=== PATIENT | female | born 1945 | race Caucasian/White ===

== ENCOUNTER 2024-07-17 14:00 | Outpatient (RCR) | payer OTHER, SELFPAY ==
[2024-07-10 14:56] LABS: Basophils % (Auto) 1 % (0-2.5); Eosinophils # (Auto) 0.1 Thou/mm3 (0.0-0.5); Eosinophils % (Auto) 2 % (0-10); Hematocrit 32.5 % (36.0-46.0); Hemoglobin 9.7 g/dL (12.0-16.0); Immature Granulocytes % (Auto) 0 % (0-0); Immature Granulocytes Auto 0.01 Thou/mm3 (0.00-0.00); Lymphocytes # (Auto) 0.5 Thou/mm3 (1.0-4.8); Lymphocytes % (Auto) 18 % (10-50); Mean Corpuscular HGB Conc 29.8 g/dl (31.0-37.0); Mean Corpuscular Hemoglobin 24.6 pg (25.0-35.0); Mean Corpuscular Volume 83 fL (80-100); Monocytes # (Auto) 0.3 Thou/mm3 (0.0-0.8); Monocytes % (Auto) 9 % (0-12); Neutrophils # (Auto) 2.1 Thou/mm3 (1.8-7.7); Neutrophils % (Auto) 69 % (37-80); Nucleated Red Blood Cell % 0 /100 WBC (0); Platelet Count 119 Thou/mm3 (140-440); RDW Standard Deviation 77.6 fL (36.4-46.3); Red Blood Count 3.94 Miln/mm3 (4.00-5.20)
[2024-07-10 15:11] LABS: Alanine Aminotransferase 19 U/L (10-49); Albumin, Serum 3.7 gm/dL (3.4-4.8); Albumin/Globulin Ratio 1.2 (1.2-2.2); Alkaline Phosphatase 179 U/L (46-116); Anion Gap 4 (7-16); Aspartate Amino Transferase 37 U/L (0-34); BUN/Creatinine Ratio 12 Ratio (12-20); Bilirubin,Total 0.8 mg/dL (0.3-1.2); Blood Urea Nitrogen 7 mg/dL (9-23); Calcium 8.9 mg/dL (8.3-10.6); Calcium (Corrected) 9.1 mg/dL (8.5-10.1); Carbon Dioxide 27.3 mMol/L (20.0-31.0); Chloride 108 mMol/L (98-107); Creatinine (Component) 0.6 mg/dL (0.6-1.3); Globulin 3.2 gm/dL (2.3-3.5); Glucose 91 mg/dL (74-106); Osmolality,Calculated 275 (275-295); Potassium 3.7 mMol/L (3.4-5.1); Sodium 139 mMol/L (136-145); Total Protein 6.9 gm/dL (5.7-8.2); eGFR > 60 See Note
[2024-07-10 15:15] LABS: Vitamin B12 556 pg/mL (211-911)
[2024-07-10 15:26] LABS: Ferritin 118 ng/mL (7.3-270.7); Total Iron Binding Capacity 297 mcg/dL (250-425)
[2024-07-10 15:36] LABS: Iron 30 mcg/dL (50-170); Percent Iron Saturation 10 % (20-55); Unsaturated Iron Binding 267 (225-295)
== END 2024-08-02 23:59 | disposition home or self-care (01) ==
LOC: SCTC 14:00
PROVIDERS: Nurse Practitioner Family; PCP Family Medicine; Referring Provider Family Medicine; Visit Provider Internal Medicine Hematology & Oncology
DX: D50.9 Iron deficiency anemia, unspecified (principal); D69.6 Thrombocytopenia, unspecified; Z86.19 Personal history of other infectious and parasitic diseases
CPT/HCPCS: 80053; 82607; 82728; 82746; 83540; 83550; 85025; 96365; Q0138

== ENCOUNTER → 2024-08-04 | Outpatient (CLI) | payer OTHER, SELFPAY ==
[2024-08-04 08:37] LABS: Basophils % (Auto) 1 % (0-2.5); Eosinophils # (Auto) 0.1 Thou/mm3 (0.0-0.5); Eosinophils % (Auto) 3 % (0-10); Hematocrit 38.8 % (36.0-46.0); Immature Granulocytes % (Auto) 0 % (0-0); Immature Granulocytes Auto 0.01 Thou/mm3 (0.00-0.00); Lymphocytes # (Auto) 0.6 Thou/mm3 (1.0-4.8); Lymphocytes % (Auto) 20 % (10-50); Mean Corpuscular HGB Conc 30.9 g/dl (31.0-37.0); Mean Corpuscular Hemoglobin 27.5 pg (25.0-35.0); Mean Corpuscular Volume 89 fL (80-100); Monocytes # (Auto) 0.3 Thou/mm3 (0.0-0.8); Monocytes % (Auto) 10 % (0-12); Neutrophils # (Auto) 1.8 Thou/mm3 (1.8-7.7); Neutrophils % (Auto) 66 % (37-80); Nucleated Red Blood Cell % 0 /100 WBC (0); Platelet Count 100 Thou/mm3 (140-440); RDW Standard Deviation 78.1 fL (36.4-46.3); Red Blood Count 4.37 Miln/mm3 (4.00-5.20)
[2024-08-04 08:48] LABS: White Blood Count 2.7 Thou/mm3 (3.6-11.0)
[2024-08-04 08:55] LABS: Folate 10.58 ng/mL (>5.38); Vitamin B12 507 pg/mL (211-911)
[2024-08-04 09:00] LABS: Alanine Aminotransferase 28 U/L (10-49); Albumin, Serum 3.8 gm/dL (3.4-4.8); Albumin/Globulin Ratio 1.3 (1.2-2.2); Alkaline Phosphatase 212 U/L (46-116); Anion Gap 7 (7-16); Aspartate Amino Transferase 43 U/L (0-34); BUN/Creatinine Ratio 17 Ratio (12-20); Bilirubin,Total 1.6 mg/dL (0.3-1.2); Blood Urea Nitrogen 10 mg/dL (9-23); Calcium (Corrected) 9.2 mg/dL (8.5-10.1); Carbon Dioxide 28.6 mMol/L (20.0-31.0); Chloride 105 mMol/L (98-107); Creatinine (Component) 0.6 mg/dL (0.6-1.3); Glucose 91 mg/dL (74-106); Osmolality,Calculated 280 (275-295); Sodium 141 mMol/L (136-145); Total Protein 6.8 gm/dL (5.7-8.2); eGFR > 60 See Note
[2024-08-04 09:16] LABS: Ferritin 121 ng/mL (7.3-270.7); Total Iron Binding Capacity 245 mcg/dL (250-425)
[2024-08-04 09:26] LABS: Iron 63 mcg/dL (50-170); Percent Iron Saturation 25 % (20-55); Unsaturated Iron Binding 182 (225-295)
== END | disposition home or self-care (01) ==
PROVIDERS: PCP Family Medicine; Referring Provider Nurse Practitioner Family; Visit Provider Nurse Practitioner Family
DX: D50.9 Iron deficiency anemia, unspecified (principal)
CPT/HCPCS: 36415; 80053; 82607; 82728; 82746; 83540; 83550; 85025

== ENCOUNTER 2024-08-05 13:47 | Outpatient (RCR) | payer OTHER, SELFPAY | END 2024-09-02 23:59 | disposition home or self-care (01) | LOC: SCTC 13:47 | PROVIDERS: PCP Family Medicine; Referring Provider Family Medicine; Visit Provider Nurse Practitioner Family | DX: D50.9 Iron deficiency anemia, unspecified (principal); R16.1 Splenomegaly, not elsewhere classified; K74.60 Unspecified cirrhosis of liver; K80.20 Calculus of gallbladder without cholecystitis without obstruction; D69.6 Thrombocytopenia, unspecified | CPT/HCPCS: 99212; G0463 ==

== ENCOUNTER → 2024-08-11 | Outpatient (CLI) | payer OTHER, SELFPAY ==
[2024-08-11 08:27] LABS: Basophils % (Auto) 1 % (0-2.5); Eosinophils # (Auto) 0.1 Thou/mm3 (0.0-0.5); Eosinophils % (Auto) 4 % (0-10); Hematocrit 37.6 % (36.0-46.0); Hemoglobin 11.8 g/dL (12.0-16.0); Immature Granulocytes % (Auto) 0 % (0-0); Lymphocytes # (Auto) 0.5 Thou/mm3 (1.0-4.8); Lymphocytes % (Auto) 23 % (10-50); Mean Corpuscular HGB Conc 31.4 g/dl (31.0-37.0); Mean Corpuscular Hemoglobin 28.1 pg (25.0-35.0); Mean Corpuscular Volume 90 fL (80-100); Monocytes # (Auto) 0.3 Thou/mm3 (0.0-0.8); Monocytes % (Auto) 12 % (0-12); Neutrophils # (Auto) 1.3 Thou/mm3 (1.8-7.7); Neutrophils % (Auto) 60 % (37-80); Nucleated Red Blood Cell % 0 /100 WBC (0); Platelet Count 131 Thou/mm3 (140-440)
[2024-08-11 08:38] LABS: White Blood Count 2.1 Thou/mm3 (3.6-11.0)
[2024-08-11 08:39] LABS: B-Type Natriuretic Peptide 126 pg/mL (0-100)
[2024-08-11 08:56] LABS: Alanine Aminotransferase 27 U/L (10-49); Albumin, Serum 3.7 gm/dL (3.4-4.8); Alkaline Phosphatase 212 U/L (46-116); Anion Gap 6 (7-16); Aspartate Amino Transferase 53 U/L (0-34); BUN/Creatinine Ratio 20 Ratio (12-20); Bilirubin,Direct 0.4 mg/dL (0.0-0.3); Blood Urea Nitrogen 12 mg/dL (9-23); Calcium 8.7 mg/dL (8.3-10.6); Carbon Dioxide 27.6 mMol/L (20.0-31.0); Cardiac Risk Estimate 2.6 RATIO (3.7-5.6); Chloride 107 mMol/L (98-107); Cholesterol 131 mg/dL (132-200); Creatinine (Component) 0.6 mg/dL (0.6-1.3); Free T4 (Free Thyroxine) 1.01 ng/dL (0.89-1.76); Glucose 94 mg/dL (74-106); HDL Cholesterol 51 mg/dL (40-60); LDL Cholesterol,Calculated 71 mg/dL (0-130); Osmolality,Calculated 280 (275-295); Potassium 3.9 mMol/L (3.4-5.1); Sodium 141 mMol/L (136-145); Thyroid Stimulating Hormone 2.73 uIU/mL (0.55-4.78); Total Protein 6.6 gm/dL (5.7-8.2); Triglycerides 47 mg/dL (30-150); eGFR > 60 See Note
== END | disposition home or self-care (01) ==
LOC: COPL 07:24
PROVIDERS: PCP Family Medicine; Referring Provider Internal Medicine Cardiovascular Disease; Visit Provider Internal Medicine Cardiovascular Disease
DX: I10 Essential (primary) hypertension (principal); E78.5 Hyperlipidemia, unspecified; I34.0 Nonrheumatic mitral (valve) insufficiency; I49.9 Cardiac arrhythmia, unspecified
CPT/HCPCS: 36415; 80048; 80061; 80076; 83880; 84439; 84443; 85025

== ENCOUNTER → 2024-09-04 | Outpatient (CLI) | payer OTHER, SELFPAY ==
[2024-09-04 08:34] LABS: Basophils % (Auto) 1 % (0-2.5); Eosinophils # (Auto) 0.1 Thou/mm3 (0.0-0.5); Eosinophils % (Auto) 4 % (0-10); Hematocrit 32.7 % (36.0-46.0); Hemoglobin 10.2 g/dL (12.0-16.0); Immature Granulocytes % (Auto) 0 % (0-0); Lymphocytes # (Auto) 0.5 Thou/mm3 (1.0-4.8); Lymphocytes % (Auto) 20 % (10-50); Mean Corpuscular HGB Conc 31.2 g/dl (31.0-37.0); Mean Corpuscular Hemoglobin 28.6 pg (25.0-35.0); Mean Corpuscular Volume 92 fL (80-100); Monocytes # (Auto) 0.3 Thou/mm3 (0.0-0.8); Monocytes % (Auto) 11 % (0-12); Neutrophils # (Auto) 1.7 Thou/mm3 (1.8-7.7); Neutrophils % (Auto) 66 % (37-80); Nucleated Red Blood Cell % 0 /100 WBC (0); Platelet Count 100 Thou/mm3 (140-440); Red Blood Count 3.57 Miln/mm3 (4.00-5.20)
[2024-09-04 08:46] LABS: White Blood Count 2.6 Thou/mm3 (3.6-11.0)
[2024-09-04 08:51] LABS: Alanine Aminotransferase 26 U/L (10-49); Albumin, Serum 3.7 gm/dL (3.4-4.8); Albumin/Globulin Ratio 1.2 (1.2-2.2); Alkaline Phosphatase 208 U/L (46-116); Anion Gap 5 (7-16); Aspartate Amino Transferase 51 U/L (0-34); BUN/Creatinine Ratio 18 Ratio (12-20); Bilirubin,Total 0.7 mg/dL (0.3-1.2); Blood Urea Nitrogen 11 mg/dL (9-23); Calcium 8.7 mg/dL (8.3-10.6); Calcium (Corrected) 8.9 mg/dL (8.5-10.1); Carbon Dioxide 29.6 mMol/L (20.0-31.0); Chloride 107 mMol/L (98-107); Creatinine (Component) 0.6 mg/dL (0.6-1.3); Globulin 3.1 gm/dL (2.3-3.5); Glucose 93 mg/dL (74-106); Osmolality,Calculated 282 (275-295); Potassium 3.8 mMol/L (3.4-5.1); Sodium 142 mMol/L (136-145); Total Protein 6.8 gm/dL (5.7-8.2); eGFR > 60 See Note
[2024-09-04 09:00] LABS: Folate 11.42 ng/mL (>5.38); Vitamin B12 405 pg/mL (211-911)
[2024-09-04 09:29] LABS: Ferritin 16 ng/mL (7.3-270.7); Iron 25 mcg/dL (50-170); Percent Iron Saturation 8 % (20-55); Total Iron Binding Capacity 297 mcg/dL (250-425); Unsaturated Iron Binding 272 (225-295)
== END | disposition home or self-care (01) ==
LOC: SCTO 07:05
PROVIDERS: PCP Family Medicine; Referring Provider Nurse Practitioner Family; Visit Provider Nurse Practitioner Family
DX: D50.9 Iron deficiency anemia, unspecified (principal)
CPT/HCPCS: 36415; 80053; 82607; 82728; 82746; 83540; 83550; 85025

== ENCOUNTER 2024-10-01 08:08 | Outpatient (RCR) | payer OTHER, SELFPAY ==
--- NOTE | 2024-09-11 01:18 | CTCFLWUP_ITS ---
Patient: TRACEY HUI : 1945 Page 4 of 5 FOLLOW UP NOTE DATE OF SERVICE: 09/10/2024 NAME: TRACEY HUI ACCOUNT: [id number] : 1945 AGE: 79 INTERVAL HISTORY: Patient is saying that she will likely need iron as she is feeling fatigued. She says that I should review her labs and possibly order iron infusion for her. She has seen her tax specialist and bravo ve never found a reason for her iron levels. She understand that she has cirrhosis and splenomegaly. She does not take oral iron as it does not work for her. She has never been diagnosed with bleeding ulcers or vaginal bleed or rectal bleed hematemesis or any other sources of blood loss ONCOLOGY HISTORY: DIAGNOSIS: Iron deficiency anemia, unspecified [ICD10] D50.9 TREATMENT HISTORY: Care?Plan Start?Date Cycle Day Intent VENOfer?200mg?IV?wkly 06/02/2020 1 70 Palliative VENOfer?200mg?IV?wkly?for?10?weeks 01/04/2022 1 70 Palliative FERAheme 06/14/2023 1 30 Other,?NOS FERAheme?4?doses 10/31/2023 1 28 Palliative FERAheme?4?doses 01/21/2024 1 28 Palliative FERAheme?4?doses 06/26/2024 1 28 Palliative HISTORY OF PRESENT ILLNESS: Ms. Hui is here at [facility] center. Patient last received Feraheme on 07/04. Patient reports improved energy levels after Feraheme. Labs from 08/04/2024 show hemoglobin 1 2.0, MCV 89. Ultrasound of abdomen done on 06/20/2024 showed significant splenomegaly, cirrhosis, ch olelithiasis negative for cholecystitis. Patient follows up with Dr. Fields, GI, patient reports she has previously declined surgical intervention for cholelithiasis as she does not have any abdominal p ain. She denies bleeding concerns. Patient reports good appetite. Patient denies any concerns or com plaints. Denies any blood in stool, black stools, jada blood per rectum. Denies any cough, chest p ain, abdominal pain, nausea, vomiting, diarrhea, fever, weight loss. HISTORY: Tracey Hui is a 79-year-old female with history of chronic anemia as well as auto immune hepatitis was taking azathioprine, patient discontinued reports liver enzymes have remained st able since discontinuing azathioprine, follows up with Dr. Donnie LUDWIG. She has been taking oral ferrou s sulfate 325 mg p.o. 3 times daily for last few years. Unfortunately, she was not responding to ora l ferrous sulfate. Reports occasional constipation when takes ferrous sulfate. She was required to re ceive IV iron therapy at least 3 times in the last 5 years. Patient states that she also had upper G I endoscopy by Dr. Garvin few years ago. She also had some kind of procedure done at [facility]. I do not have the reports of the endoscopy or the procedure done at [facility] at this time. 10/19/2018: Colonoscopy? 04/08/2020: WBC 1.9, ANC 1.1, hemoglobin 7.4, MCV 81, platelets 157,000. 04/27/2020 WBC 2.7, ANC 1.6, hemoglobin 7.1, MCV 76, platelets 158,000. 05/19/2020: WBC 3.4, ANC 2.1, hemoglobin 7.7, MCV 75, platelets 169,000. 06/02/2020?08/18/2020: Patient received 2 g of Venofer. 08/18/2020: WBC 2.3, ANC 1.5, hemoglobin 12.1, MCV 92, platelets 118,000. Iron saturation 23%, ferritin 265. 12/13/2021: Hemoglobin 7.1, MCV 70, WBC 1.9, ANC 1.0, platelets 140,000. 01/04/2022: Ms. Hui is started on Venofer infusions. 01/20/2022: Bone marrow biopsy and aspiration? 05/25/2022: WBC 2.1, ANC 1.3, hemoglobin 8.8, MCV 79, platelets 136,000, creatinine 0.5, iron saturati on 3%, ferritin 8. 06/15/2022 - 08/15/2022: Ms. Hui received 2 g of Venofer. 08/21/2022: Hemoglobin 12.7, MCV 91, WBC 2.6, ANC 1.7, platelets 111,000, iron saturation 15%, ferrit in 207. 03/09/2023: WBC 2.8, hemoglobin 11.1, MCV 90, ANC 1.9, platelets 126,000, iron saturation 8%, ferrit in 17 05/30/2023: WBC 3.1, hemoglobin 12.1, MCV 93, ANC 1.9, platelets 141,000, iron saturation 8%, ferriti n 16 06/14/2023: Feraheme 510mg IV infusion 06/21/2023: Ferahemer 510 mg IV infusion 10/02/2023: WBC 2.8, hemoglobin 10.9, MCV 88, ANC1.7, platelets 114,000, iron saturation 7%, ferritin 6 10/31/2023-12/01/2023: Feraheme x 4 infusions 11/28/2023: WBC 2.4, hemoglobin 12.2, MCV 92, ANC 1.6, platelets 124,000, iron saturation 24%, ferriti n 364 01/04/2024: WBC 2.6, hemoglobin 11.6, MCV 93, ANC 1.7, platelets 105,000, iron saturation 15%, ferritin 47 01/21/2024-02/11/2024: Feraheme 510 mg x 4 infusions 03/04/2024: WBC 2.8, hemoglobin 12.2, MCV 96, ANC 1.8, platelets 103,000, iron saturation 25%, ferritin 231 06/04/2024: WBC 2.7, hemoglobin 8.4, MCV 88, platelets 119,000, iron saturation 3%, ferritin 5 08/04/2024: WBC 2.7, hemoglobin 12.0, MCV 89, platelets 100,000 OTHER MEDICAL HISTORY/CONDITIONS: FAMILY HISTORY: ?Clone Family Hx? 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 Lasix - 20 mg 1 tab Daily?Palabra Meds? Medications Last Reconciled by Ita Torres MA on 09/10/2024 ALLERGIES: hydrocodone-acetaminophen; fentanyl (bulk); cephalexin; paper tape REVIEW OF SYSTEMS: A complete 14-point review of systems was performed and is negative except as noted in interval histo ry. PHYSICAL EXAMINATION: VITAL SIGNS: Temperature?98.2, B/P?137/74, Oxygen?Saturation?97% Weight?142?lbs PAIN: 0 - No pain ECOG Performance Status: 1 0 - Asymptomatic and fully active GENERAL APPEARANCE: Appears well, in no apparent distress, appropriately interactive. HEENT: Normocephalic, no temporal wasting, normal conjunctiva, no scleral icterus, normal hearing, li ps without lesions, neck normal range of motion. CARDIOVASCULAR: Not assessed. PULMONARY: Normal respiratory effort, no respiratory distress or use of accessory muscles, speaking i n full sentences, no tachypnea. EXTREMITIES: No pedal edema or cyanosis. SKIN: Normal skin appearance. NEUROLOGIC: Alert and oriented x4. PSHYCHIATRIC: Appropriate affect, mood normal, behavior normal, intact thought and speech. LABORATORY DATA: I have personally reviewed and interpreted each of the patient?s relevant lab tests, abnormal finding s are below: Date 09/04/24 ??WHITE?BLOOD?COUNT?(Thou/mm3) 2.6?L ??RED?BLOOD?COUNT?(Miln/mm3) 3.57?L ??HEMOGLOBIN?(gm/dl) 10.2?L ??HEMATOCRIT?(%) 32.7?L ??PLATELET?COUNT?(Thou/mm3) 100?L ??NEUTROPHILS?%,?AUTO?(%) 66 ??LYMPH?%,?AUTO?(%) 20 ??NEUTROPHILS,?AUTO?(Thou/mm3) 1.7?L ASSESSMENT/PLAN: Anemia from iron deficiency Reviewed chart and patient has been treated extensively with iron infusions I will keep iron infusions every 3 to 6 months as needed Patient is symptomatic Will give Feraheme for 4 doses to replenish her stores Patient may be having a hemolysis going on so we will check for LDH and haptoglobin ORDERS: Feraheme CBC CMP ferritin iron studies in I will see her back in the clinic in 3 months. LDH haptoglobin now RETURN TO CLINIC: I will see her back in the clinic in 3 months. BILLING AND COMPLIANCE: I reviewed external records from providers outside my specialty as summarized above. I spent a total of 50 minutes on this patient?s care on the day of their visit excluding time spent related to any bi lled procedures. This time includes time spent with the patient as well as time spent documenting in the medical record, reviewing patients records and tests, obtaining history, placing orders, communi cating with other healthcare professionals, counseling the patient, family or caregiver, and/or care coordination for the diagnoses above. Electronically Signed by: Pierre Cain MD T: 1:15 AM CC: PCP: Hailee Hanks Referring: Hailee Hanks This document was completed utilizing speech recognition software. Grammatical errors, random word in sertions, pronoun errors, and incomplete sentences are an occasional consequence of this system due t o software limitations, ambient noise, and hardware issues. Any formal questions or concerns about th e content, text or information contained within the body of this dictation should be directly address ed to the provider for clarification.
== END 2024-10-03 23:59 | disposition home or self-care (01) ==
LOC: SCTC 08:08
PROVIDERS: PCP Family Medicine; Referring Provider Family Medicine; Visit Provider Internal Medicine Hematology & Oncology
DX: D50.9 Iron deficiency anemia, unspecified (principal)
CPT/HCPCS: 96365; J7040; J7050; Q0138; Q3014

== ENCOUNTER 2024-10-15 08:11 | Outpatient (RCR) | payer OTHER, SELFPAY | END 2024-10-31 23:59 | disposition home or self-care (01) | LOC: SCTC 08:11 | PROVIDERS: PCP Family Medicine; Referring Provider Internal Medicine Hematology & Oncology; Visit Provider Internal Medicine Hematology & Oncology | DX: D50.9 Iron deficiency anemia, unspecified (principal); K74.60 Unspecified cirrhosis of liver; R16.1 Splenomegaly, not elsewhere classified | CPT/HCPCS: 96365; A4216; J7040; J7050; Q0138 ==

== ENCOUNTER 2024-11-20 07:45 | Inpatient (IN) | payer OTHER, MEDICARE, SELFPAY ==
[2024-11-18 08:13] VITALS: BMI 22.9
[2024-11-18 09:01] LABS: Basophils % (Auto) 1 % (0-2.5); Eosinophils # (Auto) 0.1 Thou/mm3 (0.0-0.5); Eosinophils % (Auto) 4 % (0-10); Hematocrit 37.7 % (36.0-46.0); Hemoglobin 12.1 g/dL (12.0-16.0); Immature Granulocytes % (Auto) 0 % (0-0); Lymphocytes # (Auto) 0.5 Thou/mm3 (1.0-4.8); Lymphocytes % (Auto) 23 % (10-50); Mean Corpuscular HGB Conc 32.1 g/dl (31.0-37.0); Mean Corpuscular Hemoglobin 29.8 pg (25.0-35.0); Mean Corpuscular Volume 93 fL (80-100); Monocytes # (Auto) 0.3 Thou/mm3 (0.0-0.8); Monocytes % (Auto) 12 % (0-12); Neutrophils # (Auto) 1.4 Thou/mm3 (1.8-7.7); Neutrophils % (Auto) 60 % (37-80); Nucleated Red Blood Cell % 0 /100 WBC (0); Platelet Count 99 Thou/mm3 (140-440); RDW Standard Deviation 57.6 fL (36.4-46.3); Red Blood Count 4.06 Miln/mm3 (4.00-5.20)
[2024-11-18 09:07] LABS: White Blood Count 2.3 Thou/mm3 (3.6-11.0)
[2024-11-18 09:12] LABS: INR 1.2 (0.9-1.3); Prothrombin Time 12.7 Seconds (9.0-12.2)
[2024-11-18 09:19] LABS: Alanine Aminotransferase 24 U/L (10-49); Albumin, Serum 3.6 gm/dL (3.4-4.8); Alkaline Phosphatase 197 U/L (46-116); Anion Gap 5 (7-16); Aspartate Amino Transferase 30 U/L (0-34); BUN/Creatinine Ratio 12 Ratio (12-20); Blood Urea Nitrogen 7 mg/dL (9-23); Calcium 8.8 mg/dL (8.3-10.6); Calcium (Corrected) 9.1 mg/dL (8.5-10.1); Carbon Dioxide 29.6 mMol/L (20.0-31.0); Chloride 105 mMol/L (98-107); Creatinine (Component) 0.6 mg/dL (0.6-1.3); Estimated Creatinine Clearance 66.2 mL/min (>60); Globulin 3.5 gm/dL (2.3-3.5); Glucose 99 mg/dL (74-106); Osmolality,Calculated 277 (275-295); Potassium 3.8 mMol/L (3.4-5.1); Sodium 140 mMol/L (136-145); Total Protein 7.1 gm/dL (5.7-8.2); eGFR > 60 See Note
--- NOTE | 2024-11-19 14:17 | SUR.PREOP ---
Dr Burton notified of WBC 2.3, okay to proceed with surgery. Dr Burton also notified the lab needs 40 min to thaw the FFP. Dr Burton needs to plasma ready on pt's arrival to [facility]. Ginny KING aware.
--- NOTE | 2024-11-19 14:31 | SUR.PREOP ---
Pt notified to come in tomorrow at 0800 for surgery.
--- NOTE | 2024-11-19 14:33 | SUR.PREOP ---
WBC 2.3, health history reviewed with Dr John.
[2024-11-20] VITALS (16 sets, daily range): BP systolic 90–123; BP diastolic 56–71; PULSE 77–111; RESP 12–19; TEMP 36.1–37; O2SAT 91–99; BMI 23.1; BMI 23.3
[2024-11-20] MEDS: RINGERS LACTATED 1000 ML 1,000 ML 20 ML IV (09:00)
--- NOTE | 2024-11-20 14:07 | PD.SUROPNT ---
Date of Procedure 11/20/24 Pre Op Diagnosis Symptomatic diverticular stricture Symptomatic cholelithiasis Splenomegaly Post Op Diagnosis Symptomatic diverticular stricture Symptomatic cholelithiasis Splenomegaly Liver cirrhosis Procedure Exploratory laparotomy, sigmoid colectomy with low pelvic anastomosis Splenectomy Cholecystectomy Findings Thickening and stricture of proximal sigmoid and distal descending colon. Significant splenomegaly. Significantly distended gallbladder with gallstones and chronic cholecystitis. Cirrhosis of the liver without ascites Anesthesia GETA Pathology / specimen Other (Sigmoid colon and distal descending colon. Spleen. Gallbladder and contents) Estimated Blood Loss 200 Condition Stable Disposition PACU Surgeon Kamran Burton MD Surgical Staff Operation Date: 11/20/24 10:00 Case Staff Anesthesiologist: Florin John RNdrill operator: Monisha Cheung
--- NOTE | 2024-11-20 14:09 | SUR.PHASEI ---
1407 Patient arrived to recovery resting comfortably in bed, on oxygen 6L via oxy mask with nasal airway in place, breathing unlabored, vitals signs stable, dressing intact; maikel, adaptic, abd, medipore tape, abdominal binder, no bleeding noted, urinary catheter 16F in place with leg secure, draining to gravity, lung sounds clear upon auscultation, bilateral radial pulses present when palpated, report received Dr. John and Chuck PARKER
--- NOTE | 2024-11-20 15:19 | SUR.PHASEI ---
patients daughter at bedside with patient
[2024-11-20] MEDS: KCL 20 mEq/L in D5-1/2NS 20 MEQ/1,000 ML BAG 60 MEQ IV (15:54)
[2024-11-20] MEDS: Morphine Sulfate PF 1 MG/ML PCA VIAL 30 ML 30 MG IV (16:13)
--- NOTE | 2024-11-20 17:34 | SUR.PHASEI ---
1712 Report given to Barb PARKER. 1734 Patient meets discharge criteria from recovery, resting comfortably in bed, on oxygen 6L via nasal cannula, breathing unlabored,vital signs stable, dressing intact; no bleeding noted, pain controlled with AIR TRAFFIC CONTROL OPERATOR, urinary catheter drain 50ml output, dark yellow urine, noted. Patient transported via bed to room 377 without incident, Barb PARKER and ASSET PROTECTION GREETER promptly in patients room, patient daughter in room awaiting patient, patient resting comfortably in bed with call light in reach when this residential mortgage underwriter left patient room
--- NOTE | 2024-11-20 17:56 | ESPR_ITS ---
Documentation for date of: 11/20/24 ANESTHESIA NOTE: Patient had GETA for ex lap and multiple abdominal surgeries (see op note for details) earlier today. Pre-op, I saw her with her visitor. She reported h/o PONV and wanted to try Scopolamine patch after risk/benefit discussion and was given the patch over R mastoid with education. 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 Her old echo showed MR and TR and she had larger than usual veins of neck and b/l UE. She did well intra-op, was intubated and extubated uneventfully. She was given 1 unit of RBC and 1 of FFP intra-op, along with about 1150 cc of crystalloid. She has been in PACU post op doing well, resting calmly throughout on my observation, post op pain controlled with OCCUPATIONAL HEALTH MANAGER, and was just transferred out of PACU. Florin John MD Anesthesia Progress Note Progress Note Most recent Vital Signs: Last Vital Signs Temp 97.3 F 11/20/24 14:38 Pulse 111 H 11/20/24 15:23 Resp 13 11/20/24 15:23 BP 115/59 L 11/20/24 15:23 Pulse Ox 95 11/20/24 15:23 O2 Flow Rate 8 11/20/24 15:23
[2024-11-20] MEDS: ACETAMINOPHEN IVPB 1,000 MG/100 ML VIAL 250 MG IV (23:18)
[2024-11-20] MEDS: ONDANSETRON INJ 2 MG/ML INJ 2 ML 4 MG IV (23:57)
--- NOTE | 2024-11-20 23:59 | PC.NURSE ---
accessed pt's chart to assist main RN.
[2024-11-21] VITALS (8 sets, daily range): BP systolic 108–124; BP diastolic 60–66; PULSE 76–85; RESP 16–20; TEMP 36.1–37.3; O2SAT 92–94
[2024-11-21] MEDS: CEFOXITIN 2 GM in SODIUM CHLORIDE 0.9% (Popper) 50 ML IV ×5 (00:44→23:21)
[2024-11-21] MEDS: ACETAMINOPHEN IVPB 1,000 MG/100 ML VIAL 250 MG IV ×2 (05:06→12:26)
[2024-11-21 06:07] LABS: Basophils % (Auto) 0 % (0-2.5); Eosinophils % (Auto) 0 % (0-10); Hematocrit 38.4 % (36.0-46.0); Immature Granulocytes % (Auto) 1 % (0-0); Immature Granulocytes Auto 0.09 Thou/mm3 (0.00-0.00); Lymphocytes # (Auto) 0.3 Thou/mm3 (1.0-4.8); Lymphocytes % (Auto) 2 % (10-50); Mean Corpuscular HGB Conc 31.3 g/dl (31.0-37.0); Mean Corpuscular Hemoglobin 28.9 pg (25.0-35.0); Mean Corpuscular Volume 93 fL (80-100); Monocytes # (Auto) 1.3 Thou/mm3 (0.0-0.8); Monocytes % (Auto) 8 % (0-12); Neutrophils # (Auto) 14.5 Thou/mm3 (1.8-7.7); Neutrophils % (Auto) 90 % (37-80); Nucleated Red Blood Cell % 0 /100 WBC (0); Platelet Count 141 Thou/mm3 (140-440); RDW Standard Deviation 58.2 fL (36.4-46.3); Red Blood Count 4.15 Miln/mm3 (4.00-5.20); White Blood Count 16.3 Thou/mm3 (3.6-11.0)
[2024-11-21 06:35] LABS: Alanine Aminotransferase 20 U/L (10-49); Albumin, Serum 3.2 gm/dL (3.4-4.8); Alkaline Phosphatase 144 U/L (46-116); Anion Gap 9 (7-16); Aspartate Amino Transferase 42 U/L (0-34); BUN/Creatinine Ratio 25 Ratio (12-20); Bilirubin,Total 1.2 mg/dL (0.3-1.2); Blood Urea Nitrogen 20 mg/dL (9-23); Calcium 8.5 mg/dL (8.3-10.6); Calcium (Corrected) 9.1 mg/dL (8.5-10.1); Carbon Dioxide 22.7 mMol/L (20.0-31.0); Chloride 108 mMol/L (98-107); Creatinine (Component) 0.8 mg/dL (0.6-1.3); Estimated Creatinine Clearance 47.6 mL/min (>60); Globulin 3.2 gm/dL (2.3-3.5); Glucose 171 mg/dL (74-106); Magnesium 1.8 mg/dL (1.6-2.6); Osmolality,Calculated 286 (275-295); Sodium 140 mMol/L (136-145); Total Protein 6.4 gm/dL (5.7-8.2); eGFR > 60 See Note
[2024-11-21] MEDS: FUROSEMIDE INJ 10 MG/ML VIAL 2 ML 20 MG IVP (09:30)
[2024-11-21] MEDS: ASCORBIC ACID 250 MG TABLET 500 MG PO (09:34)
[2024-11-21] MEDS: ZINC SULFATE 220 MG CAPSULE PO (09:35)
[2024-11-21] MEDS: DOCUSATE SOD 100 MG CAPSULE PO (09:35)
[2024-11-21] MEDS: MORPHINE SULF INJ 10 MG/ML VIAL 2 MG IVP ×4 (09:36→22:39)
--- NOTE | 2024-11-21 10:05 | CHAP ---
Patient expressed gratitude for visit and prayer.
--- NOTE | 2024-11-21 12:09 | PD.SURPROG ---
Documentation for date of: 11/21/24 Subjective Subjective Narrative: Patient is seen and examined. She is resting. She is complaining of incisional pain. She has not passed flatus or bowel movement yet Exam Vital Signs Temp Pulse Resp BP Pulse Ox O2 Del Method O2 Flow Rate 97.1 F 76 17 119/64 92 L Nasal Cannula 6 11/21/24 08:00 11/21/24 08:00 11/21/24 08:00 11/21/24 08:00 11/21/24 08:00 11/21/24 08:00 11/21/24 08:00 Constitutional Constitutional: no acute distress Routine Abdominal Exam Comments: Abdomen is soft and mildly distended. Incision with dressings clean, dry and intact. Assessment & Plan Assessment Additional comments: Postop day #1 status post exploratory laparotomy, sigmoid colectomy, splenectomy and cholecystectomy Plan May have ice chips. Patient is advised to increase ambulation and use incentive spirometer. Continue IV antibiotics Procedures Procedures Exploratory laparotomy, sigmoid colectomy with low pelvic anastomosis Splenectomy Cholecystectomy
[2024-11-21] MEDS: KCL 20 mEq/L in D5-1/2NS 20 MEQ/1,000 ML BAG 60 MEQ IV (12:26)
[2024-11-21] MEDS: ONDANSETRON INJ 2 MG/ML INJ 2 ML 4 MG IV ×2 (12:31→22:39)
--- NOTE | 2024-11-21 12:53 | PC.SS ---
SS met with patient and her dtr regarding patient's d/c plan.? Pt is alert/oriented.? Pt was admitted for Exp LAP [id number].? Pt confirmed demographic and contact information is correct on facesheet.? Patient's physical address is:? [address] [place] [address] [address] [facility].? Pt resides alone.? Dtr states she will be staying with pt for while at her home to help care for her.? Pt ambulates independently without assistance or DME.? Pt is ok with all ADLs.? Pt is currently on 9 liters of O2.? Pt does not utilizes O2 at home.? Patient?s pharmacy of choice is [facility].? Pt named her dtr, Sherry Senior medical decision maker if she is unable.? SS provided pt with d/c options for home or SNF.? Patient?s choice is to return home upon d/c.? Pt states she followed up with PCP last week. D/C plan:? Return home Next of Kin:? Sherry Senior, phone# [phone] PCP:? Dr. [place] Hanks Physical Address:? [address] [place] [address] [address] [facility]. Mailing Address:? [address]
[2024-11-22] VITALS (9 sets, daily range): BP systolic 103–131; BP diastolic 61–69; PULSE 68–100; RESP 12–20; TEMP 36.6–37.4; O2SAT 92–95
[2024-11-22] MEDS: MORPHINE SULF INJ 10 MG/ML VIAL 2 MG IVP ×5 (01:35→22:35)
[2024-11-22] MEDS: CEFOXITIN 2 GM in SODIUM CHLORIDE 0.9% (Popper) 50 ML IV ×3 (05:12→21:17)
[2024-11-22] MEDS: FUROSEMIDE INJ 10 MG/ML VIAL 2 ML 20 MG IVP (08:13)
[2024-11-22] MEDS: ASCORBIC ACID 250 MG TABLET 500 MG PO ×2 (08:13→20:27)
[2024-11-22] MEDS: ZINC SULFATE 220 MG CAPSULE PO (08:13)
[2024-11-22] MEDS: DOCUSATE SOD 100 MG CAPSULE PO ×2 (08:13→20:27)
--- NOTE | 2024-11-22 11:49 | PD.SURPROG ---
Documentation for date of: 11/22/24 Subjective Subjective Narrative: Patient is seen and examined. She is resting comfortably. She is complaining of incisional pain, however improved. She denies nausea or vomiting. She has not passed flatus or bowel movement yet Exam Vital Signs Temp Pulse Resp BP Pulse Ox O2 Del Method O2 Flow Rate 98.9 F 68 18 116/69 93 L Nasal Cannula 4 11/22/24 08:00 11/22/24 09:58 11/22/24 09:58 11/22/24 08:13 11/22/24 09:58 11/22/24 08:00 11/22/24 09:58 Constitutional Constitutional: no acute distress Routine Abdominal Exam Comments: Abdomen is soft and mildly distended. She has hypoactive bowel sounds. Incision with dressings clean, dry and intact Assessment & Plan Assessment Additional comments: Postop day #2 status post exploratory laparotomy, sigmoid colectomy, splenectomy and cholecystectomy Plan Will DC Khan catheter. Encouraged increase ambulation and use incentive spirometer. Will start patient on clear liquids. Procedures Procedures Exploratory laparotomy, sigmoid colectomy with low pelvic anastomosis Splenectomy Cholecystectomy
[2024-11-22] MEDS: KCL 20 mEq/L in D5-1/2NS 20 MEQ/1,000 ML BAG 40 MEQ IV (12:05)
[2024-11-22] MEDS: ACETAMINOPHEN 325 MG TABLET 650 MG PO (16:40)
--- NOTE | 2024-11-22 22:59 | PC.NURSE ---
Assisted patient to the restroom using a clark steady. Patient was able to sit on the edge of the bed with 1 person assist. Patient was also able to follow simple instructions and was able to pull herself in a standing position. Patient was then wheeled with the steady to the restroom and was able to steadily lower herself on the toilet. Patient then returned back to bed after using the restroom. Patient was also given pain medication due to the patinet having a chief complaint of pain. Patient urinated but had no bowel movement.
[2024-11-23] VITALS (9 sets, daily range): BP systolic 98–125; BP diastolic 50–86; PULSE 16–107; RESP 17–19; TEMP 36.4–37.2; O2SAT 94–98
[2024-11-23] MEDS: MORPHINE SULF INJ 10 MG/ML VIAL 2 MG IVP ×5 (02:53→23:28)
[2024-11-23] MEDS: CEFOXITIN 2 GM in SODIUM CHLORIDE 0.9% (Popper) 50 ML IV ×3 (05:02→21:41)
[2024-11-23 06:10] LABS: Basophils % (Auto) 0 % (0-2.5); Eosinophils % (Auto) 0 % (0-10); Hematocrit 36.1 % (36.0-46.0); Hemoglobin 11.3 g/dL (12.0-16.0); Immature Granulocytes % (Auto) 0 % (0-0); Immature Granulocytes Auto 0.02 Thou/mm3 (0.00-0.00); Lymphocytes # (Auto) 0.5 Thou/mm3 (1.0-4.8); Lymphocytes % (Auto) 7 % (10-50); Mean Corpuscular HGB Conc 31.3 g/dl (31.0-37.0); Mean Corpuscular Hemoglobin 29.3 pg (25.0-35.0); Mean Corpuscular Volume 94 fL (80-100); Monocytes # (Auto) 1.1 Thou/mm3 (0.0-0.8); Monocytes % (Auto) 14 % (0-12); Neutrophils # (Auto) 6.2 Thou/mm3 (1.8-7.7); Neutrophils % (Auto) 79 % (37-80); Nucleated Red Blood Cell % 0 /100 WBC (0); Platelet Count 174 Thou/mm3 (140-440); RDW Standard Deviation 58.2 fL (36.4-46.3); Red Blood Count 3.86 Miln/mm3 (4.00-5.20); White Blood Count 7.9 Thou/mm3 (3.6-11.0)
[2024-11-23 06:43] LABS: Albumin, Serum 2.9 gm/dL (3.4-4.8); Anion Gap 6 (7-16); BUN/Creatinine Ratio 48 Ratio (12-20); Blood Urea Nitrogen 24 mg/dL (9-23); Calcium 8.4 mg/dL (8.3-10.6); Calcium (Corrected) 9.3 mg/dL (8.5-10.1); Carbon Dioxide 29.3 mMol/L (20.0-31.0); Chloride 106 mMol/L (98-107); Creatinine (Component) 0.5 mg/dL (0.6-1.3); Estimated Creatinine Clearance 76.2 mL/min (>60); Glucose 86 mg/dL (74-106); Magnesium 1.8 mg/dL (1.6-2.6); Osmolality,Calculated 284 (275-295); Phosphorous 1.6 mg/dL (2.4-5.1); Sodium 141 mMol/L (136-145); eGFR > 60 See Note
[2024-11-23] MEDS: ZINC SULFATE 220 MG CAPSULE PO (08:01)
[2024-11-23] MEDS: ASCORBIC ACID 250 MG TABLET 500 MG PO ×2 (08:01→20:25)
[2024-11-23] MEDS: DOCUSATE SOD 100 MG CAPSULE PO ×2 (08:01→20:25)
[2024-11-23] MEDS: ACETAMINOPHEN 325 MG TABLET 650 MG PO ×2 (08:01→18:39)
[2024-11-23] MEDS: FUROSEMIDE INJ 10 MG/ML VIAL 2 ML 20 MG IVP (08:02)
--- NOTE | 2024-11-23 12:01 | PD.SURPROG ---
Documentation for date of: 11/23/24 Subjective Subjective Narrative: Patient is seen and examined. Her pain is improving. She is tolerating clear liquids without nausea or vomiting. She started passing flatus. Her Khan catheter was removed she has been voiding without difficulty Exam Vital Signs Temp Pulse Resp BP Pulse Ox O2 Del Method O2 Flow Rate 97.5 F 65 18 125/72 95 Nasal Cannula 4 11/23/24 08:00 11/23/24 09:39 11/23/24 09:39 11/23/24 08:02 11/23/24 09:39 11/23/24 08:00 11/23/24 09:39 Constitutional Constitutional: no acute distress Routine Abdominal Exam Abdominal: Present soft, normoactive bowel sounds, tenderness (Maricruz-incisional tenderness. Incision is clean, dry and intact) and distended (Very minimally distended) Assessment & Plan Assessment Additional comments: Postop day #3 status post exploratory laparotomy, sigmoid colectomy, splenectomy and cholecystectomy Plan Will advance to full liquids and Ensure supplements. Continue IV antibiotics. Continue to use incentive spirometer and increase ambulation Procedures Procedures Exploratory laparotomy, sigmoid colectomy with low pelvic anastomosis Splenectomy Cholecystectomy
[2024-11-23] MEDS: POT PHOS 15 mMol in NS 250 ML 15 MMOL/250 ML BAG 62.5 MMOL IV (14:44)
[2024-11-24] VITALS (9 sets, daily range): BP systolic 107–119; BP diastolic 59–71; PULSE 60–112; RESP 17–18; TEMP 36.2–37.3; O2SAT 93–98; BMI 23.3
[2024-11-24] MEDS: CEFOXITIN 2 GM in SODIUM CHLORIDE 0.9% (Popper) 50 ML IV ×3 (05:11→18:07)
[2024-11-24] MEDS: DOCUSATE SOD 100 MG CAPSULE PO ×2 (08:06→20:46)
[2024-11-24] MEDS: ASCORBIC ACID 250 MG TABLET 500 MG PO ×2 (08:06→20:46)
[2024-11-24] MEDS: ZINC SULFATE 220 MG CAPSULE PO (08:06)
[2024-11-24] MEDS: FUROSEMIDE INJ 10 MG/ML VIAL 2 ML 20 MG IVP (08:07)
[2024-11-24] MEDS: MORPHINE SULF INJ 10 MG/ML VIAL 2 MG IVP ×3 (09:24→20:37)
[2024-11-24] MEDS: ACETAMINOPHEN 325 MG TABLET 650 MG PO ×2 (09:28→18:15)
--- NOTE | 2024-11-24 12:55 | PC.SS ---
SS follow up note; pain is improving. Patient is tolerating clear liquids without nausea or vomiting.
--- NOTE | 2024-11-24 15:12 | PD.SURPROG ---
Documentation for date of: 11/24/24 Subjective Subjective Narrative: Patient is seen and examined. She is feeling much better. She is tolerating liquids without nausea or vomiting. She had a bowel movement Exam Vital Signs Temp Pulse Resp BP Pulse Ox O2 Del Method O2 Flow Rate 97.5 F 94 18 115/59 L 95 Nasal Cannula 3 11/24/24 12:00 11/24/24 12:00 11/24/24 12:00 11/24/24 12:00 11/24/24 12:00 11/24/24 12:00 11/24/24 03:56 Constitutional Constitutional: no acute distress Routine Abdominal Exam Comments: Abdomen is soft and nondistended. Incision is clean, dry and intact. Assessment & Plan Assessment Additional comments: Postop day #4 status post exploratory laparotomy, sigmoid colectomy, splenectomy and cholecystectomy Plan Will advance to soft diet. She did receive her haemophilus vaccine Procedures Procedures Exploratory laparotomy, sigmoid colectomy with low pelvic anastomosis Splenectomy Cholecystectomy
[2024-11-25] VITALS (9 sets, daily range): BP systolic 108–134; BP diastolic 52–75; PULSE 69–118; RESP 17–19; TEMP 36.1–36.8; O2SAT 93–98; BMI 14.0
[2024-11-25] MEDS: CEFOXITIN 2 GM in SODIUM CHLORIDE 0.9% (Popper) 50 ML IV ×4 (00:03→17:07)
[2024-11-25] MEDS: MORPHINE SULF INJ 10 MG/ML VIAL 2 MG IVP (03:22)
[2024-11-25 05:56] LABS: Basophils % (Auto) 0 % (0-2.5); Eosinophils # (Auto) 0.5 Thou/mm3 (0.0-0.5); Eosinophils % (Auto) 7 % (0-10); Hematocrit 35.2 % (36.0-46.0); Hemoglobin 11.5 g/dL (12.0-16.0); Immature Granulocytes % (Auto) 0 % (0-0); Immature Granulocytes Auto 0.02 Thou/mm3 (0.00-0.00); Lymphocytes # (Auto) 0.6 Thou/mm3 (1.0-4.8); Lymphocytes % (Auto) 9 % (10-50); Mean Corpuscular HGB Conc 32.7 g/dl (31.0-37.0); Mean Corpuscular Hemoglobin 29.6 pg (25.0-35.0); Mean Corpuscular Volume 91 fL (80-100); Monocytes # (Auto) 1.4 Thou/mm3 (0.0-0.8); Monocytes % (Auto) 21 % (0-12); Neutrophils # (Auto) 4.3 Thou/mm3 (1.8-7.7); Neutrophils % (Auto) 63 % (37-80); Nucleated Red Blood Cell % 0 /100 WBC (0); Platelet Count 242 Thou/mm3 (140-440); RDW Standard Deviation 54.7 fL (36.4-46.3); Red Blood Count 3.88 Miln/mm3 (4.00-5.20); White Blood Count 6.9 Thou/mm3 (3.6-11.0)
[2024-11-25 06:21] LABS: Albumin, Serum 2.9 gm/dL (3.4-4.8); Anion Gap 7 (7-16); BUN/Creatinine Ratio 34 Ratio (12-20); Blood Urea Nitrogen 17 mg/dL (9-23); Calcium 8.5 mg/dL (8.3-10.6); Calcium (Corrected) 9.4 mg/dL (8.5-10.1); Carbon Dioxide 30.5 mMol/L (20.0-31.0); Chloride 103 mMol/L (98-107); Creatinine (Component) 0.5 mg/dL (0.6-1.3); Estimated Creatinine Clearance 76.2 mL/min (>60); Glucose 95 mg/dL (74-106); Magnesium 1.8 mg/dL (1.6-2.6); Osmolality,Calculated 280 (275-295); Phosphorous 3.1 mg/dL (2.4-5.1); Potassium 3.8 mMol/L (3.4-5.1); Sodium 140 mMol/L (136-145); eGFR > 60 See Note
[2024-11-25] MEDS: DOCUSATE SOD 100 MG CAPSULE PO ×2 (08:26→20:21)
[2024-11-25] MEDS: ASCORBIC ACID 250 MG TABLET 500 MG PO ×2 (08:26→20:21)
[2024-11-25] MEDS: ZINC SULFATE 220 MG CAPSULE PO (08:26)
[2024-11-25] MEDS: FUROSEMIDE INJ 10 MG/ML VIAL 2 ML 20 MG IVP (08:27)
--- NOTE | 2024-11-25 10:36 | PC.SS ---
SS follow up note; SS was informed by patient's nurse Mandish that family was requesting Acute care for patient. SS submitted inquiry for acute care through [facility] platform.
--- NOTE | 2024-11-25 10:52 | CHAP ---
Patient was visited by a Spiritual Care Volunteer on 11/25/2024 between 0910 and 3633 and received comfort, encouragement and/or prayer.
[2024-11-25] MEDS: HYDROcodone/APAP 5/325 TABLET 1 TAB PO ×2 (13:38→22:20)
--- NOTE | 2024-11-25 15:14 | PC.SS ---
SS follow up note; Patient is pending PT eval, Acute facilities requesting PT eval. Patient's daughter would like patient to discharge to [facility] at the time [facility] is considering awaiting PT notes.
--- NOTE | 2024-11-25 15:28 | PD.SURPROG ---
Documentation for date of: 11/25/24 Subjective Subjective Narrative: Patient is seen and examined. Pain is improving. She is tolerating diet without nausea or vomiting and having bowel movement. However, she is not ambulating very well Exam Vital Signs Temp Pulse Resp BP Pulse Ox O2 Del Method O2 Flow Rate 98.2 F 118 H 18 134/75 H 94 L Nasal Cannula 1 11/25/24 12:00 11/25/24 12:00 11/25/24 12:00 11/25/24 12:00 11/25/24 12:00 11/25/24 12:00 11/25/24 12:00 Constitutional Constitutional: no acute distress Routine Abdominal Exam Comments: Abdomen is soft and nondistended. Incision is clean, dry and intact Assessment & Plan Assessment Additional comments: Postop day #5 status post exploratory laparotomy, sigmoid colectomy, splenectomy and cholecystectomy Plan Will ask physical therapy to assist ambulating the patient. If ambulation is improved with physical therapy, will transfer patient to rehab Procedures Procedures Exploratory laparotomy, sigmoid colectomy with low pelvic anastomosis Splenectomy Cholecystectomy
--- NOTE | 2024-11-25 17:43 | PC.PT ---
Patient is safe to ambulate in the east and to the bathroom using a FWW and 1 staff assist. RN made aware.
[2024-11-26] VITALS (8 sets, daily range): BP systolic 107–135; BP diastolic 61–69; PULSE 60–115; RESP 16–94; TEMP 36.3–37.3; O2SAT 92–95
[2024-11-26] MEDS: CEFOXITIN 2 GM in SODIUM CHLORIDE 0.9% (Popper) 50 ML IV ×5 (00:27→23:51)
[2024-11-26] MEDS: ACETAMINOPHEN 325 MG TABLET 650 MG PO ×2 (00:42→17:19)
[2024-11-26] MEDS: ASCORBIC ACID 250 MG TABLET 500 MG PO ×2 (08:34→20:23)
[2024-11-26] MEDS: DOCUSATE SOD 100 MG CAPSULE PO ×2 (08:35→20:23)
[2024-11-26] MEDS: ZINC SULFATE 220 MG CAPSULE PO (08:35)
[2024-11-26] MEDS: HYDROcodone/APAP 5/325 TABLET 1 TAB PO (08:41)
--- NOTE | 2024-11-26 10:10 | PC.SS ---
Addendum entered by PEYTON Garcia 11/26/24 16:31: Bed side nurse Safia was updated. Addendum entered by PEYTON Garcia 11/26/24 16:30: SS update: spoke with patient's daughter, Sherry in regards to d/c plan. Sherry wants to initiate a [employer] appeal. [employer] contact information provided via text message as Sherry unable to be present at the hospital. [employer] process explained to Sherry and she verbalized understanding. Addendum entered by PEYTON Garcia 11/26/24 15:27: Notified Dr. Burton that patient did not meet criteria for SNF. Request for home health orders. Bed side nurse is aware. Addendum entered by PEYTON Garcia 11/26/24 13:00: SS update: notified patient's family Sherry to make aware of [employer] declining SNF for the patient. Sherry voiced being upset, requesting to speak to patient's physician and nurse. Addendum entered by PEYTON Garcia 11/26/24 12:52: SS update: [employer] from [employer] insurance, patient does not meet SNF criteria. [facility] health recommended. Notified patient's nurse covering. Original Note: SS follow up: attempted contact with patient;s insurance carrier, [employer] and left a voicemail for call back to identify if patient meets criteria for SNF/Acute rehab. Pending response.
--- NOTE | 2024-11-26 12:46 | ESPR_ITS ---
Documentation for date of: 11/26/24 Subjective Subjective Narrative: Pt is seen and examined. Her pain is improving. She is tolerating diet and having bowel movements. She ambulated with PT yesterday Exam Vital Signs Temp Pulse Resp BP Pulse Ox O2 Del Method O2 Flow Rate 98.6 F 106 H 18 112/61 93 L Room Air 1 11/26/24 12:00 11/26/24 12:00 11/26/24 12:00 11/26/24 12:00 11/26/24 12:00 11/26/24 12:00 11/25/24 12:00 Constitutional Constitutional: no acute distress Routine Abdominal Exam Abdominal: Present soft, normoactive bowel sounds and tenderness (Maricruz- inciaional tenderness. Incision is clean,dry and intact); Absent distended Assessment & Plan Assessment Additional comments: Postop day #6 status post exploratory laparotomy, sigmoid colectomy, splenectomy and cholecystectomy Plan Awaiting insurance response as to whether pt will be transferred to rehab versus home with homehealth. Procedures Procedures Exploratory laparotomy, sigmoid colectomy with low pelvic anastomosis Splenectomy Cholecystectomy
[2024-11-27] VITALS (9 sets, daily range): BP systolic 107–132; BP diastolic 65–78; PULSE 72–105; RESP 16–95; TEMP 36.2–36.7; O2SAT 91–93
[2024-11-27] MEDS: HYDROcodone/APAP 5/325 TABLET 1 TAB PO (03:52)
[2024-11-27] MEDS: CEFOXITIN 2 GM in SODIUM CHLORIDE 0.9% (Popper) 50 ML IV ×3 (05:17→17:35)
[2024-11-27] MEDS: ZINC SULFATE 220 MG CAPSULE PO (08:29)
[2024-11-27] MEDS: DOCUSATE SOD 100 MG CAPSULE PO ×2 (08:29→20:10)
[2024-11-27] MEDS: ASCORBIC ACID 250 MG TABLET 500 MG PO ×2 (08:29→20:10)
[2024-11-27] MEDS: FUROSEMIDE INJ 10 MG/ML VIAL 2 ML 20 MG IVP (08:29)
--- NOTE | 2024-11-27 08:42 | PC.SS ---
Addendum entered by Gi Riveroneno [facility] 11/27/24 15:58: Also notified PT if they are able to evaluate the patient again this afternoon/tomorrow to assess for placement. Addendum entered by Gi Sauceda [facility] 11/27/24 15:55: SS follow up: notified [employer] of the cancelled appealed via verbal phone call. Provided them with [facility] case number and patient's information. Also faxed over letter to notify them via written letter as well. fax: [phone]. Addendum entered by Gi Sauceda [facility] 11/27/24 14:29: SS follow up: spoke with Dr. Burton regarding the need for d/c orders to submit appeal documents to [employer]. Per Dr. Burton he informs he will not put d/c orders as he feels patient is not safe to return home. Explained to the physician that patient's insurance informed that the patient does not meet criteria for SNF placement. Dr. Burton was informed that the d/c plan is for patient to return home with home health services, however physician informs he will not place d/c orders and patient will remain in the hospital. Addendum entered by Gi Riveroneno [facility] 11/27/24 13:47: Notified charge nurse Sherry on current status. Pending physician's d/c orders. Charge to reach out to physician. Addendum entered by Gi Sohail [facility] 11/27/24 11:09: Notified bed side nurse Safia, we are pending d/c orders from physician. Informs she will contact physician. Addendum entered by Gi Sohail, [facility] 11/27/24 10:54: SS update: spoke with Dr. Burton and informed him he will need to input d/c orders before we can submit documents for [employer] appeal. Pending d/c orders at this time. Addendum entered by Gi Riveroneno [facility] 11/27/24 08:54: SS updae: spoke with patient's daughter, Sherry to follow up on plan. Sherry informs if Dr. Burton wants to d/c the patient today, she will initiate appeal with [employer]. No case number was received yesterday as Sherry informs she was unable to initiate appeal with [employer]; additionally no d/c orders were in by the physician. Original Note: SS follow up: spoke with Dr. Burton about patient and family wanting to appeal d/c yesterday however if no d/c are in we are unable to proceed with an appeal. Per Dr. Burton d/c was cancelled yesterday as he wanted patient to remain another night for monitoring overnight.
[2024-11-27] MEDS: ONDANSETRON INJ 2 MG/ML INJ 2 ML 4 MG IV (09:46)
--- NOTE | 2024-11-27 11:22 | ESDS_ITS ---
Planned Discharge Date 11/29/24 DS: Providers Provider Date of admission: 11/20/24 07:45 Primary care physician: Los Hanks MD Admitting Provider: Kamran Burton MD Attending Provider on Admission: Kamran Burton MD Consults: 11/20/24 18:20 Health Equity Referral - Knowledge Deficit Routine Comment: Positive screening for knowledge deficit needs. Health Equity Referral - Nutrition Routine Comment: Positive screening for nutrition needs. Health Equity Referral - Transportation Routine Comment: Positive screening for transportation needs. Health Equity Referral - Utilities Routine Comment: Positive screening for utility assistance needs. 11/25/24 14:20 Referral Physical Therapy Stat Comment: Physician Instructions: 11/27/24 08:00 Referral Wound Care Routine Comment: Attending Provider on DC: Kamran Burton MD Discharging Provider: Kamran Burton MD Diagnosis Problem List Completed Was Problem List Reviewed/Reconciled?: Yes Hospital Course Patient underwent exploratory laparotomy with sigmoid colectomy, splenectomy and cholecystectomy. Her Khan catheter was removed on postop day #2, she was able to void without difficulty. Her pain was initially controlled with [employer] then changed to intermittent IV and oral pain medications. She was started on liquid diet and her diet was gradually advanced. She started passing flatus and had multiple bowel movements. Her incision has been clean, dry and intact. She has remained hemodynamically stable. Physical therapy was consulted to assist in ambulating the patient. Patient started ambulating with a walker assisted by physical therapist. Patient was able to ambulate with a walker without the assistance of physical therapist. Status at Discharge Functional status at discharge: uses cane/walker (With assistance) Overall status at discharge: patient is progressing back to baseline Exam Vital Signs Temp Pulse Resp BP Pulse Ox O2 Del Method O2 Flow Rate 97.1 F 72 18 119/65 93 L Room Air 1 11/27/24 08:00 11/27/24 08:29 11/27/24 08:00 11/27/24 08:29 11/27/24 08:00 11/27/24 08:00 11/27/24 04:00 Constitutional Constitutional: no acute distress Routine Abdominal Exam Comments: Abdomen is soft and nondistended. Incision is clean, dry and intact. Bowel sounds are active and present Discharge Plan Plan Patient Disposition: HOME (Self Care) Prescriptions/Referrals Prescriptions/Med Rec: New hydrocodone-acetaminophen 5-325 mg Tablet 1 tab PO Q6HR MDD 4 PRN (Reason: pain (scale score 7-10)) Qty: 20 0RF ascorbic acid (vitamin C) [Vitamin C] 250 mg Tablet 500 mg PO BID Qty: 60 0RF docusate sodium 100 mg Capsule 100 mg PO BID Qty: 60 0RF zinc sulfate 50 mg zinc (220 mg) Capsule 220 mg PO QDAY Qty: 30 0RF Continued furosemide 20 mg tablet 20 mg PO DAILY Referrals: Los Hanks MD [Primary Care Provider] - Patient/Caregiver Discharge Instructions Discharge Activity: as per physical therapy Education Materials: Preventing Surgical Site Infections Print Language: Faroese Activity Restrictions/Additional Instructions: May shower. Wear abdominal binder at all times. Avoid lifting, straining, pulling or pushing for 2 months. Follow-up with Dr Burton in 2 weeks, please call [phone] for an appointment. Stand Alone Forms: Ann [facility] Award Info., Patient Portal Info Letter Discharge Order Discharge Orders: Discharge (Routine); Ordered 11/29/24 Ordered By: Kamran Burton Procedures Procedure Date 11/20/24 Procedures Exploratory laparotomy, sigmoid colectomy with low pelvic anastomosis Splenectomy Cholecystectomy
[2024-11-28] VITALS (9 sets, daily range): BP systolic 104–120; BP diastolic 56–71; PULSE 73–101; RESP 17–94; TEMP 36.3–37.2; O2SAT 92–96
[2024-11-28] MEDS: ACETAMINOPHEN 325 MG TABLET 650 MG PO ×2 (01:45→23:35)
[2024-11-28] MEDS: FUROSEMIDE INJ 10 MG/ML VIAL 2 ML 20 MG IVP (09:33)
[2024-11-28] MEDS: ZINC SULFATE 220 MG CAPSULE PO (09:34)
[2024-11-28] MEDS: DOCUSATE SOD 100 MG CAPSULE PO ×2 (09:34→20:06)
[2024-11-28] MEDS: ASCORBIC ACID 250 MG TABLET 500 MG PO ×2 (09:34→20:06)
--- NOTE | 2024-11-28 10:11 | PC.SS ---
Addendum entered by Gaby Freed 11/28/24 10:55: SS received phone call from Charu a phlebotomy services representative from [employer] who states after reviewing patient's information she does not meet criteria for SNF, pt is independent, and contact guard assists. Per Charu, they will approve HH Services. Addendum entered by Gaby Freed 11/28/24 10:35: SS called [employer], patient's health insurance but was unable to speak with phlebotomy services representative. [facility] contact information and who SS was attempting to contact. Original Note: SS met with dtr to discuss patient's d/c plan. Dtr is aware patient's health insurance has declined SNF for pt. SS has informed dtr, she can pay privately for SNF placement. Dtr refused to pay privately and states if [employer] agrees with hospital pt will return home alone. Dtr explained she will be returning home at the beginning of December and pt will be alone. Dtr is aware pt can pay privately for caregivers.
--- NOTE | 2024-11-28 11:28 | PC.PT ---
Patient will be D/C from PT due to patient was xI with bed mobility, transfers, and ambulation with a FWW. Patient is safe to ambulate in the halls and to the bathroom with a FWW and no staff assistance. RN made aware.
--- NOTE | 2024-11-28 11:59 | PC.SS ---
Walkers ?The diagnosis creates mobility limitation that significantly impairs ability to participate in the patients activities of daily living either in their entirety, or in a reasonable time frame. Also the patient is able to safely use the walker and the patient?s mobility is sufficiently resolved with the use of the walker and cane has been ruled out. ?Bedside Commode Patient is physically incapable of utilizing regular toilet facilities because his or her diagnosis confines the patient to a single room. Patient is confined to a single level, and there is no toilet on that level; patient cannot access the toilet facilities in a timely manner due to lack of ambulation.
--- NOTE | 2024-11-28 12:07 | PD.SURPROG ---
Documentation for date of: 11/28/24 Subjective Subjective Narrative: Patient is seen and examined. She is resting comfortably. She is tolerating diet without nausea or vomiting and having bowel movement. She was able to ambulate with a walker assisted by physical therapist Exam Vital Signs Temp Pulse Resp BP Pulse Ox O2 Del Method O2 Flow Rate 97.4 F 73 17 110/56 L 95 Room Air 3 11/28/24 08:00 11/28/24 09:33 11/28/24 08:00 11/28/24 09:33 11/28/24 08:00 11/28/24 08:00 11/28/24 07:18 Constitutional Constitutional: no acute distress Routine Abdominal Exam Comments: Abdomen is soft and nondistended. She has active bowel sounds. Incision is clean, dry and intact Assessment & Plan Assessment Additional comments: Postop day #8 status post exploratory laparotomy, sigmoid colectomy, splenectomy and cholecystectomy Plan While patient is improving in ambulation with a walker assisted by physical therapy, it will not be safe for her to be discharged home and be alone by herself. She will require more physical therapy to obtain more strength for her to be independent. Continue Ensure supplement and diet as tolerated Procedures Procedures Exploratory laparotomy, sigmoid colectomy with low pelvic anastomosis Splenectomy Cholecystectomy
--- NOTE | 2024-11-28 12:14 | PC.SS ---
SS has faxed DME order to [employer] for walker and commode. SS attempted to inform dtr but she did not anwser.
--- NOTE | 2024-11-28 12:30 | CHAP ---
Spiritual Care Volunteer prayed silently for them. (Volunteer was in the hospital from 09:15-12:30).
--- NOTE | 2024-11-28 15:57 | PC.SS ---
SS followed up with Marry from [facility] who explained she has contacted patient's dtr and is aware walker and shower are ready for pick by her at [facility]. Per Marry, dtr is also aware shower chair is not covered by Medicare and dtr refused 3 in 1 commode.
--- NOTE | 2024-11-28 17:25 | PC.CC ---
Addendum entered and electronically signed by Jaylene Arroyo [facility] 11/28/24 17:48: Upon clarification with daughter, [facility] advised that Reference #[id number] in their system shows correct hospital and provider. No explanation given for 2nd reference #. Original Note: Received notification from [employer] of appeal [id number]. However, there are no current discharge orders. S/W [employer] and they confirmed that an appeal cannot be completed if no discharge order is in place. Met with patient and daughter, Sherry, at length at bedside. Advised that appeal cannot be completed at this time as there is no discharge order in place. Also advised that instructions from [facility] are for [facility] to rescind the appeal if no discharge is expected in 24 hours. Both patient and daughter expressed understanding. While at bedside, patient was presented with Notice of Denial of Medical Coverage from [facility]. Patient's daughter contacted [facility] to dispute the denial as there was incorrect information on the papers, as there was a different provider and different hospital listed. Per daughter, [facility] advised that the Reference # [id number] on the paperwork is not reflected in their system, and they have her case listed as pending under Reference # [id number]. Attempted to contact , however, it is currently after hours. Discussed with Torie, Director of Care Integration. Appeal documentation prepared in anticipation of possible need to complete appeal process and will be completed by Torie if needed. Appeal is not rescinded at this time.
--- NOTE | 2024-11-28 18:38 | PC.CM ---
7930-SECURITY PROGRAM MANAGER spoke with Dr. Burton regarding appeal. would like to peer to peer discussion with [employer] provider as he disagrees with insurance outcome of patient not meeting SNF criteria. 3487-SECURITY PROGRAM MANAGER spoke with Dr. Burton regarding appeal. Patient/Family has appealed for a second time. DC orders have not been entered. reports that RN can obtain order for D/C. Joyce PARKER made aware who reports she will contact MD and obtain verbal order.
--- NOTE | 2024-11-28 19:00 | PC.NURSE ---
Discharge order obtained from Dr. Burton via telephone: discharge home with home health.
[2024-11-29] VITALS (7 sets, daily range): BP systolic 106–127; BP diastolic 51–64; PULSE 62–107; RESP 16–91; TEMP 36.8–37.2; O2SAT 92–95
[2024-11-29] MEDS: ASCORBIC ACID 250 MG TABLET 500 MG PO (08:21)
[2024-11-29] MEDS: ZINC SULFATE 220 MG CAPSULE PO (08:21)
[2024-11-29] MEDS: FUROSEMIDE INJ 10 MG/ML VIAL 2 ML 20 MG IVP (08:22)
[2024-11-29] MEDS: DOCUSATE SOD 100 MG CAPSULE PO (08:22)
--- NOTE | 2024-11-29 11:18 | ESPR_ITS ---
Documentation for date of: 11/29/24 Subjective Subjective Narrative: Patient is seen and examined. Her pain is improving. She is tolerating diet and having bowel movements. Exam Vital Signs Temp Pulse Resp BP Pulse Ox O2 Del Method O2 Flow Rate 98.3 F 76 22 H 108/51 L 92 L Nasal Cannula 2 11/29/24 08:00 11/29/24 08:22 11/29/24 08:22 11/29/24 08:22 11/29/24 08:00 11/29/24 08:00 11/29/24 08:22 Constitutional Constitutional: no acute distress Routine Abdominal Exam Abdominal: Present soft, normoactive bowel sounds and tenderness (Mild margaret- incisional tenderness. Incision is clean, dry and intact); Absent distended Assessment & Plan Assessment Additional comments: Postop day #9 status post exploratory laparotomy, sigmoid colectomy, splenectomy and cholecystectomy Plan Patient's daughter appealed insurance decisions denial for rehab, awaiting final decision by the insurance. Procedures Procedures Exploratory laparotomy, sigmoid colectomy with low pelvic anastomosis Splenectomy Cholecystectomy
--- NOTE | 2024-11-29 16:46 | PC.SS ---
Implementation Project Coordinator (MARIELLA) Nirali notified by [facility] that patient's case had a final determination which indicated that the physician reviewer from [facility] agreed with Karissa Angeles and services need to be terminated as of 11/30/2024. MARIELLA met with patient and her daughter, Sherry at bedside. MARIELLA introduced self, role and reason for visit. MARIELLA attempted to explain Final Determination from [facility]. However, Sherry stopped MARIELLA and reported, I know, we know. We will be out of here by tomorrow, 11/30/2024 at 0800 am. MARIELLA confirmed discharge plan with patient and Sherry: patient will return home with home health, and her daughter, Sherry to provide transportation. MARIELLA informed Sherry that patient's insurance, [employer] works directly with [facility]; however, if [facility] is not available to provide services, then her information will be routed to any home health agency. MARIELLA offered community resources and both patient and Sherry agreed for SW to review them. MARIELLA provided pamphlet from [place] and discussed in detail resources for transportation, senior care care (private pay), home health, medical equipment, and physician clinics. Sherry reported that she picked up equipment from [facility]; however, the shower chair was bought through [employer]. MARIELLA also provided [place] [facility]. MARIELLA provided information for adult day care: [facility] and [facility]. MARIELLA provided [facility]'s [facility] Final Determination Letter. If any other questions arise, MARIELLA will remain available for any assistance.
--- NOTE | 2024-11-29 20:33 | PC.NURSE ---
Patient was discharged home with daughter. Patient denies pain or any discomfort. Incision CDI.
--- NOTE | 2024-12-01 08:22 | PC.CC ---
Addendum entered by Dorothy Shukla RN 12/01/24 13:18: SOC is 12/04 Addendum entered by Dorothy Shukla RN 12/01/24 11:46: Pt booked with [facility] Original Note: HH referral sent to [facility] due to [employer] insurance
--- NOTE | 2024-12-04 10:11 | PC.CM ---
I received a call from Nafisa at [facility]. She states the orders they received were hard to read. She asked if I could fax the order to [phone]. Paperwork faxed today.
== END 2024-11-29 20:33 | disposition home or self-care (01) | DRG 330 ==
LOC: S2W1 08:19 → S3SX 17:38
PROVIDERS: Anesthesiology; Admitting Provider Surgery; PCP Family Medicine; Visit Provider Surgery
PROC: 0DTN0ZZ Resection of Sigmoid Colon, Open Approach (ICD-10-PCS; CPT 49000; principal; 2024-11-20 10:00)
PROC: 0DTN0ZZ Resection of Sigmoid Colon, Open Approach (ICD-10-PCS; 2024-11-20 10:00)
PROC: 0FT40ZZ Resection of Gallbladder, Open Approach (ICD-10-PCS; CPT 47600; 2024-11-20 10:00)
DX: K56.699 Other intestinal obstruction unspecified as to partial versus complete obstruction (principal); K80.10 Calculus of gallbladder with chronic cholecystitis without obstruction; R16.1 Splenomegaly, not elsewhere classified; K74.60 Unspecified cirrhosis of liver
CPT/HCPCS: 36415; 80053; 80069; 83735; 85025; 85610; 86850; 86900; 86901; 86923; 86927; 90648; 94664; 97162; A4217; A4649; J0131; J0694; J1100; J1940; J2270; J2405; J2704; J2710; J3010; J3480; J3490; J7050; J7120; J7999; P9016; P9060; A9270; J1596; J1805

== ENCOUNTER 2024-12-10 21:34 | Inpatient (IN) | payer OTHER, MEDICARE, SELFPAY ==
[2024-12-10] VITALS (7 sets, daily range): BP systolic 96–128; BP diastolic 48–89; PULSE 99–150; RESP 18–26; TEMP 37.9; O2SAT 93–99; BMI 21.6
--- NOTE | 2024-12-10 21:40 | EKG_ITS ---
[facility] Test Date: 2024-12-10 Pat Name: ARIADNE FONSECA Department: Room: - Gender: Female Clinical Dental Technician: : 1945 Requested By: ED Temporary Provider Order Number: [id number] Reading MD: ED Temporary Provider Measurements Intervals Topping Rate: 133 P: NC: QRS: 5 QRSD: 95 T: 75 QT: 276 QTc: 411 Interpretive Statements ATRIAL FIBRILLATION WITH RAPID VENTRICULAR RESPONSE WITH ABERRANT CONDUCTION OR VENTRICULAR PREMATURE COMPLEXES LOW QRS VOLTAGE IN EXTREMITY LEADS [QRS DEFLECTION < 0.5 mV IN LIMB LEADS] MINIMAL ST DEPRESSION [0.025+ mV ST DEPRESSION] ABNORMAL RHYTHM ECG No previous ECG available for comparison /store/S0/[id number]/[id number].pdf
--- NOTE | 2024-12-10 21:57 | EDNOTE_ITS ---
ED Chest Pain RME/HPI General Chief Complaint: Chest Pain Stated Complaint: CHEST PAIN, COUGH Time Seen by Provider: 12/10/24 23:05 Arrival date/time: 12/10/24 21:34 RME / HPI RME / HPI narrative: This section includes all my notes and documentations, including HPI, PE, and ED course. Roscoe Moreno MD HPI: 79yo female with a history of cholecystectomy, splenectomy, colon resection on 11/20/[address] Josephine WALTON from home presents to the ED for a chief complaint of severe left-sided chest pain. Worsens when she coughs. Due to severe pain, she is uncertain if she is having fever or chills or other symptoms. ROS: All negative except as documented in HPI. Physical Exam: General: Alert and oriented. In severe pain. Fever noted. Eyes: Conjunctivae and lids clear. ENT: No nasal congestion. Neck: Supple. Heart: Irregularly irregular (150 bpm). Lungs: Uncertain about respiratory distress, and severe pain with any breathing. Decreased air movement with bilateral rhonchi and bilateral rails. Abdomen: Soft with equivocal tenderness, difficult to localize. No rebound or guarding. Legs: No clubbing, cyanosis, edema. Skin: Warm and dry. Neuro: Alert and oriented X 3. I reviewed all diagnostic test results. My interpretation of the EKG is atrial fibrillation with RVR (133 bpm). My interpretation of the chest x-ray is infiltrates. My interpretation of the chest CT report is: 1. No CT evidence of pulmonary thromboembolism. 2. Bilateral pleural effusions. 3. Multifocal pneumonia. 4. Cirrhosis associated with ascites. 5. Severely dilated left atrium. 6. Coronary arteries calcifications. If acute myocardial infarction is clinically suspected consider correlation with troponin. 7. Gastroesophageal varices. 8. Small hiatus hernia. My interpretation of the abdominal CT report is Cirrhosis associated with ascites and varices. Thrombosed splenic vein. Blood tests remarkable for WBC 14.7, lactic acid 2.4, ESR 55, D-dimer > 3820, K 3.3, CRP 5.4, BNP 291. UA showed leukocyte esterase, WBC 72, no squamous epithelial cells, and bacteria. COVID/influenza/RSV negative. ABG showed pH 7.44, P CO2 42, and pHCO3 29. At this point, diagnoses include: Sepsis Atrial fibrillation with RVR UTI Multifocal pneumonia Pleural effusions Cirrhosis Treatment here included Tylenol, Toradol 7.5 mg IV, diltiazem bolus and drip, Duoneb, Dilaudid, NS, Rocephine, Methylprednisolone, DuoNeb, Zofran, KCl, and Vancomycin. Significant improvement not noted. I discussed the case with our hospitalist. About the presentation and exam and diagnostics and treatments here. And need of further care in the hospital. Will accept the patient. Roscoe Moreno MD Related Data Home Medications ?Medication ?Instructions ?Recorded ?Confirmed furosemide 20 mg tablet 20 mg PO DAILY 11/18/2411/02 Previous Rx's ?Medication ?Instructions ?Recorded ascorbic acid (vitamin C) 250 mg 500 mg (2 x 250 mg) P O BID #60 tabs 11/27/24 tablet (Vitamin C) docusate sodium 100 mg capsule 100 mg PO BID #60 caps 11/27/24 hydrocodone 5 mg-acetaminophen 325 1 tab PO Q6HR PRN p ain (scale 11/27/24 mg tablet score 7-10) #20 tabs zinc sulfate 50 mg zinc (220 mg) 220 mg (4.4 x 50 mg z inc (220 mg)) 11/27/24 capsule PO QDAY #30 caps Allergies Allergy/AdvReac Type Severity Reaction Status Date / Time adhesive tape Allergy Verified 12/11/24 00:25 cephalexin (From Keflex) Allergy Verified 12/11/24 00:25 codeine Allergy Nausea Verified 12/11/24 00:25 latex Allergy Verified 12/11/24 00:25 levofloxacin (From Levaquin) Allergy Nausea Verified 12/11/24 00:25 sertraline Allergy Nausea Verified 12/11/24 00:25 Sulfa (Sulfonamide Allergy Verified 12/11/24 00:25 Antibiotics) hydrocodone AdvReac Mild Nausea Verified 12/11/24 00:25 meperidine AdvReac Mild UPPER GI Verified 12/11/24 00:25 propoxyphene AdvReac Mild Nausea Verified 12/11/24 00:25 Review of Systems Review of Systems Systems Reviewed: All systems reviewed, normal except as documented Past Medical History Past Medical History NEUROLOGIC: Positive Subdural Hematoma (brain bleed, 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, no surgery, no head trauma, it just happen); Negative Neurological Disorders, Cerebrovascular Accident, Transient Ischemic Attacks (TIA), Dementia, Alzheimer's Disease, Parkinson's Disease, Brain Tumor, Meningitis, Seizures, Epilepsy, Multiple Sclerosis, Cerebral Palsy, Amyotrophic Lateral Sclerosis (ALS/Dania Gehrig's), Guillain-[place] Syndrome, Spina Bifida, Paralysis, Peripheral Neuropathy, Brooks's Palsy, Migraine, Head Trauma, Spinal Cord Injury or Traumatic Brain Injury CARDIAC: Positive Cardiac Disorders, Valvular Heart Disease and Edema; Negative Myocardial Infarction, Cardiac Arrhythmia, Atrial Fibrillation, Angina, Heart Murmur, Coronary Artery Disease, Atherosclerotic Heart Disease, Peripheral Vascular Disease, Hypercholesterolemia, Aneurysm, Congestive Heart Failure, Congenital Heart Disease, Rheumatic Fever, Cardiomyopathy, Pericarditis, Cellulitis, Deep Vein Thrombosis, Hypertension, Hypotension or Varicose Veins RESPIRATORY: Negative Chronic Obstructive Pulmonary Disease (COPD), Asthma, Bronchitis, Emphysema, Pneumonia, Pulmonary Fibrosis, Cystic Fibrosis, Tuberculosis, Pulmonary Embolism, Pulmonary Edema or Sleep Apnea GASTROINTESTINAL: Positive Gastrointestinal Disorders (Enlarge spleen), Cirrhosis, Diverticulitis, Hemorrhoids (had surgery) and Gastroesophageal Reflux Disease; Negative Pancreatitis, Celiac Disease, Gall Bladder Disease, Gastrointestinal Bleed, Esophageal Varices, Vaz's Esophagus, Colitis, Ulcerative Colitis, Diverticulosis, Ulcer, Colorectal Cancer, Irritable Bowel, Crohn's Disease, Obstructive Bowel, Hiatal Hernia or Obesity GENITOURINARY: Negative Genitourinary Disorders, Renal Disease, Kidney Stones, Polycystic Kidney Disease, Neurogenic Bladder, Inguinal Hernia, Dialysis, Prostate Cancer or Benign Prostatic Hyperplasia REPRODUCTIVE: Positive Previous Pregnancies; Negative Breast Cancer, Endometriosis, Genital Herpes, Gonorrhea, Pelvic Inflammatory Disease, Syphilis, Testicular Cancer or Uterine Prolapse MUSCULOSKELETAL: Positive Musculoskeletal Disorders; Negative Muscular Dystrophy, Myasthenia Gravis, Marfan's Syndrome, Bone Cancer, Arthritis, Rheumatoid Arthritis, Osteoporosis, Degenerative Disk Disease, Gout, Scoliosis, Carpal Tunnel Syndrome, Fibromyalgia, Fractures, Degenerative Joint Disease, Osteomyelitis or Poliovirus ENT: Positive Cataracts, 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); Negative Glaucoma, Retinal Detachment, Macular Degeneration, Ear Infection, Head Trauma or Eye Prosthesis ENDOCRINE: Negative Endocrine Disorders, Diabetes Mellitus Type 1, Diabetes Mellitus Type 2, Hypoglycemia, [place]'s Syndrome, [place]'s Disease, Hyperthyroidism, Hypothyroidism, Parathyroid Disease, Pituitary Disease, Systemic Lupus Erythematosus, Syndrome of Inappropriate Antidiuretic Hormone (SIADH), Adrenal Disease or Graves' Disease HEMATOLOGIC: Positive Blood Disorders and Anemia (chronic, yrs of iron infusions); Negative Leukemia, Hemophilia, Thalassemia, Sickle Cell Disease or Clotting Problems PSYCHO/SOCIAL: Positive Anxiety; Negative Psychiatric Problems, Schizophrenia, Recreational Drug Use, Bipolar Disorder, Depression, Behavior Problems, Self-Mutilation, Attention Deficit Disorder, Attention Deficit Hyperactivity Disorder, Depression or Eating Disorder OTHER HISTORY: Positive Hospitalization, Falls, Blood Transfusions, Anesthesia Reactions (difficult to go sleep), Chicken Pox and Measles; Negative Autoimmune Disease, Autism, Shingles, Blood Transfusion Reaction, Organ Transplant, Chemotherapy, Radiation Therapy, Hyperbaric Therapy, MRSA, VRSA, Vancomycin-Resistant Enterococci, Human Immunodeficiency Virus (HIV), Mumps, Rubella ([place] Measles), Pertussis, Clostridium Difficile, Cancer, Breast Cancer, Cervical Cancer, Colorectal Cancer, Lung Cancer, Ovarian Cancer, Prostate Cancer or Testicular Cancer Family History FAMILY HISTORY: Positive Family Psychiatric Problems, Family Cardiac Disorders (brother [place]) and Family Cancer (Mother); Negative Family Respiratory Disorders, Family Gastrointestinal Problems, Family Surgery or Family Anesthesia Reaction Surgical History SURGICAL: Positive Cardiac Surgery, Angiogram (coronary, clear), Abdominal Surgery, Arthroscopy (bilateral knees) and Hysterectomy (BSO); Negative Open Heart Surgery, Coronary Artery Bypass Graft, Valve Replacement, Vascular Surgery, Coronary Stent, Cardiac Catheterization, Pacemaker, Auto Implanted Cardiovert Defib, Carotid Endarterectomy, Endocrine Surgery, Thyroidectomy, Ear Surgery, Tympanostomy Tube, Eye Surgery, Nose Surgery, Oral Surgery, Tonsillectomy, Adenoidectomy, Cochlear Implant, Corneal Transplant, Throat Surgery, Tracheostomy, Gastric Bypass Surgery, Gastrostomy, Bowel Surgery, Nephrectomy, Transurethral Resection, Joint Replacement, Amputation, Open Reduction Internal Fixation, Neurologic Surgery, Brain Shunt, Mastectomy, Lumpectomy, Tubal Ligation, Section or Organ Transplant Social History SMOKING STATUS: Former smoker ED Exam Narrative Physical exam: As noted at HPI. Course Course Course Narrative: CXR is ordered for determining the etiology of chest pain. 2232: Sepsis alert initiated. Orders made at this time are congruent with ED Adult Sepsis Order List. Re-evaluation is to be completed. 2233: NS IVF started. 0004: Sepsis reassessment performed consisting of lab review, vitals, physical exam including auscultation of heart, lungs, and visual evaluation of capillary refills, mucosal membranes and extremities. Quality Measures none Orders Category Date Time Status Bedside COVID-19 Antigen Test NOW Care 12/10/24 22:03 Active Bedside Influenza A&B Antigen Test NOW Care 12/10/24 22:03 Completed COVID-19 Screening Questionnaire NOW Care 12/11/24 02:[address] Screening NOW Care 12/10/24 22:05 Active Decision to Admit X1 Care 12/11/24 02:53 Completed EKG (ED ONLY) *Do not use* NOW Care 12/10/24 21:40 Completed EKG (ED ONLY) *Do not use* NOW Care 12/11/24 03:09 Active Saline [Insert IV] NOW Care 12/10/24 22:03 Active Straight [In and Out Catheter] X1 Care 12/10/24 22:[address] abdomen pelvis w con Stat Exams 12/10/24 22:[address] angio chest Stat Exams 12/10/24 22:05 Taken EKG (ED Only) Stat Exams 12/10/24 21:40 Draft EKG (ED Only) Stat Exams 12/11/24 03:08 Ordered XR chest 1V portable Stat Exams 12/10/24 22:05 Completed ABG [Arterial Blood Gas] Stat Lab 12/10/24 22:53 Completed Amylase Stat Lab 12/10/24 22:32 Completed BNP [B-Type Natriuretic Peptide] Stat Lab 12/10/24 22:32 Completed Bilirubin,Direct Stat Lab 12/10/24 22:32 Completed Blood Culture (Lab) Stat Lab 12/10/24 22:37 Received CBC Stat Lab 12/10/24 22:32 Completed CMP [Comprehensive Metabolic Panel] Stat Lab 12/10/24 22:32 Completed CRP [C-Reactive Protein] Stat Lab 12/10/24 22:32 Completed D-Dimer Stat Lab 12/10/24 22:32 Completed ESR [Sed Rate (ESR)] Stat Lab 12/10/24 22:32 Completed Free T4 (Free Thyroxine) Stat Lab 12/10/24 22:32 Completed Lactate (Lactic Acid) Stat Lab 12/10/24 22:37 Completed Lactic Acid, 3 HR Stat Lab 12/11/24 02:10 Completed Lipase Stat Lab 12/10/24 22:32 Completed Magnesium Stat Lab 12/10/24 22:32 Completed PT [Prothrombin Time with INR] Stat Lab 12/10/24 22:32 Completed PTT [Partial Thromboplastin Time] Stat Lab 12/10/24 22:32 Completed Procalcitonin Stat Lab 12/10/24 22:32 Completed RSV [Respiratory Syncytial Virus Ag] Stat Lab 12/11/24 00:41 Completed TSH [Thyroid Stimulating Hormone] Stat Lab 12/10/24 22:32 Completed Troponin I Stat Lab 12/10/24 22:32 Completed UA, C/S IF [Urinalysis, C/S if Indicated] Stat Lab 12/11/24 00:21 Completed Urine Culture Stat Lab 12/11/24 00:21 Received Acetaminophen Ivpb [Ofirmev Inj] Med 12/11/24 00:00 Active 1,000 mg in 100 ml IV Q6HR Albuterol/Ipratr Rt Maribel [Duoneb Rt Maribel] Med 12/10/24 22:03 Discontinued 3 ml INH X1 ONE DILTIAZEM in D5W 125 MG Med 12/10/24 22:10 Discontinued 125 mg in 125 ml IV 5 mg/hr Diltiazem Inj [Cardizem Inj] Med 12/10/24 22:10 Discontinued 20 mg IV X1 ONE HYDROmorphone INJ [Dilaudid Inj] Med 12/10/24 22:03 Discontinued 1 mg IVP X1 ONE KCL 10% Liq UDC 15 ML Med 12/11/24 00:10 Discontinued 40 meq PO X1 ONE Ketorolac Inj [Toradol Inj] Med 12/10/24 22:03 Discontinued 7.5 mg IVP X1 ONE MethylPREDNISolone.* [SoluMEDROL Inj] Med 12/10/24 22:03 Discontinued 125 mg IVP X1 ONE Norepinephrine/D5W 8mg/250ml [Levophed in D5W 8mg/250ml Med 12/11/24 00:26 Discontinued ] 8 mg in 250 ml IV 0.05 mcg/kg/min Ondansetron Inj [Zofran Inj] Med 12/10/24 22:03 Discontinued 4 mg IV X1 ONE Sodium Chloride 0.9% 1000 ml [Ns] 1,000 ml Med 12/10/24 22:03 Discontinued IV 999 mls/hr Vancomycin Inj 2,000 mg Med 12/11/24 02:28 Ordered Sodium Chloride 0.9% 500 ml [Ns] 500 ml IV X1 cefTRIAXone [Rocephin] 1,000 mg Med 12/10/24 22:03 Discontinued SODIUM CHLORIDE 0.9% (Popper) [Ns 0.9% (P)] 50 ml IV X1 Vital Signs Vital signs: Vital Signs Temperature 100.2 F 12/10/24 22:11 Pulse Rate 136 H 12/10/24 22:11 Respiratory Rate 21 H 12/10/24 22:11 Blood Pressure 121/89 H 12/10/24 22:11 Pulse Oximetry (%) 94 L 12/10/24 22:11 Oxygen Delivery Method Room Air 12/10/24 22:11 Chest Pain MDM Narrative MDM Narrative:: Scribe Attestation: 12/10/24 Angie Velásquez am scribing for and in the presence of Dr. Moreno. Patient data External records reviewed:: [facility] previous records (Per chart review, patient has no previous ED visits.) Clinical information provided by:: patient Social determinants that could affect healthcare access:: none Patient has the following chronic illnesses:: splenectomy, colon resection, cholecystectomy How is presenting disease/condition affected by chronic disease/condition?: uneffected by Evaluation data The following diagnostics were reviewed and interpreted by me:: lab results, radiology exam(s) and EKG tracing(s) Lab and/or radiology exams considered but not ordered:: none Interpretation Summary: Sepsis Atrial fibrillation with RVR UTI Multifocal pneumonia Pleural effusions Cirrhosis Medications / Prescriptions Medications or Prescriptions considered but not ordered:: none Medication administrations:: Medication Administration History Acetaminophen (Ofirmev Inj) 1,000 mg in 100 mls @ 250 mls/hr IV Q6HR ELINOR Stop: 12/11/24 18:23 Last Infusion: 12/10/24 23:09 Dose: Infused Documented By: Admin: 12/10/24 22:45 Dose: 250 mls/hr Documented By: BUSTER Vancomycin HCl 2,000 mg/ (Sodium Chloride) 500 mls @ 150 mls/hr IV X1 ONE Stop: 12/11/24 05:47 Discontinued Medications Albuterol/Ipratropium (Albuterol/Ipratropium (Duoneb) Rt Maribel 3 Ml Nebu) 3 ml INH X1 ONE Stop: 12/10/24 22:04 Last Admin: 12/10/24 22:14 Dose: 3 ml Documented By: ARIADNE Diltiazem HCl (Diltiazem Inj 5 Mg/Ml Vial 5 Ml) 20 mg IV X1 ONE Stop: 12/10/24 22:11 Last Admin: 12/10/24 22:40 Dose: 20 mg Documented By: LB Hydromorphone HCl (Hydromorphone Inj 2 Mg/Ml Vial) 1 mg IVP X1 ONE Stop: 12/10/24 22:04 Last Admin: 12/10/24 22:27 Dose: 1 mg Documented By: LB Sodium Chloride (Ns) 1,000 mls @ 999 mls/hr IV .Q1H1M ONE Stop: 12/10/24 23:03 Last Infusion: 12/10/24 23:34 Dose: Infused Documented By: Admin: 12/10/24 22:33 Dose: 999 mls/hr Documented By: LB Ceftriaxone Sodium 1,000 mg/ (Sodium Chloride) 50 mls @ 100 mls/hr IV X1 ONE Stop: 12/10/24 22:32 Last Infusion: 12/11/24 00:36 Dose: Infused Documented By: Admin: 12/11/24 00:06 Dose: 100 mls/hr Documented By: LB Diltiazem HCl (Diltiazem In D5w 125 Mg) 125 mg in 125 mls @ 5 mls/hr IV .Q24H ONE; Protocol Stop: 12/11/24 22:09 Last Admin: 12/10/24 23:05 Dose: 5 mg/hr, 5 mls/hr Documented By: LB Norepinephrine/Dextrose (Levophed In D5w 8mg/250ml) 8 mg in 250 mls @ 1.276 mls/hr IV .Q24H PRN; Protocol PRN Reason: PER PROTOCOL Stop: 01/10/25 00:25 Ketorolac Tromethamine (Ketorolac Inj 30 Mg/Ml Vial) 7.5 mg IVP X1 ONE Stop: 12/10/24 22:04 Last Admin: 12/10/24 22:33 Dose: 7.5 mg Documented By: LB Methylprednisolone Sodium Succinate (Methylprednisolone Sod Succ 62.5 Mg/Ml 2ml Vial) 125 mg IVP X1 ONE Stop: 12/10/24 22:04 Last Admin: 12/10/24 22:37 Dose: 125 mg Documented By: LB Ondansetron HCl (Ondansetron Inj 2 Mg/Ml Inj 2 Ml) 4 mg IV X1 ONE; Protocol Stop: 12/10/24 22:04 Last Admin: 12/10/24 22:26 Dose: 4 mg Documented By: LB Potassium Chloride (Potassium Chloride 10% 20 Meq/15 Ml Udc) 40 meq PO X1 ONE Stop: 12/11/24 00:11 Last Admin: 12/11/24 01:26 Dose: 40 meq Documented By: BUSTER Treatment here included Tylenol, Toradol 7.5 mg IV, diltiazem bolus and drip, Duoneb, Dilaudid, NS, Rocephine, Methylprednisolone, DuoNeb, Zofran, KCl, and Vancomycin. Consultations Consultation(s) initiated? (list below): No Diagnosis Chest Pain Differential Diagnosis: pneumothorax, stable angina, unstable angina pectoris, atypical chest pain, st elevation myocardial infarction, biliary colic and other (UTI, pneumonia, sepsis, dehydration, electrolyte abnormalities) Most likely diagnosis given after review of the tests above:: Sepsis Atrial fibrillation with RVR UTI Multifocal pneumonia Pleural effusions Cirrhosis Admission Indicated Admission indicated?: indicated Explain why admission is indicated or not indicated:: Sepsis Atrial fibrillation with RVR UTI Multifocal pneumonia Pleural effusions Cirrhosis Admission Request Was there a request for admission?: Yes Admission Attestation Admission request attestation: Discussed case with Hospitalist service regarding admission. Discussed patients ED course, exam findings, labs, and radiology results. The Hospitalist [agrees] to accept the patient for admission. Disposition Plan Disposition Plan: Admit Critical Care Time Critical Care Time Critical Care Time: Yes Total Critical Care Time (min.): 45 Attestation: Due to a high probability of clinically significant, life threatening deterioration, the patient required my highest level of preparedness to intervene emergently and I personally spent this critical care time directly and personally managing the patient. This critical care time included obtaining a history; examining the patient; ordering and review of studies; arranging urgent treatment with development of a management plan; evaluation of patient's resp onse to treatment; frequent reassessment; and discussions with family and other providers. It was exclusive of separately billable procedures and treating other patients and teaching time. Roscoe Moreno MD Discharge Plan Plan Patient Disposition: Admit Acute Care w/in Hospital Prescriptions/Referrals Prescriptions/Med Rec: No Action furosemide 20 mg tablet 20 mg PO DAILY hydrocodone-acetaminophen 5-325 mg Tablet 1 tab PO Q6HR MDD 4 PRN (Reason: pain (scale score 7-10)) Qty: 20 0RF ascorbic acid (vitamin C) [Vitamin C] 250 mg Tablet 500 mg PO BID Qty: 60 0RF docusate sodium 100 mg Capsule 100 mg PO BID Qty: 60 0RF zinc sulfate 50 mg zinc (220 mg) Capsule 220 mg PO QDAY Qty: 30 0RF Problem List Clinical Impression: Sepsis, Pneumonia, UTI (urinary tract infection), Atrial fibrillation with RVR Patient/Caregiver Discharge Instructions Print Language: Icelandic Stand Alone Forms: Ann Marie Award Info., Patient Portal Info Letter
--- NOTE | 2024-12-10 22:05 | XR_ITS ---
Examination: CT abdomen with intravenous contrast CT pelvis with intravenous contrast 2-D coronal reconstructions 2-D sagittal reconstructions Date and time of exam:December 11, 2024 0109 hrs. Indications: Status post abdominal surgery November 20, 2024: Shortness of breath abdominal pain chest pain. CTDI: vol (mGy) 7.64 DLP: (mGycm) 396 Technique: Multiple axial sections of the abdomen and pelvis have been obtained. 64 slice high-resolution scanner used. 3 mm axial sections have been obtained, post intravenous injection 100 cc Isovue-370 2-D sagittal, coronal reconstructions obtained. Low dose protocols were performed. One or more of the following dose reduction techniques were used; automated exposure control, adjustment of the mA and/or KV according to patient size, use of iterative reconstruction technique. 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
--- NOTE | 2024-12-10 22:05 | XR_ITS ---
Examination: CTA chest with intravenous contrast 2-D reconstructions 3-D reconstructions, vascular Date and time of exam: December 11, 2024 0109 hrs. Indications: Onset chest pain shortness of breath today CTDI: vol (mGy) 6.71 DLP: (mGycm) 232 Technique: Multiple axial sections of the thorax have been obtained. 3 mm slice thickness, from below the hemidiaphragms to above the apices of the lungs. Mediastinal and lung density settings have been obtained. 2-D sagittal and coronal reconstructions. 3-D angiographic renderings, 3-D volume renderings, 3D post processing, vascular maximum intensity projections obtained. Contrast administered is 100 cc Isovue-370. Low dose protocols were performed. One or more of the following dose reduction techniques were used; automated exposure control, adjustment of the mA and/or KV according to patient size, use of iterative reconstruction technique. Findings: No thoracic aortic aneurysm dilatation Moderate cardiomegaly No pulmonary artery emboli No paratracheal tracheobronchial or bronchopulmonary adenopathy Fluid density anterior to the pulmonary artery main segment axial image 97 Pneumonia both bases with small pleural effusions Impression: Negative for pulmonary artery emboli Small bilateral pleural effusions with bibasilar pneumonia
--- NOTE | 2024-12-10 22:05 | XR_ITS ---
Examination: AP chest single view Technique: AP portable upright chest single view Exam date and time: December 10, 2024 1025 hrs. Comparison October 29, 2013 Indications: Shortness of breath today. Findings: Early pneumonia right base Mild enlargement cardiac contour with mild vascular congestion Moderate osteopenia Impression: Early pneumonia right base
--- NOTE | 2024-12-10 22:08 | PC.NURSE ---
Initial contact with pt. Awake, GCS 15, anxious and cooperative. Pt c/o Left chest discomfort since 14:00 today. Occ moist cough noted.
[2024-12-10] MEDS: ALBUTEROL/IPRATROPIUM (Duoneb) RT SOL 3 ML NEBU INH (22:14)
[2024-12-10] MEDS: ONDANSETRON INJ 2 MG/ML INJ 2 ML 4 MG IV (22:26)
[2024-12-10] MEDS: HYDROmorphone INJ 2 MG/ML VIAL 1 MG IVP (22:27)
[2024-12-10] MEDS: SODIUM CHLORIDE 0.9% 1000 ML 1,000 ML 999 ML IV (22:33)
[2024-12-10] MEDS: KETOROLAC INJ 30 MG/ML VIAL 7.5 MG IVP (22:33)
[2024-12-10] MEDS: MethylPREDNISolone SOD SUCC 62.5 MG/ML 2ML VIAL 125 MG IVP (22:37)
[2024-12-10] MEDS: DILTIAZEM INJ 5 MG/ML VIAL 5 ML 20 MG IV (22:40)
[2024-12-10] MEDS: ACETAMINOPHEN IVPB 1,000 MG/100 ML VIAL 250 MG IV (22:45)
[2024-12-10 22:46] LABS: Lactate (Lactic Acid) 2.4 mMol/L (0.4-2.0)
[2024-12-10 22:56] LABS: Base Excess 4 (-3-3); HCO3 29 mEq/L (20-26); Inspired Oxygen, FIO2 21 %; O2 Saturation 90 % (91-98); PCO2 42 mmHg (32.0-48.0); pH, Arterial 7.44 (7.35-7.45)
[2024-12-10 22:59] LABS: Basophils # (Auto) 0.1 Thou/mm3 (0.0-0.2); Basophils % (Auto) 0 % (0-2.5); Eosinophils % (Auto) 0 % (0-10); Hemoglobin 11.3 g/dL (12.0-16.0); Immature Granulocytes % (Auto) 1 % (0-0); Immature Granulocytes Auto 0.07 Thou/mm3 (0.00-0.00); Lymphocytes # (Auto) 0.4 Thou/mm3 (1.0-4.8); Lymphocytes % (Auto) 3 % (10-50); Mean Corpuscular HGB Conc 32.3 g/dl (31.0-37.0); Mean Corpuscular Hemoglobin 29.5 pg (25.0-35.0); Mean Corpuscular Volume 91 fL (80-100); Monocytes # (Auto) 2.8 Thou/mm3 (0.0-0.8); Monocytes % (Auto) 19 % (0-12); Neutrophils # (Auto) 11.3 Thou/mm3 (1.8-7.7); Neutrophils % (Auto) 77 % (37-80); Nucleated Red Blood Cell % 0 /100 WBC (0); Platelet Count 559 Thou/mm3 (140-440); RDW Standard Deviation 50.8 fL (36.4-46.3); Red Blood Count 3.83 Miln/mm3 (4.00-5.20); White Blood Count 14.7 Thou/mm3 (3.6-11.0)
[2024-12-10 23:01] LABS: Allen Test Performed/OK; PO2 58 mmHg (83-108); Puncture Site Right Radial
[2024-12-10] MEDS: DILTIAZEM in D5W 125 MG 125 MG/125 ML BAG IV (23:05)
[2024-12-10 23:18] LABS: Sed Rate (ESR) 55 mm/hr (0-30)
[2024-12-10 23:19] LABS: B-Type Natriuretic Peptide 291 pg/mL (0-100)
[2024-12-10 23:26] LABS: INR 1.2 (0.9-1.3); Partial Thromboplastin Time 30.5 Seconds (22.0-36.0); Prothrombin Time 13.3 Seconds (9.0-12.2)
[2024-12-10 23:38] LABS: D-Dimer > 3820 ng/mL (<600)
[2024-12-10 23:55] LABS: Alanine Aminotransferase 22 U/L (10-49); Albumin, Serum 3.3 gm/dL (3.4-4.8); Alkaline Phosphatase 201 U/L (46-116); Amylase 58 U/L (30-118); Anion Gap 7 (7-16); Aspartate Amino Transferase 35 U/L (0-34); BUN/Creatinine Ratio 22 Ratio (12-20); Bilirubin,Direct 0.4 mg/dL (0.0-0.3); Bilirubin,Total 0.9 mg/dL (0.3-1.2); Blood Urea Nitrogen 13 mg/dL (9-23); C-Reactive Protein 5.4 mg/dL (0.0-0.9); Calcium 8.5 mg/dL (8.3-10.6); Calcium (Corrected) 9.1 mg/dL (8.5-10.1); Carbon Dioxide 27.6 mMol/L (20.0-31.0); Chloride 98 mMol/L (98-107); Creatinine (Component) 0.6 mg/dL (0.6-1.3); Estimated Creatinine Clearance 15.8 mL/min (>60); Free T4 (Free Thyroxine) 1.02 ng/dL (0.89-1.76); Globulin 3.4 gm/dL (2.3-3.5); Glucose 146 mg/dL (74-106); Lipase 35 U/L (12-53); Magnesium 1.9 mg/dL (1.6-2.6); Osmolality,Calculated 269 (275-295); Potassium 3.3 mMol/L (3.4-5.1); Procalcitonin 0.14 ng/ml (0.0-0.49); Sodium 133 mMol/L (136-145); Thyroid Stimulating Hormone 2.02 uIU/mL (0.55-4.78); Total Protein 6.7 gm/dL (5.7-8.2); Troponin I < 0.020 ng/mL (0.0-0.045); eGFR > 60 See Note
--- NOTE | 2024-12-10 23:59 | PC.NURSE ---
Clarified with pharmacy qwith regards to Rocephin IVPB
[2024-12-11] VITALS (45 sets, daily range): BP systolic 92–121; BP diastolic 54–88; PULSE 76–132; RESP 13–24; TEMP 36.1–37.2; O2SAT 93–98; BMI 23.3
[2024-12-11] MEDS: cefTRIAXone 1,000 MG in SODIUM CHLORIDE 0.9% (Popper) 50 ML 100 MG IV (00:06)
[2024-12-11 00:30] LABS: Collection Type, Urine Clean Catch; RBC,Urine 0 /hpf (0-3)
[2024-12-11 00:58] LABS: Bacteria,Urine Rare; Bilirubin,Urine Negative (Negative); Blood,Urine Negative (Negative); Clarity,Urine Clear (Clear/Hazy); Color,Urine Yellow (Lt Yel-Yel); Glucose, Urine Negative (Negative); Ketones,Urine Negative (Negative); Leukocyte Esterase,Urine Positive (Negative); Nitrite,Urine Negative (Negative); Protein,Urine Trace (Neg - Trace); Squamous Epithelial Cell,Urine < 1 /hpf (0-5); WBC,Urine 72 /hpf (0-5)
[2024-12-11 01:18] LABS: Culture Indicated,Urine Yes
[2024-12-11] MEDS: POTASSIUM CHLORIDE 10% 20 MEQ/15 ML UDC 40 MEQ PO (01:26)
[2024-12-11 01:43] LABS: Reflex Lactate? Y
[2024-12-11 01:53] LABS: Respiratory Syncytial Virus Ag Negative (Negative)
[2024-12-11 02:20] LABS: Lactic Acid, 3 HR 1.4 mMol/L (0.4-2.0)
--- NOTE | 2024-12-11 02:25 | PRELIM_ITS ---
CT angiogram of the chest with intravenous contrast (axial sections with sagittal and coronal reformats) December 11, 2024 0109 hours Clinical History: SOB Technique:Helical axial sections with sagittal and coronal reformats of the chest were obtained with intravenous contrast. Iterative reconstruction technique was employed to reduce patient radiation exposure. 3D/MIP reconstructed images were also provided. Comparison: None. Findings: There is no filling defect within the pulmonary artery divisions to suggest pulmonary thromboembolism. The mediastinum demonstrates no evidence of mass or lymphadenopathy. The thoracic aorta is unremarkable. There is no pericardial effusion. No pneumothorax. Moderate right pleural effusion. Small left pleural effusion. Consolidation in the right lower lobe. Consolidation in the left upper lobe. The osseous structures are unremarkable. Irregular liver margins. Ascites. Severely dilated left atrium. Coronary arteries calcifications. Gastroesophageal varices. Small hiatus hernia. Impression: 1. No CT evidence of pulmonary thromboembolism. 2. Bilateral pleural effusions. 3. Multifocal pneumonia. 4. Cirrhosis associated with ascites. 5. Severely dilated left atrium. 6. Coronary arteries calcifications. If acute myocardial infarction is clinically suspected consider correlation with troponin. 7. Gastroesophageal varices. 8. Small hiatus hernia. Report Electronically Signed By: Xavier Hough 12/11/2024 2:24:56 AM [EST]
--- NOTE | 2024-12-11 02:34 | PRELIM_ITS ---
CT scan of the abdomen and pelvis with intravenous contrast (axial sections with sagittal and coronal reformats) December 11, 2024 0109 hours Clinical History: abd pain after surgery Comparison: None. Findings: Please, see separate report for description of the chest findings. The pancreas, kidneys and adrenals are unremarkable. The patient is probably status postcholecystectomy. Gallstones in the cystic duct remnant. S/p splenectomy. Thrombosed splenic vein with thrombus extending to the confluence of the superior mesenteric vein into the portal vein. Nonocclusive thrombus in the right portal vein. No evidence of bowel obstruction. No evidence of appendicitis. There is no mesenteric or retroperitoneal adenopathy. The urinary bladder is unremarkable. There is no free air. Small ascites. The osseous structures are unremarkable. Irregular liver margins. Recanalized paraumbilical vein. Gastroesophageal varices. S/p partial sigmoidectomy. Impression: Cirrhosis associated with ascites and varices. Thrombosed splenic vein with thrombus extending to the confluence of the superior mesenteric vein into the portal vein. Nonocclusive thrombus in the right portal vein. The patient is probably status postcholecystectomy. Gallstones in the cystic duct remnant. Report Electronically Signed By: Xavier Hough 12/11/2024 2:33:12 AM [EST]
--- NOTE | 2024-12-11 02:51 | EVENTNT_ITS ---
Documentation for date of: 12/11/24 Event Note Event Note: A 72-year-old female presented to the ER with the chief complaint of left-sided chest pain. The patient reported sudden onset of severe, constant left anterior chest pain beginning around 2:00 PM today, radiating across the chest wall and worsened by coughing, deep inspiration, and movement. She noted a dry, non-productive cough with pain that was initially intermittent but progressively worsened throughout the afternoon and evening, accompanied by dry heaving triggered by coughing and a subjective fever earlier in the day. She denied shortness of breath and endorsed good oral intake and bowel function. She recently underwent sigmoid colectomy with low pelvic anastomosis, exploratory laparotomy, splenectomy, and cholecystectomy on 11/20/24, with staple removal earlier this week. There was sensitivity around the surgical incision but no focal abdominal pain. Her daughter, who assists with care at home, found the patient writhing in pain prior to EMS arrival. The patient has a history of autoimmune hepatitis, iron deficiency anemia, mitral regurgitation, and arrhythmia. Surgical history includes appendectomy, bilateral salpingo-oophorectomy, hemorrhoidectomy, hysterectomy, sigmoid colectomy with low pelvic anastomosis, exploratory laparotomy, splenectomy, and cholecystectomy. Current medications include Lasix and Vitamin C. The patient lives alone, is functionally independent, and is currently assisted by her daughter following recent surgery. Code status is full. In the ER, vital signs recorded as temp 100.2 F, HR 136 bpm, RR 21, and BP 121/89 mmHg. Labs revealed WBC 6.9, Hb 11.5, platelets 242, troponin <0.02, BNP 291, D-dimer >3820, and lactic acid 2.4. ABG showed pH 7.44, PCO2 42, O2 58, and HCO3 29. Chemistry panel showed Na 133, K 3.3, BUN 13, and creatinine 0.6. CT showed no CT evidence of pulmonary thromboembolism, bilateral pleural effusions, and multifocal pneumonia. CT abdomen showed thrombosed splenic vein with thrombus extending to the confluence of the superior mesenteric vein into the portal vein, and a nonocclusive thrombus in the right portal vein. EKG showed A- FIB with RVR. The patient?s evaluation progressed with pain management and supportive care. Interventions included Dilaudid for pain, Duoneb, steroids, and diltiazem followed by continuous infusion, which was later discontinued due to soft BP. The patient is going to be admitted for further management. #Acute Chest Pain Assessment: Left-sided pleuritic chest pain (sudden onset, worsened by cough/deep inspiration), dry heaving, subjective fever, tachycardia (HR 136), recent abdominal surgery; multifactorial likely including pleuritic component from pneumonia and/or pleural effusion. Plan: - One more troponin AM - Continue analgesia with close monitoring of respiratory status - Supportive care - Monitor for any signs of hemodynamic or respiratory decompensation #Multifocal Pneumonia #Hypoxemia Assessment: CT chest with multifocal infiltrates, fever (100.2?F), mild leukocytosis absent, elevated lactic acid (2.4), pleuritic chest pain, hypoxemia (O2 58 mmHg on ABG), recent abdominal surgery Plan: - Initiate broad-spectrum IV antibiotics - Supplemental oxygen to maintain SpO2 >92% #Atrial Fibrillation with RVR Assessment: New or uncontrolled A-Fib with RVR (HR 136), EKG confirmed - Anticoagulation - Telemetry monitoring - Cardiology consult #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) Assessment: Postoperative state with identified thrombosed splenic vein, extension into SMV/portal confluence and nonocclusive right portal vein thrombus on CT; risk factors include recent major abdominal surgery and splenectomy Plan: - Initiate IV heparin - Monitor CBC, INR/PTT, and signs of GI bleeding - Abdominal exam and serial lactates to monitor for bowel ischemia - Surgery f/u #Postoperative State (S/P sigmoid colectomy, splenectomy, cholecystectomy 11/20/24) Assessment: POD ~21, no focal abdominal pain, incisional tenderness, stable hemoglobin, no signs of infection Plan: - Continue to monitor surgical site and vitals - Surgery f/u #Mild Hyponatremia and Hypokalemia Assessment: Na 133, K 3.3; possibly diuretic-related (Lasix), ongoing GI losses, or stress response Plan: - Replete potassium to goal K >4.0 - Monitor electrolytes daily
--- NOTE | 2024-12-11 03:00 | PC.NURSE ---
Dr. Calderón in to see pt. Cardizem gtt titrated off.
--- NOTE | 2024-12-11 03:08 | EKG_ITS ---
[facility] Test Date: 2024-12-11 Pat Name: ARIADNE FONSECA Department: Room: - Gender: Female Metropolitan Editor: : 1945 Requested By: Silvano Barger Order Number: [id number] Reading MD: Silvano Barger Measurements Intervals [place] Rate: 87 P: AL: QRS: -12 QRSD: 90 T: 33 QT: 381 QTc: 460 Interpretive Statements ATRIAL FLUTTER/TACHYCARDIA ABNORMAL RHYTHM ECG Compared to ECG 12/10/2024 22:06:15 Atrial fibrillation no longer present /store/S0/[id number].pdf
--- NOTE | 2024-12-11 03:29 | PC.NURSE ---
Resident in room seeing pt.
[2024-12-11] MEDS: DOXYCYCLINE INJ 100 MG in SODIUM CHLORIDE 0.9% (POP) 100 ML IV ×2 (04:03→20:47)
[2024-12-11] MEDS: Magnesium Sulfate 2 GM Ivpb 2 GM/50 ML BAG IV (04:17)
[2024-12-11 04:21] LABS: Basophils % (Auto) 0 % (0-2.5); Eosinophils % (Auto) 0 % (0-10); Hemoglobin 10.4 g/dL (12.0-16.0); Immature Granulocytes % (Auto) 1 % (0-0); Immature Granulocytes Auto 0.08 Thou/mm3 (0.00-0.00); Lymphocytes # (Auto) 0.2 Thou/mm3 (1.0-4.8); Lymphocytes % (Auto) 2 % (10-50); Mean Corpuscular HGB Conc 32.5 g/dl (31.0-37.0); Mean Corpuscular Hemoglobin 29.1 pg (25.0-35.0); Mean Corpuscular Volume 90 fL (80-100); Monocytes # (Auto) 1.1 Thou/mm3 (0.0-0.8); Monocytes % (Auto) 7 % (0-12); Neutrophils % (Auto) 91 % (37-80); Nucleated Red Blood Cell # 0.02 Thou/mm3 (0.00-0.00); Nucleated Red Blood Cell % 0 /100 WBC (0); Platelet Count 587 Thou/mm3 (140-440); Red Blood Count 3.57 Miln/mm3 (4.00-5.20); White Blood Count 15.5 Thou/mm3 (3.6-11.0)
[2024-12-11 04:29] LABS: Partial Thromboplastin Time 31.5 Seconds (22.0-36.0)
--- NOTE | 2024-12-11 04:35 | PD.RESHP ---
Documentation for date of: 12/11/24 [facility] History of Present Illness History of present illness: The patient is an 79-year-old female with significant past medical history of autoimmune hepatitis, iron deficiency anemia, mitral regurgitation and arrhythmia presented with chief complaint of left lower chest pain that started on 12/10/2024 around 2 PM. She reports that her pain was sudden in onset, continuous, sharp in nature exacerbated by deep inspiration, coughing and movement. Earlier she was having some cough and subjective fever. She admitted nausea, but denied any vomiting, lightheadedness, headache, sore throat, belly pain, any changes in bowel or bladder habit, or any excessive leg swelling. Of note, The patient recently had cholecystectomy and splenectomy on 11/20/[address] Burton. The patient is functionally independent, but after surgery her daughter has been assisting her. In the ED her vitals were significant for blood pressure 121/89, pulse 136, RR 21, temperature 100.2, saturating 94% on room air. Labs were significant for white count 15.5, hemoglobin 10.4, hematocrit 32, MCV 90, RDW 51.0, platelet 587, ESR 55, D-dimer greater than 3820, ABG revealed pO2 58, Chemistry panel significant for sodium 133, potassium 3.3, BUN [address] abdomen revealed thrombosed splenic vein with thrombus extending to the confluence of the superior mesenteric vein into the portal vein, and nonocclusive thrombus in the right portal vein. CTA chest revealed no evidence of pulmonary thromboembolism, bilateral pleural effusion, and multifocal pneumonia. EKG revealed A-fib with RVR. PMH: As mentioned above SHX: Recently underwent sigmoid colectomy with low pelvic anastomosis, exploratory laparotomy, explained to ar and cholecystectomy on 11/20/2024 Family history: Unremarkable Medications: To be reconciled Allergies: Cephalexin, codeine, latex, levofloxacin, sertraline, sulfa drugs, hydrocodone, meperidine, propoxyphene. The patient was given Dilaudid IV, DuoNeb, IV methylprednisone, and diltiazem followed by diltiazem infusion and admitted to telemetry unit for further management. Review of Systems Review of Systems Systems Reviewed: All systems reviewed, normal except as documented Exam Vital Signs Temp Pulse Resp BP Pulse Ox O2 Del Method O2 Flow Rate 98.9 F 102 H 18 93/61 98 Nasal Cannula 3 12/11/24 00:01 12/11/24 03:01 12/11/24 03:01 12/11/24 03:01 12/11/24 03:01 12/11/24 03:01 12/11/24 03:01 Narrative Exam General: Elderly cooperative female, no acute distress. Alert and Oriented x 3. HEENT: Moist mucous membranes, oropharynx clear. Neck: Supple, No masses, No JVD. CVS: Tachycardic, No murmurs, rubs or gallops appreciated. Lungs: Clear to auscultation with no accessory use, no wheeze no rhonchi. Abd: Soft, NT/ND, +BS, no organomegaly, Central abdominal incision s/p open laparotomy, healing we.ll Ext: 1+ bilateral lower limb pitting edema, warm and well perfused. Skin: No rash. Psych: Appropriate mood and affect. Results: Labs 12/11/24 02:10 12/11/24 02:10 Labs: Short CBC 12/10/24 12/11/24 Range/Units 22:32 02:10 WBC 14.7 H 15.5 H (3.6-11.0) Thou/mm3 Hgb 11.3 L 10.4 L (12.0-16.0) g/dL Hct 35.0 L 32.0 L (36.0-46.0) % Plt Count 559 H D 587 H (140-440) Thou/mm3 BMP 12/10/24 22:32 Sodium 133 L Potassium 3.3 L Chloride 98 Carbon Dioxide 27.6 BUN 13 Creatinine 0.6 Glucose 146 H Calcium 8.5 Cardiac Enzymes 12/10/24 Range/Units 22:32 Troponin I < 0.020 (0.0-0.045) ng/mL Liver Function 12/10/24 Range/Units 22:32 Total Bilirubin 0.9 (0.3-1.2) mg/dL Direct Bilirubin 0.4 H (0.0-0.3) mg/dL AST 35 H (0-34) U/L ALT 22 (10-49) U/L Alkaline Phosphatase 201 H (46-116) U/L Albumin 3.3 L (3.4-4.8) gm/dL Urine 12/11/24 Range/Units 00:21 Urine Color Yellow (Lt Yel-Yel) Urine Clarity Clear (Clear/Hazy) Urine pH 6.0 (5.0-7.0) Ur Specific [place] 1.020 (1.001-1.035) Urine Protein Trace (Neg - Trace) Urine Glucose (UA) Negative (Negative) ABG Interpretation ABG results: 12/10/24 22:53 ABG pH 7.44 ABG pCO2 42 ABG pO2 58 L* ABG HCO3 29 H ABG O2 Saturation 90 L ABG Base Excess 4 H Quality Measures Quality Measures none Advance care planning discussed with:: patient and child Medications Home Medications and Allergies Home Medications ?Medication ?Instructions ?Recorded ?Confirmed ?Type furosemide 20 mg tablet 20 mg PO DAILY 11/18/24 11/20/24 History Allergies Allergy/AdvReac Type Severity Reaction Status Date / Time adhesive tape Allergy Verified 12/11/24 00:25 cephalexin (From Keflex) Allergy Verified 12/11/24 00:25 codeine Allergy Nausea Verified 12/11/24 00:25 latex Allergy Verified 12/11/24 00:25 levofloxacin (From Levaquin) Allergy Nausea Verified 12/11/24 00:25 sertraline Allergy Nausea Verified 12/11/24 00:25 Sulfa (Sulfonamide Allergy Verified 12/11/24 00:25 Antibiotics) hydrocodone AdvReac Mild Nausea Verified 12/11/24 00:25 meperidine AdvReac Mild UPPER GI Verified 12/11/24 00:25 propoxyphene AdvReac Mild Nausea Verified 12/11/24 00:25 Visit Medications Acetaminophen (Acetaminophen 325 Mg Tablet) 650 mg PO Q6H PRN PRN Reason: Fever >101.5 Stop: 01/10/25 03:36 Acetaminophen (Acetaminophen 325 Mg Tablet) 650 mg PO Q6H PRN PRN Reason: PAIN SCALE 1-3 (mild Stop: 01/10/25 03:36 Hydrocodone Bitart/Acetaminophen (Hydrocodone/Apap 5/325 Tablet) 1 tab PO Q6HR PRN PRN Reason: PAIN SCALE 4-6 (Moderate Stop: 12/16/24 03:36 Heparin Sodium (Porcine) (Heparin Sod Inj 5000 Unit/Ml Vial) 5,000 unit IV X1 ONE; Protocol Stop: 12/11/24 03:48 Hydromorphone HCl (Hydromorphone Inj 2 Mg/Ml Vial) 0.5 mg IVP Q6H PRN PRN Reason: PAIN SCALE 7-10 (Severe Stop: 12/16/24 03:36 Acetaminophen (Ofirmev Inj) 1,000 mg in 100 mls @ 250 mls/hr IV Q6HR [facility] Stop: 12/11/24 18:23 Last Infusion: 12/10/24 23:09 Dose: Infused Vancomycin HCl 2,000 mg/ (Sodium Chloride) 500 mls @ 150 mls/hr IV X1 ONE Stop: 12/11/24 05:47 Ceftriaxone Sodium/Dextrose (Rocephin/D5w 1gm Iv Premix) 50 mls @ 100 mls/hr IV HS ELINOR Stop: 12/18/24 20:59 Doxycycline Hyclate 100 mg/ (Sodium Chloride) 100 mls @ 100 mls/hr IV Q12H [facility] Stop: 12/18/24 03:44 Doxycycline Hyclate 100 mg/ (Sodium Chloride) 100 mls @ 100 mls/hr IV X1 ONE Stop: 12/11/24 04:59 Last Admin: 12/11/24 04:03 Dose: 100 mls/hr Magnesium Sulfate (Magnesium Sulfate Ivpb) 2 gm in 50 mls @ 25 mls/hr IV X1 ONE Stop: 12/11/24 05:46 Last Admin: 12/11/24 04:17 Dose: 25 mls/hr Heparin Sodium/Dextrose (Heparin In D5w Ivpb) 25,000 unit in 250 mls @ 2.449 mls/hr IV .Q24H [facility]; Protocol Stop: 12/25/24 03:59 Ipratropium [place] (Ipratropium Rt 0.5 Mg/ 2.5 Ml Nebu) mg INH Q6HRRT [facility] Stop: 01/10/25 06:59 Levalbuterol HCl (Levalbuterol Rt 0.63 Mg/3 Ml Nebu) 0.63 mg INH Q6HRRT [facility] Stop: 01/10/25 06:59 Ondansetron HCl (Ondansetron Inj 2 Mg/Ml Inj 2 Ml) 4 mg IV Q12H PRN; Protocol PRN Reason: NAUSEA OR VOMITING Stop: 01/10/25 03:36 Discontinued Medications Albuterol/Ipratropium (Albuterol/Ipratropium (Duoneb) Rt [place] 3 Ml Nebu) 3 ml INH X1 ONE Stop: 12/10/24 22:04 Last Admin: 12/10/24 22:14 Dose: 3 ml Diltiazem HCl (Diltiazem Inj 5 Mg/Ml Vial 5 Ml) 20 mg IV X1 ONE Stop: 12/10/24 22:11 Last Admin: 12/10/24 22:40 Dose: 20 mg Hydromorphone HCl (Hydromorphone Inj 2 Mg/Ml Vial) 1 mg IVP X1 ONE Stop: 12/10/24 22:04 Last Admin: 12/10/24 22:27 Dose: 1 mg Sodium Chloride (Ns) 1,000 mls @ 999 mls/hr IV .Q1H1M ONE Stop: 12/10/24 23:03 Last Infusion: 12/10/24 23:34 Dose: Infused Ceftriaxone Sodium 1,000 mg/ (Sodium Chloride) 50 mls @ 100 mls/hr IV X1 ONE Stop: 12/10/24 22:32 Last Infusion: 12/11/24 00:36 Dose: Infused Diltiazem HCl (Diltiazem In D5w 125 Mg) 125 mg in 125 mls @ 5 mls/hr IV .Q24H ONE; Protocol Stop: 12/11/24 22:09 Last Titration: 12/11/24 03:10 Dose: 5 mg/hr, 5 mls/hr Norepinephrine/Dextrose (Levophed In D5w 8mg/250ml) 8 mg in 250 mls @ 1.276 mls/hr IV .Q24H PRN; Protocol PRN Reason: PER PROTOCOL Stop: 01/10/25 00:25 Ketorolac Tromethamine (Ketorolac Inj 30 Mg/Ml Vial) 7.5 mg IVP X1 ONE Stop: 12/10/24 22:04 Last Admin: 12/10/24 22:33 Dose: 7.5 mg Methylprednisolone Sodium Succinate (Methylprednisolone Sod Succ 62.5 Mg/Ml 2ml Vial) 125 mg IVP X1 ONE Stop: 12/10/24 22:04 Last Admin: 12/10/24 22:37 Dose: 125 mg Ondansetron HCl (Ondansetron Inj 2 Mg/Ml Inj 2 Ml) 4 mg IV X1 ONE; Protocol Stop: 12/10/24 22:04 Last Admin: 12/10/24 22:26 Dose: 4 mg Potassium Chloride (Potassium Chloride 10% 20 Meq/15 Ml Udc) 40 meq PO X1 ONE Stop: 12/11/24 00:11 Last Admin: 12/11/24 01:26 Dose: 40 meq Potassium Chloride (Potassium Chloride 10% 20 Meq/15 Ml Udc) 40 meq PO X1 ONE Stop: 12/11/24 03:18 Last Admin: 12/11/24 04:01 Dose: Not Given Assessment & Plan Plan The patient is an 79-year-old female with significant past medical history of autoimmune hepatitis, iron deficiency anemia, mitral regurgitation and arrhythmia presented with chief complaint of left lower chest pain that started on 12/10/2024 around 2 PM is admitted to telemetry unit for further management of acute chest pain secondary to right basal pneumonia and afebrile. #Acute chest pain 10/05 #Right basal pneumonia Likely community-acquired pneumonia with gram-positive organism versus atypical organism Patient presented with sharp pleuritic chest pain, worsened by deep inspiration, coughing or movement. She was having subjective fever 1 day prior to the chest pain. Chest x-ray was significant for right basal pneumonia, but patient has left basal pneumonia Presented with heart rate of 136, RR 21, temperature 100.2, white count 15.5., Tropes were negative Received IV ceftriaxone 1 g in the ED DuoNeb and IV methylprednisone along with Dilaudid - Pain management with IV hydromorphone - Levalbuterol and ipratropium every 6 hourly as scheduled - Ceftriaxone 1 g daily at night - Doxycycline 100 Mg IV twice daily - Incentive spirometry - Oxygen as needed, titrate as tolerated - Daily a.m. labs for CBC, CMP and electrolytes #A-fib with RVR #Hypokalemia Likely secondary to pneumonia in further exacerbated by possible underlying rhythm disorder. Patient follows Dr. Pruitt. EKG was significant for A-fib with RVR, potassium level 3.3 Patient was given IV push of diltiazem, and later restarted on diltiazem drip, but stopped because of blood pressure Repeat EKG revealed a flutter, rate controlled Received 40 mEq liquid KCl, and 40 mEq KCl tablet, totaling 80 mEq; 2 g of magnesium sulfate IV - Telemetry monitoring - Maintain potassium greater than 4 and magnesium greater than 2 - Sewing Machine Repairer Dr. Pruitt consulted, appreciate recommendations - Daily a.m. 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 Burton, midline abdominal sutures healing well CT abdomen revealed thrombosed splenic vein with thrombus extending to the confluence of the superior mesenteric vein into the portal vein, and nonocclusive thrombus in the right portal vein CTA chest revealed no evidence of pulmonary thromboembolism, bilateral pleural effusion, and multifocal pneumonia - Started on heparin drip - Daily a.m. labs for PTT - Dr Burton consulted, appreciate recommendations #Possible CHF exacerbation No recent echo in the system, last echo in 2019 revealed LVEF 50% Chest x-ray revealed mild to moderate vascular congestions - Started on Lasix 20 Mg x 1, may consider scheduling it if needed as patient is on Lasix 20 Mg p.o. twice daily at home - Strict ins and outs with 1.2 L of fluid restriction - Sewing Machine Repairer Dr. Pruitt is consulted, appreciate recommendations #Mild hypovolemic hyponatremia Etiology currently unknown, but most likely secondary to poor oral intake in the setting of subjective fever for past 1 day Presented with sodium of 133 - Patient received 1 L of IV normal saline bolus in the ED - Daily a.m. labs for sodium Health maintenance: Dispo: Patient admitted to telemetry unit for further management of acute chest pain secondary to pneumonia and A-fib with RVR DVT prophylaxis: On heparin drip Diet: Cardiac diet with 1.2 L fluid restriction CODE STATUS: Full code The patient's management plan was discussed with my attending physician MD Julio Wheeler MD, PGY2 Attending Provider Attestation/Addendum Pt was evaluated and plan formulated together with the housestaff team. I have reviewed the residents note above and agree with most of its content. Please refer to the residents note for additional details.
[2024-12-11 04:39] LABS: Alanine Aminotransferase 19 U/L (10-49); Alkaline Phosphatase 176 U/L (46-116); Anion Gap 7 (7-16); Aspartate Amino Transferase 30 U/L (0-34); BUN/Creatinine Ratio 24 Ratio (12-20); Bilirubin,Total 0.9 mg/dL (0.3-1.2); Blood Urea Nitrogen 12 mg/dL (9-23); Calcium (Corrected) 8.8 mg/dL (8.5-10.1); Carbon Dioxide 25.2 mMol/L (20.0-31.0); Cardiac Risk Estimate 3.7 RATIO (3.7-5.6); Chloride 102 mMol/L (98-107); Cholesterol 92 mg/dL (132-200); Creatinine (Component) 0.5 mg/dL (0.6-1.3); Estimated Creatinine Clearance 79.4 mL/min (>60); Globulin 3.1 gm/dL (2.3-3.5); Glucose 145 mg/dL (74-106); HDL Cholesterol 25 mg/dL (40-60); LDL Cholesterol,Calculated 51 mg/dL (0-130); Magnesium 1.9 mg/dL (1.6-2.6); Osmolality,Calculated 270 (275-295); Potassium 4.4 mMol/L (3.4-5.1); Sodium 134 mMol/L (136-145); Thyroid Stimulating Hormone 1.24 uIU/mL (0.55-4.78); Total Protein 6.1 gm/dL (5.7-8.2); Triglycerides 81 mg/dL (30-150); Troponin I < 0.020 ng/mL (0.0-0.045); eGFR > 60 See Note
[2024-12-11] MEDS: FUROSEMIDE INJ 10 MG/ML VIAL 2 ML 20 MG IVP (05:04)
[2024-12-11] MEDS: POTASSIUM CHLORIDE 20 mEq TABCR 40 MEQ PO (05:08)
[2024-12-11] MEDS: HEPARIN SOD INJ 5000 UNIT/ML VIAL IV (05:08)
[2024-12-11] MEDS: Heparin/D5w 25K 250 ML Ivpb 25,000 UNIT/250 ML BAG 10.614 UNIT IV (05:11)
[2024-12-11 06:02] LABS: Path Review Blood Smear Sent to Pathologist
[2024-12-11] MEDS: IPRATROPIUM RT 0.5 MG/ 2.5 ML NEBU INH ×2 (06:54→12:01)
--- NOTE | 2024-12-11 10:15 | XR_ITS ---
MRI abdomen, without contrast. MRCP Date and time of exam: December 11, 2024 1633 hrs. Indications: Status post abdominal surgery November 20, 2024, diagnosis cirrhosis, stones in the cystic duct remnant: CT examination December 11, 2024 Technique: Multiple axial and coronal images of the abdomen have been obtained with the Siemens 1.5T MRI scanner. Images obtained included T1 weighted transverse images, T2-weighted transverse images, T2-weighted transverse images fat-suppressed, T2 weighted haste fat suppressed transverse images, T1 weighted images, in and out of phase images, T2-weighted coronal images, breath hold, T2 weighted haze coronal images as well as T2 weighted coronal thick slab images, MRCP. Findings: Small bilateral pleural effusions Cirrhosis liver irregular in contour Gallstones Multiple 2 to 3 mm filling defects in the cystic duct At least 2 filling defects in the common bile duct, small stones Ascites No hydronephrosis No bowel obstruction Impression: Cirrhosis Ascites Impression: Cholelithiasis, including multiple tiny stones in the cystic duct At least 2 tiny stones in the common bile duct, recommend ERCP follow-up
[2024-12-11] MEDS: LIDOCAINE 5% 1 PATCH TOP (10:39)
[2024-12-11 11:47] LABS: Partial Thromboplastin Time 38.6 Seconds (22.0-36.0)
[2024-12-11] MEDS: LEVALBUTEROL RT 0.63 MG/3 ML NEBU INH (12:01)
[2024-12-11] MEDS: HEPARIN SOD INJ 5000 UNIT/ML VIAL 2350 UNIT IV (12:03)
--- NOTE | 2024-12-11 14:47 | ESPR_ITS ---
<Statement entered by Shashank Garcia MD - 12/12/24 14:20> Senior Resident Attestation: I supervised/discussed management plan with corporate strategy intern physician Dr. Chino, and was involved in the care of this patient. I personally saw and examined the patient and discussed the assessment and plan with the entire medicine team, including my attending. I agree with the assessment and plan as documented. Patient's care was discussed with attending physician, Dr. Keita. Shashank Garcia MD PGY-2. Documentation for date of: 12/11/24 Subjective Subjective Interval history: Patient is seen and examined at bedside Complaining of pain in the left chest, worsening mainly on inspiration and on cough -likely pleuritic chest pain Vitals are stable except for mild tachycardia, A-fib with heart rate around 100 - 110. On physical examination, decreased breath sounds noted in right basilar area Labs showed mildly elevated WBC count 15.5, ESR 55, sodium 134 Dr. Pruitt was consulted, pending his recommendations Patient is currently on heparin drip for A-fib with RVR and splenic vein thrombosis, consulted Dr. Burton-will appreciate his recommendations Will add beta-kay once patient becomes hemodynamically stable. Explained about her medical condition to the patient and daughter on phone call and answered all questions to her satisfaction. Exam Vital Signs Temp Pulse Resp BP Pulse Ox O2 Del Method O2 Flow Rate 98 F 91 18 112/72 95 Nasal Cannula 3 12/11/24 13:58 12/11/24 13:58 12/11/24 13:58 12/11/24 13:58 12/11/24 13:58 12/11/24 13:58 12/11/24 13:58 Narrative Exam General: Awake. anxious HEENT: Normocephalic, atraumatic, mucous membranes moist. Heart: Irregular rate and rhythm, no murmurs. Lungs: Clear to auscultation with no wheezing or crackles. Decreased breath sounds noted in basilar areas more on right side Abdomen: Soft, nondistended, nontender, positive bowel sounds. ?No guarding or rebound tenderness. midline surgical scar, healing well Neurologic: Alert and oriented x3, no gross neurological deficit, and patient able to move all 4 extremities. Extremities: No edema. Skin: No rash or ecchymoses. Objective Labs 12/11/24 02:10 12/11/24 02:10 Labs: Laboratory Results - last 24 hr 12/10/24 12/10/24 12/10/24 22:32 22:37 22:53 WBC 14.7 H RBC 3.83 L Hgb 11.3 L Hct 35.0 L MCV 91 MCH 29.5 MCHC 32.3 RDW Std Deviation 50.8 H Plt Count 559 H D Neut % (Auto) 77 Lymph % (Auto) 3 L [place] % (Auto) 19 H Eos % (Auto) 0 Baso % (Auto) 0 Neut # (Auto) 11.3 H Lymph # (Auto) 0.4 L [place] # (Auto) 2.8 H Eos # (Auto) 0.0 Baso # (Auto) 0.1 Immature Gran # (Auto) 0.07 H Absolute Nucleated RBC 0.00 Immature Gran % 1 H Nucleated RBC % 0 Smear Path Review Sent to Pathologist ESR 55 H PT 13.3 H INR 1.2 APTT 30.5 D-Dimer > 3820 H Puncture Site Right Radial ABG pH 7.44 ABG pCO2 42 ABG pO2 58 L* ABG HCO3 29 H ABG O2 Saturation 90 L ABG Base Excess 4 H FiO2 21 Sodium 133 L Potassium 3.3 L Chloride 98 Carbon Dioxide 27.6 Anion Gap 7 BUN 13 Creatinine 0.6 Estim Creat Clear Calc 15.8 L eGFR > 60 BUN/Creatinine Ratio 22 H Glucose 146 H Calculated Osmolality 269 L Lactic Acid 2.4 H Calcium 8.5 Corrected Calcium 9.1 Magnesium 1.9 Total Bilirubin 0.9 Direct Bilirubin 0.4 H AST 35 H ALT 22 Alkaline Phosphatase 201 H Troponin I < 0.020 C-Reactive Prot, Quant 5.4 H B-Natriuretic Peptide 291 H Total Protein 6.7 Albumin 3.3 L Globulin 3.4 Albumin/Globulin Ratio 1.0 L Triglycerides Cholesterol LDL Cholesterol, Calc HDL Cholesterol Cholesterol/HDL Ratio Amylase 58 Lipase 35 Procalcitonin 0.14 TSH 2.02 Free T4 1.02 Ur Collection Type Urine Color Urine Clarity Urine pH Ur Specific [place] Urine Protein Urine Glucose (UA) Urine Ketones Urine Blood Urine Nitrite Urine Bilirubin Urine Urobilinogen (Auto) Ur Leukocyte Esterase Urine RBC Urine WBC Ur Squamous Epith Cells Urine Bacteria Ur Culture Indicated? RSV Rapid 12/11/24 12/11/24 12/11/24 00:21 00:41 02:10 WBC 15.5 H RBC 3.57 L Hgb 10.4 L Hct 32.0 L MCV 90 MCH 29.1 MCHC 32.5 RDW Std Deviation 51.0 H Plt Count 587 H Neut % (Auto) 91 H Lymph % (Auto) 2 L [place] % (Auto) 7 Eos % (Auto) 0 Baso % (Auto) 0 Neut # (Auto) 14.0 H Lymph # (Auto) 0.2 L [place] # (Auto) 1.1 H Eos # (Auto) 0.0 Baso # (Auto) 0.0 Immature Gran # (Auto) 0.08 H Absolute Nucleated RBC 0.02 H Immature Gran % 1 H Nucleated RBC % 0 Smear Path Review ESR PT INR APTT 31.5 D-Dimer Puncture Site ABG pH ABG pCO2 ABG pO2 ABG HCO3 ABG O2 Saturation ABG Base Excess FiO2 Sodium 134 L Potassium 4.4 D Chloride 102 Carbon Dioxide 25.2 Anion Gap 7 BUN 12 Creatinine 0.5 L Estim Creat Clear Calc 79.4 eGFR > 60 BUN/Creatinine Ratio 24 H Glucose 145 H Calculated Osmolality 270 L Lactic Acid 1.4 Calcium 8.0 L Corrected Calcium 8.8 Magnesium 1.9 Total Bilirubin 0.9 Direct Bilirubin AST 30 ALT 19 Alkaline Phosphatase 176 H D Troponin I < 0.020 C-Reactive Prot, Quant B-Natriuretic Peptide Total Protein 6.1 Albumin 3.0 L Globulin 3.1 Albumin/Globulin Ratio 1.0 L Triglycerides 81 Cholesterol 92 L LDL Cholesterol, Calc 51 HDL Cholesterol 25 L Cholesterol/HDL Ratio 3.7 Amylase Lipase Procalcitonin TSH 1.24 Free T4 Ur Collection Type Clean Catch Urine Color Yellow Urine Clarity Clear Urine pH 6.0 Ur Specific [place] 1.020 Urine Protein Trace Urine Glucose (UA) Negative Urine Ketones Negative Urine Blood Negative Urine Nitrite Negative Urine Bilirubin Negative Urine Urobilinogen (Auto) 4.0 Ur Leukocyte Esterase Positive Urine RBC 0 Urine WBC 72 H Ur Squamous Epith Cells < 1 Urine Bacteria Rare Ur Culture Indicated? Yes RSV Rapid Negative 12/11/24 11:20 WBC RBC Hgb Hct MCV MCH MCHC RDW Std Deviation Plt Count Neut % (Auto) Lymph % (Auto) [place] % (Auto) Eos % (Auto) Baso % (Auto) Neut # (Auto) Lymph # (Auto) [place] # (Auto) Eos # (Auto) Baso # (Auto) Immature Gran # (Auto) Absolute Nucleated RBC Immature Gran % Nucleated RBC % Smear Path Review ESR PT INR APTT 38.6 H D-Dimer Puncture Site ABG pH ABG pCO2 ABG pO2 ABG HCO3 ABG O2 Saturation ABG Base Excess FiO2 Sodium Potassium Chloride Carbon Dioxide Anion Gap BUN Creatinine Estim Creat Clear Calc eGFR BUN/Creatinine Ratio Glucose Calculated Osmolality Lactic Acid Calcium Corrected Calcium Magnesium Total Bilirubin Direct Bilirubin AST ALT Alkaline Phosphatase Troponin I C-Reactive Prot, Quant B-Natriuretic Peptide Total Protein Albumin Globulin Albumin/Globulin Ratio Triglycerides Cholesterol LDL Cholesterol, Calc HDL Cholesterol Cholesterol/HDL Ratio Amylase Lipase Procalcitonin TSH Free T4 Ur Collection Type Urine Color Urine Clarity Urine pH Ur Specific [place] Urine Protein Urine Glucose (UA) Urine Ketones Urine Blood Urine Nitrite Urine Bilirubin Urine Urobilinogen (Auto) Ur Leukocyte Esterase Urine RBC Urine WBC Ur Squamous Epith Cells Urine Bacteria Ur Culture Indicated? RSV Rapid ABG Interpretation ABG results: 12/10/24 22:53 ABG pH 7.44 ABG pCO2 42 ABG pO2 58 L* ABG HCO3 29 H ABG O2 Saturation 90 L ABG Base Excess 4 H Quality Measures Quality Measures none Advance care planning discussed with:: patient and child Assessment & Plan Assessment Current Active Medications: Generic Name Dose Route Start Last Admin Trade Name Freq PRN Reason Stop Dose Admin Acetaminophen 650 mg 12/11/24 10:13 Acetaminophen 325 Mg Tablet PO 01/10/25 03:36 Q6H PRN Fever >100.3 or mild pain1-3 Hydromorphone HCl 0.5 mg 12/11/24 09:47 Hydromorphone Inj 2 Mg/Ml Vial IVP 12/16/24 03:36 Q4H PRN PAIN SCALE 7-10 (Severe Ceftriaxone Sodium/Dextrose 1 gm in 50 mls @ 100 mls/hr 12/11/24 21:00 Rocephin/D5w 1gm Iv Premix IV 12/18/24 20:59 HS ELINOR Doxycycline Hyclate 100 mg/ 100 mls @ 100 mls/hr 12/11/24 21:00 Sodium Chloride IV 12/18/24 20:59 Q12HR ELINOR Heparin Sodium/Dextrose 25,000 unit in 250 mls @ 10.614 mls/hr 12/11/24 04:00 12/11/24 12:05 Heparin In D5w Ivpb IV 12/25/24 03:59 20 units/kg/hr .[id number] ELINOR 11.793 mls/hr Titration Protocol 18 UNITS/KG/HR Ipratropium [place] 0.5 mg 12/11/24 07:00 12/11/24 12:01 Ipratropium Rt 0.5 Mg/ 2.5 Ml Nebu INH 01/10/25 06:59 0.5 mg Q6HRRT ELINOR Administration Ketorolac Tromethamine 15 mg 12/11/24 09:53 Ketorolac Inj 30 Mg/Ml Vial IVP 12/16/24 09:52 Q6HR PRN Pain 1-5 Levalbuterol HCl 0.63 mg 12/11/24 07:00 12/11/24 12:01 Levalbuterol Rt 0.63 Mg/3 Ml Nebu INH 01/10/25 06:59 0.63 mg Q6HRRT ELINOR Administration Ondansetron HCl 4 mg 12/11/24 03:37 Ondansetron Inj 2 Mg/Ml Inj 2 Ml IV 01/10/25 03:36 Q12H PRN NAUSEA OR VOMITING Protocol Plan The patient is an 79-year-old female with significant past medical history of autoimmune hepatitis, iron deficiency anemia, mitral regurgitation and arrhythmia presented with chief complaint of left lower chest pain that started on 12/10/2024 around 2 PM is admitted to telemetry unit for further management of acute chest pain #Acute chest pain likely 10/05 #Post op atelectasis #suspicion of underlying LRTI -Patient presented with sharp pleuritic chest pain, worsened by deep inspiration, coughing or movement. She was having subjective fever 1 day prior to the chest pain. -Presented with heart rate of 136, RR 21, temperature 100.2, white count 15.5., Tropes were negative -Chest x-ray was significant for right basal pneumonia, but patient has left basal pneumonia -CT angio chest is negative for pulmonary emboli and bilateral minimal pleural effusions are noted -Received IV ceftriaxone 1 g in the ED DuoNeb and IV methylprednisone along with Dilaudid Plan - Blood cultures are sent - IV Dilaudid and ketorolac as needed - Lignocaine patch at the site of the pain - Levalbuterol and ipratropium every 6 hourly as scheduled - Ceftriaxone 1 g daily - Doxycycline 100 Mg IV twice daily - Incentive spirometry - Oxygen as needed, titrate as tolerated #A-fib with RVR #Hypokalemia, resolved Likely secondary to pain. Patient follows Dr. Pruitt. EKG was significant for A-fib with RVR, potassium level 3.3 at the time of admission Patient was given IV push of diltiazem, and later restarted on diltiazem drip, but stopped because of blood pressure Repeat EKG revealed a flutter, rate controlled Received 40 mEq liquid KCl, and 40 mEq KCl tablet, totaling 80 mEq; 2 g of magnesium sulfate IV in the ED Plan - Telemetry - On Heparin drip - Maintain potassium greater than 4 and magnesium greater than 2 - Special Events Manager Dr. 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 Burton, midline abdominal sutures healing well CT abdomen revealed thrombosed splenic vein with thrombus extending to the confluence of the superior mesenteric vein into the portal vein, and nonocclusive thrombus in the right portal vein Plan - Started on heparin drip - Dr Burton consulted, will appreciate recommendations #Mild hypovolemic hyponatremia, resolving Etiology currently unknown, but most likely secondary to poor oral intake in the setting of subjective fever for past 1 day Presented with sodium of 133 Patient received 1 L of IV normal saline bolus in the ED, improved to 134 today Health maintenance: Dispo: Telemetry DVT prophylaxis: On heparin drip Diet: Cardiac diet with 1.5 L fluid restriction CODE STATUS: Full code Patient plan of care was discussed with the attending physician, Dr. Keita and senior resident Dr. Jose Chino, PGY1 Attending Provider Attestation/Addendum I attest that I was physically present for the evaluation, physical examination, lab and imaging review of the patient with the residents. I discussed the case with the residents and agree with the findings and plans of care as documented above. Patient is an 79-year-old female with past medical history of autoimmune hepatitis, iron deficiency anemia, mitral regurgitation and arrhythmia who presented to the ED with complaint of left lower chest pain. Patient also has history of sigmoid colectomy with low pelvic anastomosis, exploratory laparotomy. She was admitted overnight for management of right basal pneumonia and portal vein thrombosis. Today at bedside, patient is states her pain is better with the analgesics. She continues to have left-sided chest pain on deep inspiration and cough. Patient noted to be in A-fib with heart rate around 100 210. Cardiology on board, awaiting recommendations. Patient continues to be on heparin drip for extensive thrombus in the splenic vein, partial thrombus in portal vein. On her abdomen/pelvis CTA, she is noted to have stones in the cystic duct remanent along with CBD diameter of 11 mm, contracted gallbladder with gallstones, we will obtain MRCP. Patient on Dilaudid for pain control. Surgery consult have been ordered. Guillermina Keita MD
--- NOTE | 2024-12-11 19:26 | ESCONSULT_ITS ---
RE: TRACEY FONSECA : 1945 DATE OF CONSULTATION: 12/11/2024 REFERRING PHYSICIAN: Hospitalist HISTORY OF PRESENT ILLNESS: Ms. Tracey Fonseca is an 79-year-old female who is known to have a history of severe mitral regurgitation, history of cardiac arrhythmia of PVCs, history of chronic hypertension, history of autoimmune hepatitis, history of chronic anemia. The patient was in her usual state of health up until recently. The patient had abdominal surgery with cholecystectomy and splenectomy as well as on 11/28/2024, the patient had extensive abdominal surgery by Dr. Burton with sigmoid colectomy, low pelvic anastomosis, splenectomy, as well as cholecystectomy without any problem. Postoperatively, the patient has been resting. Since discharge from the hospital, the patient has been recuperating at home, though started noticing increasing symptoms of swelling of the lower extremities. The patient's dose of Lasix was increased as an outpatient from 20 mg daily to 40 mg daily with some improvement in the swelling of the lower extremities, though on the day before admission, the patient started having symptoms of severe left-sided constant pleuritic chest pain. The patient was brought in to the emergency room and was noted to be in atrial fibrillation with fast ventricular response. Presently, the patient is on IV heparin therapy. The patient denied any complaint of skipped beats or palpitations, denied any complaint of dizziness or diaphoresis. Presently, the patient's symptoms of left-sided chest pain are better and the patient is resting fairly comfortably in bed. PAST MEDICAL HISTORY: Significant for history of mitral valve prolapse and severe mitral regurgitation as per previous cardiac echo Doppler study as well as cardiac catheterization and coronary angiography done on 10/15/2023. The patient has history of chronic hypertension since 2018, history of chronic anemia since 2018, history of autoimmune hepatitis since 2011. The patient also has had a history of skin cancer on the left side of the nose requiring surgery in 2016. She does have a history of bilateral knee arthroplasty several years ago, history of partial hysterectomy in 1978, history of bilateral cataract surgery in the past. PERSONAL HISTORY: The patient is a nonsmoker and nonalcoholic. FAMILY HISTORY: Noncontributory. PHYSICAL EXAMINATION: VITAL SIGNS: The patient's blood pressure is 102/72, pulse rate is 92 and irregularly irregular. Respiratory rate is 16, temperature is 97.8, oximetry saturation is 95% on 2 L of oxygen by nasal cannula. HEAD AND NECK: JVP is elevated. Carotid pulsations are felt well on both the sides. No carotid bruit is heard. HEART: PMI is neither palpable nor visible. The heart rhythm is irregularly irregular, grade 3/6 holosystolic regurgitation murmur is heard best over the apex with radiation over to the left axilla. LUNGS: Shows occasional basal rhonchi. ABDOMEN: Large dressing. EXTREMITIES: Trace pedal edema is noted. NEUROLOGIC: Unremarkable. No focal localizing neuro deficit is appreciated. DIAGNOSTIC DATA: The patient's electrocardiogram done yesterday showed atrial fibrillation and atrial flutter with fast ventricular response. Occasional PVCs were also noted. Today, the EKG again showed atrial flutter and fibrillation though with controlled ventricular response. The chest x-ray yesterday was reported to show possible early right-based pneumonia and mild cardiac enlargement and vascular congestion. LABORATORY DATA: The patient's lab work showed WBC count yesterday was 14,700, hemoglobin 11.3 with hematocrit of 35.0. Today's WBC count is 15,500, hemoglobin 10.4 with hematocrit of 32.0. The patient's BUN yesterday was 13, creatinine 0.6, potassium level was 3.3. Today's BUN is 12, creatinine 0.5 and potassium level is 4.4. The patient's troponin level yesterday was less than 0.02, repeat troponin level again this morning was less than 0.02. The BNP level yesterday was 291. CLINICAL IMPRESSION: 1. Recent onset atrial flutter and fibrillation. 2. Congestive heart failure, possibly secondary to valvular heart disease of severe mitral regurgitation. 3. Chronic hypertension as per history. 4. Status post recent extensive abdominal surgery. 5. Possible pneumonia with pleuritic chest pain. SUGGESTIONS: I agree with the present plan on management of the patient of continuing the patient on anticoagulant therapy, continuing the patient on antibiotic therapy, also starting the patient on intravenous diuretic therapy. I will also start the patient on IV amiodarone as per protocol for the recent onset atrial flutter and fibrillation. Cardiac echo Doppler study has been ordered and will be reviewed once done. Repeat BNP level as well as BMP levels will be ordered. Thyroid panel and TSH level is noted to be within the euthyroid range. I will follow the patient with you and I highly thank you very much for letting me participate in the care of the patient. DT: 18:32:31 TT: 19:25:00 Ref: [id number] - TID: [id number]
[2024-12-11] MEDS: AMIODARONE 150 MG IVPB 150 MG/100 ML BAG 600 MG IV (19:31)
[2024-12-11 19:36] LABS: Anion Gap 5 (7-16); BUN/Creatinine Ratio 40 Ratio (12-20); Blood Urea Nitrogen 16 mg/dL (9-23); Calcium 8.9 mg/dL (8.3-10.6); Carbon Dioxide 26.8 mMol/L (20.0-31.0); Chloride 104 mMol/L (98-107); Creatinine (Component) 0.4 mg/dL (0.6-1.3); Estimated Creatinine Clearance 99.3 mL/min (>60); Glucose 117 mg/dL (74-106); Osmolality,Calculated 274 (275-295); Sodium 136 mMol/L (136-145); eGFR > 60 See Note
[2024-12-11] MEDS: HYDROmorphone INJ 2 MG/ML VIAL 0.5 MG IVP (20:06)
[2024-12-11] MEDS: AMIODARONE 360 MG IVPB 360 MG/200 ML BAG 33.333 MG IV (20:16)
[2024-12-11] MEDS: FUROSEMIDE INJ 10 MG/ML 4ML VIAL 40 MG IVP (20:47)
[2024-12-11] MEDS: cefTRIAXone/D5w 1gm IV premix 1 GM/50 ML BAG IV (20:48)
[2024-12-11] MEDS: HEPARIN SOD INJ 5000 UNIT/ML VIAL 2550 UNIT IV (21:23)
[2024-12-11] MEDS: KETOROLAC INJ 30 MG/ML VIAL 15 MG IVP (23:12)
[2024-12-12] VITALS (12 sets, daily range): BP systolic 95–105; BP diastolic 59–75; PULSE 74–114; RESP 14–26; TEMP 36.2–37; O2SAT 93–100; BMI 23.2; BMI 23.3
[2024-12-12] MEDS: Heparin/D5w 25K 250 ML Ivpb 25,000 UNIT/250 ML BAG 12.973 UNIT IV (01:15)
[2024-12-12] MEDS: AMIODARONE 360 MG IVPB 360 MG/200 ML BAG 16.667 MG IV ×2 (01:51→13:39)
[2024-12-12 02:56] LABS: Basophils % (Auto) 0 % (0-2.5); Eosinophils % (Auto) 0 % (0-10); Hematocrit 29.9 % (36.0-46.0); Hemoglobin 9.8 g/dL (12.0-16.0); Immature Granulocytes % (Auto) 1 % (0-0); Immature Granulocytes Auto 0.11 Thou/mm3 (0.00-0.00); Lymphocytes # (Auto) 0.8 Thou/mm3 (1.0-4.8); Lymphocytes % (Auto) 4 % (10-50); Mean Corpuscular HGB Conc 32.8 g/dl (31.0-37.0); Mean Corpuscular Hemoglobin 29.5 pg (25.0-35.0); Mean Corpuscular Volume 90 fL (80-100); Monocytes # (Auto) 3.2 Thou/mm3 (0.0-0.8); Monocytes % (Auto) 15 % (0-12); Neutrophils # (Auto) 17.4 Thou/mm3 (1.8-7.7); Neutrophils % (Auto) 81 % (37-80); Nucleated Red Blood Cell % 0 /100 WBC (0); Platelet Count 468 Thou/mm3 (140-440); Red Blood Count 3.32 Miln/mm3 (4.00-5.20); White Blood Count 21.6 Thou/mm3 (3.6-11.0)
[2024-12-12 03:19] LABS: B-Type Natriuretic Peptide 251 pg/mL (0-100)
[2024-12-12 03:20] LABS: Alanine Aminotransferase 14 U/L (10-49); Albumin, Serum 2.8 gm/dL (3.4-4.8); Alkaline Phosphatase 144 U/L (46-116); Anion Gap 3 (7-16); Aspartate Amino Transferase 19 U/L (0-34); BUN/Creatinine Ratio 30 Ratio (12-20); Bilirubin,Total 0.5 mg/dL (0.3-1.2); Blood Urea Nitrogen 18 mg/dL (9-23); Calcium 8.3 mg/dL (8.3-10.6); Calcium (Corrected) 9.3 mg/dL (8.5-10.1); Carbon Dioxide 29.5 mMol/L (20.0-31.0); Chloride 104 mMol/L (98-107); Creatinine (Component) 0.6 mg/dL (0.6-1.3); Estimated Creatinine Clearance 66.2 mL/min (>60); Globulin 2.8 gm/dL (2.3-3.5); Glucose 124 mg/dL (74-106); Magnesium 2.1 mg/dL (1.6-2.6); Osmolality,Calculated 274 (275-295); Phosphorous 3.2 mg/dL (2.4-5.1); Potassium 4.8 mMol/L (3.4-5.1); Sodium 136 mMol/L (136-145); Total Protein 5.6 gm/dL (5.7-8.2); eGFR > 60 See Note
[2024-12-12 03:26] LABS: Partial Thromboplastin Time 65.4 Seconds (22.0-36.0)
[2024-12-12] MEDS: IPRATROPIUM RT 0.5 MG/ 2.5 ML NEBU INH ×3 (06:30→18:49)
[2024-12-12] MEDS: LEVALBUTEROL RT 0.63 MG/3 ML NEBU INH ×3 (06:31→18:49)
--- NOTE | 2024-12-12 08:09 | PC.SS ---
JAVA DEVELOPER CONSULTANT conducted bedside contact with the patient conduct initial assessment and to discuss discharge planning.? Patient confirmed demographic information.? Patient resides at home with daughter, Sherry Dickson .? Patient utilizes a walker to assist with ambulation.? Patient does not use home oxygen.? Patient currently on 3L nasal cannula.? Patient requires assistance with the completion of ADL?s.? Patient?s daughter assists with completion of ADL?s.? Patient?s PCP is Dr. Hanks.? Patient?s pony trimmer is Dr. Pruitt.? Patient does not participate with dialysis.? Patient utilizes [facility] for medication services.? Discharge plan is for the patient to return home.? If oxygen required at the time of discharge, no preferred vendor identified.? Patient previously aligned with [facility].? Family will provide transportation on behalf of the patient. ?No further discharge needs identified by the patient.? No further intervention required at this time, social research assistant will be available to address any further concerns.? Next of Kin: Sherry RiceDickson D/C Plan: Home
--- NOTE | 2024-12-12 08:28 | ECHO_ITS ---
Transthoracic Echo Report Ht (in): 65 Wt (lb): 140 Exam Location: Portable Status: Inpatient Professor Of Visual Arts: JELLY Murillo^^^^ Indications: Procedure Performed: BP: / HR: Technical Quality: Fair MEASUREMENTS (Male / Female) Normal Values 2D ECHO LV Diastolic Diameter PLAX 5.7 cm 4.2 - 5.9 / 3.9 - 5.3 cm LV Systolic Diameter PLAX 4.0 cm IVS Diastolic Thickness 0.7 cm 0.6 - 1.0 / 0.6 - 0.9 cm LVPW Diastolic Thickness 0.8 cm 0.6 - 1.0 / 0.6 - 0.9 cm LV Relative Wall Thickness 0.3 LVOT Diameter 1.9 cm Aortic Root Diameter 3.1 cm LA Systolic Diameter LX 4.4 cm 3.0 - 4.0 / 2.7 - 3.8 cm Ascending Aorta Diameter 3.1 cm DOPPLER AV Peak Velocity 181.0 cm/s AV Peak Gradient 13.1 mmHg AV Mean Gradient 8.0 mmHg AV Velocity Time Integral 32.2 cm LVOT Peak Velocity 110.0 cm/s LVOT Peak Gradient 4.8 mmHg LVOT Velocity Time Integral 21.3 cm AV Area Cont Eq vti 1.9 cm? AV Area Cont Eq pk 1.7 cm? MV Area PHT 4.6 cm? MR Peak Velocity 503.0 cm/s MR Peak Gradient 101.2 mmHg Mitral E Point Velocity 129.0 cm/s Mitral A Point Velocity 62.4 cm/s Mitral E to A Ratio 2.1 LV E' Lateral Velocity 10.9 cm/s Mitral E to LV E' Lateral Ratio 11.8 LV E' Septal Velocity 12.3 cm/s Mitral E to LV E' Septal Ratio 10.5 TR Peak Velocity 291.7 cm/s TR Peak Gradient 34.0 mmHg PV Peak Velocity 103.0 cm/s PV Peak Gradient 4.2 mmHg RVOT Peak Velocity 51.0 cm/s FINDINGS Left Ventricle Normal left ventricular size, wall thickness, systolic function. No regional wall motion abnormalities are present. There is grade III diastolic dysfunction of the left ventricle (restrictive filling pattern). The left ventricular ejection fraction is normal, estimated at 55-60%. Right Ventricle The right ventricle is normal in size and systolic function. The estimated right ventricular systolic pressure, 40 mmHg. Left Atrium The left atrial cavity size is moderately increased. Right Atrium The right atrium is normal by two-dimensional imaging, color flow and Doppler imaging with no structural abnormalities, no thrombus formation present. Atrial Septum The interatrial septum appears normal with no evidence of a shunt. Aorta The aorta is normal by two-dimensional, color flow and Doppler interrogation. Mitral Valve Mild mitral annular calcification with systolic mitral valve prolapse & moderate to severe mitral regurgitation. Aortic Valve Aortic valve sclerosis. Tricuspid Valve There is mild tricuspid valve regurgitation. Pulmonic Valve Trivial pulmonic valve regurgitation. Vessels The pulmonary artery appears normal. The inferior vena cava pulmonary and hepatic veins appear normal. Pericardium The pericardium is normal by two-dimensional imaging. There is no significant pericardial effusion. CONCLUSIONS indication: New onset Afib Mitral annular calcification with mitral valve prolapse & moderate to severe mitral regurgitation. LVEF 55-60% RVSP 40 mmHg LA is moderately dilated Aortic sclerosis Mild TR Sanjiv Sonal (Electronically Signed) Final Date: 13 December 2024 08:46
[2024-12-12] MEDS: DOXYCYCLINE INJ 100 MG in SODIUM CHLORIDE 0.9% (POP) 100 ML IV ×2 (08:29→21:02)
[2024-12-12] MEDS: FUROSEMIDE INJ 10 MG/ML 4ML VIAL 40 MG IVP (08:34)
[2024-12-12] MEDS: Milk Of Magnesia Susp 30 ML UDC PO (08:35)
--- NOTE | 2024-12-12 08:51 | ESPR_ITS ---
RE: ARIADNE FONSECA : 1945 DATE OF SERVICE: 12/12/2024 S: Mrs. Fonseca is feeling better this morning. The patient still has some pleuritic left-sided chest pain, though better than before. Denies any complaint of fever or chills. Denies any complaint of skipped beats or palpitations. The patient still though is staying in atrial fibrillation with moderate ventricular response. OBJECTIVE: Vital Signs: Blood pressure this morning is 95/66, pulse rate is 106 and irregularly irregular, respiratory rate is 18, temperature is 97.2, oximetry saturation on 2 liters of oxygen by nasal cannula is 97%. Heart: Shows irregularly irregular heart rhythm and holosystolic murmur of mitral regurgitation. No pleuritic or pericardial rub is heard. LABORATORY DATA: This morning showed WBC count is elevated and is 21,600, hemoglobin 9.8 with hematocrit of 29.9. The patient's BUN this morning is 18, creatinine is 0.6, potassium level is 4.8, glucose is 124, BNP level is still elevated and is 251. Heart rhythm is staying in atrial fibrillation with moderate ventricular response. P: To continue the patient on intravenous antibiotic therapy, continuing the patient on IV amiodarone, continuing the patient on heparin therapy. Cardiac echo Doppler study is still awaited and will be reviewed once done. DT: 08:32:52 TT: 08:50:00 Ref: [id number] - TID: [id number]
[2024-12-12 09:04] LABS: Partial Thromboplastin Time 46.3 Seconds (22.0-36.0)
[2024-12-12] MEDS: HEPARIN SOD INJ 5000 UNIT/ML VIAL 2550 UNIT IV (10:43)
[2024-12-12] MEDS: PIPER/TAZO 3.375 GM PREMIX 3.375 GM/50 ML BAG IV ×3 (11:04→22:06)
[2024-12-12] MEDS: HYDROmorphone INJ 2 MG/ML VIAL 0.5 MG IVP ×2 (11:04→19:35)
--- NOTE | 2024-12-12 12:11 | PD.SURPROG ---
Documentation for date of: 12/12/24 Subjective Subjective Brief History: 79-year-old female recently underwent sigmoid colectomy for diverticular stricture, splenectomy for massive splenomegaly and cholecystectomy. She has history of liver cirrhosis. Patient was discharged from her recent operation, was eating and tolerating diet well without nausea or vomiting and having bowel movements. She was seen in my office earlier this week and was recovering well. Narrative: Patient was admitted with upper abdominal pain radiating to her chest, shortness of breath and coughing. CT scan revealed thrombosis and splenic vein, partial thrombus in SMV and portal veins. She was also noted to have bilateral pneumonia, cirrhosis of the liver with minimal ascites. Exam Vital Signs Temp Pulse Resp BP Pulse Ox O2 Del Method O2 Flow Rate 97.2 F 106 H 18 95/66 97 Nasal Cannula 2 12/12/24 08:00 12/12/24 08:34 12/12/24 08:00 12/12/24 08:34 12/12/24 08:00 12/12/24 08:00 12/12/24 08:00 Constitutional Constitutional: mild distress Routine Abdominal Exam Comments: Abdomen is soft and nondistended. Her incision is clean, dry and intact. 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 Patient had cholecystectomy and was found to have small stones and cystic duct and possible small stones in CBD, however her liver enzymes are unremarkable. She was found to have bilateral pneumonia Plan Agree with current management. Continue IV antibiotics, incentive spirometer and breathing treatment. Dr. Masterson was consulted to evaluate for possible ERCP. Patient was started on anticoagulation for partial thrombus in SMV and portal veins. No surgical intervention is indicated or planned.
--- NOTE | 2024-12-12 16:29 | ESPR_ITS ---
<Statement entered by Shashank Garcia MD - 12/13/24 09:38> Senior Resident Attestation: I supervised/discussed management plan with compliance intern physician Dr. Chino, and was involved in the care of this patient. I personally saw and examined the patient and discussed the assessment and plan with the entire medicine team, including my attending. I agree with the assessment and plan as documented. Patient's care was discussed with attending physician, Dr. Keita. Shashank Garcia MD PGY-2. Documentation for date of: 12/12/24 Subjective Subjective Interval history: Patient is seen and examined at bedside. No acute overnight events. Still complaining of chest pain on the left side, worse on inspiration and coughing Vitals are stable. On physical examination, mild abdominal distention noted with well-healing midline abdominal scar Patient is still on heparin drip. Amiodarone drip was started by Dr. Pruitt in view of A-fib. Dr. Burton was consulted and will appreciate his recommendations. Dr. Mastreson was consulted and stated that he is out of town and will see patient on Sunday, consulted Dr. Fields as per his recommendations and recommended to start her on broad-spectrum antibiotics. Patient was started on Zosyn and milk of mag is given in view of constipation Exam Vital Signs Temp Pulse Resp BP Pulse Ox O2 Del Method O2 Flow Rate 97.8 F 98 20 97/72 100 Nasal Cannula 2 12/12/24 12:00 12/12/24 13:39 12/12/24 12:57 12/12/24 13:39 12/12/24 12:57 12/12/24 12:00 12/12/24 12:57 Narrative Exam General: Awake. anxious HEENT: Normocephalic, atraumatic, mucous membranes moist. Heart: Irregular rate and rhythm, no murmurs. Lungs: Clear to auscultation with no wheezing or crackles. Decreased breath sounds noted in basilar areas more on right side Abdomen: Soft, nondistended, nontender, positive bowel sounds. ?No guarding or rebound tenderness. midline surgical scar, healing well Neurologic: Alert and oriented x3, no gross neurological deficit, and patient able to move all 4 extremities. Extremities: No edema. Skin: No rash or ecchymoses. Objective Labs 12/12/24 02:35 12/12/24 02:35 Labs: Laboratory Results - last 24 hr 12/11/24 12/12/24 12/12/24 19:02 02:35 08:20 WBC 21.6 H D RBC 3.32 L Hgb 9.8 L Hct 29.9 L MCV 90 MCH 29.5 MCHC 32.8 RDW Std Deviation 51.0 H Plt Count 468 H D Neut % (Auto) 81 H Lymph % (Auto) 4 L Bradley % (Auto) 15 H Eos % (Auto) 0 Baso % (Auto) 0 Neut # (Auto) 17.4 H Lymph # (Auto) 0.8 L Bradley # (Auto) 3.2 H Eos # (Auto) 0.0 Baso # (Auto) 0.0 Immature Gran # (Auto) 0.11 H Absolute Nucleated RBC 0.00 Immature Gran % 1 H Nucleated RBC % 0 APTT 36.0 65.4 H D 46.3 H D Sodium 136 136 Potassium 5.0 D 4.8 Chloride 104 104 Carbon Dioxide 26.8 29.5 Anion Gap 5 L 3 L BUN 16 18 Creatinine 0.4 L 0.6 Estim Creat Clear Calc 99.3 66.2 eGFR > 60 > 60 BUN/Creatinine Ratio 40 H 30 H Glucose 117 H 124 H Calculated Osmolality 274 L 274 L Calcium 8.9 8.3 Corrected Calcium 9.3 Phosphorus 3.2 Magnesium 2.1 Total Bilirubin 0.5 AST 19 ALT 14 Alkaline Phosphatase 144 H D B-Natriuretic Peptide 251 H Total Protein 5.6 L Albumin 2.8 L Globulin 2.8 Albumin/Globulin Ratio 1.0 L ABG Interpretation ABG results: 12/10/24 22:53 ABG pH 7.44 ABG pCO2 42 ABG pO2 58 L* ABG HCO3 29 H ABG O2 Saturation 90 L ABG Base Excess 4 H Quality Measures Quality Measures none Advance care planning discussed with:: patient Assessment & Plan Assessment Current Active Medications: Generic Name Dose Route Start Last Admin Trade Name Freq PRN Reason Stop Dose Admin Acetaminophen 650 mg 12/11/24 10:13 Acetaminophen 325 Mg Tablet PO 01/10/25 03:36 Q6H PRN Fever >100.3 or mild pain1-3 Furosemide 40 mg 12/12/24 09:00 12/12/24 08:34 Furosemide Inj 10 Mg/Ml 4ml Vial IVP 01/11/25 08:59 40 mg QDAY ELINOR Administration Hydromorphone HCl 0.5 mg 12/11/24 09:47 12/12/24 11:04 Hydromorphone Inj 2 Mg/Ml Vial IVP 12/16/24 03:36 0.5 mg Q4H PRN Administration PAIN SCALE 7-10 (Severe Doxycycline Hyclate 100 mg/ 100 mls @ 100 mls/hr 12/11/24 21:00 12/12/24 08:29 Sodium Chloride IV 12/18/24 20:59 100 mls/hr Q12HR ELINOR Administration Heparin Sodium/Dextrose 25,000 unit in 250 mls @ 10.614 mls/hr 12/11/24 04:00 12/12/24 10:17 Heparin In D5w Ivpb IV 12/25/24 03:59 24 units/kg/hr .[id number] ELINOR 14.152 mls/hr Titration Protocol 18 UNITS/KG/HR Amiodarone HCl/Dextrose 360 mg in 200 mls @ 16.667 mls/hr 12/12/24 00:22 12/12/24 13:39 Nexterone Ivpb IV 12/13/24 00:21 16.667 mls/hr .Q12H ELINOR Administration Piperacillin/Tazobactam/Dextrose 3.375 gm in 50 mls @ 12.5 mls/hr 12/12/24 14:00 12/12/24 13:28 Zosyn IV 12/19/24 13:59 12.5 mls/hr Q8HR ELINOR Administration Ipratropium [place] 0.5 mg 12/11/24 07:00 12/12/24 12:54 Ipratropium Rt 0.5 Mg/ 2.5 Ml Nebu INH 01/10/25 06:59 0.5 mg Q6HRRT ELINOR Administration Ketorolac Tromethamine 15 mg 12/11/24 09:53 12/11/24 23:12 Ketorolac Inj 30 Mg/Ml Vial IVP 12/16/24 09:52 15 mg Q6HR PRN Administration Pain 1-5 Levalbuterol HCl 0.63 mg 12/11/24 07:00 12/12/24 12:54 Levalbuterol Rt 0.63 Mg/3 Ml Nebu INH 01/10/25 06:59 0.63 mg Q6HRRT ELINOR Administration Magnesium Hydroxide 30 ml 12/12/24 08:20 12/12/24 08:35 Milk Of Magnesia Susp 30 Ml Udc PO 01/11/25 08:19 30 ml QDAY PRN Administration CONSTIPATION Protocol Ondansetron HCl 4 mg 12/11/24 03:37 Ondansetron Inj 2 Mg/Ml Inj 2 Ml IV 01/10/25 03:36 Q12H PRN NAUSEA OR VOMITING Protocol Plan The patient is an 79-year-old female with significant past medical history of autoimmune hepatitis, iron deficiency anemia, mitral regurgitation and arrhythmia presented with chief complaint of left lower chest pain that started on 12/10/2024 around 2 PM is admitted to telemetry unit for further management of acute chest pain #Acute chest pain likely 10/05 #Post op atelectasis #suspicion of underlying LRTI -Patient presented with sharp pleuritic chest pain, worsened by deep inspiration, coughing or movement. She was having subjective fever 1 day prior to the chest pain. -Presented with heart rate of 136, RR 21, temperature 100.2, white count 15.5., Tropes were negative -Chest x-ray was significant for right basal pneumonia, but patient has left basal pneumonia -CT angio chest is negative for pulmonary emboli and bilateral minimal pleural effusions are noted -Received IV ceftriaxone 1 g in the ED DuoNeb and IV methylprednisone along with Dilaudid Plan - Blood cultures are sent, no growth after 24 hrs - IV Dilaudid and ketorolac as needed - Lignocaine patch at the site of the pain - Levalbuterol and ipratropium every 6 hourly as needed - Ceftriaxone 1 g daily - changed to zosyn 3.37gm iv every 6th hrly - Doxycycline 100 Mg IV twice daily - Incentive spirometry - Oxygen as needed, titrate as tolerated #CBD stones without features of cholangitis -CT angio abdomen/pelvis showed cirrhosis, esophageal varices, mild ascites, anasarca, stones in the cystic duct remnant, CBD 11 mm, extensive thrombus in the splenic vein, partial thrombus in the portal vein -MRCP was done that showed Cirrhosis, Ascites, Cholelithiasis, including multiple tiny stones in the cystic duct, At least 2 tiny stones in the common bile duct, recommend ERCP follow-up -AST, ALT, total bilirubin is within normal limits and patient is denying any complaints of abdominal pain except mild discomfort at the surgical site Plan -Dr. Masterson was consulted and recommended to consult Dr. Fields and stated that he will see patient on Sunday -Dr. Fields was consulted and recommended to continue broad-spectrum antibiotics for now, started on Zosyn -Dr. Burton was consulted and will appreciate his recommendations #A-fib with RVR #Hypokalemia, resolved Likely secondary to pain. Patient follows Dr. Pruitt. EKG was significant for A-fib with RVR, potassium level 3.3 at the time of admission Patient was given IV push of diltiazem, and later restarted on diltiazem drip, but stopped because of blood pressure Repeat EKG revealed a flutter, rate controlled Received 40 mEq liquid KCl, and 40 mEq KCl tablet, totaling 80 mEq; 2 g of magnesium sulfate IV in the ED Plan - Telemetry - Law Secretary Dr. Pruitt consulted, appreciate recommendations - started on lasix 40mg IV qday - On Heparin drip and amiodarone drip as recommended by Dr. 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 Burton, midline abdominal sutures healing well CT abdomen revealed thrombosed splenic vein with thrombus extending to the confluence of the superior mesenteric vein into the portal vein, and nonocclusive thrombus in the right portal vein Plan - Started on heparin drip - Dr Burton consulted, will appreciate recommendations #Mild hypovolemic hyponatremia, resolving Etiology currently unknown, but most likely secondary to poor oral intake in the setting of subjective fever for past 1 day Presented with sodium of 133 Patient received 1 L of IV normal saline bolus in the ED, improved to 134 today Health maintenance: Dispo: Telemetry DVT prophylaxis: On heparin drip Diet: Cardiac diet with 1.5 L fluid restriction CODE STATUS: Full code Patient plan of care was discussed with the attending physician, Dr. Keita and senior resident Dr. Jose Chino, PGY1 Attending Provider Attestation/Addendum I attest that I was physically present for the evaluation, physical examination, lab and imaging review of the patient with the residents. I discussed the case with the residents and agree with the findings and plans of care as documented above. At bedside today, patient states she is feeling better compared to yesterday but continues to have left-sided lower chest/upper abdominal pain while coughing and taking deep breath. Continues to be mildly tachycardic. Lab results show elevated WBC count. Alkaline phosphatase improved from 176-144. Patient underwent MRCP yesterday, found to have cholelithiasis including multiple tiny stones and cystic duct. Also has at least 2 tiny stones in common bile duct. Discussed with gastroenterology, recommended broad-spectrum antibiotic with close monitoring for now. Changed her antibiotics to IV Zosyn and vancomycin. Preliminary blood culture has been negative for 24 hours. Urine culture is pending. Also discussed with Dr. Masterson, stated he will be able to see patient on Sunday for evaluation for ERCP. Patient continues to be on heparin drip for thrombosis. General surgery following, recommended medical management. Patient continues to be on analgesics. Patient on amiodarone drip for A-fib with RVR, cardiology following, appreciate recommendations. Guillermina Keita MD
[2024-12-12 16:57] LABS: Partial Thromboplastin Time 52.2 Seconds (22.0-36.0)
--- NOTE | 2024-12-12 17:05 | PC.SS ---
Rounding Note: Dr. Masterson to consult on Sunday.
[2024-12-12] MEDS: Heparin/D5w 25K 250 ML Ivpb 25,000 UNIT/250 ML BAG 14.152 UNIT IV (19:40)
--- NOTE | 2024-12-12 19:53 | PD.IMCONS ---
HPI Data of Consult Requesting Physician: Guillermina Keita MD Primary Care Provider: Los Hanks MD Consult Narrative Reason for consult: Evaluation for choledocholithiasis History of present illness: 79 years old female who presented to the hospital with left-sided chest pain was found to have atrial fibrillation with RVR currently on amiodarone drip On 11/20/2024 she had undergone sigmoid resection with primary anastomosis splenectomy and cholecystectomy Patient liver function test today shows total bilirubin 0.5 AST ALT 19 and 14 and alk phos of 144 CT scan of the abdomen pelvis done in the emergency room with contrast showed bilateral pneumonia esophageal varices stones in the cystic duct remnant as well as extensive thrombus in the splenic vein and partial thrombus in the portal vein Patient has been started on amiodarone drip as well as heparin drip MRCP done showed stones in the cystic duct remnant as well as 2 stones in the common bile duct 2 mm each Patient is on IV Zosyn at the moment Patient has no right upper quadrant pain at the moment cc:: cc: Guillermina Keita MD Review of Systems Review of Systems Systems Reviewed: All systems reviewed, normal except as documented Past Medical History Surgical History OTHER SURGICAL HX: As in the history of present illness Meds Home Medications and Allergies Home Medications ?Medication ?Instructions ?Recorded ?Confirmed ?Type furosemide 20 mg tablet 40 mg PO DAILY 11/18/24 12/12/24 History nitrofurantoin 100 mg PO QDAY 12/12/24 12/12/24 History monohydrate/macrocrystals 100 mg capsule (Macrobid) Allergies Allergy/AdvReac Type Severity Reaction Status Date / Time adhesive tape Allergy Verified 12/11/24 00:25 cephalexin (From Keflex) Allergy Verified 12/11/24 00:25 codeine Allergy Nausea Verified 12/11/24 00:25 latex Allergy Verified 12/11/24 00:25 levofloxacin (From Levaquin) Allergy Nausea Verified 12/11/24 00:25 sertraline Allergy Nausea Verified 12/11/24 00:25 Sulfa (Sulfonamide Allergy Verified 12/11/24 00:25 Antibiotics) hydrocodone AdvReac Mild Nausea Verified 12/11/24 00:25 meperidine AdvReac Mild UPPER GI Verified 12/11/24 00:25 propoxyphene AdvReac Mild Nausea Verified 12/11/24 00:25 Exam Vital Signs Temp Pulse Resp BP Pulse Ox O2 Del Method O2 Flow Rate 98.3 F 87 20 100/59 L 99 Nasal Cannula 2 12/12/24 16:00 12/12/24 18:49 12/12/24 18:49 12/12/24 16:00 12/12/24 18:49 12/12/24 16:00 12/12/24 18:49 Routine Respiratory Exam Comments: Normal to auscultation Routine Abdominal Exam Comments: Soft nontender Results Labs 12/12/24 02:35 12/12/24 02:35 Labs: Short CBC 12/12/24 Range/Units 02:35 WBC 21.6 H D (3.6-11.0) Thou/mm3 Hgb 9.8 L (12.0-16.0) g/dL Hct 29.9 L (36.0-46.0) % Plt Count 468 H D (140-440) Thou/mm3 BMP 12/11/24 12/12/24 19:02 02:35 Sodium 136 136 Potassium 5.0 D 4.8 Chloride 104 104 Carbon Dioxide 26.8 29.5 BUN 16 18 Creatinine 0.4 L 0.6 Glucose 117 H 124 H Calcium 8.9 8.3 Liver Function 12/12/24 Range/Units 02:35 Total Bilirubin 0.5 (0.3-1.2) mg/dL AST 19 (0-34) U/L ALT 14 (10-49) U/L Alkaline Phosphatase 144 H D (46-116) U/L Albumin 2.8 L (3.4-4.8) gm/dL ABG Interpretation ABG results: 12/10/24 22:53 ABG pH 7.44 ABG pCO2 42 ABG pO2 58 L* ABG HCO3 29 H ABG O2 Saturation 90 L ABG Base Excess 4 H Assessment and Plan Additional Assessment & Plan Additional Plan: # Choledocholithiasis with cystic duct stones postcholecystectomy With normal LFTs Coverage has been extended for cholangitis no patel for ERCP at this time as there are multiple other medical problems going on Let the patient his medical condition stabilize ERCP can wait and may can be done as an outpatient but I will have my colleague Dr. Masterson evaluate the patient on Sunday Thank you for the opportunity to participate in the care of this patient Other medical problems include A-fib with RVR Left-sided chest pain Bilateral pneumonia Thank you for the opportunity to participate in the care of this patient
[2024-12-13] VITALS (17 sets, daily range): BP systolic 96–109; BP diastolic 55–79; PULSE 82–113; RESP 14–27; TEMP 36.1–36.6; O2SAT 93–100; BMI 23.5
[2024-12-13] MEDS: HYDROmorphone INJ 2 MG/ML VIAL 0.5 MG IVP ×4 (00:09→21:35)
[2024-12-13] MEDS: IPRATROPIUM RT 0.5 MG/ 2.5 ML NEBU INH ×3 (00:34→18:03)
[2024-12-13 00:35] LABS: Partial Thromboplastin Time > 139.0 Seconds (22.0-36.0)
[2024-12-13] MEDS: PIPER/TAZO 3.375 GM PREMIX 3.375 GM/50 ML BAG IV ×3 (05:07→21:35)
[2024-12-13 08:16] LABS: Basophils % (Auto) 0 % (0-2.5); Eosinophils % (Auto) 0 % (0-10); Hematocrit 36.7 % (36.0-46.0); Hemoglobin 11.6 g/dL (12.0-16.0); Immature Granulocytes % (Auto) 0 % (0-0); Immature Granulocytes Auto 0.04 Thou/mm3 (0.00-0.00); Lymphocytes # (Auto) 0.8 Thou/mm3 (1.0-4.8); Lymphocytes % (Auto) 7 % (10-50); Mean Corpuscular HGB Conc 31.6 g/dl (31.0-37.0); Mean Corpuscular Hemoglobin 28.9 pg (25.0-35.0); Mean Corpuscular Volume 92 fL (80-100); Monocytes # (Auto) 1.9 Thou/mm3 (0.0-0.8); Monocytes % (Auto) 17 % (0-12); Neutrophils # (Auto) 8.1 Thou/mm3 (1.8-7.7); Neutrophils % (Auto) 75 % (37-80); Nucleated Red Blood Cell % 0 /100 WBC (0); Platelet Count 675 Thou/mm3 (140-440); RDW Standard Deviation 53.8 fL (36.4-46.3); Red Blood Count 4.01 Miln/mm3 (4.00-5.20); White Blood Count 10.9 Thou/mm3 (3.6-11.0)
[2024-12-13 08:30] LABS: INR 1.2 (0.9-1.3); Partial Thromboplastin Time 36.7 Seconds (22.0-36.0); Prothrombin Time 13.2 Seconds (9.0-12.2)
[2024-12-13 08:34] LABS: Alanine Aminotransferase 16 U/L (10-49); Albumin/Globulin Ratio 0.9 (1.2-2.2); Alkaline Phosphatase 158 U/L (46-116); Anion Gap 5 (7-16); Aspartate Amino Transferase 23 U/L (0-34); BUN/Creatinine Ratio 34 Ratio (12-20); Bilirubin,Total 0.7 mg/dL (0.3-1.2); Blood Urea Nitrogen 17 mg/dL (9-23); Calcium 8.6 mg/dL (8.3-10.6); Calcium (Corrected) 9.4 mg/dL (8.5-10.1); Carbon Dioxide 32.9 mMol/L (20.0-31.0); Chloride 100 mMol/L (98-107); Creatinine (Component) 0.5 mg/dL (0.6-1.3); Estimated Creatinine Clearance 76.2 mL/min (>60); Globulin 3.3 gm/dL (2.3-3.5); Glucose 114 mg/dL (74-106); Osmolality,Calculated 278 (275-295); Phosphorous 2.6 mg/dL (2.4-5.1); Potassium 4.1 mMol/L (3.4-5.1); Sodium 138 mMol/L (136-145); Total Protein 6.3 gm/dL (5.7-8.2); eGFR > 60 See Note
--- NOTE | 2024-12-13 08:52 | ESPR_ITS ---
RE: ARIADNE FONSECA : 1945 DATE OF SERVICE: 12/13/2024 SUBJECTIVE: Ms. Fonseca is resting comfortably in bed. She still has some left- sided pleuritic chest pain, though better than before. Denies any complaint of fever or chills. Denies any complaint of skipped beats or palpitations, though the patient still continues to persist in atrial fibrillation with moderate to fast ventricular response this morning. PHYSICAL EXAMINATION: Vital Signs: The pulse rate is 113 per minute and irregularly irregular, respiratory rate is 27, temperature is 97.5, the oximetry saturation is 95% on 2 liters of oxygen via nasal cannula, and blood pressure is 107/79. Heart: Irregularly irregular heart rhythm and mitral regurgitation and murmur. Heart rhythm is staying in atrial fibrillation with fast ventricular response. Lungs: Few basal rhonchi. Extremities: No pedal edema is noted. LABORATORY DATA: The lab work from this morning are still awaited. PLAN: The patient's IV amiodarone was discontinued last night and we will start the patient back on p.o. amiodarone as 200 mg b.i.d. Because of the fast heart rate, a small dose of beta-kay therapy of metoprolol tartrate will also be started at 25 mg b.i.d. if tolerated. Rest of the medications will be continued as before. DT: 08:24:45 TT: 08:51:00 Ref: [id number] - TID: [id number]
[2024-12-13] MEDS: DOXYCYCLINE INJ 100 MG in SODIUM CHLORIDE 0.9% (POP) 100 ML IV ×2 (09:13→20:26)
[2024-12-13] MEDS: FUROSEMIDE INJ 10 MG/ML 4ML VIAL 40 MG IVP (09:14)
[2024-12-13] MEDS: AMIODARONE HCL 200 MG TABLET PO ×2 (09:15→20:27)
[2024-12-13] MEDS: METOPROLOL TARTRATE 25 MG TABLET PO ×2 (09:16→20:28)
[2024-12-13] MEDS: Milk Of Magnesia Susp 30 ML UDC PO (09:17)
[2024-12-13] MEDS: HEPARIN SOD INJ 5000 UNIT/ML VIAL 2550 UNIT IVP ×2 (09:38→16:53)
--- NOTE | 2024-12-13 10:08 | PD.RESPRO ---
Documentation for date of: 12/13/24 Subjective Subjective Interval history: No acute overnight events reported. Patient is Amio drip was finished overnight. Patient seen and examined at bedside this morning. Patient's pain is well-controlled with medications she endorses to feeling significantly better today. Patient is tolerating oral diet and denies any nausea or vomiting. Patient continues to have some left-sided chest pain and continues to use incentive spirometry. Patient states that she has not had a bowel movement however she has taken some laxatives yesterday and does not want to take another 1 today because she is afraid she is going to make a mess. Patient continues to be on heparin drip and IV antibiotics patient also had physical therapy today and was able to stand with assistance. Patient is currently saturating on 2 L of oxygen via nasal cannula and telemetry is reviewed patient's A-fib is rate controlled. Will transition patient to p.o. amiodarone as per cardiology recommendation and patient is started on metoprolol to tartrate by cardiology. Patient has no other complaints and states she wants to get some rest. Exam Vital Signs Temp Pulse Resp BP Pulse Ox O2 Del Method O2 Flow Rate 97.5 F 113 H 27 H 107/79 95 Nasal Cannula 2 12/13/24 08:00 12/13/24 09:16 12/13/24 08:00 12/13/24 09:16 12/13/24 08:00 12/13/24 08:00 12/13/24 08:00 Narrative Exam General: Awake. relaxed, comfortably resting HEENT: Normocephalic, atraumatic, mucous membranes moist. Heart: Irregular rate and rhythm, no murmurs. Lungs: Clear to auscultation with no wheezing or crackles. Decreased breath sounds noted in basilar areas more on right side Abdomen: Soft, nondistended, nontender, positive bowel sounds. ?No guarding or rebound tenderness. midline surgical scar, healing well Neurologic: Alert and oriented x3, no gross neurological deficit, and patient able to move all 4 extremities. Extremities: No edema. Skin: No rash or ecchymoses. Objective Labs 12/13/24 07:50 12/13/24 07:50 Labs: Laboratory Results - last 24 hr 12/12/24 12/12/24 12/13/24 15:58 23:00 07:50 WBC 10.9 D RBC 4.01 Hgb 11.6 L Hct 36.7 MCV 92 MCH 28.9 MCHC 31.6 RDW Std Deviation 53.8 H Plt Count 675 H D Neut % (Auto) 75 Lymph % (Auto) 7 L [place] % (Auto) 17 H Eos % (Auto) 0 Baso % (Auto) 0 Neut # (Auto) 8.1 H Lymph # (Auto) 0.8 L [place] # (Auto) 1.9 H Eos # (Auto) 0.0 Baso # (Auto) 0.0 Immature Gran # (Auto) 0.04 H Absolute Nucleated RBC 0.00 Immature Gran % 0 Nucleated RBC % 0 PT 13.2 H INR 1.2 APTT 52.2 H > 139.0 H* D 36.7 H D Sodium 138 Potassium 4.1 D Chloride 100 Carbon Dioxide 32.9 H Anion Gap 5 L BUN 17 Creatinine 0.5 L Estim Creat Clear Calc 76.2 eGFR > 60 BUN/Creatinine Ratio 34 H Glucose 114 H Calculated Osmolality 278 Calcium 8.6 Corrected Calcium 9.4 Phosphorus 2.6 Magnesium 2.0 Total Bilirubin 0.7 AST 23 ALT 16 Alkaline Phosphatase 158 H Total Protein 6.3 Albumin 3.0 L Globulin 3.3 Albumin/Globulin Ratio 0.9 L ABG Interpretation ABG results: 12/10/24 22:53 ABG pH 7.44 ABG pCO2 42 ABG pO2 58 L* ABG HCO3 29 H ABG O2 Saturation 90 L ABG Base Excess 4 H Quality Measures Quality Measures none Advance care planning discussed with:: patient Assessment & Plan Assessment Current Active Medications: Generic Name Dose Route Start Last Admin Trade Name Ayla PRN Reason Stop Dose Admin Acetaminophen 650 mg 12/11/24 10:13 Acetaminophen 325 Mg Tablet PO 01/10/25 03:36 Q6H PRN Fever >100.3 or mild pain1-3 Amiodarone HCl 200 mg 12/13/24 09:00 12/13/24 09:15 Amiodarone Hcl 200 Mg Tablet PO 01/12/25 08:59 200 mg BID ELINOR Administration Furosemide 40 mg 12/12/24 09:00 12/13/24 09:14 Furosemide Inj 10 Mg/Ml 4ml Vial IVP 01/11/25 08:59 40 mg QDAY ELINOR Administration Hydromorphone HCl 0.5 mg 12/11/24 09:47 12/13/24 09:37 Hydromorphone Inj 2 Mg/Ml Vial IVP 12/16/24 03:36 0.5 mg Q4H PRN Administration PAIN SCALE 7-10 (Severe Doxycycline Hyclate 100 mg/ 100 mls @ 100 mls/hr 12/11/24 21:00 12/13/24 09:13 Sodium Chloride IV 12/18/24 20:59 100 mls/hr Q12HR ELINOR Administration Heparin Sodium/Dextrose 25,000 unit in 250 mls @ 10.614 mls/hr 12/11/24 04:00 12/13/24 09:40 Heparin In D5w Ivpb IV 12/25/24 03:59 23 units/kg/hr .[id number] ELINOR 13.562 mls/hr Titration Protocol 18 UNITS/KG/HR Piperacillin/Tazobactam/Dextrose 3.375 gm in 50 mls @ 12.5 mls/hr 12/12/24 14:00 12/13/24 05:07 Zosyn IV 12/19/24 13:59 12.5 mls/hr Q8HR ELINOR Administration Ipratropium Rainbow 0.5 mg 12/11/24 07:00 12/13/24 07:25 Ipratropium Rt 0.5 Mg/ 2.5 Ml Nebu INH 01/10/25 06:59 Not Given Q6HRRT [facility] Ketorolac Tromethamine 15 mg 12/11/24 09:53 12/11/24 23:12 Ketorolac Inj 30 Mg/Ml Vial IVP 12/16/24 09:52 15 mg Q6HR PRN Administration Pain 1-5 Levalbuterol HCl 0.63 mg 12/12/24 19:48 Levalbuterol Rt 0.63 Mg/3 Ml Nebu INH 01/10/25 06:59 Q6HRRT PRN wheeze or sob Magnesium Hydroxide 30 ml 12/12/24 08:20 12/13/24 09:17 Milk Of Magnesia Susp 30 Ml Udc PO 01/11/25 08:19 30 ml QDAY PRN Administration CONSTIPATION Protocol Metoprolol Tartrate 25 mg 12/13/24 09:00 12/13/24 09:16 Metoprolol Tartrate 25 Mg Tablet PO 01/12/25 08:59 25 mg BID ELINOR Administration Ondansetron HCl 4 mg 12/11/24 03:37 Ondansetron Inj 2 Mg/Ml Inj 2 Ml IV 01/10/25 03:36 Q12H PRN NAUSEA OR VOMITING Protocol Plan The patient is an 79-year-old female with significant past medical history of autoimmune hepatitis, iron deficiency anemia, mitral regurgitation and arrhythmia presented with chief complaint of left lower chest pain that started on 12/10/2024 around 2 PM is admitted to telemetry unit for further management of acute chest pain #Acute chest pain likely 10/05- improving #Post op atelectasis #suspicion of underlying LRTI -Patient presented with sharp pleuritic chest pain, worsened by deep inspiration, coughing or movement. She was having subjective fever 1 day prior to the chest pain. -Presented with heart rate of 136, RR 21, temperature 100.2, white count 15.5., Tropes were negative -Chest x-ray was significant for right basal pneumonia, but patient has left basal pneumonia -CT angio chest is negative for pulmonary emboli and bilateral minimal pleural effusions are noted -Received IV ceftriaxone 1 g in the ED DuoNeb and IV methylprednisone along with Dilaudid Plan - Blood cultures are sent, no growth after 24 hrs - IV Dilaudid and ketorolac as needed - Lignocaine patch at the site of the pain - Levalbuterol and ipratropium every 6 hourly as needed - Ceftriaxone 1 g daily - changed to zosyn 3.37gm iv every 6th hrly - Doxycycline 100 Mg IV twice daily - Incentive spirometry - Oxygen as needed, titrate as tolerated #CBD stones without features of cholangitis -CT angio abdomen/pelvis showed cirrhosis, esophageal varices, mild ascites, anasarca, stones in the cystic duct remnant, CBD 11 mm, extensive thrombus in the splenic vein, partial thrombus in the portal vein -MRCP was done that showed Cirrhosis, Ascites, Cholelithiasis, including multiple tiny stones in the cystic duct, At least 2 tiny stones in the common bile duct, recommend ERCP follow-up -AST, ALT, total bilirubin is within normal limits and patient is denying any complaints of abdominal pain except mild discomfort at the surgical site Plan -Dr. Masterson was consulted and recommended to consult Dr. Fields and stated that he will see patient on Sunday -Dr. Fields was consulted and recommended to continue broad-spectrum antibiotics for now, started on Zosyn -Dr. Burton was consulted and will appreciate his recommendations #A-fib with RVR #Hypokalemia, resolved Likely secondary to pain. Patient follows Dr. Pruitt. EKG was significant for A-fib with RVR, potassium level 3.3 at the time of admission Patient was given IV push of diltiazem, and later restarted on diltiazem drip, but stopped because of blood pressure Repeat EKG revealed a flutter, rate controlled Received 40 mEq liquid KCl, and 40 mEq KCl tablet, totaling 80 mEq; 2 g of magnesium sulfate IV in the ED Echo done on 12/12: Mitral annular calcification with mitral valve prolapse & moderate to severe mitral regurgitation. LVEF 55-60% RVSP 40 mmHg LA is moderately dilated Aortic sclerosis Mild TR Plan - Telemetry - Occupational Therapy Professor Dr. Pruitt consulted, appreciate recommendations - started on lasix 40mg IV qday - On Heparin drip and amiodarone drip as recommended by Dr. 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 Burton, midline abdominal sutures healing well CT abdomen revealed thrombosed splenic vein with thrombus extending to the confluence of the superior mesenteric vein into the portal vein, and nonocclusive thrombus in the right portal vein Plan - Started on heparin drip - Dr Burton consulted, will appreciate recommendations #Mild hypovolemic hyponatremia, resolving Etiology currently unknown, but most likely secondary to poor oral intake in the setting of subjective fever for past 1 day Presented with sodium of 133 Patient received 1 L of IV normal saline bolus in the ED, improved to 134 today Health maintenance: Dispo: Telemetry DVT prophylaxis: On heparin drip Diet: Cardiac diet with 1.5 L fluid restriction CODE STATUS: Full code Assessment and plan discussed with my attending physician Dr. Neela Norwood ([id number])- Internal medicine resident Attending Provider Attestation/Addendum I attest that I was physically present for the evaluation, physical examination, lab and imaging review of the patient with the residents. I discussed the case with the residents and agree with the findings and plans of care as documented above. At bedside today, patient states that her pain has been better compared to yesterday. She continues to have pain on her left side of lower chest and upper abdomen while coughing and taking deep breath. Has been tolerating diet, denies any nausea or vomiting. WBC count has improved from 21.6 yesterday to 10.9 today. Vitals are stable, saturating well on 2 L nasal cannula. Continues to be on A-fib, rate controlled. Continues to be on amiodarone, metoprolol 25 twice daily for A-fib. Cardiology following, appreciate recommendations. General surgery following, recommended continuation of medical management, appreciate recommendations. Urine culture grew blood cultures have been negative for 48 hours, urine culture grew Enterobacter cloacae but only 20,000-30,000 colonies per mL, patient continues to be on broad-spectrum antibiotics for possible cholangitis/pneumonia with Zosyn and doxycycline. Continues to have intractable pain needing IV analgesics, awaiting gastroenterology to evaluate for need of ERCP. Guillermina Keita MD
--- NOTE | 2024-12-13 12:27 | ESPR_ITS ---
Documentation for date of: 12/13/24 Subjective Subjective Narrative: Patient is seen and examined. Her pain is improving. She is tolerating diet without nausea or vomiting. She continues to have some left-sided chest pain with dyspnea Exam Vital Signs Temp Pulse Resp BP Pulse Ox O2 Del Method O2 Flow Rate 97.3 F 82 17 99/56 L 97 Nasal Cannula 2 12/13/24 11:58 12/13/24 11:58 12/13/24 11:58 12/13/24 11:58 12/13/24 11:58 12/13/24 11:58 12/13/24 11:58 Constitutional Constitutional: no acute distress Routine Abdominal Exam Abdominal: Present soft, normoactive bowel sounds and tenderness (Minimal margaret- incisional tenderness. Incision is clean, dry and intact); Absent distended Assessment & Plan Assessment Additional comments: Pain improving. Plan Continue IV antibiotics and heparin. Use incentive spirometer. Consult physical therapy to assist ambulating
[2024-12-13] MEDS: DOCUSATE SOD 100 MG CAPSULE PO ×2 (12:37→20:28)
[2024-12-13] MEDS: LEVALBUTEROL RT 0.63 MG/3 ML NEBU INH (14:12)
[2024-12-13] MEDS: Heparin/D5w 25K 250 ML Ivpb 25,000 UNIT/250 ML BAG 14.742 UNIT IV (17:03)
--- NOTE | 2024-12-13 17:13 | ESPR_ITS ---
Documentation for date of: 12/13/24 Subjective Subjective Interval history: LFTs remain normal except mildly elevated alkaline phosphatase same as of yesterday WBC count is dropping to 10.9 from 21.8 Exam Vital Signs Temp Pulse Resp BP Pulse Ox O2 Del Method O2 Flow Rate 97.9 F 101 H 15 97/62 96 Nasal Cannula 2 12/13/24 16:00 12/13/24 16:00 12/13/24 16:00 12/13/24 16:00 12/13/24 16:00 12/13/24 16:00 12/13/24 16:00 Objective Labs 12/13/24 07:50 12/13/24 07:50 Labs: Laboratory Results - last 24 hr 12/12/24 12/13/24 12/13/24 23:00 07:50 15:55 WBC 10.9 D RBC 4.01 Hgb 11.6 L Hct 36.7 MCV 92 MCH 28.9 MCHC 31.6 RDW Std Deviation 53.8 H Plt Count 675 H D Neut % (Auto) 75 Lymph % (Auto) 7 L [place] % (Auto) 17 H Eos % (Auto) 0 Baso % (Auto) 0 Neut # (Auto) 8.1 H Lymph # (Auto) 0.8 L [place] # (Auto) 1.9 H Eos # (Auto) 0.0 Baso # (Auto) 0.0 Immature Gran # (Auto) 0.04 H Absolute Nucleated RBC 0.00 Immature Gran % 0 Nucleated RBC % 0 PT 13.2 H INR 1.2 APTT > 139.0 H* D 36.7 H D 49.0 H D Sodium 138 Potassium 4.1 D Chloride 100 Carbon Dioxide 32.9 H Anion Gap 5 L BUN 17 Creatinine 0.5 L Estim Creat Clear Calc 76.2 eGFR > 60 BUN/Creatinine Ratio 34 H Glucose 114 H Calculated Osmolality 278 Calcium 8.6 Corrected Calcium 9.4 Phosphorus 2.6 Magnesium 2.0 Total Bilirubin 0.7 AST 23 ALT 16 Alkaline Phosphatase 158 H Total Protein 6.3 Albumin 3.0 L Globulin 3.3 Albumin/Globulin Ratio 0.9 L Impressions Impression: # Asymptomatic choledocholithiasis # Asymptomatic cystic duct remnant stones Continue to follow LFTs No need for emergent ERCP ERCP can done as an outpatient when patient recovers from her acute illness ABG Interpretation ABG results: 12/10/24 22:53 ABG pH 7.44 ABG pCO2 42 ABG pO2 58 L* ABG HCO3 29 H ABG O2 Saturation 90 L ABG Base Excess 4 H Assessment & Plan A&P Narrative # Choledocholithiasis with cystic duct stones postcholecystectomy With normal LFTs Coverage has been extended for cholangitis no patel for ERCP at this time as there are multiple other medical problems going on Let the patient his medical condition stabilize ERCP can wait and may can be done as an outpatient but I will have my colleague Dr. Masterson evaluate the patient on Sunday Thank you for the opportunity to participate in the care of this patient Other medical problems include A-fib with RVR Left-sided chest pain Bilateral pneumonia Thank you for the opportunity to participate in the care of this patient Time Spent With Patient Time: Total time spent is greater than 50% in coordination of care (as documented) at patient's floor/unit and/or counseling patient:
[2024-12-13 23:54] LABS: Partial Thromboplastin Time 59.5 Seconds (22.0-36.0)
[2024-12-14] VITALS (16 sets, daily range): BP systolic 92–106; BP diastolic 55–77; PULSE 78–100; RESP 13–21; TEMP 36.1–36.4; O2SAT 93–99
[2024-12-14] MEDS: IPRATROPIUM RT 0.5 MG/ 2.5 ML NEBU INH ×3 (00:47→13:58)
[2024-12-14] MEDS: ONDANSETRON INJ 2 MG/ML INJ 2 ML 4 MG IV ×2 (03:11→21:30)
[2024-12-14] MEDS: HYDROmorphone INJ 2 MG/ML VIAL 0.5 MG IVP (04:36)
[2024-12-14] MEDS: PIPER/TAZO 3.375 GM PREMIX 3.375 GM/50 ML BAG IV ×3 (05:13→21:45)
[2024-12-14 07:15] LABS: Phosphorous 3.1 mg/dL (2.4-5.1)
[2024-12-14 07:30] LABS: Partial Thromboplastin Time 56.3 Seconds (22.0-36.0)
[2024-12-14] MEDS: LEVALBUTEROL RT 0.63 MG/3 ML NEBU INH (07:31)
[2024-12-14 07:34] LABS: Basophils % (Auto) 0 % (0-2.5); Eosinophils % (Auto) 1 % (0-10); Hemoglobin 10.8 g/dL (12.0-16.0); Immature Granulocytes % (Auto) 1 % (0-0); Immature Granulocytes Auto 0.04 Thou/mm3 (0.00-0.00); Lymphocytes # (Auto) 0.7 Thou/mm3 (1.0-4.8); Lymphocytes % (Auto) 9 % (10-50); Mean Corpuscular HGB Conc 31.8 g/dl (31.0-37.0); Mean Corpuscular Hemoglobin 28.9 pg (25.0-35.0); Mean Corpuscular Volume 91 fL (80-100); Monocytes # (Auto) 1.5 Thou/mm3 (0.0-0.8); Monocytes % (Auto) 18 % (0-12); Neutrophils # (Auto) 6.2 Thou/mm3 (1.8-7.7); Neutrophils % (Auto) 73 % (37-80); Nucleated Red Blood Cell % 0 /100 WBC (0); Platelet Count 611 Thou/mm3 (140-440); RDW Standard Deviation 51.9 fL (36.4-46.3); Red Blood Count 3.74 Miln/mm3 (4.00-5.20); White Blood Count 8.6 Thou/mm3 (3.6-11.0)
[2024-12-14 07:48] LABS: Alanine Aminotransferase 16 U/L (10-49); Albumin, Serum 2.5 gm/dL (3.4-4.8); Alkaline Phosphatase 144 U/L (46-116); Anion Gap 3 (7-16); Aspartate Amino Transferase 20 U/L (0-34); BUN/Creatinine Ratio 30 Ratio (12-20); Bilirubin,Total 0.7 mg/dL (0.3-1.2); Blood Urea Nitrogen 15 mg/dL (9-23); Calcium (Corrected) 9.2 mg/dL (8.5-10.1); Carbon Dioxide 33.7 mMol/L (20.0-31.0); Chloride 101 mMol/L (98-107); Creatinine (Component) 0.5 mg/dL (0.6-1.3); Estimated Creatinine Clearance 76.2 mL/min (>60); Globulin 2.6 gm/dL (2.3-3.5); Glucose 91 mg/dL (74-106); Osmolality,Calculated 276 (275-295); Potassium 4.2 mMol/L (3.4-5.1); Sodium 138 mMol/L (136-145); Total Protein 5.1 gm/dL (5.7-8.2); eGFR > 60 See Note
[2024-12-14] MEDS: DOXYCYCLINE INJ 100 MG in SODIUM CHLORIDE 0.9% (POP) 100 ML IV ×2 (08:30→20:44)
[2024-12-14] MEDS: FUROSEMIDE INJ 10 MG/ML 4ML VIAL 40 MG IVP (08:30)
[2024-12-14] MEDS: AMIODARONE HCL 200 MG TABLET PO ×2 (08:31→20:44)
[2024-12-14] MEDS: DOCUSATE SOD 100 MG CAPSULE PO ×2 (08:31→20:45)
[2024-12-14] MEDS: METOPROLOL TARTRATE 25 MG TABLET PO ×2 (08:32→20:49)
[2024-12-14] MEDS: Heparin/D5w 25K 250 ML Ivpb 25,000 UNIT/250 ML BAG 14.742 UNIT IV (10:36)
[2024-12-14] MEDS: HYDROcodone/APAP 5/325 TABLET 1 TAB PO ×2 (12:40→21:01)
--- NOTE | 2024-12-14 13:38 | ESPR_ITS ---
Documentation for date of: 12/14/24 Subjective Subjective Interval history: LFTs remain normal Only pain patient has is a left-sided chest pain Exam Vital Signs Temp Pulse Resp BP Pulse Ox O2 Del Method O2 Flow Rate 97.3 F 79 13 97/57 L 93 L Nasal Cannula 1 12/14/24 11:45 12/14/24 11:45 12/14/24 11:45 12/14/24 11:45 12/14/24 11:45 12/14/24 11:45 12/14/24 11:45 Objective Labs 12/14/24 06:15 12/14/24 06:15 Labs: Laboratory Results - last 24 hr 12/13/24 12/13/24 12/14/24 15:55 22:56 06:10 WBC RBC Hgb Hct MCV MCH MCHC RDW Std Deviation Plt Count Neut % (Auto) Lymph % (Auto) [place] % (Auto) Eos % (Auto) Baso % (Auto) Neut # (Auto) Lymph # (Auto) [place] # (Auto) Eos # (Auto) Baso # (Auto) Immature Gran # (Auto) Absolute Nucleated RBC Immature Gran % Nucleated RBC % APTT 49.0 H D 59.5 H D 56.3 H Sodium Potassium Chloride Carbon Dioxide Anion Gap BUN Creatinine Estim Creat Clear Calc eGFR BUN/Creatinine Ratio Glucose Calculated Osmolality Calcium Corrected Calcium Phosphorus 3.1 Total Bilirubin AST ALT Alkaline Phosphatase Total Protein Albumin Globulin Albumin/Globulin Ratio 12/14/24 06:15 WBC 8.6 RBC 3.74 L Hgb 10.8 L Hct 34.0 L MCV 91 MCH 28.9 MCHC 31.8 RDW Std Deviation 51.9 H Plt Count 611 H D Neut % (Auto) 73 Lymph % (Auto) 9 L [place] % (Auto) 18 H Eos % (Auto) 1 Baso % (Auto) 0 Neut # (Auto) 6.2 Lymph # (Auto) 0.7 L [place] # (Auto) 1.5 H Eos # (Auto) 0.0 Baso # (Auto) 0.0 Immature Gran # (Auto) 0.04 H Absolute Nucleated RBC 0.00 Immature Gran % 1 H Nucleated RBC % 0 APTT Sodium 138 Potassium 4.2 Chloride 101 Carbon Dioxide 33.7 H Anion Gap 3 L BUN 15 Creatinine 0.5 L Estim Creat Clear Calc 76.2 eGFR > 60 BUN/Creatinine Ratio 30 H Glucose 91 Calculated Osmolality 276 Calcium 8.0 L Corrected Calcium 9.2 Phosphorus Total Bilirubin 0.7 AST 20 ALT 16 Alkaline Phosphatase 144 H Total Protein 5.1 L Albumin 2.5 L D Globulin 2.6 Albumin/Globulin Ratio 1.0 L Impressions Impression: Choledocholithiasis asymptomatic Continue to monitor LFTs ABG Interpretation ABG results: 12/10/24 22:53 ABG pH 7.44 ABG pCO2 42 ABG pO2 58 L* ABG HCO3 29 H ABG O2 Saturation 90 L ABG Base Excess 4 H Assessment & Plan A&P Narrative # Choledocholithiasis with cystic duct stones postcholecystectomy With normal LFTs Coverage has been extended for cholangitis no patel for ERCP at this time as there are multiple other medical problems going on Let the patient his medical condition stabilize ERCP can wait and may can be done as an outpatient but I will have my colleague Dr. Masterson evaluate the patient on Sunday Thank you for the opportunity to participate in the care of this patient Other medical problems include A-fib with RVR Left-sided chest pain Bilateral pneumonia Thank you for the opportunity to participate in the care of this patient Time Spent With Patient Time: Total time spent is greater than 50% in coordination of care (as documented) at patient's floor/unit and/or counseling patient:
--- NOTE | 2024-12-14 14:15 | PD.RESPRO ---
Documentation for date of: 12/14/24 Subjective Subjective Interval history: Patient is seen and examined with daughter at bedside. No acute overnight events. Reported that her pain is decreasing, but still worsening on inspiration and coughing. Vitals are stable. Still in A-fib with heart rate around 80. Physical examination remains unchanged Labs showed Hb 10.8, platelets 611, bicarb 33.7, BUN 15, creatinine 0.5, ALP 144 Pending physical therapy, we will start discharge plan once physical therapy recommendations are done Dr. Masterson consultation is pending on Sunday Exam Vital Signs Temp Pulse Resp BP Pulse Ox O2 Del Method O2 Flow Rate 97.3 F 82 16 97/57 L 99 Nasal Cannula 1 12/14/24 11:45 12/14/24 13:59 12/14/24 13:59 12/14/24 11:45 12/14/24 13:59 12/14/24 11:45 12/14/24 13:59 Narrative Exam General: Awake. anxious HEENT: Normocephalic, atraumatic, mucous membranes moist. Heart: Irregular rate and rhythm, no murmurs. Lungs: Clear to auscultation with no wheezing or crackles. Decreased breath sounds noted in basilar areas more on right side Abdomen: Soft, nondistended, nontender, positive bowel sounds. ?No guarding or rebound tenderness. midline surgical scar, healing well Neurologic: Alert and oriented x3, no gross neurological deficit, and patient able to move all 4 extremities. Extremities: No edema. Skin: No rash or ecchymoses. Objective Labs 12/14/24 06:15 12/14/24 06:15 Labs: Laboratory Results - last 24 hr 12/13/24 12/13/24 12/14/24 15:55 22:56 06:10 WBC RBC Hgb Hct MCV MCH MCHC RDW Std Deviation Plt Count Neut % (Auto) Lymph % (Auto) [place] % (Auto) Eos % (Auto) Baso % (Auto) Neut # (Auto) Lymph # (Auto) [place] # (Auto) Eos # (Auto) Baso # (Auto) Immature Gran # (Auto) Absolute Nucleated RBC Immature Gran % Nucleated RBC % APTT 49.0 H D 59.5 H D 56.3 H Sodium Potassium Chloride Carbon Dioxide Anion Gap BUN Creatinine Estim Creat Clear Calc eGFR BUN/Creatinine Ratio Glucose Calculated Osmolality Calcium Corrected Calcium Phosphorus 3.1 Total Bilirubin AST ALT Alkaline Phosphatase Total Protein Albumin Globulin Albumin/Globulin Ratio 12/14/24 06:15 WBC 8.6 RBC 3.74 L Hgb 10.8 L Hct 34.0 L MCV 91 MCH 28.9 MCHC 31.8 RDW Std Deviation 51.9 H Plt Count 611 H D Neut % (Auto) 73 Lymph % (Auto) 9 L [place] % (Auto) 18 H Eos % (Auto) 1 Baso % (Auto) 0 Neut # (Auto) 6.2 Lymph # (Auto) 0.7 L [place] # (Auto) 1.5 H Eos # (Auto) 0.0 Baso # (Auto) 0.0 Immature Gran # (Auto) 0.04 H Absolute Nucleated RBC 0.00 Immature Gran % 1 H Nucleated RBC % 0 APTT Sodium 138 Potassium 4.2 Chloride 101 Carbon Dioxide 33.7 H Anion Gap 3 L BUN 15 Creatinine 0.5 L Estim Creat Clear Calc 76.2 eGFR > 60 BUN/Creatinine Ratio 30 H Glucose 91 Calculated Osmolality 276 Calcium 8.0 L Corrected Calcium 9.2 Phosphorus Total Bilirubin 0.7 AST 20 ALT 16 Alkaline Phosphatase 144 H Total Protein 5.1 L Albumin 2.5 L D Globulin 2.6 Albumin/Globulin Ratio 1.0 L ABG Interpretation ABG results: 12/10/24 22:53 ABG pH 7.44 ABG pCO2 42 ABG pO2 58 L* ABG HCO3 29 H ABG O2 Saturation 90 L ABG Base Excess 4 H Quality Measures Quality Measures none Advance care planning discussed with:: patient and child Assessment & Plan Assessment Current Active Medications: Generic Name Dose Route Start Last Admin Trade Name Ayla PRN Reason Stop Dose Admin Acetaminophen 650 mg 12/11/24 10:13 Acetaminophen 325 Mg Tablet PO 01/10/25 03:36 Q6H PRN Fever >100.3 or mild pain1-3 Hydrocodone Bitart/Acetaminophen 1 tab 12/14/24 09:25 12/14/24 12:40 Hydrocodone/Apap 5/325 Tablet PO 12/19/24 09:24 1 tab Q4HR PRN Administration Pain 7- 10 Amiodarone HCl 200 mg 12/13/24 09:00 12/14/24 08:31 Amiodarone Hcl 200 Mg Tablet PO 01/12/25 08:59 200 mg BID ELINOR Administration Docusate Sodium 100 mg 12/13/24 12:30 12/14/24 08:31 Docusate Sod 100 Mg Capsule PO 01/12/25 12:29 100 mg BID ELINOR Administration Protocol Furosemide 40 mg 12/12/24 09:00 12/14/24 08:30 Furosemide Inj 10 Mg/Ml 4ml Vial IVP 01/11/25 08:59 40 mg QDAY ELINOR Administration Doxycycline Hyclate 100 mg/ 100 mls @ 100 mls/hr 12/11/24 21:00 12/14/24 08:30 Sodium Chloride IV 12/18/24 20:59 100 mls/hr Q12HR ELINOR Administration Heparin Sodium/Dextrose 25,000 unit in 250 mls @ 10.614 mls/hr 12/11/24 04:00 12/14/24 10:36 Heparin In D5w Ivpb IV 12/25/24 03:59 25 units/kg/hr .[id number] ELINOR 14.742 mls/hr Administration Protocol 18 UNITS/KG/HR Piperacillin/Tazobactam/Dextrose 3.375 gm in 50 mls @ 12.5 mls/hr 12/12/24 14:00 12/14/24 13:55 Zosyn IV 12/19/24 13:59 12.5 mls/hr Q8HR ELINOR Administration Ipratropium [place] 0.5 mg 12/11/24 07:00 12/14/24 13:58 Ipratropium Rt 0.5 Mg/ 2.5 Ml Nebu INH 01/10/25 06:59 0.5 mg Q6HRRT ELINOR Administration Levalbuterol HCl 0.63 mg 12/12/24 19:48 12/14/24 07:31 Levalbuterol Rt 0.63 Mg/3 Ml Nebu INH 01/10/25 06:59 0.63 mg Q6HRRT PRN Administration wheeze or sob Magnesium Hydroxide 30 ml 12/12/24 08:20 12/13/24 09:17 Milk Of Magnesia Susp 30 Ml Udc PO 01/11/25 08:19 30 ml QDAY PRN Administration CONSTIPATION Protocol Metoprolol Tartrate 25 mg 12/13/24 09:00 12/14/24 08:32 Metoprolol Tartrate 25 Mg Tablet PO 01/12/25 08:59 25 mg BID ELINOR Administration Ondansetron HCl 4 mg 12/11/24 03:37 12/14/24 03:11 Ondansetron Inj 2 Mg/Ml Inj 2 Ml IV 01/10/25 03:36 4 mg Q12H PRN Administration NAUSEA OR VOMITING Protocol Plan The patient is an 79-year-old female with significant past medical history of autoimmune hepatitis, iron deficiency anemia, mitral regurgitation and arrhythmia presented with chief complaint of left lower chest pain that started on 12/10/2024 around 2 PM is admitted to telemetry unit for further management of acute chest pain #Acute chest pain likely 10/05- improving #Post op atelectasis #suspicion of underlying LRTI -Patient presented with sharp pleuritic chest pain, worsened by deep inspiration, coughing or movement. She was having subjective fever 1 day prior to the chest pain. -Presented with heart rate of 136, RR 21, temperature 100.2, white count 15.5., Tropes were negative -Chest x-ray was significant for right basal pneumonia, but patient has left basal pneumonia -CT angio chest is negative for pulmonary emboli and bilateral minimal pleural effusions are noted -Received IV ceftriaxone 1 g in the ED DuoNeb and IV methylprednisone along with Dilaudid -Blood cultures are sent, no growth after 48 hrs Plan - IV Dilaudid and ketorolac as needed - Levalbuterol and ipratropium every 6 hourly as needed - Ceftriaxone 1 g daily - changed to zosyn 3.37gm iv every 6th hrly - Doxycycline 100 Mg IV twice daily - Incentive spirometry - Oxygen as needed, titrate as tolerated #CBD stones without features of cholangitis -CT angio abdomen/pelvis showed cirrhosis, esophageal varices, mild ascites, anasarca, stones in the cystic duct remnant, CBD 11 mm, extensive thrombus in the splenic vein, partial thrombus in the portal vein -MRCP was done that showed Cirrhosis, Ascites, Cholelithiasis, including multiple tiny stones in the cystic duct, At least 2 tiny stones in the common bile duct, recommend ERCP follow-up -AST, ALT, total bilirubin is within normal limits and patient is denying any complaints of abdominal pain except mild discomfort at the surgical site Plan -Dr. Masterson was consulted and recommended to consult Dr. Fields and stated that he will see patient on Sunday -Dr. Fields was consulted and recommended to continue broad-spectrum antibiotics for now, started on Zosyn -Dr. Burton was consulted and recommended to continue current treatment #A-fib with RVR #Hypokalemia, resolved Likely secondary to pain. Patient follows Dr. Pruitt. EKG was significant for A-fib with RVR, potassium level 3.3 at the time of admission Patient was given IV push of diltiazem, and later restarted on diltiazem drip, but stopped because of blood pressure Repeat EKG revealed a flutter, rate controlled Received 40 mEq liquid KCl, and 40 mEq KCl tablet, totaling 80 mEq; 2 g of magnesium sulfate IV in the ED Echo done on 12/12: Mitral annular calcification with mitral valve prolapse & moderate to severe mitral regurgitation. LVEF 55-60% .RVSP 40 mmHg. LA is moderately dilated. Aortic sclerosis. Mild TR Plan - Telemetry - [employer] Operations [employer] Dr. Pruitt consulted, appreciate recommendations - started on lasix 40mg IV qday - On Heparin drip and amiodarone drip as recommended by Dr. Pruitt - Amiodrip finished overnight on 12/13, pt is transitioned to PO amiodarone and metoprolol tartarate 25mg p.o. BID - Will continue heparin drip till tomorrow till we get Dr. 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 Burton, midline abdominal sutures healing well CT abdomen revealed thrombosed splenic vein with thrombus extending to the confluence of the superior mesenteric vein into the portal vein, and nonocclusive thrombus in the right portal vein Plan - Started on heparin drip - Dr Burton consulted, recommended to continue current treatment # Enterobacter cloacae bacteriuria -Patient denies any symptoms of urinary tract infection including burning micturition, increased frequency, lower abdominal pain -Routine urinary cultures were sent in the ED -Came back positive for Enterobacter cloacae, sensitive to Zosyn and other antibiotics -Patient is on Zosyn to cover for CBD stones, will continue it #Mild hypovolemic hyponatremia, resolved Etiology currently unknown, but most likely secondary to poor oral intake in the setting of subjective fever for past 1 day Presented with sodium of 133 Patient received 1 L of IV normal saline bolus in the ED, improved to 138 today Health maintenance: Dispo: Telemetry DVT prophylaxis: On heparin drip Diet: Cardiac diet with 1.5 L fluid restriction CODE STATUS: Full code Patient plan of care was discussed with the attending physician, Dr. Neela Chino, PGY1 Attending Provider Attestation/Addendum I attest that I was physically present for the evaluation, physical examination, lab and imaging review of the patient with the residents. I discussed the case with the residents and agree with the findings and plans of care as documented above. At bedside today, patient is states her pain has been improving, she was able to get sleep overnight.? Continues to be on 2 L nasal cannula, saturating well.? WBC count noted to be downtrending, 8.6 today from 10.9 yesterday.? We will change her analgesics from IV to oral.? Patient had negative balance of 1955 cc in last 24 hours.? Continues to be in A-fib but rate controlled.? Has not had a bowel movement for last 4 days, patient is on bowel regimen, if not improved we will try suppository.? Cardiology, GI and general surgery following, appreciate recommendations.? Ordered physical therapy, awaiting evaluation. Guillermina Keita MD
[2024-12-14] MEDS: GLYCERIN, ADULT 1 EA SUPP 1 EACH PR (21:02)
[2024-12-15] VITALS (14 sets, daily range): BP systolic 92–122; BP diastolic 56–88; PULSE 73–110; RESP 14–19; TEMP 36.2–36.6; O2SAT 91–99; BMI 13.0
--- NOTE | 2024-12-15 | XR_ITS ---
MRI abdomen, without contrast. MRCP Date and time of exam: December 15, 2024 1446 hours Comparison December 11, 2024 INDICATIONS: Abdominal pain this week, cirrhosis diagnosis with ascites Cholelithiasis, tiny stones in the cystic duct on MR study December 11, 2024 Technique: Multiple axial and coronal images of the abdomen have been obtained with the Siemens 1.5T MRI scanner. Images obtained included T1 weighted transverse images, T2-weighted transverse images, T2-weighted transverse images fat-suppressed, T2 weighted haste fat suppressed transverse images, T1 weighted images, in and out of phase images, T2-weighted coronal images, breath hold, T2 weighted haze coronal images as well as T2 weighted coronal thick slab images, MRCP. Findings: Cirrhosis Mild to moderate ascites No intrahepatic biliary tract dilatation Contracted gallbladder with gallstones On this study no stones in the cystic duct common hepatic or common bile duct are noted Spleen is not enlarged No pancreatic mass No hydronephrosis Partially visualized bilateral pleural fluid IMPRESSION: Cirrhosis Mild to moderate ascites Cholelithiasis On this study no stones in the cystic duct, common hepatic duct or common bile duct are noted
[2024-12-15] MEDS: Heparin/D5w 25K 250 ML Ivpb 25,000 UNIT/250 ML BAG 14.742 UNIT IV ×2 (02:18→23:30)
[2024-12-15] MEDS: PIPER/TAZO 3.375 GM PREMIX 3.375 GM/50 ML BAG IV ×3 (05:06→21:54)
[2024-12-15 06:02] LABS: Basophils % (Auto) 0 % (0-2.5); Eosinophils # (Auto) 0.3 Thou/mm3 (0.0-0.5); Eosinophils % (Auto) 3 % (0-10); Hematocrit 34.9 % (36.0-46.0); Hemoglobin 11.2 g/dL (12.0-16.0); Immature Granulocytes % (Auto) 1 % (0-0); Immature Granulocytes Auto 0.05 Thou/mm3 (0.00-0.00); Lymphocytes # (Auto) 1.1 Thou/mm3 (1.0-4.8); Lymphocytes % (Auto) 12 % (10-50); Mean Corpuscular HGB Conc 32.1 g/dl (31.0-37.0); Mean Corpuscular Hemoglobin 28.8 pg (25.0-35.0); Mean Corpuscular Volume 90 fL (80-100); Monocytes # (Auto) 1.5 Thou/mm3 (0.0-0.8); Monocytes % (Auto) 16 % (0-12); Neutrophils # (Auto) 6.1 Thou/mm3 (1.8-7.7); Neutrophils % (Auto) 68 % (37-80); Nucleated Red Blood Cell % 0 /100 WBC (0); Platelet Count 598 Thou/mm3 (140-440); RDW Standard Deviation 51.8 fL (36.4-46.3); Red Blood Count 3.89 Miln/mm3 (4.00-5.20)
[2024-12-15 06:27] LABS: Alanine Aminotransferase 13 U/L (10-49); Albumin, Serum 2.6 gm/dL (3.4-4.8); Albumin/Globulin Ratio 0.9 (1.2-2.2); Alkaline Phosphatase 136 U/L (46-116); Anion Gap 6 (7-16); Aspartate Amino Transferase 22 U/L (0-34); BUN/Creatinine Ratio 26 Ratio (12-20); Bilirubin,Total 0.6 mg/dL (0.3-1.2); Blood Urea Nitrogen 13 mg/dL (9-23); Calcium 8.4 mg/dL (8.3-10.6); Calcium (Corrected) 9.5 mg/dL (8.5-10.1); Carbon Dioxide 33.5 mMol/L (20.0-31.0); Chloride 100 mMol/L (98-107); Creatinine (Component) 0.5 mg/dL (0.6-1.3); Globulin 2.8 gm/dL (2.3-3.5); Glucose 99 mg/dL (74-106); Osmolality,Calculated 277 (275-295); Potassium 3.5 mMol/L (3.4-5.1); Sodium 139 mMol/L (136-145); Total Protein 5.4 gm/dL (5.7-8.2); eGFR > 60 See Note
[2024-12-15 06:32] LABS: Partial Thromboplastin Time 75.5 Seconds (22.0-36.0)
[2024-12-15] MEDS: POTASSIUM CHLORIDE 20 mEq TABCR 40 MEQ PO (07:33)
[2024-12-15] MEDS: DOCUSATE SOD 100 MG CAPSULE PO ×2 (08:46→20:52)
[2024-12-15] MEDS: DOXYCYCLINE INJ 100 MG in SODIUM CHLORIDE 0.9% (POP) 100 ML IV ×2 (08:46→20:51)
[2024-12-15] MEDS: AMIODARONE HCL 200 MG TABLET PO ×2 (08:47→20:52)
[2024-12-15] MEDS: METOPROLOL TARTRATE 25 MG TABLET PO (08:48)
[2024-12-15] MEDS: FUROSEMIDE INJ 10 MG/ML 4ML VIAL 40 MG IVP (09:03)
--- NOTE | 2024-12-15 09:05 | PC.SS ---
SS follow up note; SS submitted SNF through [employer] platform. Pending PT evaluation.
[2024-12-15] MEDS: PROMETHAZINE/DM SYRUP 5 ML DOSE 10 ML PO (09:56)
--- NOTE | 2024-12-15 12:02 | PC.PT ---
Patient is safe to transfer to a bedside commode with a FWW and 1 staff assist. RN made aware.
[2024-12-15] MEDS: ursodioL 300 MG CAPSULE PO ×3 (12:28→20:52)
[2024-12-15] MEDS: LEVALBUTEROL RT 0.63 MG/3 ML NEBU INH (13:01)
[2024-12-15] MEDS: IPRATROPIUM RT 0.5 MG/ 2.5 ML NEBU INH (13:02)
--- NOTE | 2024-12-15 13:49 | PC.SS ---
SS contacted Love from [facility] in regards to verifying insurance auth, Love informed SS she would review and contact SS in regards to auth. SS also contacted patient's daughter, Sherry and she informed SS she would liked patient to discharge to [facility], SS contacted Fouzia from [facility] and she informed SS that they will review and respond through [employer]. SS will stand by for further needs.
--- NOTE | 2024-12-15 14:13 | PC.SS ---
SS follow up note; Pending [facility] and Dr. Burton's recommendations. Pending [employer]'s response in regards to auth.
--- NOTE | 2024-12-15 14:56 | ESPR_ITS ---
<Statement entered by Shashank Garcia MD - 12/17/24 07:58> Senior Resident Attestation: I supervised/discussed management plan with pharmacy intern physician Dr. Chino, and was involved in the care of this patient. I personally saw and examined the patient and discussed the assessment and plan with the entire medicine team, including my attending. I agree with the assessment and plan as documented. Patient's care was discussed with attending physician, Dr. Keita. Shashank Garcia MD PGY-2. Documentation for date of: 12/15/24 Subjective Subjective Interval history: Patient is seen and examined at bedside No acute overnight events. Patient had 2 bowel movements this morning. Still complaining of mild pain at the left chest Vitals are stable. Labs showed WBC 9, Hb 11.2, platelets 598, sodium 139, potassium 3.5 Dr Burton was consulted and he recommended to repeat MRCP Physical therapy is done and recommended SNF placement Will follow-up with the MRCP results. Exam Vital Signs Temp Pulse Resp BP Pulse Ox O2 Del Method O2 Flow Rate 97.7 F 85 18 98/57 L 99 Room Air 2 12/15/24 12:00 12/15/24 13:02 12/15/24 13:02 12/15/24 12:00 12/15/24 13:02 12/15/24 12:00 12/15/24 08:00 Narrative Exam General: Awake. anxious HEENT: Normocephalic, atraumatic, mucous membranes moist. Heart: Irregular rate and rhythm, no murmurs. Lungs: Clear to auscultation with no wheezing or crackles. Decreased breath sounds noted in basilar areas more on right side Abdomen: Soft, nondistended, nontender, positive bowel sounds. ?No guarding or rebound tenderness. midline surgical scar, healing well Neurologic: Alert and oriented x3, no gross neurological deficit, and patient able to move all 4 extremities. Extremities: No edema. Skin: No rash or ecchymoses. Objective Labs 12/16/24 05:25 12/16/24 05:25 Labs: Laboratory Results - last 24 hr 12/14/24 12/14/24 12/15/24 14:25 21:39 05:43 WBC 9.0 RBC 3.89 L Hgb 11.2 L Hct 34.9 L MCV 90 MCH 28.8 MCHC 32.1 RDW Std Deviation 51.8 H Plt Count 598 H Neut % (Auto) 68 Lymph % (Auto) 12 Town[place] % (Auto) 16 H Eos % (Auto) 3 Baso % (Auto) 0 Neut # (Auto) 6.1 Lymph # (Auto) 1.1 Towner # (Auto) 1.5 H Eos # (Auto) 0.3 Baso # (Auto) 0.0 Immature Gran # (Auto) 0.05 H Absolute Nucleated RBC 0.00 Immature Gran % 1 H Nucleated RBC % 0 APTT 52.0 H 68.0 H D 75.5 H Sodium 139 Potassium 3.5 D Chloride 100 Carbon Dioxide 33.5 H Anion Gap 6 L BUN 13 Creatinine 0.5 L Estim Creat Clear Calc 83.0 eGFR > 60 BUN/Creatinine Ratio 26 H Glucose 99 Calculated Osmolality 277 Calcium 8.4 Corrected Calcium 9.5 Total Bilirubin 0.6 AST 22 ALT 13 Alkaline Phosphatase 136 H Total Protein 5.4 L Albumin 2.6 L Globulin 2.8 Albumin/Globulin Ratio 0.9 L ABG Interpretation ABG results: 12/10/24 22:53 ABG pH 7.44 ABG pCO2 42 ABG pO2 58 L* ABG HCO3 29 H ABG O2 Saturation 90 L ABG Base Excess 4 H Quality Measures Quality Measures none Advance care planning discussed with:: patient Assessment & Plan Assessment Current Active Medications: Generic Name Dose Route Start Last Admin Trade Name Freq PRN Reason Stop Dose Admin Acetaminophen 650 mg 12/11/24 10:13 Acetaminophen 325 Mg Tablet PO 01/10/25 03:36 Q6H PRN Fever >100.3 or mild pain1-3 Hydrocodone Bitart/Acetaminophen 1 tab 12/14/24 09:25 12/14/24 21:01 Hydrocodone/Apap 5/325 Tablet PO 12/19/24 09:24 1 tab Q4HR PRN Administration Pain 7- 10 Amiodarone HCl 200 mg 12/13/24 09:00 12/15/24 08:47 Amiodarone Hcl 200 Mg Tablet PO 01/12/25 08:59 200 mg BID ELINOR Administration Docusate Sodium 100 mg 12/13/24 12:30 12/15/24 08:46 Docusate Sod 100 Mg Capsule PO 01/12/25 12:29 100 mg BID ELINOR Administration Protocol Furosemide 40 mg 12/12/24 09:00 12/15/24 09:03 Furosemide Inj 10 Mg/Ml 4ml Vial IVP 01/11/25 08:59 40 mg QDAY ELINOR Administration Glycerin 1 each 12/14/24 20:27 Glycerin, Adult 1 Ea Supp MN 01/13/25 20:26 QDAY PRN CONSTIPATION Doxycycline Hyclate 100 mg/ 100 mls @ 100 mls/hr 12/11/24 21:00 12/15/24 08:46 Sodium Chloride IV 12/18/24 20:59 100 mls/hr Q12HR ELINOR Administration Heparin Sodium/Dextrose 25,000 unit in 250 mls @ 10.614 mls/hr 12/11/24 04:00 12/15/24 06:39 Heparin In D5w Ivpb IV 12/25/24 03:59 25 units/kg/hr .[id number] ELINOR 14.742 mls/hr Titration Protocol 18 UNITS/KG/HR Piperacillin/Tazobactam/Dextrose 3.375 gm in 50 mls @ 12.5 mls/hr 12/12/24 14:00 12/15/24 13:32 Zosyn IV 12/19/24 13:59 12.5 mls/hr Q8HR ELINOR Administration Ipratropium [place] 0.5 mg 12/14/24 14:41 12/15/24 13:02 Ipratropium Rt 0.5 Mg/ 2.5 Ml Nebu INH 01/10/25 06:59 0.5 mg Q6HRRT PRN Administration sob or wheeze Protocol Levalbuterol HCl 0.63 mg 12/12/24 19:48 12/15/24 13:01 Levalbuterol Rt 0.63 Mg/3 Ml Nebu INH 01/10/25 06:59 0.63 mg Q6HRRT PRN Administration wheeze or sob Protocol Magnesium Hydroxide 30 ml 12/12/24 08:20 12/13/24 09:17 Milk Of Magnesia Susp 30 Ml Udc PO 01/11/25 08:19 30 ml QDAY PRN Administration CONSTIPATION Protocol Metoprolol Tartrate 25 mg 12/13/24 09:00 12/15/24 08:48 Metoprolol Tartrate 25 Mg Tablet PO 01/12/25 08:59 25 mg BID ELINOR Administration Ondansetron HCl 4 mg 12/11/24 03:37 12/14/24 21:30 Ondansetron Inj 2 Mg/Ml Inj 2 Ml IV 01/10/25 03:36 4 mg Q12H PRN Administration NAUSEA OR VOMITING Protocol Promethazine HCl/Dextromethorphan 10 ml 12/15/24 09:40 12/15/24 09:56 Promethazine/Dm Syrup 5 Ml Dose PO 01/14/25 09:39 10 ml Q6HR PRN Administration COUGH Protocol Ursodiol 300 mg 12/15/24 12:00 12/15/24 12:28 Ursodiol 300 Mg Capsule PO 01/14/25 11:59 300 mg QID ELINOR Administration Plan The patient is an 79-year-old female with significant past medical history of autoimmune hepatitis, iron deficiency anemia, mitral regurgitation and arrhythmia presented with chief complaint of left lower chest pain that started on 12/10/2024 around 2 PM is admitted to telemetry unit for further management of acute chest pain #Acute chest pain likely /2- improving #Post op atelectasis #suspicion of underlying LRTI -Patient presented with sharp pleuritic chest pain, worsened by deep inspiration, coughing or movement. She was having subjective fever 1 day prior to the chest pain. -Presented with heart rate of 136, RR 21, temperature 100.2, white count 15.5, Tropes were negative -Chest x-ray was significant for right basal pneumonia, but patient has left basal pneumonia -CT angio chest is negative for pulmonary emboli and bilateral minimal pleural effusions are noted -Received IV ceftriaxone 1 g in the ED DuoNeb and IV methylprednisone along with Dilaudid -Blood cultures are sent, no growth after 48 hrs Plan - [place] as needed - Levalbuterol and ipratropium every 6 hourly as needed - Ceftriaxone 1 g daily - changed to zosyn 3.37gm iv every 6th hrly - Doxycycline 100 Mg IV twice daily - Incentive spirometry - Oxygen as needed, titrate as tolerated #CBD stones without features of cholangitis -CT angio abdomen/pelvis showed cirrhosis, esophageal varices, mild ascites, anasarca, stones in the cystic duct remnant, CBD 11 mm, extensive thrombus in the splenic vein, partial thrombus in the portal vein -MRCP was done that showed Cirrhosis, Ascites, Cholelithiasis, including multiple tiny stones in the cystic duct, At least 2 tiny stones in the common bile duct, recommend ERCP follow-up -AST, ALT, total bilirubin is within normal limits and patient is denying any complaints of abdominal pain except mild discomfort at the surgical site Plan -Dr. Masterson was consulted and recommended to repeat MRCP -Dr. Fields was consulted and recommended to continue broad-spectrum antibiotics for now, started on Zosyn -Dr. Burton was consulted and recommended to continue current treatment #A-fib with RVR #Hypokalemia, resolved Likely secondary to pain. Patient follows Dr. Pruitt. EKG was significant for A-fib with RVR, potassium level 3.3 at the time of admission Patient was given IV push of diltiazem, and later restarted on diltiazem drip, but stopped because of blood pressure Repeat EKG revealed a flutter, rate controlled Received 40 mEq liquid KCl, and 40 mEq KCl tablet, totaling 80 mEq; 2 g of magnesium sulfate IV in the ED Echo done on 12/12: Mitral annular calcification with mitral valve prolapse & moderate to severe mitral regurgitation. LVEF 55-60% .RVSP 40 mmHg. LA is moderately dilated. Aortic sclerosis. Mild TR Plan - Telemetry - [employer] Dr. Pruitt consulted, appreciate recommendations - started on lasix 40mg IV qday - On Heparin drip and amiodarone drip as recommended by Dr. Pruitt - Amiodrip finished overnight on 12/13, pt is transitioned to PO amiodarone and metoprolol tartarate 25mg p.o. BID - Will continue heparin drip till we get Dr. 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 Burton, midline abdominal sutures healing well CT abdomen revealed thrombosed splenic vein with thrombus extending to the confluence of the superior mesenteric vein into the portal vein, and nonocclusive thrombus in the right portal vein Plan - Started on heparin drip - Dr Burton consulted, recommended to continue current treatment # Enterobacter cloacae bacteriuria -Patient denies any symptoms of urinary tract infection including burning micturition, increased frequency, lower abdominal pain -Routine urinary cultures were sent in the ED -Came back positive for Enterobacter cloacae, sensitive to Zosyn and other antibiotics -Patient is on Zosyn to cover for CBD stones, will continue it #Mild hypovolemic hyponatremia, resolved Etiology currently unknown, but most likely secondary to poor oral intake in the setting of subjective fever for past 1 day Presented with sodium of 133 Patient received 1 L of IV normal saline bolus in the ED, improved to 138 today Health maintenance: Dispo: Telemetry DVT prophylaxis: On heparin drip Diet: Cardiac diet with 1.5 L fluid restriction CODE STATUS: Full code Patient plan of care was discussed with the attending physician, Dr. Keita and senior resident Dr. Jose Chino, PGY1 Attending Provider Attestation/Addendum I attest that I was physically present for the evaluation, physical examination, lab and imaging review of the patient with the residents. I discussed the case with the residents and agree with the findings and plans of care as documented above. Patient continues to feel better at bedside. She continues to have left-sided chest pain but managed with oral analgesic. Vital signs are stable. Lab results are also stable. Has potassium of 3.5, repleted. Discussed with Dr. Masterson, recommended repeat MRCP. Urine culture grew Enterobacter cloacae, patient is on IV antibiotics. Underwent physical therapy evaluation, recommended SNF placement. Guillermina Keita MD
--- NOTE | 2024-12-15 14:58 | PC.SS ---
Addendum entered by Yadira Treviño 12/15/24 15:45: SS follow up note; SS was informed by Fouzia through [employer] that patient needed revaluation from PT in order to accept, patient not ambulating very well, Gait not tested today with PT. Original Note: SS follow up note; SS was contacted by Love from [facility] and she informed SS that auth is approved for patient to discharge to SNF. SS awaiting response from Fouzia from [facility]. SS contacted patient's daughter Sherry to update her. Patient is still pending, [facility] and Dr. Austin Recommendations.
--- NOTE | 2024-12-15 17:19 | ESPR_ITS ---
Documentation for date of: 12/15/24 Subjective Subjective Interval history: LFTs remain normal Choledocholithiasis ERCP can be done as an outpatient Exam Vital Signs Temp Pulse Resp BP Pulse Ox O2 Del Method O2 Flow Rate 97.8 F 97 19 96/64 91 L Room Air 2 12/15/24 16:00 12/15/24 16:00 12/15/24 16:00 12/15/24 16:00 12/15/24 16:00 12/15/24 16:00 12/15/24 08:00 Objective Labs 12/15/24 05:43 12/15/24 05:43 Labs: Laboratory Results - last 24 hr 12/14/24 12/15/24 21:39 05:43 WBC 9.0 RBC 3.89 L Hgb 11.2 L Hct 34.9 L MCV 90 MCH 28.8 MCHC 32.1 RDW Std Deviation 51.8 H Plt Count 598 H Neut % (Auto) 68 Lymph % (Auto) 12 [place]ick % (Auto) 16 H Eos % (Auto) 3 Baso % (Auto) 0 Neut # (Auto) 6.1 Lymph # (Auto) 1.1 [place]ick # (Auto) 1.5 H Eos # (Auto) 0.3 Baso # (Auto) 0.0 Immature Gran # (Auto) 0.05 H Absolute Nucleated RBC 0.00 Immature Gran % 1 H Nucleated RBC % 0 APTT 68.0 H D 75.5 H Sodium 139 Potassium 3.5 D Chloride 100 Carbon Dioxide 33.5 H Anion Gap 6 L BUN 13 Creatinine 0.5 L Estim Creat Clear Calc 83.0 eGFR > 60 BUN/Creatinine Ratio 26 H Glucose 99 Calculated Osmolality 277 Calcium 8.4 Corrected Calcium 9.5 Total Bilirubin 0.6 AST 22 ALT 13 Alkaline Phosphatase 136 H Total Protein 5.4 L Albumin 2.6 L Globulin 2.8 Albumin/Globulin Ratio 0.9 L Impressions Impression: Choledocholithiasis with normal LFTs except slightly elevated alk phos Outpatient ERCP I will set it up ABG Interpretation ABG results: 12/10/24 22:53 ABG pH 7.44 ABG pCO2 42 ABG pO2 58 L* ABG HCO3 29 H ABG O2 Saturation 90 L ABG Base Excess 4 H Assessment & Plan A&P Narrative # Choledocholithiasis with cystic duct stones postcholecystectomy With normal LFTs Coverage has been extended for cholangitis no patel for ERCP at this time as there are multiple other medical problems going on Let the patient his medical condition stabilize ERCP can wait and may can be done as an outpatient but I will have my colleague Dr. Masterson evaluate the patient on Sunday Thank you for the opportunity to participate in the care of this patient Other medical problems include A-fib with RVR Left-sided chest pain Bilateral pneumonia Thank you for the opportunity to participate in the care of this patient Time Spent With Patient Time: Total time spent is greater than 50% in coordination of care (as documented) at patient's floor/unit and/or counseling patient:
--- NOTE | 2024-12-15 19:37 | ESPR_ITS ---
RE: ARIADNE FONSECA : 1945 DATE OF SERVICE: 12/15/2024 SUBJECTIVE: Mrs. Fonseca is resting fairly comfortably in bed, though the patient is still having some issues with the bowel movements. The patient is breathing fairly well. The symptoms of pleuritic chest pain are lot better. The patient denies any complaints of skip beats or palpitations. OBJECTIVE: Vital Signs: The patient's blood pressure today is 96/64, pulse rate is 97 per minute and irregularly regular. Respiratory rate is 19, temperature is 97.8, oxygen saturation is 91%. Heart: Mitral regurgitation murmur and irregularly irregular heart rhythm. Lungs: Few basal rhonchi. No pleural or pericardial rub is heard. Extremities: No pedal edema is noted. LABORATORY DATA: Labs today showed WBC count is down to normal and is 9000, hemoglobin is 11.2 with hematocrit of 34.9, BUN today is 13, creatinine 0.5, potassium level of 3.5, and glucose of 99. Heart rhythm continues to stay in atrial fibrillation with moderate ventricular response. PLAN: To continue the patient on all present medications and general supportive care. Cardiac status at the present time is stable and present medications will be continued. DT: 18:15:10 TT: 19:36:00 Ref: [id number] - TID: [id number]
[2024-12-16] VITALS (9 sets, daily range): BP systolic 92–115; BP diastolic 64–72; PULSE 71–117; RESP 16–92; TEMP 36.2–36.6; O2SAT 91–96; BMI 23.6
[2024-12-16] MEDS: ursodioL 300 MG CAPSULE PO (05:39)
[2024-12-16] MEDS: PIPER/TAZO 3.375 GM PREMIX 3.375 GM/50 ML BAG IV ×2 (05:39→13:17)
[2024-12-16 05:47] LABS: Basophils # (Auto) 0.1 Thou/mm3 (0.0-0.2); Basophils % (Auto) 1 % (0-2.5); Eosinophils # (Auto) 0.2 Thou/mm3 (0.0-0.5); Eosinophils % (Auto) 2 % (0-10); Hematocrit 33.7 % (36.0-46.0); Hemoglobin 11.2 g/dL (12.0-16.0); Immature Granulocytes % (Auto) 1 % (0-0); Immature Granulocytes Auto 0.06 Thou/mm3 (0.00-0.00); Lymphocytes # (Auto) 1.2 Thou/mm3 (1.0-4.8); Lymphocytes % (Auto) 11 % (10-50); Mean Corpuscular HGB Conc 33.2 g/dl (31.0-37.0); Mean Corpuscular Hemoglobin 29.2 pg (25.0-35.0); Mean Corpuscular Volume 88 fL (80-100); Monocytes # (Auto) 1.8 Thou/mm3 (0.0-0.8); Monocytes % (Auto) 18 % (0-12); Neutrophils % (Auto) 68 % (37-80); Nucleated Red Blood Cell % 0 /100 WBC (0); Platelet Count 494 Thou/mm3 (140-440); Red Blood Count 3.84 Miln/mm3 (4.00-5.20); White Blood Count 10.3 Thou/mm3 (3.6-11.0)
[2024-12-16 06:11] LABS: Alanine Aminotransferase 12 U/L (10-49); Albumin, Serum 2.7 gm/dL (3.4-4.8); Alkaline Phosphatase 141 U/L (46-116); Anion Gap 3 (7-16); Aspartate Amino Transferase 21 U/L (0-34); BUN/Creatinine Ratio 20 Ratio (12-20); Bilirubin,Direct 0.3 mg/dL (0.0-0.3); Bilirubin,Total 0.7 mg/dL (0.3-1.2); Blood Urea Nitrogen 10 mg/dL (9-23); Calcium 8.3 mg/dL (8.3-10.6); Carbon Dioxide 34.9 mMol/L (20.0-31.0); Chloride 102 mMol/L (98-107); Creatinine (Component) 0.5 mg/dL (0.6-1.3); Glucose 99 mg/dL (74-106); Osmolality,Calculated 278 (275-295); Potassium 3.6 mMol/L (3.4-5.1); Sodium 140 mMol/L (136-145); Total Protein 5.4 gm/dL (5.7-8.2); eGFR > 60 See Note
[2024-12-16 06:15] LABS: Partial Thromboplastin Time 82.9 Seconds (22.0-36.0)
[2024-12-16] MEDS: DOXYCYCLINE INJ 100 MG in SODIUM CHLORIDE 0.9% (POP) 100 ML IV (08:08)
[2024-12-16] MEDS: METOPROLOL TARTRATE 25 MG TABLET PO (08:09)
[2024-12-16] MEDS: AMIODARONE HCL 200 MG TABLET PO (08:10)
[2024-12-16] MEDS: FUROSEMIDE INJ 10 MG/ML 4ML VIAL 40 MG IVP (08:11)
[2024-12-16] MEDS: DOCUSATE SOD 100 MG CAPSULE PO (08:11)
--- NOTE | 2024-12-16 11:09 | PC.PT ---
Patient is safe to ambulate to the bathroom and in the hallway with a FWW and 1 staff assist. RN made aware.
--- NOTE | 2024-12-16 11:34 | PC.SS ---
SS follow up note; SS sent PT notes to [facility]. At the time [facility] is reviewing.
--- NOTE | 2024-12-16 12:15 | PC.SS ---
Addendum entered by Yadira Treviño 12/16/24 12:43: SS follow up note; [facility] Declined patient due to patient being able to ambulate 100ft. SS spoke to patient's daughter, Sherry and updated her and informed her that [facility] did not accept. Patient's daughter agreeable to take patient home today. Original Note: SS follow up note; SS spoke to Yamel from [facility] and she informed SS that would have to resubmit for auth with [employer] due to patient's PT note patient is able to ambulate independently and therefore [employer] might not authorize. SS left Voicemail for [employer] to contact SS.
--- NOTE | 2024-12-16 12:28 | PC.NURSE ---
Discharge pending until 17:[address] Masterson
--- NOTE | 2024-12-16 12:51 | ESPR_ITS ---
RE: ARIADNE FONSECA : 1945 DATE OF SERVICE: 12/16/2024 S: Ms. Fonseca is feeling better. Today, the patient is breathing fairly well. Denies any complaint of chest pain. Denies any complaint of skipped beats or palpitations. The patient is not having any symptoms of fever or chills. O: Vital Signs: The patient's blood pressure today is 112/64, pulse rate is 86 per minute and irregularly irregular, temperature is 97.2, respiratory rate is 19 per minute and oximetry saturation is 91% on room air. Heart: Irregularly irregular heart rhythm and mitral regurgitation murmur unchanged. Lungs: Occasional basal rhonchi. Extremities: No pedal edema is noted. DIAGNOSTIC DATA: Heart rhythm is staying in atrial fibrillation with controlled ventricular response. LABORATORY DATA: Today shows WBC count is 10,300, hemoglobin 11.2 with a hematocrit of 33.7. The patient's BUN today is 10, creatinine 0.5, potassium level is 3.6. P: Change heparin to Eliquis 5 mg b.i.d. Rest of the medications will be continued as before. The patient is for possible discharge and will be followed up as an outpatient in my office. DT: 12:17:50 TT: 12:50:00 Ref: [id number] - TID: [id number]
[2024-12-16 13:45] LABS: Partial Thromboplastin Time 65.5 Seconds (22.0-36.0)
--- NOTE | 2024-12-16 14:02 | ESDS_ITS ---
Planned Discharge Date 12/16/24 DS: Providers Provider Date of admission: 12/11/24 03:26 Primary care physician: Los Hanks MD Admitting Provider: Silvano Calderón MD Attending Provider on Admission: Guillermina Keita MD Consults: 12/11/24 03:26 Consult to General Surgery Routine Comment: post-op follow up Consulting Provider: Kamran Burton 12/11/24 04:34 Consult to Cardiology Urgent Comment: Afib Consulting Provider: Sanjiv Pruitt 12/11/24 18:41 Referral Infection Control Routine Comment: standard Reason for Infection Control Referral: Readmitted within 30 days Referral Registered Dietitian Routine Comment: 12/12/24 01:22 Referral Registered Dietitian Routine Comment: Referral Wound Care Routine Comment: stage 2 on recent readmit 12/12/24 10:44 Consult to Gastroenterology Routine Comment: Consulting Provider: Koki Fields 12/12/24 10:47 Consult to Gastroenterology Routine Comment: cbd stones Consulting Provider: Giuseppe Sanderson 12/13/24 15:50 Referral Physical Therapy Routine Comment: Physician Instructions: Attending Provider on DC: Pernell Chino MD Discharging Provider: Pernell Chino MD DS: Diagnosis Problem List Completed Was Problem List Reviewed/Reconciled?: Yes Hospital Course Hospital Course Hospital course: A 79-year-old female with significant past medical history of autoimmune hep atitis, iron deficiency anemia, mitral regurgitation and arrhythmia presented with chief complaint of left lower chest pain and admitted in the hospital for atrial fibrillation with rapid ventricular rate, bilateral pneumonia Hospital course: Vitals at the time of admission showed pulse rate 136, blood pressure 121/89, temperature 100.2 ?F. Labs were significant for WBC 15.5, platelets 587, D-di tina 3820. CT abdomen/pelvis showed bibasilar pneumonia, cirrhosis, esophageal varices, perigastric varices, mild ascites, stones in the cystic duct remnant, CBD 11 mm, extensive thrombus in the splenic vein, partial thrombus in the portal vein. Chest CTA is negative for pulmonary artery emboli, showed small bilateral pleural effusions with bibasilar pneumonia. EKG showed atrial fibrillation with rapid ventricular rate. Patient was started on heparin drip. Dr Burton was consulted and recommended to continue IV antibiotics and heparin. Media Sales Consultant Dr. Pruitt is consulted for A-fib and he recommended to start patient on amiodarone, metoprolol, continue heparin drip. MRCP was done on 12/11/2024 which showed cholelithiasis including multiple tiny stones in the cystic duct, at least 2 tiny stones in the CBD. Dr. Masterson was consulted and he recommended to repeat MRCP on , which showed no stones in the cystic duct, common hepatic duct or common bile duct. Dr. Masterson recommended that patient can be discharged from his side. Heparin drip was stopped and patient was started on Eliquis. Blood culture showed no growth after 48 hours. Urine cultures showed Enterobacter cloacae. During the hospital stay, patient was treated with antibiotics, norco, incentive spirometer, metoprolol, amiodarone, anticoagulation Patient is discharged to home with home health with the following medications and recommendations -Follow-up with PCP within 1 week of discharge. If you do not have appointment, please follow-up with the [facility] with Dr. Chino. Call [phone] to make an appointment. -Follow up with Dr. Brooks within 1 week of discharge -Continue furosemide 40 Mg p.o. daily, ascorbic acid, zinc -Start metoprolol tartrate 25 Mg p.o. twice daily, amiodarone 200 Mg p.o. twice daily, Eliquis 5 Mg p.o. twice daily -Recommended to continue levofloxacin 750 Mg p.o. daily for 2 days -Follow-up in outpatient basis with Dr. Burton as needed -Recommended salt and fluid restriction. 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 Neela Chino, PGY1 Time Spent with Patient Time attestation: Total time spent providing and/or coordinating discharge services: Time spent: Less than 30 minutes Home Health Home Health Referral Orders: 12/16/24 12:33 Home Health Referral Routine Reason For Exam: Genralized weakness Home-Bound The patient must either because of illness or injury, need the aid of supportive devices such as crutches, canes, wheelchairs, and walkers; the use of special transportation; or the assistance of another person in order to leave their place of residence; OR have a condition such that leaving his or her home is medically contraindicated. In addition, the patient also meets the following criteria: patient is normally unable to leave the home and leaving home requires considerable taxing effort. Addendum to Home Health Certification Practitioner's Certification: I certify that the patient has been under my care in the hospital and the care of attending physician (see below). We had a [id number] encounter on (see date below). My clinical findings indicate that the patient is home bound per the above criteria and the Home Health Services noted in these orders are medically necessary. The primary reason for the [id number] encounter is related to the fact that the patient requires home health services. Date Certifying [id number] Physician Encounter: 12/11/24 Physician's Name who will Assume Oversight for Services: Los Hanks Physician's Phone No.who will Assume Oversight for Service: DOCUMENT SCANNER - Community Resources: No PT to Evaluate: Yes PT to evaluate and provide a treatmnet plan to increase patient's mobility and strength. Wound Care: No IV Therapy: No RN Safety Evaluation: Yes RN to evaluate and create a plan of care that will produce positive outcomes. Palliative Treatment: No Palliative treatment and evaluate the need for hospice. Home Health Aide - Personal Care: No Home Health Aide to assist with any ADL's. Exam Vital Signs Temp Pulse Resp BP Pulse Ox O2 Del Method O2 Flow Rate 97.2 F 86 19 112/64 91 L Room Air 2 12/16/24 08:00 12/16/24 08:11 12/16/24 08:00 12/16/24 08:11 12/16/24 08:00 12/16/24 08:00 12/15/24 08:00 Narrative Exam General: Awake. anxious HEENT: Normocephalic, atraumatic, mucous membranes moist. Heart: Irregular rate and rhythm, no murmurs. Lungs: Clear to auscultation with no wheezing or crackles. Decreased breath sounds noted in basilar areas more on right side Abdomen: Soft, nondistended, nontender, positive bowel sounds. ?No guarding or rebound tenderness. midline surgical scar, healing well Neurologic: Alert and oriented x3, no gross neurological deficit, and patient able to move all 4 extremities. Extremities: No edema. Skin: No rash or ecchymoses. Discharge Plan Plan Patient Disposition: Home w/HOME HEALTH Patient condition on transfer: Stable Care Plan Goals: -Follow-up with PCP within 1 week of discharge. If you do not have appointment, please follow-up with the [facility] with Dr. Chino. Call [phone] to make an appointment. -Follow up with Dr. Brooks within 1 week of discharge -Continue furosemide 40 Mg p.o. daily, ascorbic acid, zinc -Start metoprolol tartrate 25 Mg p.o. twice daily, amiodarone 200 Mg p.o. twice daily, Eliquis 5 Mg p.o. twice daily -Recommended to continue levofloxacin 750 Mg p.o. daily for 2 days -Follow-up in outpatient basis with Dr. Burton as needed -Recommended salt and fluid restriction. -Return to ED if symptoms persist or return Prescriptions/Referrals Prescriptions/Med Rec: New metoprolol tartrate 25 mg tablet 25 mg PO BID Qty: 60 0RF amiodarone 200 mg tablet 200 mg PO BID Qty: 60 0RF Eliquis 5 mg tablet 5 mg PO BID Qty: 60 0RF levofloxacin 750 mg tablet 750 mg PO QDAY 2 Days Qty: 2 0RF Continued furosemide 20 mg tablet 40 mg PO DAILY ascorbic acid (vitamin C) [Vitamin C] 250 mg Tablet 500 mg PO BID Qty: 60 0RF zinc sulfate 50 mg zinc (220 mg) Capsule 220 mg PO QDAY Qty: 30 0RF Discontinued nitrofurantoin monohyd/m-cryst [Macrobid] 100 mg capsule 100 mg PO QDAY Referrals: Los Hanks MD [Primary Care Provider] - Patient/Caregiver Discharge Instructions Education Materials: [employer], AFL/Afib Print Language: Hebrew Stand Alone Forms: Ann Marie Award Info., Patient Portal Info Letter Discharge Order Discharge Orders: Discharge (Routine); Ordered 12/16/24 Ordered By: Pernell Chino Quality Discharge Quality Measures VTE prophylaxis Attestestation MD Attestation I attest that I was physically present for the evaluation, physical examination, lab and imaging review of the patient with the residents. I discussed the case with the residents and agree with the findings and plans of care as documented above. Guillermina Keita MD
[2024-12-16] MEDS: APIXABAN 2.5 MG TABLET 5 MG PO (14:51)
--- NOTE | 2024-12-16 14:54 | PC.CC ---
Received orders, [facility] clar[facility], [facility] willing to accept. Still need discharge summary?
--- NOTE | 2024-12-16 16:41 | PD.IMCONS ---
HPI Data of Consult Requesting Physician: Guillermina Keita MD Primary Care Provider: Los Hanks MD Consult Narrative History of present illness: 79 years old female who presented to the hospital with left-sided chest pain was found to have atrial fibrillation with RVR currently on amiodarone drip On 11/20/2024 she had undergone sigmoid resection with primary anastomosis splenectomy and cholecystectomy Patient liver function test today shows total bilirubin 0.5 AST ALT 19 and 14 and alk phos of 144 CT scan of the abdomen pelvis done in the emergency room with contrast showed bilateral pneumonia esophageal varices stones in the cystic duct remnant as well as extensive thrombus in the splenic vein and partial thrombus in the portal vein Patient has been started on amiodarone drip as well as heparin drip MRCP done showed stones in the cystic duct remnant as well as 2 stones in the common bile duct 2 mm each Patient is on IV Zosyn at the moment Patient has no right upper quadrant pain at the moment Repeat MRCP did not show the stone. cc:: cc: Guillermina Keita MD Review of Systems Review of Systems Narrative Review of Systems: 12 points of ROS reviewed and negative Meds Home Medications and Allergies Home Medications ?Medication ?Instructions ?Recorded ?Confirmed ?Type furosemide 20 mg tablet 40 mg PO DAILY 11/18/24 12/12/24 History Allergies Allergy/AdvReac Type Severity Reaction Status Date / Time adhesive tape Allergy Verified 12/11/24 00:25 cephalexin (From Keflex) Allergy Verified 12/11/24 00:25 codeine Allergy Nausea Verified 12/11/24 00:25 latex Allergy Verified 12/11/24 00:25 levofloxacin (From Levaquin) Allergy Nausea Verified 12/11/24 00:25 sertraline Allergy Nausea Verified 12/11/24 00:25 Sulfa (Sulfonamide Allergy Verified 12/11/24 00:25 Antibiotics) hydrocodone AdvReac Mild Nausea Verified 12/11/24 00:25 meperidine AdvReac Mild UPPER GI Verified 12/11/24 00:25 propoxyphene AdvReac Mild Nausea Verified 12/11/24 00:25 Exam Vital Signs Temp Pulse Resp BP Pulse Ox O2 Del Method O2 Flow Rate 97.8 F 80 17 113/72 96 Room Air 2 12/16/24 16:00 12/16/24 16:00 12/16/24 16:00 12/16/24 16:00 12/16/24 16:00 12/16/24 16:00 12/15/24 08:00 Routine Abdominal Exam Comments: no abdominal tenderness Results Labs 12/16/24 05:25 12/16/24 05:25 Labs: Short CBC 12/16/24 Range/Units 05:25 WBC 10.3 (3.6-11.0) Thou/mm3 Hgb 11.2 L (12.0-16.0) g/dL Hct 33.7 L (36.0-46.0) % Plt Count 494 H D (140-440) Thou/mm3 BMP 12/16/24 05:25 Sodium 140 Potassium 3.6 Chloride 102 Carbon Dioxide 34.9 H BUN 10 Creatinine 0.5 L Glucose 99 Calcium 8.3 Liver Function 12/16/24 Range/Units 05:25 Total Bilirubin 0.7 (0.3-1.2) mg/dL Direct Bilirubin 0.3 (0.0-0.3) mg/dL AST 21 (0-34) U/L ALT 12 (10-49) U/L Alkaline Phosphatase 141 H (46-116) U/L Albumin 2.7 L (3.4-4.8) gm/dL ABG Interpretation ABG results: 12/10/24 22:53 ABG pH 7.44 ABG pCO2 42 ABG pO2 58 L* ABG HCO3 29 H ABG O2 Saturation 90 L ABG Base Excess 4 H Assessment and Plan Additional Assessment & Plan Additional Plan: # Choledocholithiasis with cystic duct stones postcholecystectomy With normal LFTs Coverage has been extended for cholangitis, RESOLVED. Repeat MRCP did not any stone No indication for ERCP Other medical problems include A-fib with RVR Left-sided chest pain Bilateral pneumonia
--- NOTE | 2024-12-17 12:34 | PC.CM ---
[facility] accepted patient and they will open on 12/20.
== END 2024-12-16 17:55 | disposition home health service (06) | DRG 193 ==
LOC: SERX 12-11 03:49 → SERHOLD 12-11 04:25 → S2NX 12-11 17:05
PROVIDERS: Internal Medicine Cardiovascular Disease; Internal Medicine Gastroenterology; Student in an Organized Health Care Education/Training Program; Admitting Provider Internal Medicine; Emergency Provider Emergency Medicine; PCP Family Medicine; Visit Provider Student in an Organized Health Care Education/Training Program
DX: J18.9 Pneumonia, unspecified organism (principal); I81 Portal vein thrombosis; E87.1 Hypo-osmolality and hyponatremia; I48.92 Unspecified atrial flutter; R18.8 Other ascites; I85.10 Secondary esophageal varices without bleeding; I82.890 Acute embolism and thrombosis of other specified veins; K80.30 Calculus of bile duct with cholangitis, unspecified, without obstruction; N39.0 Urinary tract infection, site not specified; I48.91 Unspecified atrial fibrillation; E87.6 Hypokalemia; E86.1 Hypovolemia; K75.4 Autoimmune hepatitis; R09.02 Hypoxemia; K74.60 Unspecified cirrhosis of liver; I34.0 Nonrheumatic mitral (valve) insufficiency; Z87.891 Personal history of nicotine dependence; Z90.81 Acquired absence of spleen; Z90.49 Acquired absence of other specified parts of digestive tract; K80.70 Calculus of gallbladder and bile duct without cholecystitis without obstruction; Z88.5 Allergy status to narcotic agent; Z88.2 Allergy status to sulfonamides; Z88.1 Allergy status to other antibiotic agents; Z88.8 Allergy status to other drugs, medicaments and biological substances; Z79.01 Long term (current) use of anticoagulants
CPT/HCPCS: 36415; 36600; 71045; 71275; 74177; 80048; 80053; 80061; 80076; 81001; 82150; 82248; 82803; 83605; 83690; 83735; 83880; 84100; 84145; 84439; 84443; 84484; 85025; 85379; 85610; 85652; 85730; 86140; 87040; 87077; 87086; 87186; 87400; 87634; 87811; 93005; 93306; 94640; 96365; 96366; 96367; 96375; 97162; 99291; A4649; A9270; J0131; J0283; J0696; J1643; J1644; J1885; J1938; J1940; J2405; J2543; J2919; J3475; J3490; J7030; J7050; Q9967; S8037; 74181

== ENCOUNTER 2025-01-05 10:40 | Inpatient (IN) | payer OTHER, MEDICARE, SELFPAY ==
[2025-01-05] VITALS (13 sets, daily range): BP systolic 115–132; BP diastolic 53–71; PULSE 66–111; RESP 12–23; TEMP 36.6–37.2; O2SAT 94–99; BMI 22.6
--- NOTE | 2025-01-05 11:28 | EDNOTE_ITS ---
ED General RME/HPI General Chief complaint: General Adult/Misc Complain Stated complaint: SENT BY CTC; HGB 5.9 Time Seen by Provider: 01/05/25 11:16 Arrival date/time: 01/05/25 10:40 CC: Weakness HPI progressive worsening over the past several months but worse in the last 3 to 4 days. Patient has a chronic history of anemia, was initially being seen by Dr. Cotton at the [place] [facility] for her chronic anemia and was informed that her hemoglobin was exceedingly low and was sent to the emergency room. Patient is awake alert oriented denies any chest pain shortness of breath difficulty breathing just prior good planing of fatigue. The patient states this is a well-established symptom as she has been anemic for years , and is on iron infusions. She states that they have never found out where her anemia is coming from. Patient had a significant past medical history in November of this year patient had part of her anus resected as well as her gallbladder and spleen by Dr. Burton. She is seen by Dr. Brooks cardiology who put her on blood thinners. Patient is awake alert oriented states her stools are brown. Patient denies any recent fevers cough shortness of breath hemoptysis or weight loss. Related Data Home Medications ?Medication ?Instructions ?Recorded ?Confirmed furosemide 20 mg tablet 40 mg PO DAILY 11/18/2412/02 Previous Rx's ?Medication ?Instructions ?Recorded ascorbic acid (vitamin C) 250 mg 500 mg (2 x 250 mg) P O BID #60 tabs 11/27/24 tablet (Vitamin C) zinc sulfate 50 mg zinc (220 mg) 220 mg (4.4 x 50 mg z inc (220 mg)) 11/27/24 capsule PO QDAY #30 caps amiodarone 200 mg tablet 200 mg PO BID #60 tabs 12/16 apixaban 5 mg tablet (Eliquis) 5 mg PO BID #60 tabs metoprolol tartrate 25 mg tablet 25 mg PO BID #60 tabs 12/16/24 Allergies Allergy/AdvReac Type Severity Reaction Status Date / Time adhesive tape Allergy Verified 01/05/25 10:43 cephalexin (From Keflex) Allergy Verified 01/05/25 10:43 codeine Allergy Nausea Verified 01/05/25 10:43 latex Allergy Verified 01/05/25 10:43 levofloxacin (From Levaquin) Allergy Nausea Verified 01/05/25 10:43 sertraline Allergy Nausea Verified 01/05/25 10:43 Sulfa (Sulfonamide Allergy Verified 01/05/25 10:43 Antibiotics) hydrocodone AdvReac Mild Nausea Verified 01/05/25 10:43 meperidine AdvReac Mild UPPER GI Verified 01/05/25 10:43 propoxyphene AdvReac Mild Nausea Verified 01/05/25 10:43 Review of Systems Review of Systems Narrative Review of Systems: GEN: No fever, no chills, no weight loss EYES: No discharge, no visual changes, no pain HEENT: No ear pain, no congestion, no sore throat PULM: No shortness of breath, no cough, no congestion CV: No chest pain, no dyspnea on exertion, no palpitations GI: No nausea, no vomiting, no diarrhea, no pain, no constipation : No frequency, no urgency, no dysuria MUSC/SKEL: No joint pain, no back pain SKIN: No rash PSYCH: No hallucinations, no depression HEME/LYMPH: No easy bleeding or bruising tendencies NEURO: + weakness, no headache Past Medical History Past Medical History NEUROLOGIC: Positive Subdural Hematoma; Negative Neurological Disorders, Cerebrovascular Accident, Transient Ischemic Attacks (TIA), Dementia, Alzheimer's Disease, Parkinson's Disease, Brain Tumor, Meningitis, Seizures, Epilepsy, Multiple Sclerosis, Cerebral Palsy, Amyotrophic Lateral Sclerosis (ALS/Dania Gehrig's), Guillain-[place] Syndrome, Spina Bifida, Paralysis, Peripheral Neuropathy, Brooks's Palsy, Migraine, Head Trauma, Spinal Cord Injury or Traumatic Brain Injury CARDIAC: Positive Cardiac Disorders (mitral regurgitation), Aneurysm, Valvular Heart Disease and Edema; Negative Myocardial Infarction, Cardiac Arrhythmia, Atrial Fibrillation, Angina, Heart Murmur, Coronary Artery Disease, Atherosclerotic Heart Disease, Peripheral Vascular Disease, Hypercholesterolemia, Congestive Heart Failure, Congenital Heart Disease, Rheumatic Fever, Cardiomyopathy, Pericarditis, Cellulitis, Deep Vein Thrombosis, Hypertension, Hypotension or Varicose Veins RESPIRATORY: Negative Chronic Obstructive Pulmonary Disease (COPD), Asthma, Bronchitis, Emphysema, Pneumonia, Pulmonary Fibrosis, Cystic Fibrosis, Tuberculosis, Pulmonary Embolism, Pulmonary Edema or Sleep Apnea GASTROINTESTINAL: Positive Gastrointestinal Disorders, Cirrhosis, Diverticulitis, Hemorrhoids and Gastroesophageal Reflux Disease; Negative Pancreatitis, Celiac Disease, Gall Bladder Disease, Gastrointestinal Bleed, Esophageal Varices, Vaz's Esophagus, Colitis, Ulcerative Colitis, Diverticulosis, Ulcer, Colorectal Cancer, Irritable Bowel, Crohn's Disease, Obstructive Bowel, Hiatal Hernia or Obesity GENITOURINARY: Negative Genitourinary Disorders, Renal Disease, Kidney Stones, Polycystic Kidney Disease, Neurogenic Bladder, Inguinal Hernia, Dialysis, Prostate Cancer or Benign Prostatic Hyperplasia REPRODUCTIVE: Positive Previous Pregnancies; Negative Breast Cancer, Endometriosis, Genital Herpes, Gonorrhea, Pelvic Inflammatory Disease, Syphilis, Testicular Cancer or Uterine Prolapse MUSCULOSKELETAL: Positive Musculoskeletal Disorders; Negative Muscular Dystrophy, Myasthenia Gravis, Marfan's Syndrome, Bone Cancer, Arthritis, Rheumatoid Arthritis, Osteoporosis, Degenerative Disk Disease, Gout, Scoliosis, Carpal Tunnel Syndrome, Fibromyalgia, Fractures, Degenerative Joint Disease, Osteomyelitis or Poliovirus ENT: Positive Cataracts, Blind and Deafness; Negative Glaucoma, Retinal Detachment, Macular Degeneration, Ear Infection, Head Trauma or Eye Prosthesis ENDOCRINE: Negative Endocrine Disorders, Diabetes Mellitus Type 1, Diabetes Mellitus Type 2, Hypoglycemia, [place]'s Syndrome, [place]'s Disease, Hyperthyroidism, Hypothyroidism, Parathyroid Disease, Pituitary Disease, Systemic Lupus Erythematosus, Syndrome of Inappropriate Antidiuretic Hormone ( SIADH), Adrenal Disease or Graves' Disease HEMATOLOGIC: Positive Blood Disorders and Anemia; Negative Leukemia, Hemophilia, Thalassemia, Sickle Cell Disease or Clotting Problems PSYCHO/SOCIAL: Positive Anxiety; Negative Psychiatric Problems, Schizophrenia, Recreational Drug Use, Bipolar Disorder, Depression, Behavior Problems, Self-Mutilation, Attention Deficit Disorder, Attention Deficit Hyperactivity Disorder, Depression or Eating Disorder OTHER HISTORY: Positive Hospitalization, Falls, Blood Transfusions, Anesthesia Reactions, Chicken Pox and Measles; Negative Autoimmune Disease, Autism, Shingles, Blood Transfusion Reaction, Organ Transplant, Chemotherapy, Radiation Therapy, Hyperbaric Therapy, MRSA, VRSA, Vancomycin-Resistant Enterococci, Human Immunodeficiency Virus (HIV), Mumps, Rubella (Maltese Measles), Pertussis, Clostridium Difficile, Cancer, Breast Cancer, Cervical Cancer, Colorectal Cancer, Lung Cancer, Ovarian Cancer, Prostate Cancer or Testicular Cancer Family History FAMILY HISTORY: Positive Family Psychiatric Problems, Family Cardiac Disorders and Family Cancer; Negative Family Respiratory Disorders, Family Gastrointestinal Problems, Family Surgery or Family Anesthesia Reaction Surgical History SURGICAL: Positive Cardiac Surgery, Angiogram, Abdominal Surgery, Arthroscopy and Hysterectomy; Negative Open Heart Surgery, Coronary Artery Bypass Graft, Valve Replacement, Vascular Surgery, Coronary Stent, Cardiac Catheterization, Pacemaker, Auto Implanted Cardiovert Defib, Carotid Endarterectomy, Endocrine Surgery, Thyroidectomy, Ear Surgery, Tympanostomy Tube, Eye Surgery, Nose Surgery, Oral Surgery, Tonsillectomy, Adenoidectomy, Cochlear Implant, Corneal Transplant, Throat Surgery, Tracheostomy, Gastric Bypass Surgery, Gastrostomy, Bowel Surgery, Nephrectomy, Transurethral Resection, Joint Replacement, Amputation, Open Reduction Internal Fixation, Neurologic Surgery, Brain Shunt, Mastectomy, Lumpectomy, Tubal Ligation, Section or Organ Transplant Social History SMOKING STATUS: Former smoker ED Exam Narrative Physical exam: [General: Frail, partially deconditioned in addition to but not in any acute distress Head normocephalic HEENT: Eyes pupils are PERRLA EOMs are intact blanched conjunctiva, nose no rhinorrhea or epistaxis mouth pink dry membranes uvula is midline swallow symmetrical phonation is now. All the subsystems of HEENT are within acceptable limits Neck is supple nontender no JVD no edema Chest equal chest rise nontender to palpation Respiratory: Clear to auscultation no wheezes crackles or rubs CV: Rate rhythm is regular no murmurs rubs or clicks Abdomen is soft nontender no masses positive bowel sounds all 4 quadrants vertical surgical scar is clean dry and intact healing well no erythema edema, no dehiscence. GI: Rectum she has numerous old hemorrhoids, moderate rectal tone, stool in the vault stool is grossly guaiac positive. Back: No CVA tenderness no spinous process tenderness from cervical spine thoracic and lumbar spine Skin: Intact no petechiae rash induration ulceration or crepitus Extremities: Moving all extremity against resistance cap refill less than 2 seconds neurosensory intact Neuro: Awake alert oriented x3 Glascow coma 15 no focal deficits] Course Course Course Narrative: Patient's labs CBC from this morning shows he has a hemoglobin of 5.9, this is a 5 g crit drop from December 16. Which is not typical for somebody who is anemic. Patient is on blood thinners guaiac is positive I suspect she has GI bleed. Patient's case discussed with Dr. Fields agrees to consult on this patient for admission. Patient's case discussed with Dr. Hernandez and the resident, who agreed to accept the patient for admission. Quality Measures none Orders Category Date Time Status NPO after Midnight ONCE Care 01/05/25 11:41 Active Transfuse,blood/blood products NOW Care 01/05/25 11:24 Active Consult to Gastroenterology Stat Cons 01/05/25 11:50 Ordered Diet Clear Liquid Diet 01/05/25 Dinner Active Diet NPO after Midnight Diet 01/06/25 00:01 Active B-Type Natriuretic Peptide Stat Lab 01/05/25 11:32 Completed CBC Stat Lab 01/05/25 11:32 Completed Comprehensive Metabolic Panel Stat Lab 01/05/25 11:32 Completed LDH (Lactate Dehydrogenase) Stat Lab 01/05/25 11:32 Completed Magnesium Stat Lab 01/05/25 11:32 Completed Occult Blood, Stool (LAB) Stat Lab 01/05/25 12:04 Ordered Partial Thromboplastin Time Stat Lab 01/05/25 11:32 Completed Prothrombin Time with INR Stat Lab 01/05/25 11:32 Completed Type and Screen Stat Lab 01/05/25 12:20 Received Urinalysis Stat Lab 01/05/25 12:15 Received prbc [Red Blood Cells] Stat Lab 01/05/25 12:20 Received Pantoprazole Inj [Protonix Inj] Med 01/05/25 11:40 Discontinued 40 mg IVP X1 ONE Pantoprazole/Ns 80Mg IV Premix [Protonix/NS 80mg IV Med 01/05/25 11:41 Active Premix] 80 mg in 100 ml IV Q10H Vital Signs Vital signs: Vital Signs Temperature 98.0 F 01/05/25 11:14 Pulse Rate 87 01/05/25 11:14 Respiratory Rate 16 01/05/25 11:14 Blood Pressure 132/58 H 01/05/25 11:14 Pulse Oximetry (%) 99 01/05/25 11:14 Oxygen Delivery Method Room Air 01/05/25 11:14 Discharge Plan Plan Patient Disposition: Other Care w/in Hosp ([facility]) Patient condition on transfer: Stable Prescriptions/Referrals Prescriptions/Med Rec: No Action furosemide 20 mg tablet 40 mg PO DAILY ascorbic acid (vitamin C) [Vitamin C] 250 mg Tablet 500 mg PO BID Qty: 60 0RF zinc sulfate 50 mg zinc (220 mg) Capsule 220 mg PO QDAY Qty: 30 0RF metoprolol tartrate 25 mg tablet 25 mg PO BID Qty: 60 0RF amiodarone 200 mg tablet 200 mg PO BID Qty: 60 0RF Eliquis 5 mg tablet 5 mg PO BID Qty: 60 0RF Problem List Clinical Impression: Anemia, GI bleed, Weakness Patient/Caregiver Discharge Instructions Print Language: Slovak Stand Alone Forms: Ann Marie Award Info., Patient Portal Info Letter PA/SAE Supervising Physician TERRELL/SAE Supervising Physician: Shai Christensen ENP [facility] Labs/Rad/Tests considered, not ordered Describe: CBC shows WBCs at 3.7 hemoglobin hemic rate of 5.4 and 17.6 note this is a 5 g loss in the past 3 weeks. Platelet count of 353. Coags show PT of 12.3. INR and PTT within acceptable limits CMP shows no significant electrolyte imbalances no renal impairment transaminitis or T. bili elevation note the calcium is at 8.0. Medication Administration(s) Medication Administration History Pantoprazole Sodium (Protonix/Ns 80mg Iv Premix) 80 mg in 100 mls @ 10 mls/hr IV Q10H ELINOR Stop: 01/08/25 09:40 Last Admin: 01/05/25 12:30 Dose: 10 mls/hr Documented By: CACHORRO Discontinued Medications Pantoprazole Sodium (Pantoprazole Inj 40 Mg Vial) 40 mg IVP X1 ONE Stop: 01/05/25 11:41 Last Admin: 01/05/25 12:25 Dose: 40 mg Documented By: CACHORRO
[2025-01-05 11:45] LABS: Basophils % (Auto) 1 % (0-2.5); Eosinophils # (Auto) 0.1 Thou/mm3 (0.0-0.5); Eosinophils % (Auto) 2 % (0-10); Immature Granulocytes % (Auto) 0 % (0-0); Immature Granulocytes Auto 0.01 Thou/mm3 (0.00-0.00); Lymphocytes # (Auto) 0.7 Thou/mm3 (1.0-4.8); Lymphocytes % (Auto) 18 % (10-50); Mean Corpuscular HGB Conc 30.7 g/dl (31.0-37.0); Mean Corpuscular Hemoglobin 27.1 pg (25.0-35.0); Mean Corpuscular Volume 88 fL (80-100); Monocytes % (Auto) 26 % (0-12); Neutrophils % (Auto) 53 % (37-80); Nucleated Red Blood Cell # 0.04 Thou/mm3 (0.00-0.00); Nucleated Red Blood Cell % 1 /100 WBC (0); Platelet Count 358 Thou/mm3 (140-440); RDW Standard Deviation 53.9 fL (36.4-46.3); Red Blood Count 1.99 Miln/mm3 (4.00-5.20); White Blood Count 3.7 Thou/mm3 (3.6-11.0)
[2025-01-05 11:58] LABS: B-Type Natriuretic Peptide 113 pg/mL (0-100)
[2025-01-05 12:05] LABS: INR 1.1 (0.9-1.3); Partial Thromboplastin Time 27.4 Seconds (22.0-36.0); Prothrombin Time 12.3 Seconds (9.0-12.2)
[2025-01-05 12:07] LABS: Hematocrit 17.6 % (36.0-46.0); Hemoglobin 5.4 g/dL (12.0-16.0)
[2025-01-05 12:09] LABS: Alanine Aminotransferase 28 U/L (10-49); Albumin, Serum 3.1 gm/dL (3.4-4.8); Albumin/Globulin Ratio 1.1 (1.2-2.2); Alkaline Phosphatase 148 U/L (46-116); Anion Gap 5 (7-16); Aspartate Amino Transferase 31 U/L (0-34); BUN/Creatinine Ratio 27 Ratio (12-20); Bilirubin,Total 0.7 mg/dL (0.3-1.2); Blood Urea Nitrogen 16 mg/dL (9-23); Calcium (Corrected) 8.7 mg/dL (8.5-10.1); Carbon Dioxide 25.6 mMol/L (20.0-31.0); Chloride 107 mMol/L (98-107); Creatinine (Component) 0.6 mg/dL (0.6-1.3); Globulin 2.7 gm/dL (2.3-3.5); Glucose 93 mg/dL (74-106); Osmolality,Calculated 276 (275-295); Potassium 3.5 mMol/L (3.4-5.1); Sodium 138 mMol/L (136-145); Total Protein 5.8 gm/dL (5.7-8.2); eGFR > 60 See Note
[2025-01-05 12:21] LABS: LDH (Lactate Dehydrogenase) 228 U/L (120-246)
[2025-01-05] MEDS: PANTOPRAZOLE INJ 40 MG VIAL IVP (12:25)
[2025-01-05] MEDS: PANTOPRAZOLE/NS 80MG IV PREMIX 80 MG/100 ML BAG 10 MG IV ×2 (12:30→22:30)
[2025-01-05 12:31] LABS: Collection Type, Urine Clean Catch
[2025-01-05 13:35] LABS: Bilirubin,Urine Negative (Negative); Blood,Urine Negative (Negative); Calcium Oxalate Crystals,Urine 4+; Clarity,Urine Turbid (Clear/Hazy); Color,Urine Yellow (Lt Yel-Yel); Glucose, Urine Negative (Negative); Ketones,Urine Negative (Negative); Leukocyte Esterase,Urine Positive (Negative); Nitrite,Urine Negative (Negative); PH,Urine 6.5 (5.0-7.0); Protein,Urine Trace (Neg - Trace); RBC,Urine 5 /hpf (0-3); Specific Gravity,Urine 1.019 (1.001-1.035); Squamous Epithelial Cell,Urine 6 /hpf (0-5); WBC,Urine 7 /hpf (0-5)
[2025-01-05 14:32] LABS: OBS Developer Lot # 1-24551749; OBS Performed By MADRG3; OBS QC OK? Yes; Occult Blood, Stool Positive (Negative)
[2025-01-05] MEDS: OCTREOTIDE ACET INJ 50 mCg/ML VIAL IV (14:36)
[2025-01-05] MEDS: OCTREOTIDE ACET INJ 1,000 MCG in SODIUM CHLORIDE 0.9% 100 ML 5.1 MCG IV (14:44)
--- NOTE | 2025-01-05 15:44 | PD.RESHP ---
Documentation for date of: 01/05/25 HPI History of Present Illness History of present illness: Tracey is a 79 y/o female with PMHx of diverticulitis and cholelithiasis status post sigmoid colectomy, and cholecystectomy, A-fib (on Eliquis), splenic vein thrombosis status post splenectomy, autoimmune hepatitis, mitral regurgitation, and iron deficiency anemia, Coloboma (L eye) who comes to the ED for an evaluation of generalized weakness and fatigue. Patient reports that she had gotten labs drawn today and was told that her hemoglobin was 5 in which she came to get evaluated at the ED. She reports that she been feeling fatigued for the past couple of weeks. She denies any hematochezia melena, hematemesis, or any other bleeding sites. She also says that she has been taking her Eliquis for A-fib. She was recently hospitalized for pneumonia, and multiple abdominal surgeries. She denies taking any NSAIDs. Denies any chest pain, shortness of breath, nausea, vomiting, headache. She does say that she had a's cerebral hemorrhage about 50 years ago and that her neurosurgeon told her that she had an artery that had just ruptured. She did not get any hematologic testing for that afterwards. Patient has been passing gas. 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 Pruitt. She has no other complaints this time. ED Course: She arrived to the ED temperature of 98, heart rate 87, respiratory rate 16, blood pressure 132/58, saturating 99% on room air. Patient was worked up was found to have a sodium 143, potassium 3.6, bicarb 28, BUN/creatinine of 18 and 0.6 respectively, hemoglobin 5.9, white count 4.5, TSH 6.5, free T40.91, platelets 379, iron 6, ferritin 12. Patient was given 40 Protonix, started on Protonix drip. GI was consulted who had recommended admission for further evaluation. Medicine was consulted patient admitted to the floors PMHx: As above Surgeries: Sigmoid colectomy, splenectomy, cholecystectomy Meds: Eliquis 5 mg twice daily, Amio 200 mg every day, Lasix 20 mg Allergies: Sulfa drugs are the ones like it for true allergies as patient states Family Hx: Denies family history of bleeding disorders, heart attack, diabetes, stroke. Social Hx: Patient was born in [facility], lived there for some time, lived in [place] for some time, and was then and lived in the [place]. Has kids to visit her periodically. She currently lives alone and her son currently lives with her helping her out after she has had multiple abdominal surgeries. No history of oral IV drug use, quit smoking several years ago, has never been a heavy drinker. Review of Systems Review of Systems Narrative Review of Systems: Constitutional: No fever, chills, positive fatigue, positive weakness, no weight loss HEENT: No eye pain, vision loss, ear pain, hearing loss, dysphagia, Cardiovascular: No chest pain, palpitations, edema, pain with walking Respiratory: No cough, shortness of breath, wheezing GI: No NVD, abdominal pain, constipation, blood in stool, loss of appetite, heartburn Extremities: No presence of pitting edema MSK: No back pain, joint pain, joint swelling Neuro: No dizziness, numbness, weakness, headaches, seizures, tremors Psych: No anxiety, depression Exam Vital Signs Temp Pulse Resp BP Pulse Ox O2 Del Method 99.0 F 74 17 127/55 L 98 Room Air 01/05/25 15:40 01/05/25 15:40 01/05/25 15:40 01/05/25 15:40 01/05/25 15:40 01/05/25 15:22 Narrative Exam General: AAOx3, NAD, elderly female, pleasant HEENT: Moist mucous membranes, conjunctiva clear, EOMI, PERRLA, Coloboma in L eye Cardiovascular: S1, S2, radial pulses +2 bilat, RRR Pulmonary: CTAB bilat no cough, no wheezing GI: Slight abdominal pain diffusely on palpation, surgical scar present midline, bowel sounds present Extremities: Trace edema present in lower extremities bilaterally, wearing compression stockings, dorsalis pedis pulses +2 bilaterally Neuro: AAOx3, no focal motor or sensory deficits in the UE or LE bilat Psych: Good judgement, thought and behavior. Cooperative Results: Labs 01/05/25 11:32 01/05/25 11:32 Labs: Short CBC 01/05/25 Range/Units 11:32 WBC 3.7 (3.6-11.0) Thou/mm3 Hgb 5.4 L* (12.0-16.0) g/dL Hct 17.6 L* (36.0-46.0) % Plt Count 358 (140-440) Thou/mm3 BMP 01/05/25 11:32 Sodium 138 Potassium 3.5 Chloride 107 Carbon Dioxide 25.6 BUN 16 Creatinine 0.6 Glucose 93 Calcium 8.0 L Liver Function 01/05/25 Range/Units 11:32 Total Bilirubin 0.7 (0.3-1.2) mg/dL AST 31 (0-34) U/L ALT 28 (10-49) U/L Alkaline Phosphatase 148 H (46-116) U/L Albumin 3.1 L (3.4-4.8) gm/dL Urine 01/05/25 Range/Units 12:15 Urine Color Yellow (Lt Yel-Yel) Urine Clarity Turbid A (Clear/Hazy) Urine pH 6.5 (5.0-7.0) Ur Specific [place] 1.019 (1.001-1.035) Urine Protein Trace (Neg - Trace) Urine Glucose (UA) Negative (Negative) Quality Measures Quality Measures none Advance care planning discussed with:: patient Medications Home Medications and Allergies Home Medications ?Medication ?Instructions ?Recorded ?Confirmed ?Type furosemide 20 mg tablet 40 mg PO DAILY 11/18/24 12/12/24 History Allergies Allergy/AdvReac Type Severity Reaction Status Date / Time adhesive tape Allergy Verified 01/05/25 10:43 cephalexin (From Keflex) Allergy Verified 01/05/25 10:43 codeine Allergy Nausea Verified 01/05/25 10:43 latex Allergy Verified 01/05/25 10:43 levofloxacin (From Levaquin) Allergy Nausea Verified 01/05/25 10:43 sertraline Allergy Nausea Verified 01/05/25 10:43 Sulfa (Sulfonamide Allergy Verified 01/05/25 10:43 Antibiotics) hydrocodone AdvReac Mild Nausea Verified 01/05/25 10:43 meperidine AdvReac Mild UPPER GI Verified 01/05/25 10:43 propoxyphene AdvReac Mild Nausea Verified 01/05/25 10:43 Visit Medications Acetaminophen (Acetaminophen 325 Mg Tablet) 650 mg PO Q6H PRN PRN Reason: Fever >100 or pain 1-3 Stop: 02/04/25 15:39 Amiodarone HCl (Amiodarone Hcl 200 Mg Tablet) 200 mg PO QDAY ELINOR Stop: 02/04/25 15:44 Pantoprazole Sodium (Protonix/Ns 80mg Iv Premix) 80 mg in 100 mls @ 10 mls/hr IV Q10H ELINOR Stop: 01/08/25 09:40 Last Admin: 01/05/25 12:30 Dose: 10 mls/hr Octreotide Acetate 1,000 mcg/ (Sodium Chloride) 102 mls @ 5.1 mls/hr IV .Q20H ELINOR; Protocol Stop: 01/10/25 13:23 Octreotide Acetate 1,000 mcg/ (Sodium Chloride) 102 mls @ 5.1 mls/hr IV .Q20H ONE; Protocol Stop: 01/06/25 09:29 Last Admin: 01/05/25 14:44 Dose: 50 mcg/hr, 5.1 mls/hr Ondansetron HCl (Ondansetron Inj 2 Mg/Ml Inj 2 Ml) 4 mg IV Q6H PRN; Protocol PRN Reason: NAUSEA OR VOMITING Stop: 02/04/25 15:39 Discontinued Medications Octreotide Acetate (Octreotide Acet Inj 50 Mcg/Ml Vial) 50 mcg IV X1 ONE Stop: 01/05/25 13:24 Last Admin: 01/05/25 14:36 Dose: 50 mcg Pantoprazole Sodium (Pantoprazole Inj 40 Mg Vial) 40 mg IVP X1 ONE Stop: 01/05/25 11:41 Last Admin: 01/05/25 12:25 Dose: 40 mg Assessment & Plan Plan Assessment Tracey is a 79 y/o female with PMHx of diverticulitis and cholelithiasis status post sigmoid colectomy, and cholecystectomy, A-fib (on Eliquis), splenic vein thrombosis status post splenectomy, autoimmune hepatitis, mitral regurgitation, and iron deficiency anemia, currently admitted for GI bleed and acute blood loss anemia. #GI bleed #Acute blood loss anemia #Symptomatic anemia #Iron deficiency anemia #Hx of cerebral hemorrhage DDx: GI Bleed, Cancer, chronic anemia, medication induced FOBT: Positive NSAID use: None A/C: Eliquis 5 mg twice daily Although patient does say she does not have any blood in her stool, however FOBT is positive Patient also has remote history of cerebral hemorrhage about 50 years ago, however low suspicion for any hemorrhage in the brain at this time considering neurologic exam was unremarkable and thus will not further workup with imaging Patient will likely need EGD and colonoscopy as patient does have chronic anemia Iron 6, ferritin 12 Peripheral blood smear shows severe hypochromic microcytic anemia without hemolysis Patient does have a lengthy history of getting EGDs and colonoscopies in the past, however as patient does not find source of bleeding at this time, patient may need capsule endoscopy in the future 2 PRBCs are being transfused Plan: ? GI consulted, appreciate recs ? Trend CBC ? Transfusion protocol hemoglobin below 7 ? Follow-up H&H posttransfusion at 10:30 PM ? Holding Eliquis ? Avoiding any NSAIDs ? SCDs ? Continuing octreotide and Protonix drip #Chronic A-fib [id number]: 3 points HAS-BLED: 3 Rate controlled AC: Uses Eliquis at home Patient will be at increased risk for stroke as we are holding anticoagulation in setting of GI bleed however risks and benefits were discussed with patient Patient will need IV potassium when potassium is low considering GI bleed Plan: ? Resume home Amio 200 mg daily ? Telemetry ? Keep magnesium and potassium above 2 and 4 respectively ? Holding Eliquis in setting of GI bleed #History of cirrhosis #History of diverticulitis status post sigmoid colectomy #History of cholelithiasis status postcholecystectomy #History of splenic vein thrombosis status post splenectomy At this time patient does not appear to have an infection Low suspicion for intra-abdominal bleeding at this time Patient however would likely benefit from antibiotics prophylaxis No signs of coagulopathy at this point Will continue to monitor liver markers No history of esophageal varices, however will add medicines for this Plan: ? Pain control ? Rocephin 1 g IV daily for 7 days ? Octreotide drip ? Lactulose as needed #History of chronic autoimmune hepatitis Stable at this time, no AST ALT elevations Patient does not take medicine for this anymore Plan: ? Monitor outpatient #Health Maintenance Disposition: Telemetry DVT prophylaxis: SCDs GI prophylaxis: Protonix drip Diet: Clear liquid CODE STATUS: Full Patient seen and care discussed with my attending physician, Dr. Jun Esquivel, PGY-1
[2025-01-05] MEDS: cefTRIAXone/D5w 1gm IV premix 1 GM/50 ML BAG IV (18:09)
[2025-01-05] MEDS: POTASSIUM CHL 10 mEq IVPB 10 MEQ/100 ML BAG 100 MEQ IV (18:09)
[2025-01-05] MEDS: AMIODARONE HCL 200 MG TABLET PO (18:09)
[2025-01-05] MEDS: LACTULOSE SYRUP 20 GM/30 ML UDC 10 GM PO (18:09)
[2025-01-05] MEDS: POTASSIUM CHL 10 mEq IVPB 10 MEQ/100 ML BAG 75 MEQ IV ×2 (21:02→22:51)
--- NOTE | 2025-01-05 21:30 | PD.IMCONS ---
HPI Data of Consult Requesting Physician: Brian Barahona MD Primary Care Provider: Los Hanks MD Consult Narrative Reason for consult: Hemoglobin hematocrit 5.4 and 17.6 History of present illness: 79 years of female who has history of chronic atrial fibrillation on Eliquis was seen by her jackscrew worker and was told hemoglobin was low which was 5.9 18.0 sent back to the emergency room In the emergency room she is found to have a hemoglobin hematocrit 5.4 and 17.6 and she was Hemoccult positive according to the ER physician public health training assistant Platelet count is 58,000 Patient recently hospital with left-sided chest pain and pneumonia He has also recently undergone sigmoid colectomy for recurrent bouts of diverticulitis cholecystectomy and splenectomy for splenic vein thrombosis cc:: cc: Brian Barahona MD Past Medical History Surgical History OTHER SURGICAL HX: As in the history of present illness Meds Home Medications and Allergies Home Medications ?Medication ?Instructions ?Recorded ?Confirmed ?Type furosemide 20 mg tablet 40 mg PO DAILY 11/18/24 12/12/24 History Allergies Allergy/AdvReac Type Severity Reaction Status Date / Time adhesive tape Allergy Verified 01/05/25 10:43 cephalexin (From Keflex) Allergy Verified 01/05/25 10:43 codeine Allergy Nausea Verified 01/05/25 10:43 latex Allergy Verified 01/05/25 10:43 levofloxacin (From Levaquin) Allergy Nausea Verified 01/05/25 10:43 sertraline Allergy Nausea Verified 01/05/25 10:43 Sulfa (Sulfonamide Allergy Verified 01/05/25 10:43 Antibiotics) hydrocodone AdvReac Mild Nausea Verified 01/05/25 10:43 meperidine AdvReac Mild UPPER GI Verified 01/05/25 10:43 propoxyphene AdvReac Mild Nausea Verified 01/05/25 10:43 Exam Vital Signs Temp Pulse Resp BP Pulse Ox O2 Del Method 98.5 F 111 H 23 H 115/62 97 Room Air 01/05/25 19:00 01/05/25 19:00 01/05/25 19:00 01/05/25 19:00 01/05/25 19:00 01/05/25 17:52 Constitutional Comments: Alert oriented Routine Respiratory Exam Comments: Normal to auscultation Results Labs 01/05/25 11:32 01/05/25 11:32 Labs: Short CBC 01/05/25 Range/Units 11:32 WBC 3.7 (3.6-11.0) Thou/mm3 Hgb 5.4 L* (12.0-16.0) g/dL Hct 17.6 L* (36.0-46.0) % Plt Count 358 (140-440) Thou/mm3 BMP 01/05/25 11:32 Sodium 138 Potassium 3.5 Chloride 107 Carbon Dioxide 25.6 BUN 16 Creatinine 0.6 Glucose 93 Calcium 8.0 L Liver Function 01/05/25 Range/Units 11:32 Total Bilirubin 0.7 (0.3-1.2) mg/dL AST 31 (0-34) U/L ALT 28 (10-49) U/L Alkaline Phosphatase 148 H (46-116) U/L Albumin 3.1 L (3.4-4.8) gm/dL Urine 01/05/25 Range/Units 12:15 Urine Color Yellow (Lt Yel-Yel) Urine Clarity Turbid A (Clear/Hazy) Urine pH 6.5 (5.0-7.0) Ur Specific [place] 1.019 (1.001-1.035) Urine Protein Trace (Neg - Trace) Urine Glucose (UA) Negative (Negative) Assessment and Plan Additional Assessment & Plan Additional Plan: # Occult GI bleeding # Acute posthemorrhagic anemia Plan agree with blood transfusion Consent obtained for fiberoptic esophagogastroduodenoscopy with possible biopsy possible therapeutic intervention scheduled for tomorrow N.p.o. midnight tonight except p.o. meds if the endoscopy is negative we will consider doing a fiberoptic colonoscopy prior to discharge Other medical problems include Chronic atrial fibrillation on Eliquis Status post sigmoid colectomy cholecystectomy and splenectomy Thank you very much for the opportunity to participate in care of this patient status post pneumonia recently hospitalized and discharged
[2025-01-05 22:29] LABS: Hematocrit 22.5 % (36.0-46.0)
[2025-01-05 22:33] LABS: Hemoglobin 7.5 g/dL (12.0-16.0)
[2025-01-06] VITALS (15 sets, daily range): BP systolic 97–140; BP diastolic 48–69; PULSE 60–81; RESP 12–18; TEMP 36.3–37; O2SAT 93–99
--- NOTE | 2025-01-06 00:35 | PC.NURSE ---
DR. HERMAN MADE AWARE OF HGB OF 7.5. NO ACTIVE BLEEDING. + OB STOOL. PENDING EGD WITH DR. HARDING 01/06/25, PAST NOON. NO NEW ORDERS. WILL FOLLOW UP WITH MORNING LABS.
[2025-01-06] MEDS: POTASSIUM CHL 10 mEq IVPB 10 MEQ/100 ML BAG 75 MEQ IV (01:22)
[2025-01-06] MEDS: ACETAMINOPHEN 325 MG TABLET 650 MG PO (01:26)
--- NOTE | 2025-01-06 04:52 | PC.NURSE ---
DR. ORDOÑEZ MADE AWARE OF HEADACHE 12/11. TYLENOL GIVEN PREVIOUSLY. NO CHANGE IN PAIN LEVEL. NEW ORDERS TO BE PLACED BY .
[2025-01-06] MEDS: MORPHINE SULF INJ 10 MG/ML VIAL IVP (05:11)
[2025-01-06] MEDS: ONDANSETRON INJ 2 MG/ML INJ 2 ML 4 MG IV (05:14)
[2025-01-06 07:30] LABS: Basophils # (Auto) 0.1 Thou/mm3 (0.0-0.2); Basophils % (Auto) 2 % (0-2.5); Eosinophils # (Auto) 0.3 Thou/mm3 (0.0-0.5); Eosinophils % (Auto) 7 % (0-10); Hematocrit 20.7 % (36.0-46.0); Immature Granulocytes % (Auto) 1 % (0-0); Immature Granulocytes Auto 0.03 Thou/mm3 (0.00-0.00); Lymphocytes # (Auto) 0.7 Thou/mm3 (1.0-4.8); Lymphocytes % (Auto) 21 % (10-50); Mean Corpuscular HGB Conc 32.9 g/dl (31.0-37.0); Mean Corpuscular Volume 85 fL (80-100); Monocytes # (Auto) 1.1 Thou/mm3 (0.0-0.8); Monocytes % (Auto) 30 % (0-12); Neutrophils # (Auto) 1.4 Thou/mm3 (1.8-7.7); Neutrophils % (Auto) 39 % (37-80); Nucleated Red Blood Cell # 0.05 Thou/mm3 (0.00-0.00); Nucleated Red Blood Cell % 1 /100 WBC (0); Platelet Count 290 Thou/mm3 (140-440); RDW Standard Deviation 49.9 fL (36.4-46.3); Red Blood Count 2.43 Miln/mm3 (4.00-5.20); White Blood Count 3.5 Thou/mm3 (3.6-11.0)
[2025-01-06 07:39] LABS: Hemoglobin 6.8 g/dL (12.0-16.0)
[2025-01-06 07:45] LABS: Alanine Aminotransferase 24 U/L (10-49); Albumin, Serum 2.6 gm/dL (3.4-4.8); Albumin/Globulin Ratio 1.1 (1.2-2.2); Alkaline Phosphatase 129 U/L (46-116); Anion Gap 6 (7-16); Aspartate Amino Transferase 34 U/L (0-34); BUN/Creatinine Ratio 15 Ratio (12-20); Bilirubin,Total 1.2 mg/dL (0.3-1.2); Blood Urea Nitrogen 9 mg/dL (9-23); Calcium 7.3 mg/dL (8.3-10.6); Calcium (Corrected) 8.4 mg/dL (8.5-10.1); Carbon Dioxide 23.4 mMol/L (20.0-31.0); Chloride 110 mMol/L (98-107); Creatinine (Component) 0.6 mg/dL (0.6-1.3); Estimated Creatinine Clearance 66.2 mL/min (>60); Globulin 2.4 gm/dL (2.3-3.5); Glucose 136 mg/dL (74-106); Magnesium 1.9 mg/dL (1.6-2.6); Osmolality,Calculated 278 (275-295); Potassium 4.5 mMol/L (3.4-5.1); Sodium 139 mMol/L (136-145); eGFR > 60 See Note
[2025-01-06] MEDS: PANTOPRAZOLE/NS 80MG IV PREMIX 80 MG/100 ML BAG 10 MG IV ×2 (08:01→18:22)
[2025-01-06] MEDS: cefTRIAXone/D5w 1gm IV premix 1 GM/50 ML BAG IV (08:01)
--- NOTE | 2025-01-06 08:10 | CHAP ---
Prayed with patient about her upcoming procedure.
[2025-01-06 08:30] LABS: INR 1.2 (0.9-1.3); Partial Thromboplastin Time 26.2 Seconds (22.0-36.0)
[2025-01-06] MEDS: Magnesium Sulfate 2 GM Ivpb 2 GM/50 ML BAG IV (09:58)
--- NOTE | 2025-01-06 10:27 | ESPR_ITS ---
Documentation for date of: 01/06/25 Subjective Subjective Interval history: Patient was seen and examined at bedside this AM. No acute exents overnight. Patient tolerating diet, adequate urine output and mentation is at baseline. Patient still complains of fatigue. Hb 6.8, HCT 20.7. 1 unit PRBC ordered for transfusion. Will follow-up on posttransfusion H&H Day 2 octreotide infusion for esophageal varices Scheduled for EGD at 6 PM this afternoon. Mg 1.9. Repleted with magnesium sulfate 2 g IV x 1. Blood pressure 90s/60s and heart rate in the 60s. Amiodarone dose held for today Exam Vital Signs Temp Pulse Resp BP Pulse Ox O2 Del Method 98.6 F 63 12 110/52 L 93 L Room Air 01/06/25 10:01/06/25 10:01/06/25 10:01/06/25 10:01/06/25 10:01/06/25 08:00 Narrative Exam Constitutional Alert, oriented x 3 and comfortable. Elderly female HEENT Vision grossly intact. Patent nares. Trachea midline Respiratory Chest normal on inspection and clear auscultation bilaterally Cardiovascular S1 and S2 audible, RRR. No murmurs carotid bruit. No gross JVD. Abdominal Soft and non tender to palpation in all quadrants, mass palpated in right upper quadrant consistent with the liver, healed midline surgical scar noted.BS + Genitourinary No bladder tenderness, no flank pain. Normal to palpation Musculoskeletal Extremities tone within normal limits. No LE edema. Neurological CN II - XII grossly intact. Extremity motor and sensation grossly intact. Skin Warm, dry and intact. No apparent lesions. Psychiatric Patient has good affect, is cooperative Objective Labs 01/06/25 12:59 01/06/25 06:47 Labs: Laboratory Results - last 24 hr 01/05/25 01/05/25 01/05/25 11:32 12:04 12:15 WBC 3.7 RBC 1.99 L* Hgb 5.4 L* Hct 17.6 L* MCV 88 MCH 27.1 MCHC 30.7 L RDW Std Deviation 53.9 H Plt Count 358 Neut % (Auto) 53 Lymph % (Auto) 18 [place] % (Auto) 26 H Eos % (Auto) 2 Baso % (Auto) 1 Neut # (Auto) 2.0 Lymph # (Auto) 0.7 L [place] # (Auto) 1.0 H Eos # (Auto) 0.1 Baso # (Auto) 0.0 Immature Gran # (Auto) 0.01 H Absolute Nucleated RBC 0.04 H Immature Gran % 0 Nucleated RBC % 1 H PT 12.3 H INR 1.1 APTT 27.4 D Sodium 138 Potassium 3.5 Chloride 107 Carbon Dioxide 25.6 Anion Gap 5 L BUN 16 Creatinine 0.6 Estim Creat Clear Calc Not Performed. eGFR > 60 BUN/Creatinine Ratio 27 H Glucose 93 Calculated Osmolality 276 Calcium 8.0 L Corrected Calcium 8.7 Phosphorus Magnesium 2.0 Total Bilirubin 0.7 AST 31 ALT 28 Alkaline Phosphatase 148 H Lactate Dehydrogenase 228 B-Natriuretic Peptide 113 H Total Protein 5.8 Albumin 3.1 L Globulin 2.7 Albumin/Globulin Ratio 1.1 L Ur Collection Type Clean Catch Urine Color Yellow Urine Clarity Turbid A Urine pH 6.5 Ur Specific [place] 1.019 Urine Protein Trace Urine Glucose (UA) Negative Urine Ketones Negative Urine Blood Negative Urine Nitrite Negative Urine Bilirubin Negative Urine Urobilinogen (Auto) 2.0 Ur Leukocyte Esterase Positive Urine RBC 5 H Urine WBC 7 H Ur Squamous Epith Cells 6 H Calcium Oxalate Crystal 4+ A Urine Bacteria None Stool Occult Blood Positive A Blood Type Antibody Screen Crossmatch Blood Bank Wristband ID 01/05/25 01/05/25 01/06/25 12:20 22:17 06:47 WBC 3.5 L RBC 2.43 L Hgb 7.5 L D 6.8 L* Hct 22.5 L 20.7 L* MCV 85 MCH 28.0 MCHC 32.9 RDW Std Deviation 49.9 H Plt Count 290 D Neut % (Auto) 39 Lymph % (Auto) 21 [place] % (Auto) 30 H Eos % (Auto) 7 Baso % (Auto) 2 Neut # (Auto) 1.4 L Lymph # (Auto) 0.7 L [place] # (Auto) 1.1 H Eos # (Auto) 0.3 Baso # (Auto) 0.1 Immature Gran # (Auto) 0.03 H Absolute Nucleated RBC 0.05 H Immature Gran % 1 H Nucleated RBC % 1 H PT 13.0 H INR 1.2 APTT 26.2 Sodium 139 Potassium 4.5 D Chloride 110 H Carbon Dioxide 23.4 Anion Gap 6 L BUN 9 Creatinine 0.6 Estim Creat Clear Calc 66.2 eGFR > 60 BUN/Creatinine Ratio 15 Glucose 136 H Calculated Osmolality 278 Calcium 7.3 L Corrected Calcium 8.4 L Phosphorus 3.0 Magnesium 1.9 Total Bilirubin 1.2 D AST 34 ALT 24 Alkaline Phosphatase 129 H Lactate Dehydrogenase B-Natriuretic Peptide Total Protein 5.0 L Albumin 2.6 L D Globulin 2.4 Albumin/Globulin Ratio 1.1 L Ur Collection Type Urine Color Urine Clarity Urine pH Ur Specific [place] Urine Protein Urine Glucose (UA) Urine Ketones Urine Blood Urine Nitrite Urine Bilirubin Urine Urobilinogen (Auto) Ur Leukocyte Esterase Urine RBC Urine WBC Ur Squamous Epith Cells Calcium Oxalate Crystal Urine Bacteria Stool Occult Blood Blood Type O Positive Antibody Screen NEGATIVE Crossmatch See Detail Blood Bank Wristband ID Yes Quality Measures Quality Measures none Advance care planning discussed with:: patient Assessment & Plan Assessment Current Active Medications: Generic Name Dose Route Start Last Admin Trade Name Freq PRN Reason Stop Dose Admin Acetaminophen 650 mg 01/05/25 15:40 01/06/25 01:26 Acetaminophen 325 Mg Tablet PO 02/04/25 15:39 650 mg Q6H PRN Administration Fever >100 or pain 1-3 Amiodarone HCl 200 mg 01/05/25 15:45 01/06/25 08:02 Amiodarone Hcl 200 Mg Tablet PO 02/04/25 15:44 Not Given QDAY ELINOR Pantoprazole Sodium 80 mg in 100 mls @ 10 mls/hr 01/05/25 11:41 01/06/25 08:01 Protonix/Ns 80mg Iv Premix IV 01/08/25 09:40 10 mls/hr Q10H ELINOR Administration Octreotide Acetate 1,000 mcg/ 102 mls @ 5.1 mls/hr 01/06/25 09:30 Sodium Chloride IV 01/10/25 13:23 .Q20H ELINOR Protocol 50 MCG/HR Ceftriaxone Sodium/Dextrose 1 gm in 50 mls @ 100 mls/hr 01/05/25 16:20 01/06/25 08:01 Rocephin/D5w 1gm Iv Premix IV 01/12/25 16:19 100 mls/hr QDAY ELINOR Administration Lactulose 10 gm 01/05/25 17:40 01/05/25 18:09 Lactulose Syrup 20 Gm/30 Ml Udc PO 02/04/25 17:44 10 gm QDAY PRN Administration constipation Protocol Ondansetron HCl 4 mg 01/05/25 15:40 01/06/25 05:14 Ondansetron Inj 2 Mg/Ml Inj 2 Ml IV 02/04/25 15:39 4 mg Q6H PRN Administration NAUSEA OR VOMITING Protocol Plan Tracey is a 79 y/o female with PMHx of diverticulitis and cholelithiasis status post sigmoid colectomy, and cholecystectomy, A-fib (on Eliquis), splenic vein thrombosis status post splenectomy, autoimmune hepatitis, mitral regurgitation, and iron deficiency anemia, currently admitted for GI bleed and acute blood loss anemia. #Acute blood loss anemia secondary to GI bleed for investigation #Symptomatic anemia #Iron deficiency anemia #Hx of cerebral hemorrhage DDx: Peptic ulcer, Cancer, chronic anemia, medication induced FOBT: Positive NSAID use: None A/C: Eliquis 5 mg twice daily Although patient does say she does not have any blood in her stool, however FOBT is positive Patient also has remote history of cerebral hemorrhage about 50 years ago, however low suspicion for any hemorrhage in the brain at this time considering neurologic exam was unremarkable and thus will not further workup with imaging Iron 6, ferritin 12 Peripheral blood smear shows severe hypochromic microcytic anemia without hemolysis Patient does have a lengthy history of getting EGDs and colonoscopies in the past, however as patient does not find source of bleeding at this time, patient may need capsule endoscopy in the future 3 PRBC infusions since admission Plan: - 1 unit PRBC ordered for transfusion ? Posttransfusion H&H ordered ? Discontinued Protonix infusion. Started on pantoprazole 40 Mg IV twice daily from tomorrow ? Day 2 octreotide infusion. To complete a total of 5 days ? Patient scheduled for EGD later today ? GI, Dr. Fields consulted. Appreciate recommendations # Longstanding persistent atrial fibrillation [id number]: 3 points HAS-BLED: 3 Rate controlled AC: Uses Eliquis at home Patient will be at increased risk for stroke as we are holding anticoagulation in setting of GI bleed however risks and benefits were discussed with patient Plan: ? Continue Telemetry monitoring ? Amiodarone 200 Mg p.o. daily. Dose was held today due to low blood pressure and heart rate in the 60s ? Continue to hold Eliquis in setting of GI bleed ? 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 Pain control ? Rocephin 1 g IV daily for 7 days for SBP prophylaxis ? Lactulose 10 g p.o. as needed. Titrate as necessary to achieve 2?3 bowel movements per day for hepatic encephalopathy prophylaxis #History of chronic autoimmune hepatitis Stable at this time, no AST ALT elevations Patient does not take medicine for this anymore Plan: ? Monitor outpatient Health maintenance: Disposition: Octreotide infusion. Pending EGD Diet: N.p.o. Lines: pIVs GI Prophylaxis: Pantoprazole 40 Mg IV twice daily Thrombo Prophylaxis: SCDs Code status: FULL CODE Plan of care discussed with Attending Dr. Neela Christian MD PGY 1 Disclaimer: This note was dictated by speech recognition. Minor errors in independent agent music education may be present due to voice recognition software. Attending Provider Attestation/Addendum I attest that I was physically present for the evaluation, physical examination, lab and imaging review of the patient with the residents. I discussed the case with the residents and agree with the findings and plans of care as documented above. At bedside, patient appears comfortable and denies new complaints. Hemoglobin this morning noted to be 6.8, patient is receiving 1 unit PRBC, we will follow- up with posttransfusion H&H. Continues to be on octreotide drip for esophageal varices. Patient is scheduled for EGD today with GI. Continues to be on Protonix, Rocephin. Guillermina Keita MD
[2025-01-06] MEDS: OCTREOTIDE ACET INJ 1,000 MCG in SODIUM CHLORIDE 0.9% 100 ML 5.1 MCG IV (10:34)
[2025-01-06 13:28] LABS: Hematocrit 26.5 % (36.0-46.0)
[2025-01-06 13:29] LABS: Hemoglobin 8.6 g/dL (12.0-16.0)
--- NOTE | 2025-01-06 15:14 | PC.SS ---
SS met with patient regarding her d/c plan.? Pt is alert/oriented.? Pt was admitted for GI Bleed.? Pt confirmed demographic and contact information is correct on facesheet.? Pt resides alone but her son will be staying with her after dc.? Pt ambulates independently without assistance or DME.? Pt is ok with all ADLs.? Pt named her son, Marc Hui medical decision maker if she is unable.? Patient?s choice is to return home upon d/c.? Pt states not diabetic and is not on dialysis.? SS provided verbal options for d/c to home or SNF.? Patient's choice is to return home upon dc.? Pt states she followed up with PCP a week ago.? Pt states she was followed by [facility] before being hospitalized and is requesting to continue with them.?? D/C plan:? Return home Next of Kin:? Marc Hui, son, phone# [phone] PCP:? Dr. Los Hanks Address:? Correct on facesheet
--- NOTE | 2025-01-06 21:40 | PC.NURSE ---
Notified Dr. Fields that lainat is very lethargic from meds given at [facility], he said ok to start golytely in am.
[2025-01-07] VITALS (17 sets, daily range): BP systolic 107–166; BP diastolic 53–82; PULSE 60–96; RESP 12–20; TEMP -12.7–36.8; O2SAT 95–98; BMI 23.9
[2025-01-07] MEDS: NA SU/NAHCO3/KC/PEG (Golytely) 4,000 ML BTL 4000 ML PO (04:32)
[2025-01-07 06:19] LABS: Basophils # (Auto) 0.1 Thou/mm3 (0.0-0.2); Basophils % (Auto) 2 % (0-2.5); Eosinophils # (Auto) 0.2 Thou/mm3 (0.0-0.5); Eosinophils % (Auto) 4 % (0-10); Hematocrit 29.4 % (36.0-46.0); Hemoglobin 9.5 g/dL (12.0-16.0); Immature Granulocytes % (Auto) 0 % (0-0); Immature Granulocytes Auto 0.01 Thou/mm3 (0.00-0.00); Lymphocytes # (Auto) 0.6 Thou/mm3 (1.0-4.8); Lymphocytes % (Auto) 12 % (10-50); Mean Corpuscular HGB Conc 32.3 g/dl (31.0-37.0); Mean Corpuscular Volume 87 fL (80-100); Monocytes # (Auto) 1.2 Thou/mm3 (0.0-0.8); Monocytes % (Auto) 24 % (0-12); Neutrophils # (Auto) 2.9 Thou/mm3 (1.8-7.7); Neutrophils % (Auto) 58 % (37-80); Nucleated Red Blood Cell # 0.06 Thou/mm3 (0.00-0.00); Nucleated Red Blood Cell % 1 /100 WBC (0); Platelet Count 336 Thou/mm3 (140-440); RDW Standard Deviation 52.4 fL (36.4-46.3); Red Blood Count 3.39 Miln/mm3 (4.00-5.20)
[2025-01-07 07:28] LABS: Alanine Aminotransferase 28 U/L (10-49); Albumin, Serum 3.1 gm/dL (3.4-4.8); Albumin/Globulin Ratio 1.1 (1.2-2.2); Alkaline Phosphatase 151 U/L (46-116); Anion Gap 6 (7-16); Aspartate Amino Transferase 31 U/L (0-34); BUN/Creatinine Ratio 16 Ratio (12-20); Bilirubin,Total 1.3 mg/dL (0.3-1.2); Blood Urea Nitrogen 11 mg/dL (9-23); Calcium 7.7 mg/dL (8.3-10.6); Calcium (Corrected) 8.4 mg/dL (8.5-10.1); Carbon Dioxide 25.8 mMol/L (20.0-31.0); Chloride 108 mMol/L (98-107); Creatinine (Component) 0.7 mg/dL (0.6-1.3); Estimated Creatinine Clearance 56.7 mL/min (>60); Globulin 2.9 gm/dL (2.3-3.5); Glucose 148 mg/dL (74-106); Osmolality,Calculated 281 (275-295); Potassium 4.1 mMol/L (3.4-5.1); Sodium 140 mMol/L (136-145); eGFR > 60 See Note
--- NOTE | 2025-01-07 08:18 | ESPR_ITS ---
<Statement entered by Miguel Ramírez MD - 01/08/25 17:23> Patient was seen and examined at bedside. Vital stable, she denied any bloody stool or discoloration. EGD was done and it was found that she has esophageal varices and gastric mucosal redness, banding was done for the varices. However, the inside sales director recommended GI colonoscopy to further evaluate any other source of bleeding. At this time patient on GoLytely preparation. - Patient's plan and care discussed with my attending, Dr. Jose Martin Ramírez MD Internal Medicine PGY-2 Documentation for date of: 01/07/25 Subjective Subjective Interval history: Pt examined at bedside today. No acute overnight events. Is wondering when she is going to get her colonoscopy. Denies having any dark stool and is currently on bowel prep. Denies vomiting blood, weakness, CP or SOB. No other complaints at this time. Exam Vital Signs Temp Pulse Resp BP Pulse Ox O2 Del Method O2 Flow Rate 9 F L 63 12 126/57 L 95 Room Air 2 01/07/25 04:00 01/07/25 04:00 01/07/25 04:00 01/07/25 04:00 01/07/25 04:00 01/07/25 04:00 01/06/25 20:12 Narrative Exam General: AAOx3, NAD, elderly female, pleasant HEENT: Moist mucous membranes, conjunctiva clear, EOMI, PERRLA, [place]ob[place] in L eye Cardiovascular: S1, S2, radial pulses +2 bilat, RRR Pulmonary: CTAB bilat no cough, no wheezing GI: Slight abdominal pain diffusely on palpation, surgical scar present midline, bowel sounds present Extremities: Trace edema present in lower extremities bilaterally, wearing compression stockings, dorsalis pedis pulses +2 bilaterally Neuro: AAOx3, no focal motor or sensory deficits in the UE or LE bilat Psych: Good judgement, thought and behavior. Cooperative Objective Labs 01/08/25 05:51 01/08/25 05:51 Labs: Laboratory Results - last 24 hr 01/05/25 01/06/25 01/06/25 12:20 06:47 12:59 WBC RBC Hgb 8.6 L D Hct 26.5 L MCV MCH MCHC RDW Std Deviation Plt Count Neut % (Auto) Lymph % (Auto) [place] % (Auto) Eos % (Auto) Baso % (Auto) Neut # (Auto) Lymph # (Auto) [place] # (Auto) Eos # (Auto) Baso # (Auto) Immature Gran # (Auto) Absolute Nucleated RBC Immature Gran % Nucleated RBC % PT 13.0 H INR 1.2 APTT 26.2 Sodium Potassium Chloride Carbon Dioxide Anion Gap BUN Creatinine Estim Creat Clear Calc eGFR BUN/Creatinine Ratio Glucose Calculated Osmolality Calcium Corrected Calcium Magnesium Total Bilirubin AST ALT Alkaline Phosphatase Total Protein Albumin Globulin Albumin/Globulin Ratio Blood Type O Positive Antibody Screen NEGATIVE Crossmatch See Detail Blood Bank Wristband ID Yes 01/07/25 05:55 WBC 5.0 D RBC 3.39 L Hgb 9.5 L Hct 29.4 L MCV 87 MCH 28.0 MCHC 32.3 RDW Std Deviation 52.4 H Plt Count 336 D Neut % (Auto) 58 Lymph % (Auto) 12 [place] % (Auto) 24 H Eos % (Auto) 4 Baso % (Auto) 2 Neut # (Auto) 2.9 Lymph # (Auto) 0.6 L [place] # (Auto) 1.2 H Eos # (Auto) 0.2 Baso # (Auto) 0.1 Immature Gran # (Auto) 0.01 H Absolute Nucleated RBC 0.06 H Immature Gran % 0 Nucleated RBC % 1 H PT INR APTT Sodium 140 Potassium 4.1 Chloride 108 H Carbon Dioxide 25.8 Anion Gap 6 L BUN 11 Creatinine 0.7 Estim Creat Clear Calc 56.7 L eGFR > 60 BUN/Creatinine Ratio 16 Glucose 148 H Calculated Osmolality 281 Calcium 7.7 L Corrected Calcium 8.4 L Magnesium 2.0 Total Bilirubin 1.3 H AST 31 ALT 28 Alkaline Phosphatase 151 H D Total Protein 6.0 Albumin 3.1 L D Globulin 2.9 Albumin/Globulin Ratio 1.1 L Blood Type Antibody Screen Crossmatch Blood Bank Wristband ID Quality Measures Quality Measures none Advance care planning discussed with:: patient Assessment & Plan Assessment Current Active Medications: Generic Name Dose Route Start Last Admin Trade Name Freq PRN Reason Stop Dose Admin Acetaminophen 650 mg 01/05/25 15:40 01/06/25 01:26 Acetaminophen 325 Mg Tablet PO 02/04/25 15:39 650 mg Q6H PRN Administration Fever >100 or pain 1-3 Amiodarone HCl 200 mg 01/05/25 15:45 01/06/25 08:02 Amiodarone Hcl 200 Mg Tablet PO 02/04/25 15:44 Not Given QDAY ELINOR Octreotide Acetate 1,000 mcg/ 102 mls @ 5.1 mls/hr 01/06/25 09:30 01/06/25 10:34 Sodium Chloride IV 01/10/25 13:23 50 mcg/hr .Q20H ELINOR 5.1 mls/hr Administration Protocol 50 MCG/HR Ceftriaxone Sodium/Dextrose 1 gm in 50 mls @ 100 mls/hr 01/05/25 16:20 01/06/25 19:42 Rocephin/D5w 1gm Iv Premix IV 01/12/25 16:19 Infused QDAY ELINOR Infusion Lactulose 10 gm 01/05/25 17:40 01/05/25 18:09 Lactulose Syrup 20 Gm/30 Ml Udc PO 02/04/25 17:44 10 gm QDAY PRN Administration constipation Protocol Ondansetron HCl 4 mg 01/05/25 15:40 01/06/25 05:14 Ondansetron Inj 2 Mg/Ml Inj 2 Ml IV 02/04/25 15:39 4 mg Q6H PRN Administration NAUSEA OR VOMITING Protocol Pantoprazole Sodium 40 mg 01/07/25 09:00 Pantoprazole Inj 40 Mg Vial IVP 02/06/25 08:59 BID ELINOR Plan Assessment Tracey is a 79 y/o female with PMHx of diverticulitis and cholelithiasis status post sigmoid colectomy, and cholecystectomy, A-fib (on Eliquis), splenic vein thrombosis status post splenectomy, autoimmune hepatitis, mitral regurgitation, and iron deficiency anemia, currently admitted for GI bleed and acute blood loss anemia. #Acute blood loss anemia secondary to GI bleed for investigation #Symptomatic anemia #Iron deficiency anemia #Grade III Esophageal Varices #Hx of cerebral hemorrhage DDx: Peptic ulcer, Cancer, chronic anemia, medication induced FOBT: Positive NSAID use: None A/C: Eliquis 5 mg twice daily Although patient does say she does not have any blood in her stool, however FOBT is positive Patient also has remote history of cerebral hemorrhage about 50 years ago, however low suspicion for any hemorrhage in the brain at this time considering neurologic exam was unremarkable and thus will not further workup with imaging Iron 6, ferritin 12 Peripheral blood smear shows severe hypochromic microcytic anemia without hemolysis Patient does have a lengthy history of getting EGDs and colonoscopies in the past, however as patient does not find source of bleeding at this time, patient may need capsule endoscopy in the future 3 PRBC infusions since admission Esophageal Varices, GIII, banded during EGD Plan: ? Pantoprazole 40 Mg IV BID ? Day 3 octreotide infusion. To complete a total of 5 days ? Colonoscopy today ? GI, Dr. Fields consulted. Appreciate recommendations #Longstanding persistent atrial fibrillation [id number]: 3 points HAS-BLED: 3 Rate controlled AC: Uses Eliquis at home Patient will be at increased risk for stroke as we are holding anticoagulation in setting of GI bleed however risks and benefits were discussed with patient Plan: ? Continue Telemetry monitoring ? Amiodarone 200 Mg p.o. daily. Dose was held today due to low blood pressure and heart rate in the 60s ? Continue to hold Eliquis in setting of GI bleed ? 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 Pain control ? Rocephin 1 g IV daily for 7 days for SBP prophylaxis ? Lactulose 10 g p.o. as needed. Titrate as necessary to achieve 2?3 bowel movements per day for hepatic encephalopathy prophylaxis #History of chronic autoimmune hepatitis Stable at this time, no AST ALT elevations Patient does not take medicine for this anymore Plan: ? Monitor outpatient #Health Maintenance Disposition: Telemetry DVT prophylaxis: Clear Liquid, Bowel prep GI prophylaxis: Protonix 40 IV BID Diet: NPO CODE STATUS: Full Patient seen and care discussed with my senior resident, Dr. Ramírez, and my attending physician, Dr. Neela Esquivel, PGY-1 Attending Provider Attestation/Addendum I attest that I was physically present for the evaluation, physical examination, lab and imaging review of the patient with the residents. I discussed the case with the residents and agree with the findings and plans of care as documented above. At bedside today, patient appears comfortable and denies any new complaints. Vital signs are stable, saturating well on room air. Hemoglobin is stable at 9.5 this morning. Denies any nausea or vomiting, blood in the stool or black tarry stool. Patient underwent EGD yesterday was found to have grade 3 varices, banded, erythematous mucosa in gastric antrum. Patient is planned for colonoscopy today with GI, has been receiving GoLytely for bowel prep. Continues to be on Protonix, octreotide, Rocephin. Continue with amiodarone and continue holding Eliquis due to GI bleed. Guillermina Keita MD
--- NOTE | 2025-01-07 09:04 | PC.SS ---
Follow up note: Colonoscopy pending. Pt will return home with Home Health.
[2025-01-07] MEDS: AMIODARONE HCL 200 MG TABLET PO (09:43)
[2025-01-07] MEDS: PANTOPRAZOLE INJ 40 MG VIAL IVP ×2 (09:43→20:55)
[2025-01-07] MEDS: cefTRIAXone/D5w 1gm IV premix 1 GM/50 ML BAG IV (09:44)
[2025-01-07] MEDS: OCTREOTIDE ACET INJ 1,000 MCG in SODIUM CHLORIDE 0.9% 100 ML 5.1 MCG IV (09:56)
--- NOTE | 2025-01-07 21:45 | SUR.PHASEI ---
[id number] Patient arrived to recovery sleeping in [facility], able to arouse with verbal prompting then drift back to sleep, on oxygen 3L via nasal cannula, breathing unlabored, vital signs stable, denies pain and nausea, report received from Malena PARKER
--- NOTE | 2025-01-07 22:33 | SUR.PHASEI ---
2220 Report given to Tiffanie PARKER, patient awake in [facility] eating jello-tolerating well, on oxygen 3L via nasal cannula, breathing unlabored, vital signs stable, denies pain and nausea [id number] Patient transported via [facility] to room 276 without incident, patient able to stand and ambulate a short distance from [facility] to bed with stand-by assist, Tiffanie PARKER at bedside with family as well, patient resting comfortably in her bed when this blog writer left patients room.
[2025-01-08] VITALS (7 sets, daily range): BP systolic 103–138; BP diastolic 52–70; PULSE 60–123; RESP 12–17; TEMP 36.4–37.3; O2SAT 95–99; BMI 23.9
[2025-01-08 06:24] LABS: Basophils # (Auto) 0.1 Thou/mm3 (0.0-0.2); Basophils % (Auto) 1 % (0-2.5); Eosinophils # (Auto) 0.4 Thou/mm3 (0.0-0.5); Eosinophils % (Auto) 8 % (0-10); Hematocrit 24.8 % (36.0-46.0); Immature Granulocytes % (Auto) 0 % (0-0); Immature Granulocytes Auto 0.01 Thou/mm3 (0.00-0.00); Lymphocytes # (Auto) 0.7 Thou/mm3 (1.0-4.8); Lymphocytes % (Auto) 15 % (10-50); Mean Corpuscular HGB Conc 32.3 g/dl (31.0-37.0); Mean Corpuscular Volume 87 fL (80-100); Monocytes # (Auto) 1.1 Thou/mm3 (0.0-0.8); Monocytes % (Auto) 23 % (0-12); Neutrophils # (Auto) 2.5 Thou/mm3 (1.8-7.7); Neutrophils % (Auto) 53 % (37-80); Nucleated Red Blood Cell # 0.04 Thou/mm3 (0.00-0.00); Nucleated Red Blood Cell % 1 /100 WBC (0); Platelet Count 265 Thou/mm3 (140-440); RDW Standard Deviation 53.7 fL (36.4-46.3); Red Blood Count 2.86 Miln/mm3 (4.00-5.20); White Blood Count 4.7 Thou/mm3 (3.6-11.0)
[2025-01-08 06:44] LABS: Alanine Aminotransferase 22 U/L (10-49); Albumin, Serum 2.6 gm/dL (3.4-4.8); Albumin/Globulin Ratio 1.1 (1.2-2.2); Alkaline Phosphatase 139 U/L (46-116); Anion Gap 4 (7-16); Aspartate Amino Transferase 25 U/L (0-34); BUN/Creatinine Ratio 20 Ratio (12-20); Blood Urea Nitrogen 12 mg/dL (9-23); Calcium 7.4 mg/dL (8.3-10.6); Calcium (Corrected) 8.5 mg/dL (8.5-10.1); Carbon Dioxide 28.9 mMol/L (20.0-31.0); Chloride 109 mMol/L (98-107); Creatinine (Component) 0.6 mg/dL (0.6-1.3); Estimated Creatinine Clearance 66.2 mL/min (>60); Globulin 2.4 gm/dL (2.3-3.5); Glucose 103 mg/dL (74-106); Magnesium 1.7 mg/dL (1.6-2.6); Osmolality,Calculated 282 (275-295); Potassium 3.4 mMol/L (3.4-5.1); Sodium 142 mMol/L (136-145); eGFR > 60 See Note
[2025-01-08] MEDS: OCTREOTIDE ACET INJ 1,000 MCG in SODIUM CHLORIDE 0.9% 100 ML 5.1 MCG IV (07:33)
[2025-01-08] MEDS: PANTOPRAZOLE INJ 40 MG VIAL IVP ×2 (08:28→20:35)
[2025-01-08] MEDS: cefTRIAXone/D5w 1gm IV premix 1 GM/50 ML BAG IV (08:28)
[2025-01-08] MEDS: AMIODARONE HCL 200 MG TABLET PO (08:28)
[2025-01-08] MEDS: SUCRALFATE SUSP 1 GM/10 ML UDC PO ×3 (11:53→20:35)
--- NOTE | 2025-01-08 13:53 | PC.CC ---
Pt entered into [facility], patient is open to [facility]
--- NOTE | 2025-01-08 15:17 | ESPR_ITS ---
<Statement entered by Miguel Ramírez MD - 01/08/25 16:03> Patient was seen and examined at bedside, she reported mild chest discomfort after the procedure of the EGD, she mentions that it increased with eating. Patient was prescribed Carafate. Patient denied any lower upper GI bleed at this time. She was having multiple questions regarding her condition and she was wondering why she was still in the hospital she informed that she is still in the hospital because of that if the drip that has to be finished. Dr. 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 At this time patient will stay at the hospital on 11 Jan 2020 5 to 6 PM. - Patient's plan and care discussed with my attending, Dr. Jose Martin Ramírez MD Internal Medicine PGY-2 Documentation for date of: 01/08/25 Subjective Subjective Interval history: Patient examined at bedside today. No acute overnight events. Patient is wondering when she can go home. She is wondering when she wants to resume her Eliquis. She says she tolerated the colonoscopy well. No other complaints at this time. 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 Cooperative Objective Labs 01/08/25 05:51 01/08/25 05:51 Labs: Laboratory Results - last 24 hr 01/05/25 01/08/25 12:20 05:51 WBC 4.7 RBC 2.86 L Hgb 8.0 L Hct 24.8 L MCV 87 MCH 28.0 MCHC 32.3 RDW Std Deviation 53.7 H Plt Count 265 D Neut % (Auto) 53 Lymph % (Auto) 15 [place] % (Auto) 23 H Eos % (Auto) 8 Baso % (Auto) 1 Neut # (Auto) 2.5 Lymph # (Auto) 0.7 L [place] # (Auto) 1.1 H Eos # (Auto) 0.4 Baso # (Auto) 0.1 Immature Gran # (Auto) 0.01 H Absolute Nucleated RBC 0.04 H Immature Gran % 0 Nucleated RBC % 1 H Sodium 142 Potassium 3.4 D Chloride 109 H Carbon Dioxide 28.9 Anion Gap 4 L BUN 12 Creatinine 0.6 Estim Creat Clear Calc 66.2 eGFR > 60 BUN/Creatinine Ratio 20 Glucose 103 Calculated Osmolality 282 Calcium 7.4 L Corrected Calcium 8.5 Magnesium 1.7 Total Bilirubin 1.0 AST 25 ALT 22 Alkaline Phosphatase 139 H Total Protein 5.0 L Albumin 2.6 L D Globulin 2.4 Albumin/Globulin Ratio 1.1 L Crossmatch See Detail Quality Measures Quality Measures none Advance care planning discussed with:: patient Assessment & Plan Assessment Current Active Medications: Generic Name Dose Route Start Last Admin Trade Name Freq PRN Reason Stop Dose Admin Acetaminophen 650 mg 01/05/25 15:40 01/06/25 01:26 Acetaminophen 325 Mg Tablet PO 02/04/25 15:39 650 mg Q6H PRN Administration Fever >100 or pain 1-3 Amiodarone HCl 200 mg 01/05/25 15:45 01/08/25 08:28 Amiodarone Hcl 200 Mg Tablet PO 02/04/25 15:44 200 mg QDAY ELINOR Administration Ceftriaxone Sodium/Dextrose 1 gm in 50 mls @ 100 mls/hr 01/05/25 16:20 01/08/25 08:28 Rocephin/D5w 1gm Iv Premix IV 01/12/25 16:19 100 mls/hr QDAY ELINOR Administration Octreotide Acetate 1,000 mcg/ 102 mls @ 5.1 mls/hr 01/07/25 10:00 01/08/25 07:33 Sodium Chloride IV 01/10/25 17:59 50 mcg/hr .Q20H ELINOR 5.1 mls/hr Administration Protocol 50 MCG/HR Lactulose 10 gm 01/05/25 17:40 01/05/25 18:09 Lactulose Syrup 20 Gm/30 Ml Udc PO 02/04/25 17:44 10 gm QDAY PRN Administration constipation Protocol Ondansetron HCl 4 mg 01/05/25 15:40 01/06/25 05:14 Ondansetron Inj 2 Mg/Ml Inj 2 Ml IV 02/04/25 15:39 4 mg Q6H PRN Administration NAUSEA OR VOMITING Protocol Pantoprazole Sodium 40 mg 01/07/25 09:00 01/08/25 08:28 Pantoprazole Inj 40 Mg Vial IVP 02/06/25 08:59 40 mg BID ELINOR Administration Sucralfate 1 gm 01/08/25 12:00 01/08/25 11:53 Sucralfate Susp 1 Gm/10 Ml Udc PO 02/07/25 11:59 1 gm QID ELINOR Administration Plan Assessment Tracey is a 79 y/o female with PMHx of diverticulitis and cholelithiasis status post sigmoid colectomy, and cholecystectomy, A-fib (on Eliquis), splenic vein thrombosis status post splenectomy, autoimmune hepatitis, mitral regurgitation, and iron deficiency anemia, currently admitted for GI bleed and acute blood loss anemia. #Acute blood loss anemia secondary to GI bleed for investigation #Symptomatic anemia #Iron deficiency anemia #Grade III Esophageal Varices #Hx of cerebral hemorrhage DDx: Peptic ulcer, Cancer, chronic anemia, medication induced FOBT: Positive NSAID use: None A/C: Eliquis 5 mg twice daily Although patient does say she does not have any blood in her stool, however FOBT is positive Patient also has remote history of cerebral hemorrhage about 50 years ago, however low suspicion for any hemorrhage in the brain at this time considering neurologic exam was unremarkable and thus will not further workup with imaging Iron 6, ferritin 12 Peripheral blood smear shows severe hypochromic microcytic anemia without hemolysis Patient does have a lengthy history of getting EGDs and colonoscopies in the past, however as patient does not find source of bleeding at this time, patient may need capsule endoscopy in the future 3 PRBC infusions since admission Esophageal Varices, GIII, banded during EGD Colonoscopy shows hemorrhoids and moderate diverticulosis without diverticular bleed Spoke with family who is requesting further hematologic workup, will consider other differentials at this time Plan: ? Pantoprazole 40 Mg IV BID ? Day 4 octreotide infusion. To complete a total of 5 days ? GI, Dr. Fields consulted. Appreciate recommendations ? PT/INR and PTT AM check #Longstanding persistent atrial fibrillation [id number]: 3 points HAS-BLED: 3 Rate controlled AC: Uses Eliquis at home Patient will be at increased risk for stroke as we are holding anticoagulation in setting of GI bleed however risks and benefits were discussed with patient Spoke with Dr. Fields who is okay with resuming Eliquis Plan: ? Continue Telemetry monitoring ? Amiodarone 200 Mg p.o. daily. Dose was held today due to low blood pressure and heart rate in the 60s ? 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 Pain control ? Rocephin 1 g IV daily for 7 days for SBP prophylaxis ? Lactulose 10 g p.o. as needed. Titrate as necessary to achieve 2?3 bowel movements per day for hepatic encephalopathy prophylaxis ? Resume Eliquis 5 mg twice daily #History of chronic autoimmune hepatitis Stable at this time, no AST ALT elevations Patient does not take medicine for this anymore Plan: ? Monitor outpatient #Health Maintenance Disposition: Telemetry DVT prophylaxis: Clear Liquid, Bowel prep GI prophylaxis: Protonix 40 IV BID Diet: Cardiac CODE STATUS: Full Patient seen and care discussed with my senior resident, Dr. Ramírez, and my attending physician, Dr. Neela Esquivel, PGY-1 Attending Provider Attestation/Addendum I attest that I was physically present for the evaluation, physical examination, lab and imaging review of the patient with the residents. I discussed the case with the residents and agree with the findings and plans of care as documented above. Guillermina Keita MD
--- NOTE | 2025-01-08 20:45 | ESPR_ITS ---
Documentation for date of: 01/08/25 Subjective Subjective Interval history: Patient evaluated Downward trending hemoglobin hematocrit to 8.0 and 24.8 Hemoglobin hematocrit is initially 9.5 and 29.4 Exam Vital Signs Temp Pulse Resp BP Pulse Ox O2 Del Method O2 Flow Rate 99.2 F 123 H 12 106/60 95 Nasal Cannula 2 01/08/25 16:00 01/08/25 16:00 01/08/25 16:00 01/08/25 16:00 01/08/25 16:00 01/08/25 16:00 01/08/25 16:00 Objective Labs 01/08/25 05:51 01/08/25 05:51 Labs: Laboratory Results - last 24 hr 01/05/25 01/08/25 12:20 05:51 WBC 4.7 RBC 2.86 L Hgb 8.0 L Hct 24.8 L MCV 87 MCH 28.0 MCHC 32.3 RDW Std Deviation 53.7 H Plt Count 265 D Neut % (Auto) 53 Lymph % (Auto) 15 [place] % (Auto) 23 H Eos % (Auto) 8 Baso % (Auto) 1 Neut # (Auto) 2.5 Lymph # (Auto) 0.7 L [place] # (Auto) 1.1 H Eos # (Auto) 0.4 Baso # (Auto) 0.1 Immature Gran # (Auto) 0.01 H Absolute Nucleated RBC 0.04 H Immature Gran % 0 Nucleated RBC % 1 H Sodium 142 Potassium 3.4 D Chloride 109 H Carbon Dioxide 28.9 Anion Gap 4 L BUN 12 Creatinine 0.6 Estim Creat Clear Calc 66.2 eGFR > 60 BUN/Creatinine Ratio 20 Glucose 103 Calculated Osmolality 282 Calcium 7.4 L Corrected Calcium 8.5 Magnesium 1.7 Total Bilirubin 1.0 AST 25 ALT 22 Alkaline Phosphatase 139 H Total Protein 5.0 L Albumin 2.6 L D Globulin 2.4 Albumin/Globulin Ratio 1.1 L Crossmatch See Detail Impressions Impression: # Occult GI bleeding CBC in the morning If stable can be discharged home Assessment & Plan A&P Narrative # Occult GI bleeding # Acute posthemorrhagic anemia Plan agree with blood transfusion Consent obtained for fiberoptic esophagogastroduodenoscopy with possible biopsy possible therapeutic intervention scheduled for tomorrow N.p.o. midnight tonight except p.o. meds if the endoscopy is negative we will consider doing a fiberoptic colonoscopy prior to discharge Other medical problems include Chronic atrial fibrillation on Eliquis Status post sigmoid colectomy cholecystectomy and splenectomy Thank you very much for the opportunity to participate in care of this patient status post pneumonia recently hospitalized and discharged Time Spent With Patient Time: Total time spent is greater than 50% in coordination of care (as documented) at patient's floor/unit and/or counseling patient:
[2025-01-08] MEDS: APIXABAN 2.5 MG TABLET 5 MG PO (23:34)
[2025-01-09] VITALS: BP 124/58; PULSE 68; RESP 21; TEMP 36.8; O2SAT 95
[2025-01-09] MEDS: ACETAMINOPHEN 325 MG TABLET 650 MG PO (01:46)
[2025-01-09 04:00] VITALS: BP 118/67; PULSE 63; RESP 13; TEMP 36.9; O2SAT 98
[2025-01-09] MEDS: OCTREOTIDE ACET INJ 1,000 MCG in SODIUM CHLORIDE 0.9% 100 ML 5.1 MCG IV (05:31)
[2025-01-09 05:45] LABS: Basophils # (Auto) 0.1 Thou/mm3 (0.0-0.2); Basophils % (Auto) 1 % (0-2.5); Eosinophils # (Auto) 0.3 Thou/mm3 (0.0-0.5); Eosinophils % (Auto) 5 % (0-10); Hematocrit 25.4 % (36.0-46.0); Immature Granulocytes % (Auto) 0 % (0-0); Immature Granulocytes Auto 0.02 Thou/mm3 (0.00-0.00); Lymphocytes % (Auto) 15 % (10-50); Mean Corpuscular HGB Conc 31.5 g/dl (31.0-37.0); Mean Corpuscular Volume 89 fL (80-100); Monocytes # (Auto) 1.5 Thou/mm3 (0.0-0.8); Monocytes % (Auto) 23 % (0-12); Neutrophils # (Auto) 3.5 Thou/mm3 (1.8-7.7); Neutrophils % (Auto) 55 % (37-80); Nucleated Red Blood Cell # 0.02 Thou/mm3 (0.00-0.00); Nucleated Red Blood Cell % 0 /100 WBC (0); Platelet Count 242 Thou/mm3 (140-440); Red Blood Count 2.86 Miln/mm3 (4.00-5.20); White Blood Count 6.3 Thou/mm3 (3.6-11.0)
[2025-01-09 05:59] VITALS: BMI 23.1
[2025-01-09 06:00] LABS: INR 1.3 (0.9-1.3); Partial Thromboplastin Time 31.6 Seconds (22.0-36.0); Prothrombin Time 13.9 Seconds (9.0-12.2)
[2025-01-09 06:06] LABS: Alanine Aminotransferase 22 U/L (10-49); Albumin, Serum 2.6 gm/dL (3.4-4.8); Alkaline Phosphatase 138 U/L (46-116); Anion Gap 4 (7-16); Aspartate Amino Transferase 23 U/L (0-34); BUN/Creatinine Ratio 18 Ratio (12-20); Bilirubin,Total 0.5 mg/dL (0.3-1.2); Blood Urea Nitrogen 11 mg/dL (9-23); Calcium 7.4 mg/dL (8.3-10.6); Calcium (Corrected) 8.5 mg/dL (8.5-10.1); Carbon Dioxide 29.4 mMol/L (20.0-31.0); Chloride 108 mMol/L (98-107); Creatinine (Component) 0.6 mg/dL (0.6-1.3); Estimated Creatinine Clearance 63.5 mL/min (>60); Globulin 2.5 gm/dL (2.3-3.5); Glucose 99 mg/dL (74-106); Magnesium 1.6 mg/dL (1.6-2.6); Osmolality,Calculated 280 (275-295); Potassium 3.8 mMol/L (3.4-5.1); Sodium 141 mMol/L (136-145); Total Protein 5.1 gm/dL (5.7-8.2); eGFR > 60 See Note
[2025-01-09] MEDS: SUCRALFATE SUSP 1 GM/10 ML UDC PO ×2 (06:06→11:44)
[2025-01-09 08:00] VITALS: PULSE 63
--- NOTE | 2025-01-09 09:12 | PC.SS ---
Follolw up note: Pt is on IV Octreotide drip and will complete tomorrow. Pt will return home with [facility].
[2025-01-09 09:31] VITALS: BP 132/66; PULSE 86
[2025-01-09] MEDS: cefTRIAXone/D5w 1gm IV premix 1 GM/50 ML BAG IV (09:31)
[2025-01-09] MEDS: AMIODARONE HCL 200 MG TABLET PO (09:31)
[2025-01-09] MEDS: PANTOPRAZOLE 40 MG TABLET PO (09:32)
[2025-01-09] MEDS: APIXABAN 2.5 MG TABLET PO (10:56)
[2025-01-09] MEDS: DOCUSATE SOD 100 MG CAPSULE PO (11:20)
--- NOTE | 2025-01-09 11:49 | ESPR_ITS ---
Documentation for date of: 01/09/25 Subjective Subjective Interval history: Case discussed with the internal medicine team and the attending Okay to discharge patient home Patient already had a bone marrow biopsy as an outpatient nothing was found She had a capsule endoscopy and a double-balloon enteroscopy done at [facility] that was negative My suggestion is She comes in with a low hemoglobin hematocrit transfuse her and she can be discharged from the ER I also advised cut down the dose of the Eliquis to 2.5 mg p.o. twice daily instead of 5 mg twice daily Exam Vital Signs Temp Pulse Resp BP Pulse Ox O2 Del Method O2 Flow Rate 98.4 F 86 13 132/66 H 98 Room Air 2 01/09/25 04:00 01/09/25 09:31 01/09/25 04:00 01/09/25 09:31 01/09/25 04:00 01/09/25 04:00 01/08/25 16:00 Objective Labs 01/09/25 05:15 01/09/25 05:15 Labs: Laboratory Results - last 24 hr 01/05/25 01/09/25 12:20 05:15 WBC 6.3 RBC 2.86 L Hgb 8.0 L Hct 25.4 L MCV 89 MCH 28.0 MCHC 31.5 RDW Std Deviation 57.0 H Plt Count 242 Neut % (Auto) 55 Lymph % (Auto) 15 [place] % (Auto) 23 H Eos % (Auto) 5 Baso % (Auto) 1 Neut # (Auto) 3.5 Lymph # (Auto) 1.0 [place] # (Auto) 1.5 H Eos # (Auto) 0.3 Baso # (Auto) 0.1 Immature Gran # (Auto) 0.02 H Absolute Nucleated RBC 0.02 H Immature Gran % 0 Nucleated RBC % 0 PT 13.9 H INR 1.3 APTT 31.6 Sodium 141 Potassium 3.8 Chloride 108 H Carbon Dioxide 29.4 Anion Gap 4 L BUN 11 Creatinine 0.6 Estim Creat Clear Calc 63.5 eGFR > 60 BUN/Creatinine Ratio 18 Glucose 99 Calculated Osmolality 280 Calcium 7.4 L Corrected Calcium 8.5 Magnesium 1.6 Total Bilirubin 0.5 D AST 23 ALT 22 Alkaline Phosphatase 138 H Total Protein 5.1 L Albumin 2.6 L Globulin 2.5 Albumin/Globulin Ratio 1.0 L Crossmatch See Detail Impressions Impression: Occult GI bleeding Okay to discharge patient home She can be followed by the PCP Assessment & Plan A&P Narrative # Occult GI bleeding # Acute posthemorrhagic anemia Plan agree with blood transfusion Consent obtained for fiberoptic esophagogastroduodenoscopy with possible biopsy possible therapeutic intervention scheduled for tomorrow N.p.o. midnight tonight except p.o. meds if the endoscopy is negative we will consider doing a fiberoptic colonoscopy prior to discharge Other medical problems include Chronic atrial fibrillation on Eliquis Status post sigmoid colectomy cholecystectomy and splenectomy Thank you very much for the opportunity to participate in care of this patient status post pneumonia recently hospitalized and discharged Time Spent With Patient Time: Total time spent is greater than 50% in coordination of care (as documented) at patient's floor/unit and/or counseling patient:
[2025-01-09 12:00] VITALS: BP 122/89; PULSE 78; PULSE 86; RESP 15; TEMP 37.1; O2SAT 96
[2025-01-09 12:26] VITALS: BP 137/73; PULSE 73; RESP 20; TEMP 36.9; O2SAT 98
--- NOTE | 2025-01-09 16:16 | ESDS_ITS ---
Planned Discharge Date 01/09/25 DS: Providers Provider Date of admission: 01/05/25 13:52 Primary care physician: Los Hanks MD Admitting Provider: Brian Barahona MD Attending Provider on Admission: Guillermina Keita MD Consults: 01/05/25 11:50 Consult to Gastroenterology Stat Comment: Consulting Provider: Koki Fields Attending Provider on DC: Guillermina Keita MD Discharging Provider: Guillermina Keita MD Diagnosis Problem List Completed Was Problem List Reviewed/Reconciled?: Yes Hospital Course - Hospitalist Hospital Course Hospital course: Patient is an 79 y/o female with PMHx of diverticulitis and cholelithiasis status post sigmoid colectomy, and cholecystectomy, A-fib (on Eliquis), splenic vein thrombosis status post splenectomy, autoimmune hepatitis, mitral regurgitation, and iron deficiency anemia, Coloboma (L eye) who comes to the ED for an evaluation of generalized weakness and fatigue. Patient reports that she had gotten labs drawn today and was told that her hemoglobin was 5 in which she came to get evaluated at the ED. She reports that she been feeling fatigued for the past couple of weeks. She denies any hematochezia melena, hematemesis, or any other bleeding sites. She also says that she has been taking her Eliquis for A-fib. She was then admitted for management of acute blood loss anemia secondary to GI bleeding, iron deficiency anemia in setting of anticoagulation use. Patient had FOBT positive, also had iron level of 6 with ferritin 12. She received 3 units of PRBC. Underwent EGD, found to have esophageal varices 23 which were banded. Also underwent colonoscopy, found to have hemorrhoids and moderate diverticulosis without diverticular bleed. Patient also had elevated reticulocyte count, appropriate for blood loss anemia. Gastroenterology has been following the patient along with us, appreciate recommendations. Patient received octreotide infusion, pantoprazole and Rocephin as well. Her Eliquis was on hold initially due to the GI bleed. Amiodarone was continued for control of A-fib. At bedside today, patient stated she is feeling well and does not have any new complaints. Her vital signs have been stable. Lab results show stable hemoglobin at 8.0. Chemistry panel is also nonconcerning. Discussed with gastroenterology, stated that patient is safe for discharge on half dose Eliquis, 2.5 mg twice daily. Also mentioned that patient has been having extensive GI and hematology workup without definitive results. Further investigation regarding the same problem will be futile, if patient presents to the ED With similar presentation, recommended to transfuse the patient without extensive workup. Patient is recommended to follow-up with PCP and cardiology in 1 to 2 weeks of discharge. 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 #History of diverticulitis status post sigmoid colectomy #History of cholelithiasis status postcholecystectomy #History of splenic vein thrombosis status post splenectomy #History of chronic autoimmune hepatitis Guillermina Keita MD Time Spent with Patient Time attestation: Total time spent providing and/or coordinating discharge services: Time spent: Less than 30 minutes Home Health Home Health Referral Orders: 01/08/25 13:46 Home Health Referral Routine Reason For Exam: Generalized weakness Home-Bound The patient must either because of illness or injury, need the aid of supportive devices such as crutches, canes, wheelchairs, and walkers; the use of special transportation; or the assistance of another person in order to leave their place of residence; OR have a condition such that leaving his or her home is medically contraindicated. In addition, the patient also meets the following criteria: patient is normally unable to leave the home and leaving home requires considerable taxing effort. Addendum to Home Health Certification Practitioner's Certification: I certify that the patient has been under my care in the hospital and the care of attending physician (see below). We had a [id number] encounter on (see date below). My clinical findings indicate that the patient is home bound per the above criteria and the Home Health Services noted in these orders are medically necessary. The primary reason for the [id number] encounter is related to the fact that the patient requires home health services. Date Certifying Dukx-[id number] Physician Encounter: 01/05/25 Physician's Name who will Assume Oversight for HH Services: Los Hanks Physician's Phone No.who will Assume Oversight [facility] Service: GOVERNMENT CONTRACTS MANAGER - Community Resources: No PT to Evaluate: Yes PT to evaluate and provide a treatmnet plan to increase patient's mobility and strength. Wound Care: No IV Therapy: No RN Safety Evaluation: Yes RN to evaluate and create a plan of care that will produce positive outcomes. Palliative Treatment: No Palliative treatment and evaluate the need for hospice. Home Health Aide - Personal Care: No Home Health Aide to assist with any ADL's. Discharge Results Labs Diagrams: 01/09/25 05:15 01/09/25 05:15 Labs: Short CBC 01/09/25 Range/Units 05:15 WBC 6.3 (3.6-11.0) Thou/mm3 Hgb 8.0 L (12.0-16.0) g/dL Hct 25.4 L (36.0-46.0) % Plt Count 242 (140-440) Thou/mm3 BMP 01/09/25 05:15 Sodium 141 Potassium 3.8 Chloride 108 H Carbon Dioxide 29.4 BUN 11 Creatinine 0.6 Glucose 99 Calcium 7.4 L Liver Function 01/09/25 Range/Units 05:15 Total Bilirubin 0.5 D (0.3-1.2) mg/dL AST 23 (0-34) U/L ALT 22 (10-49) U/L Alkaline Phosphatase 138 H (46-116) U/L Albumin 2.6 L (3.4-4.8) gm/dL Exam Vital Signs Temp Pulse Resp BP Pulse Ox O2 Del Method O2 Flow Rate 98.4 F 73 20 137/73 H 98 Room Air 2 01/09/25 12:26 01/09/25 12:26 01/09/25 12:26 01/09/25 12:26 01/09/25 12:01/09/25 12:01/09/25 12:00 Narrative General: Alert and oriented, comfortable, able to answer questions and follow commands appropriately HEENT: EOMI, PERRLA, no pallor or icterus, 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 Psych: Appropriate mood and behaviour Discharge Plan Plan Patient Disposition: Home w/HOME HEALTH Patient condition on transfer: Stable Care Plan Goals: Please follow up with PCP and cardiology in 1 to 2 weeks of discharge. Coninue Eliquis 2.5 mg BID for your previous hepatic and splenic vein thrombosis Please visit ED in case of bleding episode Prescriptions/Referrals Prescriptions/Med Rec: New Eliquis 2.5 mg tablet 2.5 mg PO BID Qty: 30 0RF docusate sodium [Colace] 100 mg capsule 100 mg PO BID PRN (Reason: constipation) Qty: 60 0RF ferrous sulfate [Feosol] 325 mg (65 mg iron) tablet 325 mg PO BID Qty: 60 0RF Continued furosemide 20 mg tablet 20 mg PO DAILY amiodarone 200 mg tablet 200 mg PO DAILY Discontinued Eliquis 5 mg tablet 5 mg PO BID Qty: 60 0RF Referrals: Los Hanks MD [Primary Care Provider] - Patient/Caregiver Discharge Instructions Discharge Activity: as per physical therapy Other Discharge Activity Instructions:: Please follow up with PCP and cardiology in 1 to 2 weeks of discharge. Continue Eliquis 2.5 mg BID for your previous hepatic and splenic vein thrombosis Please visit ED in case of bleeding episode Print Language: Spanish Stand Alone Forms: Ann Marie Award Info., Patient Portal Info Letter Discharge Order Discharge Orders: Discharge (Routine); Ordered 01/09/25 Ordered By: Guillermina Keita Quality Discharge Quality Measures VTE prophylaxis
--- NOTE | 2025-01-09 19:21 | PC.CC ---
Per notes, pt prefers [facility] . Referral sent, waiting for response
--- NOTE | 2025-01-12 08:38 | PC.CC ---
Addendum entered by Tyrese Alex RN 01/12/25 09:21: Per [facility], they will Resume care on 01/13/2025 Original Note: Called [facility], per Pedro they are trying to contact the patient. They are still working on it.
== END 2025-01-09 12:48 | disposition home health service (06) | DRG 433 ==
LOC: SERX 13:20 → SERHOLD 14:14 → S2NX 17:39
PROVIDERS: Registered Nurse General Practice; Specialist; Student in an Organized Health Care Education/Training Program; Admitting Provider Student in an Organized Health Care Education/Training Program; Emergency Provider Emergency Medicine; PCP Family Medicine; Visit Provider Student in an Organized Health Care Education/Training Program
PROC: 06L38CZ Occlusion of Esophageal Vein with Extraluminal Device, Via Natural or Artificial Opening Endoscopic (ICD-10-PCS; CPT 43239; principal; 2025-01-06 14:30)
PROC: 0DJD8ZZ Inspection of Lower Intestinal Tract, Via Natural or Artificial Opening Endoscopic (ICD-10-PCS; CPT 45378; principal; 2025-01-07 19:30)
DX: K74.60 Unspecified cirrhosis of liver (principal); D62 Acute posthemorrhagic anemia; I85.10 Secondary esophageal varices without bleeding; I48.11 Longstanding persistent atrial fibrillation; K75.4 Autoimmune hepatitis; I34.0 Nonrheumatic mitral (valve) insufficiency; Z90.81 Acquired absence of spleen; Q13.0 Coloboma of iris; K57.30 Diverticulosis of large intestine without perforation or abscess without bleeding; K64.9 Unspecified hemorrhoids; K31.89 Other diseases of stomach and duodenum; Z90.49 Acquired absence of other specified parts of digestive tract; Z86.73 Personal history of transient ischemic attack (TIA), and cerebral infarction without residual deficits
CPT/HCPCS: 36415; 36430; 80053; 81001; 82270; 83615; 83735; 83880; 84100; 85014; 85018; 85025; 85610; 85730; 86850; 86900; 86901; 86923; 87081; 96374; 99285; J0696; J1200; J2250; J2270; J2354; J2405; J2470; J3010; J3475; J3480; J3490; J7050; P9016; A9270

== ENCOUNTER → 2025-01-05 | Outpatient (CLI) | payer OTHER, SELFPAY ==
[2025-01-05 09:03] LABS: B-Type Natriuretic Peptide 124 pg/mL (0-100)
[2025-01-05 09:04] LABS: Basophils # (Auto) 0.1 Thou/mm3 (0.0-0.2); Basophils % (Auto) 1 % (0-2.5); Eosinophils # (Auto) 0.3 Thou/mm3 (0.0-0.5); Eosinophils % (Auto) 6 % (0-10); Immature Granulocytes % (Auto) 0 % (0-0); Immature Granulocytes Auto 0.01 Thou/mm3 (0.00-0.00); Immature Reticulocyte Fraction 18.7 % (3.0-15.9); Lymphocytes # (Auto) 0.7 Thou/mm3 (1.0-4.8); Lymphocytes % (Auto) 15 % (10-50); Mean Corpuscular HGB Conc 32.8 g/dl (31.0-37.0); Mean Corpuscular Volume 85 fL (80-100); Monocytes % (Auto) 21 % (0-12); Neutrophils # (Auto) 2.5 Thou/mm3 (1.8-7.7); Neutrophils % (Auto) 57 % (37-80); Nucleated Red Blood Cell # 0.03 Thou/mm3 (0.00-0.00); Nucleated Red Blood Cell % 1 /100 WBC (0); Platelet Count 379 Thou/mm3 (140-440); RDW Standard Deviation 53.3 fL (36.4-46.3); Red Blood Count 2.11 Miln/mm3 (4.00-5.20); Reticulocyte % (Auto) 5.6 % (0.5-1.5); Reticulocyte Absolute Auto 118.8 Biln/L (25.0-75.0); Reticulocyte Hgb Content 19.6 pg (28.0-35.0); White Blood Count 4.5 Thou/mm3 (3.6-11.0)
[2025-01-05 09:07] LABS: Vitamin B12 713 pg/mL (211-911)
[2025-01-05 09:08] LABS: Ferritin 12 ng/mL (7.3-270.7); Iron 6 mcg/dL (50-170); Percent Iron Saturation 2 % (20-55); Total Iron Binding Capacity 276 mcg/dL (250-425); Unsaturated Iron Binding 270 (225-295)
[2025-01-05 09:09] LABS: Hemoglobin 5.9 g/dL (12.0-16.0)
[2025-01-05 09:15] LABS: Alanine Aminotransferase 26 U/L (10-49); Albumin, Serum 3.1 gm/dL (3.4-4.8); Albumin/Globulin Ratio 1.1 (1.2-2.2); Alkaline Phosphatase 160 U/L (46-116); Anion Gap 6 (7-16); Aspartate Amino Transferase 34 U/L (0-34); BUN/Creatinine Ratio 30 Ratio (12-20); Bilirubin,Direct 0.2 mg/dL (0.0-0.3); Bilirubin,Total 0.7 mg/dL (0.3-1.2); Blood Urea Nitrogen 18 mg/dL (9-23); Calcium 7.8 mg/dL (8.3-10.6); Calcium (Corrected) 8.5 mg/dL (8.5-10.1); Carbon Dioxide 28.5 mMol/L (20.0-31.0); Chloride 109 mMol/L (98-107); Creatinine (Component) 0.6 mg/dL (0.6-1.3); Free T4 (Free Thyroxine) 0.91 ng/dL (0.89-1.76); Globulin 2.7 gm/dL (2.3-3.5); Glucose 110 mg/dL (74-106); LDH (Lactate Dehydrogenase) 221 U/L (120-246); Osmolality,Calculated 287 (275-295); Potassium 3.6 mMol/L (3.4-5.1); Sodium 143 mMol/L (136-145); Total Protein 5.8 gm/dL (5.7-8.2); eGFR > 60 See Note
[2025-01-05 09:33] LABS: Path Review Blood Smear Sent to Pathologist
[2025-01-12 07:07] LABS: Haptoglobin* 52 mg/dL (43-212)
== END | disposition home or self-care (01) ==
LOC: SCTO 07:14
PROVIDERS: PCP Internal Medicine Cardiovascular Disease; Referring Provider Family Medicine; Visit Provider Internal Medicine Hematology & Oncology
DX: D50.9 Iron deficiency anemia, unspecified (principal); I11.0 Hypertensive heart disease with heart failure; I50.9 Heart failure, unspecified; E78.5 Hyperlipidemia, unspecified
CPT/HCPCS: 36415; 80048; 80053; 80076; 82248; 82607; 82728; 82746; 83010; 83540; 83550; 83615; 83880; 84439; 84443; 85025; 85046; 86880

== ENCOUNTER → 2025-01-22 | Outpatient (CLI) | payer OTHER, SELFPAY ==
[2025-01-22 08:41] LABS: Basophils # (Auto) 0.1 Thou/mm3 (0.0-0.2); Basophils % (Auto) 2 % (0-2.5); Eosinophils # (Auto) 0.1 Thou/mm3 (0.0-0.5); Eosinophils % (Auto) 2 % (0-10); Hematocrit 22.6 % (36.0-46.0); Immature Granulocytes % (Auto) 0 % (0-0); Immature Granulocytes Auto 0.02 Thou/mm3 (0.00-0.00); Lymphocytes # (Auto) 0.7 Thou/mm3 (1.0-4.8); Lymphocytes % (Auto) 13 % (10-50); Mean Corpuscular HGB Conc 31.9 g/dl (31.0-37.0); Mean Corpuscular Hemoglobin 26.2 pg (25.0-35.0); Mean Corpuscular Volume 82 fL (80-100); Monocytes # (Auto) 1.2 Thou/mm3 (0.0-0.8); Monocytes % (Auto) 22 % (0-12); Neutrophils # (Auto) 3.4 Thou/mm3 (1.8-7.7); Neutrophils % (Auto) 61 % (37-80); Nucleated Red Blood Cell # 0.02 Thou/mm3 (0.00-0.00); Nucleated Red Blood Cell % 0 /100 WBC (0); Platelet Count 488 Thou/mm3 (140-440); RDW Standard Deviation 58.8 fL (36.4-46.3); Red Blood Count 2.75 Miln/mm3 (4.00-5.20); White Blood Count 5.5 Thou/mm3 (3.6-11.0)
[2025-01-22 08:57] LABS: Hemoglobin 7.2 g/dL (12.0-16.0)
== END | disposition home or self-care (01) ==
LOC: SCTO 07:12
PROVIDERS: PCP Family Medicine; Referring Provider Internal Medicine Hematology & Oncology; Visit Provider Internal Medicine Hematology & Oncology
DX: D50.9 Iron deficiency anemia, unspecified (principal)
CPT/HCPCS: 36415; 85025

== ENCOUNTER 2025-01-27 07:36 | Outpatient (RCR) | payer OTHER, SELFPAY ==
[2025-01-27 08:47] LABS: Basophils # (Auto) 0.1 Thou/mm3 (0.0-0.2); Basophils % (Auto) 2 % (0-2.5); Eosinophils # (Auto) 0.1 Thou/mm3 (0.0-0.5); Eosinophils % (Auto) 1 % (0-10); Hematocrit 21.3 % (36.0-46.0); Immature Granulocytes % (Auto) 1 % (0-0); Immature Granulocytes Auto 0.03 Thou/mm3 (0.00-0.00); Lymphocytes # (Auto) 0.5 Thou/mm3 (1.0-4.8); Lymphocytes % (Auto) 10 % (10-50); Mean Corpuscular HGB Conc 31.9 g/dl (31.0-37.0); Mean Corpuscular Hemoglobin 25.4 pg (25.0-35.0); Mean Corpuscular Volume 80 fL (80-100); Monocytes # (Auto) 1.1 Thou/mm3 (0.0-0.8); Monocytes % (Auto) 20 % (0-12); Neutrophils # (Auto) 3.5 Thou/mm3 (1.8-7.7); Neutrophils % (Auto) 66 % (37-80); Nucleated Red Blood Cell # 0.02 Thou/mm3 (0.00-0.00); Nucleated Red Blood Cell % 0 /100 WBC (0); Platelet Count 426 Thou/mm3 (140-440); RDW Standard Deviation 56.3 fL (36.4-46.3); Red Blood Count 2.68 Miln/mm3 (4.00-5.20); White Blood Count 5.2 Thou/mm3 (3.6-11.0)
[2025-01-27 08:49] LABS: Hemoglobin 6.8 g/dL (12.0-16.0)
--- NOTE | 2025-01-27 23:56 | CTCFLWUP_ITS ---
Patient: TRACEY HUI : 1945 Page 5 of 6 FOLLOW UP NOTE DATE OF SERVICE: 01/21/2025 NAME: TRACEY HUI ACCOUNT: [id number] : 1945 AGE: 79 INTERVAL HISTORY: Subjective: Chief Complaint Severe iron deficiency anemia requiring transfusions History of Present Illness Ez Webb presents with a history of iron deficiency anemia requiring regular iron infusions every 3 to 6 months. The patient's recent iron studies reveal severe iron deficiency, with critically low levels across multiple parameters. Her hemoglobin is notably low at 7.5, indicating significant anemia. Due to the severity of her iron deficiency, the patient now requires blood transfusions. Medications and Supplements - Iron infusions - Administered every 3 to 6 months for anemia Objective: Laboratory, Imaging, and Diagnostic Test Results - Recent iron studies: - Iron: 6 - Iron saturation: 2% - Ferritin: 12 - Hemoglobin: 7.5 g/dL ONCOLOGY HISTORY: DIAGNOSIS: Iron deficiency anemia, unspecified [ICD10] D50.9 TREATMENT HISTORY: Care?Plan Start?Date Cycle Day Intent VENOfer?200mg?IV?wkly 06/02/2020 1 70 Palliative VENOfer?200mg?IV?wkly?for?10?weeks 01/04/2022 1 70 Palliative FERAheme 06/14/2023 1 30 Other,?NOS FERAheme?4?doses 10/31/2023 1 28 Palliative FERAheme?4?doses 01/21/2024 1 28 Palliative FERAheme?4?doses 06/26/2024 1 28 Palliative HISTORY OF PRESENT ILLNESS: Ms. Hui is here at [facility] center. Patient last received Feraheme on 07/17/2024. Patient reports improved energy levels after Feraheme. Labs from 08/04/2024 show hemoglobin 12.0, MCV 89. Ultrasound of abdomen done on 06/20/2024 showed significant splenomegaly, cirrhosis, ch olelithiasis negative for cholecystitis. Patient follows up with Dr. Fields, GI, patient reports she has previously declined surgical intervention for cholelithiasis as she does not have any abdominal pain. She denies bleeding concerns. Patient reports good appetite. Patient denies any concerns or com plaints. Denies any blood in stool, black stools, jada blood per rectum. Denies any cough, chest pain, abdominal pain, nausea, vomiting, diarrhea, fever, weight loss. HISTORY: Tracey Hui is a 79-year-old female with history of chronic anemia as well as autoimmune hepatitis was taking azathioprine, patient discontinued reports liver enzymes have remained stable since discontinuing azathioprine, follows up with Dr. Donnie ULDWIG. She has been taking oral ferrous sulfate 325 mg p.o. 3 times daily for last few years. Unfortunately, she was not responding to oral ferrous sulfate. Reports occasional constipation when takes ferrous sulfate. She was required to receive IV iron therapy at least 3 times in the last 5 years. Patient states that she also had upper GI endoscopy by Dr. Garvin few years ago. She also had some kind of procedure done at [facility]. I do not have the reports of the endoscopy or the procedure done at [facility] at this time. 10/19/2018: Colonoscopy? 04/08/2020: WBC 1.9, ANC 1.1, hemoglobin 7.4, MCV 81, platelets 157,000. 04/27/2020 WBC 2.7, ANC 1.6, hemoglobin 7.1, MCV 76, platelets 158,000. 05/19/2020: WBC 3.4, ANC 2.1, hemoglobin 7.7, MCV 75, platelets 169,000. 06/02/2020?08/18/2020: Patient received 2 g of Venofer. 08/18/2020: WBC 2.3, ANC 1.5, hemoglobin 12.1, MCV 92, platelets 118,000. Iron saturation 23%, ferritin 265. 12/13/2021: Hemoglobin 7.1, MCV 70, WBC 1.9, ANC 1.0, platelets 140,000. 01/04/2022: Ms. Hui is started on Venofer infusions. 01/20/2022: Bone marrow biopsy and aspiration? 05/25/2022: WBC 2.1, ANC 1.3, hemoglobin 8.8, MCV 79, platelets 136,000, creatinine 0.5, iron saturation 3%, ferritin 8. 06/15/2022 - 08/15/2022: Ms. Hui received 2 g of Venofer. 08/21/2022: Hemoglobin 12.7, MCV 91, WBC 2.6, ANC 1.7, platelets 111,000, iron saturation 15%, ferritin 207. 03/09/2023: WBC 2.8, hemoglobin 11.1, MCV 90, ANC 1.9, platelets 126,000, iron saturation 8%, ferritin 17 05/30/2023: WBC 3.1, hemoglobin 12.1, MCV 93, ANC 1.9, platelets 141,000, iron saturation 8%, ferritin 16 06/14/2023: Feraheme 510mg IV infusion 06/21/2023: Ferahemer 510 mg IV infusion 10/02/2023: WBC 2.8, hemoglobin 10.9, MCV 88, ANC1.7, platelets 114,000, iron saturation 7%, ferritin 6 10/31/2023-12/01/2023: Feraheme x 4 infusions 11/28/2023: WBC 2.4, hemoglobin 12.2, MCV 92, ANC 1.6, platelets 124,000, iron saturation 24%, ferritin 364 01/04/2024: WBC 2.6, hemoglobin 11.6, MCV 93, ANC 1.7, platelets 105,000, iron saturation 15%, ferritin 47 01/21/2024-02/11/2024: Feraheme 510 mg x 4 infusions 03/04/2024: WBC 2.8, hemoglobin 12.2, MCV 96, ANC 1.8, platelets 103,000, iron saturation 25%, ferritin 231 06/04/2024: WBC 2.7, hemoglobin 8.4, MCV 88, platelets 119,000, iron saturation 3%, ferritin 5 08/04/2024: WBC 2.7, hemoglobin 12.0, MCV 89, platelets 100,000 OTHER MEDICAL HISTORY/CONDITIONS: FAMILY HISTORY: 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 amiodarone - 200 mg 1 tab Daily 2. Eliquis - 2.5 mg 1 tab Twice a Day 3. Lasix - 20 mg 1 tab Daily Medications Last Reconciled by Ita oTrres MA on 01/21/2025 ALLERGIES: hydrocodone-acetaminophen; fentanyl (bulk); cephalexin; paper tape REVIEW OF SYSTEMS: A complete 14-point review of systems was performed and is negative except as noted in interval history. PHYSICAL EXAMINATION: VITAL SIGNS: Temperature?96.4, B/P?130/66, Oxygen?Saturation?99% Weight?136?lbs PAIN: 0 - No pain ECOG Performance Status: 1 - Symptomatic; ambulatory; restricted in strenuous activity GENERAL APPEARANCE: Appears well, in no apparent distress, appropriately interactive. HEENT: Normocephalic, no temporal wasting, normal conjunctiva, no scleral icterus, normal hearing, lips without lesions, neck normal range of motion. CARDIOVASCULAR: Not assessed. PULMONARY: Normal respiratory effort, no respiratory distress or use of accessory muscles, speaking in full sentences, no tachypnea. EXTREMITIES: No pedal edema or cyanosis. SKIN: Normal skin appearance. NEUROLOGIC: Alert and oriented x4. PSHYCHIATRIC: Appropriate affect, mood normal, behavior normal, intact thought and speech. LABORATORY DATA: I have personally reviewed and interpreted each of the patient?s relevant lab tests, abnormal findings are below: Date 01/09/25 01/22/25 01/27/25 ??WHITE?BLOOD?COUNT?(Thou/mm3) 6.3 5.5 5.2 ??RED?BLOOD?COUNT?(Miln/mm3) 2.86?L 2.75?L 2.68?L ??HEMOGLOBIN?(gm/dl) 8.0?L 7.2?L 6.8?LL ??HEMATOCRIT?(%) 25.4?L 22.6?L 21.3?LL ??PLATELET?COUNT?(Thou/mm3) 242 488?H 426 ??NEUTROPHILS?%,?AUTO?(%) 55 61 66 ??LYMPH?%,?AUTO?(%) 15 13 10 ??NEUTROPHILS,?AUTO?(Thou/mm3) 3.5 3.4 3.5 ??GLUCOSE,RANDOM?(mg/dL) 99 ?BLOOD?UREA?NITROGEN?(mg/dL) 11 ?CREATININE?(mg/dL) 0.60 ?SODIUM?(mmol/L) 141 ?POTASSIUM?(mmol/L) 3.8 ?CHLORIDE?(mmol/L) 108?H ?CrCl?(CandG)?(ml/min) 74.04 ?AST/SGOT?(Unit/L) 23 ?ALT/SGPT?(Unit/L) 22 ?ALKALINE?PHOSPHATASE?(Unit/L) 138?H ?BILIRUBIN,?TOTAL?(mg/dL) 0.5 ?PROTEIN?TOTAL?(gm/dl) 5.1?L ?ALBUMIN,?SERUM?(gm/dl) 2.6?L ?GLOBULIN?(gm/dl) 2.5 ?ALBUMIN/GLOBULIN?RATIO 1.0?L ?CALCIUM,?SERUM?(mg/dL) 7.4?L ?CALCIUM?SERUM?(CORRECTED)?(mg/dL) 8.5 ? ? ASSESSMENT/PLAN: Anemia from iron deficiency Reviewed chart and patient has been treated extensively with iron infusions I will keep iron infusions every 3 to 6 months as needed Patient is symptomatic Will give Feraheme for 4 doses to replenish her stores Patient may be having a hemolysis going on so we will check for LDH and haptoglobin Patient has a known history of iron deficiency anemia requiring iron infusions every 3 to 6 months. Recent iron studies show critically low levels: iron 6, percentage iron saturation 2%, ferritin 12, and hemoglobin 7.5. These values indicate severe iron deficiency anemia requiring immediate intervention. Plan: - Initiate blood transfusions due to severe anemia (hemoglobin 7.5) - Schedule iron infusion therapy - Reassess iron studies and hemoglobin levels after transfusion and infusion - Continue regular iron infusions every 3 to 6 months as previously established - Follow up to review response to treatment and adjust management plan as needed ORDERS: Order # Description [id number] Type and Crossmatch + 2 Units PRBC RETURN TO CLINIC: BILLING AND COMPLIANCE: I reviewed external records from providers outside my specialty as summarized above. I spent a total of 50 minutes on this patient?s care on the day of their visit excluding time spent related to any billed procedures. This time includes time spent with the patient as well as time spent documenting in the medical record, reviewing patients records and tests, obtaining history, placing orders, communicating with other healthcare professionals, counseling the patient, family or caregiver, and/or care coordination for the diagnoses above. Electronically Signed by: {Object.Sanct_ID*PnP.NameFL@M}, {Object.Sanct_ID*PnP.Suffix@U} D: {Object.Sanct_Date} T: {Object.Sanct_Time} CC: PCP: Hanks, Los Referring: Los Hanks This document was completed utilizing speech recognition software. Grammatical errors, random word insertions, pronoun errors, and incomplete sentences are an occasional consequence of this system due to software limitations, ambient noise, and hardware issues. Any formal questions or concerns about the content, text or information contained within the body of this dictation should be directly addressed to the provider for clarification.
== END 2025-01-31 23:59 | disposition home or self-care (01) ==
LOC: SCTC 07:36
PROVIDERS: PCP Family Medicine; Referring Provider Family Medicine; Visit Provider Internal Medicine Hematology & Oncology
DX: D50.9 Iron deficiency anemia, unspecified (principal)
CPT/HCPCS: 36430; 85025; 86850; 86900; 86901; 86923; 99212; P9016; G0463

== ENCOUNTER → 2025-02-09 | Outpatient (CLI) | payer OTHER, SELFPAY ==
[2025-02-09 08:40] LABS: Basophils # (Auto) 0.1 Thou/mm3 (0.0-0.2); Basophils % (Auto) 2 % (0-2.5); Eosinophils # (Auto) 0.1 Thou/mm3 (0.0-0.5); Eosinophils % (Auto) 3 % (0-10); Hematocrit 27.3 % (36.0-46.0); Immature Granulocytes % (Auto) 0 % (0-0); Immature Granulocytes Auto 0.02 Thou/mm3 (0.00-0.00); Lymphocytes # (Auto) 0.7 Thou/mm3 (1.0-4.8); Lymphocytes % (Auto) 15 % (10-50); Mean Corpuscular HGB Conc 31.5 g/dl (31.0-37.0); Mean Corpuscular Hemoglobin 25.3 pg (25.0-35.0); Mean Corpuscular Volume 80 fL (80-100); Monocytes # (Auto) 1.1 Thou/mm3 (0.0-0.8); Monocytes % (Auto) 21 % (0-12); Neutrophils % (Auto) 59 % (37-80); Nucleated Red Blood Cell % 0 /100 WBC (0); Platelet Count 425 Thou/mm3 (140-440); RDW Standard Deviation 59.7 fL (36.4-46.3)
[2025-02-09 08:42] LABS: Hemoglobin 8.6 g/dL (12.0-16.0)
== END | disposition home or self-care (01) ==
LOC: SCTO 07:21
PROVIDERS: PCP Family Medicine; Referring Provider Internal Medicine Hematology & Oncology; Visit Provider Internal Medicine Hematology & Oncology
DX: D50.9 Iron deficiency anemia, unspecified (principal)
CPT/HCPCS: 36415; 85025

== ENCOUNTER → 2025-02-19 | Outpatient (CLI) | payer OTHER, SELFPAY ==
[2025-02-19 09:07] LABS: Basophils # (Auto) 0.1 Thou/mm3 (0.0-0.2); Basophils % (Auto) 2 % (0-2.5); Eosinophils # (Auto) 0.1 Thou/mm3 (0.0-0.5); Eosinophils % (Auto) 2 % (0-10); Hematocrit 26.7 % (36.0-46.0); Immature Granulocytes % (Auto) 0 % (0-0); Immature Granulocytes Auto 0.02 Thou/mm3 (0.00-0.00); Immature Reticulocyte Fraction 35.9 % (3.0-15.9); Lymphocytes # (Auto) 0.8 Thou/mm3 (1.0-4.8); Lymphocytes % (Auto) 14 % (10-50); Mean Corpuscular HGB Conc 31.1 g/dl (31.0-37.0); Mean Corpuscular Hemoglobin 24.6 pg (25.0-35.0); Mean Corpuscular Volume 79 fL (80-100); Monocytes # (Auto) 1.1 Thou/mm3 (0.0-0.8); Monocytes % (Auto) 19 % (0-12); Neutrophils # (Auto) 3.6 Thou/mm3 (1.8-7.7); Neutrophils % (Auto) 62 % (37-80); Nucleated Red Blood Cell % 0 /100 WBC (0); Platelet Count 541 Thou/mm3 (140-440); RDW Standard Deviation 58.1 fL (36.4-46.3); Red Blood Count 3.37 Miln/mm3 (4.00-5.20); Reticulocyte % (Auto) 0.7 % (0.5-1.5); Reticulocyte Absolute Auto 22.6 Biln/L (25.0-75.0); Reticulocyte Hgb Content 20.7 pg (28.0-35.0); White Blood Count 5.7 Thou/mm3 (3.6-11.0)
[2025-02-19 09:09] LABS: Hemoglobin 8.3 g/dL (12.0-16.0)
[2025-02-19 09:10] LABS: LDH (Lactate Dehydrogenase) 254 U/L (120-246)
[2025-02-19 09:15] LABS: Vitamin B12 779 pg/mL (211-911)
[2025-02-19 09:22] LABS: Ferritin 9 ng/mL (7.3-270.7); Iron 7 mcg/dL (50-170); Percent Iron Saturation 1 % (20-55); Total Iron Binding Capacity 365 mcg/dL (250-425); Unsaturated Iron Binding 358 (225-295)
[2025-02-24 07:06] LABS: Haptoglobin* 60 mg/dL (43-212)
== END | disposition home or self-care (01) ==
LOC: SCTO 07:31
PROVIDERS: PCP Family Medicine; Referring Provider Internal Medicine Hematology & Oncology; Visit Provider Internal Medicine Hematology & Oncology
DX: D50.9 Iron deficiency anemia, unspecified (principal)
CPT/HCPCS: 36415; 82378; 82607; 82728; 82746; 83010; 83540; 83550; 83615; 85025; 85046

== ENCOUNTER → 2025-03-04 | Outpatient (CLI) | payer OTHER, SELFPAY ==
[2025-03-04 08:46] LABS: Basophils # (Auto) 0.1 Thou/mm3 (0.0-0.2); Basophils % (Auto) 1 % (0-2.5); Eosinophils # (Auto) 0.1 Thou/mm3 (0.0-0.5); Eosinophils % (Auto) 2 % (0-10); Hematocrit 26.3 % (36.0-46.0); Immature Granulocytes Auto 0.02 Thou/mm3 (0.00-0.00); Immature Reticulocyte Fraction 34.8 % (3.0-15.9); Lymphocytes # (Auto) 0.7 Thou/mm3 (1.0-4.8); Lymphocytes % (Auto) 11 % (10-50); Mean Corpuscular HGB Conc 31.6 g/dl (31.0-37.0); Mean Corpuscular Hemoglobin 23.4 pg (25.0-35.0); Mean Corpuscular Volume 74 fL (80-100); Monocytes # (Auto) 1.1 Thou/mm3 (0.0-0.8); Monocytes % (Auto) 17 % (0-12); Neutrophils # (Auto) 4.3 Thou/mm3 (1.8-7.7); Neutrophils % (Auto) 68 % (37-80); Nucleated Red Blood Cell # 0.00 Thou/mm3 (0.00-0.00); Nucleated Red Blood Cell % 0 /100 WBC (0); Platelet Count 535 Thou/mm3 (140-440); RDW Standard Deviation 51.9 fL (36.4-46.3); Red Blood Count 3.55 Miln/mm3 (4.00-5.20); Reticulocyte % (Auto) 0.8 % (0.5-1.5); Reticulocyte Absolute Auto 27.0 Biln/L (25.0-75.0); Reticulocyte Hgb Content 20.7 pg (28.0-35.0); White Blood Count 6.3 Thou/mm3 (3.6-11.0)
[2025-03-04 09:00] LABS: Hemoglobin 8.3 g/dL (12.0-16.0)
[2025-03-04 09:08] LABS: Ferritin 8 ng/mL (7.3-270.7); Iron 11 mcg/dL (50-170); Percent Iron Saturation 2 % (20-55); Total Iron Binding Capacity 391 mcg/dL (250-425); Unsaturated Iron Binding 380 (225-295)
[2025-03-04 09:09] LABS: Carcinoembryonic Antigen 1.7 ng/mL (0.0-5.0); Folate 19.29 ng/mL (>5.38); Vitamin B12 1040 pg/mL (211-911)
[2025-03-04 09:53] LABS: Alanine Aminotransferase 27 U/L (10-49); Albumin, Serum 3.9 gm/dL (3.4-4.8); Albumin/Globulin Ratio 1.1 (1.2-2.2); Alkaline Phosphatase 243 U/L (46-116); Anion Gap 6 (7-16); Aspartate Amino Transferase 49 U/L (0-34); BUN/Creatinine Ratio 15 Ratio (12-20); Bilirubin,Total 0.9 mg/dL (0.3-1.2); Blood Urea Nitrogen 12 mg/dL (9-23); Calcium 9.1 mg/dL (8.3-10.6); Calcium (Corrected) 9.2 mg/dL (8.5-10.1); Carbon Dioxide 31.6 mMol/L (20.0-31.0); Chloride 103 mMol/L (98-107); Creatinine (Component) 0.8 mg/dL (0.6-1.3); Globulin 3.5 gm/dL (2.3-3.5); Glucose 102 mg/dL (74-106); Osmolality,Calculated 280 (275-295); Potassium 3.4 mMol/L (3.4-5.1); Sodium 141 mMol/L (136-145); Total Protein 7.4 gm/dL (5.7-8.2); eGFR > 60 See Note
[2025-03-04 11:30] LABS: LDH (Lactate Dehydrogenase) 305 U/L (120-246)
[2025-03-11 06:20] LABS: Haptoglobin* 43 mg/dL (43-212)
== END | disposition home or self-care (01) ==
LOC: SCTO 06:37
PROVIDERS: PCP Nurse Practitioner Family; Referring Provider Internal Medicine Hematology & Oncology; Visit Provider Internal Medicine Hematology & Oncology
DX: D50.9 Iron deficiency anemia, unspecified (principal); I10 Essential (primary) hypertension; Z87.19 Personal history of other diseases of the digestive system
CPT/HCPCS: 36415; 80053; 82378; 82607; 82728; 82746; 83010; 83540; 83550; 83615; 85025; 85046

== ENCOUNTER → 2025-03-10 | Outpatient (CLI) | payer OTHER, SELFPAY ==
[2025-03-10 09:19] LABS: Anion Gap 8 (7-16); BUN/Creatinine Ratio 16 Ratio (12-20); Blood Urea Nitrogen 13 mg/dL (9-23); Calcium 8.9 mg/dL (8.3-10.6); Carbon Dioxide 34.7 mMol/L (20.0-31.0); Chloride 103 mMol/L (98-107); Creatinine (Component) 0.8 mg/dL (0.6-1.3); Glucose 99 mg/dL (74-106); Osmolality,Calculated 290 (275-295); Potassium 3.5 mMol/L (3.4-5.1); Sodium 146 mMol/L (136-145); eGFR > 60 See Note
== END | disposition home or self-care (01) ==
LOC: COPL 06:47
PROVIDERS: PCP Internal Medicine; Referring Provider Internal Medicine Cardiovascular Disease; Visit Provider Internal Medicine Cardiovascular Disease
DX: I10 Essential (primary) hypertension (principal)
CPT/HCPCS: 36415; 80048

== ENCOUNTER 2025-03-18 09:24 | Observation (INO) | payer OTHER, SELFPAY ==
[2025-03-18 09:35] VITALS: BP 154/68; PULSE 78; RESP 18; TEMP 36.9; O2SAT 99; BMI 23.1
--- NOTE | 2025-03-18 10:05 | PD.EDRECHK ---
ED Recheck Abnl Lab Rx-RME/HPI General Chief Complaint: Recheck/Abnormal Lab/Rx Stated Complaint: LOW POTASSIUM (2.6) FATIGUE, CRAMPING; SENT BY [facility] Time Seen by Provider: 03/18/25 09:44 Arrival date/time: 03/18/25 09:24 Limitations: no limitations RME / HPI RME / HPI narrative: 79 year old female with history of atrial fibrillation on Eliquis, iron deficiency anemia requiring regular iron infusions every 3-6 months, diverticulitis, s/p cholecystectomy, splenectomy, and sigmoid colectomy presents to the ED after being referred by the cancer treatment center for hypokalemia. She reports while at [facility] today for routine lab work, her potassium level was found to be 2.6. 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 Pruitt, one week ago for labs and followed up yesterday; she states that those results were unremarkable. In the ED, the patient reports generalized weakness, which she describes as chronic and attributes to her history of anemia. Denies any new or worsening symptoms, including chest pain, palpitations, shortness of breath, nausea, or vomiting. Patient reports she is currently on Lasix 40mg QDAY that was increased from 20mg QDAY 3 weeks ago. Not currently taking Potassium supplements. Related Data Home Medications ?Medication ?Instructions ?Recorded ?Confirmed furosemide 20 mg tablet 20 mg PO DAILY 11/18/24 01/06/25 amiodarone 200 mg tablet 200 mg PO DAILY 01/06/25 01/06/25 Previous Rx's ?Medication ?Instructions ?Recorded apixaban 2.5 mg tablet (Eliquis) 2.5 mg PO BID #30 tabs 01/09/25 docusate sodium 100 mg capsule 100 mg PO BID PRN constipation #60 01/09/25 (Colace) caps ferrous sulfate 325 mg (65 mg 325 mg PO BID #60 tabs 01/09/25 iron) tablet (Feosol) Allergies Allergy/AdvReac Type Severity Reaction Status Date / Time adhesive tape Allergy Verified 03/18/25 09:27 cephalexin (From Keflex) Allergy Verified 03/18/25 09:27 codeine Allergy Nausea Verified 03/18/25 09:27 latex Allergy Verified 03/18/25 09:27 levofloxacin (From Levaquin) Allergy Nausea Verified 03/18/25 09:27 sertraline Allergy Nausea Verified 03/18/25 09:27 Sulfa (Sulfonamide Allergy Verified 03/18/25 09:27 Antibiotics) hydrocodone AdvReac Mild Nausea Verified 03/18/25 09:27 meperidine AdvReac Mild UPPER GI Verified 03/18/25 09:27 propoxyphene AdvReac Mild Nausea Verified 03/18/25 09:27 Review of Systems Review of Systems Systems Reviewed: All systems reviewed, normal except as documented Past Medical History Past Medical History NEUROLOGIC: Positive Subdural Hematoma; Negative Neurological Disorders, Cerebrovascular Accident, Transient Ischemic Attacks (TIA), Dementia, Alzheimer's Disease, Parkinson's Disease, Brain Tumor, Meningitis, Seizures, Epilepsy, Multiple Sclerosis, Cerebral Palsy, Amyotrophic Lateral Sclerosis (ALS/Dania Gehrig's), Guillain-Scio Syndrome, Spina Bifida, Paralysis, Peripheral Neuropathy, Brooks's Palsy, Migraine, Head Trauma, Spinal Cord Injury or Traumatic Brain Injury CARDIAC: Positive Cardiac Disorders, Atrial Fibrillation, Aneurysm, Valvular Heart Disease and Edema; Negative Myocardial Infarction, Cardiac Arrhythmia, Angina, Heart Murmur, Coronary Artery Disease, Atherosclerotic Heart Disease, Peripheral Vascular Disease, Hypercholesterolemia, Congestive Heart Failure, Congenital Heart Disease, Rheumatic Fever, Cardiomyopathy, Pericarditis, Cellulitis, Deep Vein Thrombosis, Hypertension, Hypotension or Varicose Veins RESPIRATORY: Negative Chronic Obstructive Pulmonary Disease (COPD), Asthma, Bronchitis, Emphysema, Pneumonia, Pulmonary Fibrosis, Cystic Fibrosis, Tuberculosis, Pulmonary Embolism, Pulmonary Edema or Sleep Apnea GASTROINTESTINAL: Positive Gastrointestinal Disorders, Hepatitis (auti=immune), Cirrhosis, Diverticulitis, Hemorrhoids and Gastroesophageal Reflux Disease; Negative Pancreatitis, Celiac Disease, Gall Bladder Disease, Gastrointestinal Bleed, Esophageal Varices, Vaz's Esophagus, Colitis, Ulcerative Colitis, Diverticulosis, Ulcer, Colorectal Cancer, Irritable Bowel, Crohn's Disease, Obstructive Bowel, Hiatal Hernia or Obesity GENITOURINARY: Negative Genitourinary Disorders, Renal Disease, Kidney Stones, Polycystic Kidney Disease, Neurogenic Bladder, Inguinal Hernia, Dialysis, Prostate Cancer or Benign Prostatic Hyperplasia REPRODUCTIVE: Positive Previous Pregnancies; Negative Breast Cancer, Endometriosis, Genital Herpes, Gonorrhea, Pelvic Inflammatory Disease, Syphilis, Testicular Cancer or Uterine Prolapse MUSCULOSKELETAL: Positive Musculoskeletal Disorders; Negative Muscular Dystrophy, Myasthenia Gravis, Marfan's Syndrome, Bone Cancer, Arthritis, Rheumatoid Arthritis, Osteoporosis, Degenerative Disk Disease, Gout, Scoliosis, Carpal Tunnel Syndrome, Fibromyalgia, Fractures, Degenerative Joint Disease, Osteomyelitis or Poliovirus ENT: Positive Cataracts, Blind and Deafness; Negative Glaucoma, Retinal Detachment, Macular Degeneration, Ear Infection, Head Trauma or Eye Prosthesis ENDOCRINE: Negative Endocrine Disorders, Diabetes Mellitus Type 1, Diabetes Mellitus Type 2, Hypoglycemia, Dyea's Syndrome, [place]'s Disease, Hyperthyroidism, Hypothyroidism, Parathyroid Disease, Pituitary Disease, Systemic Lupus Erythematosus, Syndrome of Inappropriate Antidiuretic Hormone (SIADH), Adrenal Disease or Graves' Disease HEMATOLOGIC: Positive Blood Disorders and Anemia; Negative Leukemia, Hemophilia, Thalassemia, Sickle Cell Disease or Clotting Problems PSYCHO/SOCIAL: Positive Anxiety; Negative Psychiatric Problems, Schizophrenia, Recreational Drug Use, Bipolar Disorder, Depression, Behavior Problems, Self-Mutilation, Attention Deficit Disorder, Attention Deficit Hyperactivity Disorder, Depression or Eating Disorder OTHER HISTORY: Positive Hospitalization, Falls, Blood Transfusions, Chicken Pox and Measles; Negative Autoimmune Disease, Autism, Shingles, Blood Transfusion Reaction, Anesthesia Reactions, Organ Transplant, Chemotherapy, Radiation Therapy, Hyperbaric Therapy, MRSA, VRSA, Vancomycin-Resistant Enterococci, Human Immunodeficiency Virus (HIV), Mumps, Rubella ([place] Measles), Pertussis, Clostridium Difficile, Cancer, Breast Cancer, Cervical Cancer, Colorectal Cancer, Lung Cancer, Ovarian Cancer, Prostate Cancer or Testicular Cancer Family History FAMILY HISTORY: Positive Family Psychiatric Problems, Family Cardiac Disorders and Family Cancer; Negative Family Respiratory Disorders, Family Gastrointestinal Problems, Family Surgery or Family Anesthesia Reaction Surgical History SURGICAL: Positive Cardiac Surgery, Angiogram, Abdominal Surgery, Bowel Surgery (colon resection), Arthroscopy and Hysterectomy; Negative Open Heart Surgery, Coronary Artery Bypass Graft, Valve Replacement, Vascular Surgery, Coronary Stent, Cardiac Catheterization, Pacemaker, Auto Implanted Cardiovert Defib, Carotid Endarterectomy, Endocrine Surgery, Thyroidectomy, Ear Surgery, Tympanostomy Tube, Eye Surgery, Nose Surgery, Oral Surgery, Tonsillectomy, Adenoidectomy, Cochlear Implant, Corneal Transplant, Throat Surgery, Tracheostomy, Gastric Bypass Surgery, Gastrostomy, Nephrectomy (spleenectomy), Transurethral Resection, Joint Replacement, Amputation, Open Reduction Internal Fixation, Neurologic Surgery, Brain Shunt, Mastectomy, Lumpectomy, Tubal Ligation, Section or Organ Transplant Social History SMOKING STATUS: Never smoker ED Exam General Limitations: Present no limitations General appearance: Present alert and in no apparent distress Head Head exam: Present atraumatic Eye Eye exam: Present normal appearance, PERRL and EOMI ENT ENT exam: Present normal exam, normal oropharynx and mucous membranes moist Neck Neck exam: Present normal inspection, full ROM and trachea midline Chest Chest inspection: Present normal inspection and symmetric chest wall rise Respiratory Respiratory exam: Present normal lung sounds bilaterally Cardiovascular Cardiovascular exam: Present regular rate, normal rhythm and normal heart sounds Abdominal Exam Abdominal exam: Present soft and normal bowel sounds Extremities Exam Extremities exam: Present normal inspection and full ROM Back Exam Back exam: Present normal inspection and full ROM Neurological Exam Neurological exam: Present alert, oriented X3 and CN II-XII intact Psychiatric Psychiatric exam: Present normal affect and normal mood Skin Skin exam: Present warm, dry, intact and normal color Course Quality Measures none Orders Category Date Time Status Mag [Magnesium] Stat Lab 03/18/25 10:22 Completed Magnesium Sulfate 2 GM Ivpb [Magnesium Sulfate Ivpb] Med 03/18/25 10:01 Active 2 gm in 50 ml IV X1 Potassium Chloride [K-Dur] Med 03/18/25 11:15 Once 40 meq PO X1 ONE Potassium Chloride [K-Dur] Med 03/18/25 11:00 Once 60 meq PO X1 ONE Vital Signs Vital signs: Vital Signs Temperature 98.5 F 03/18/25 09:35 Pulse Rate 78 03/18/25 09:35 Respiratory Rate 18 03/18/25 09:35 Blood Pressure 154/68 H 03/18/25 09:35 Pulse Oximetry (%) 99 03/18/25 09:35 Oxygen Delivery Method Room Air 03/18/25 09:35 Pulse ox is 99% on room air which is adequate. Recheck / Abnormal Lab / Rx MDM Narrative MDM Narrative:: Patient's potassium is 2.6. Magnesium is 1.6. Patient will receive magnesium sulfate 2 g IV. She will receive potassium chloride 60 mill equivalents p.o. and a total of 40 mEq of potassium chloride IV given at a rate of 10 mill equivalents an hour x 4. I discussed this case with the hospitalist and the patient will be admitted to the hospital for further treatment and evaluation for her symptomatic hypokalemia most likely secondary to her diuretic use. Patient data External records reviewed:: [facility] previous records Clinical information provided by:: patient Social determinants that could affect healthcare access:: none Patient has the following chronic illnesses:: Atrial fibrillation on Eliquis, iron deficiency anemia requiring regular iron infusions every 3-6 months, diverticulitis, s/p cholecystectomy, splenectomy, and sigmoid colectomy How is presenting disease/condition affected by chronic disease/condition?: exacerbated by Evaluation data The following diagnostics were reviewed and interpreted by me:: lab results Lab and/or radiology exams considered but not ordered:: None Interpretation Summary: None Medications / Prescriptions Medications or Prescriptions considered but not ordered:: None Medication administrations:: Medication Administration History Magnesium Sulfate (Magnesium Sulfate Ivpb) 2 gm in 50 mls @ 25 mls/hr IV X1 ONE Stop: 03/18/25 12:00 Potassium Chloride (Potassium Chloride 20 Meq Tabcr) 60 meq PO X1 ONE Stop: 03/18/25 11:01 Potassium Chloride (Potassium Chloride 20 Meq Tabcr) 40 meq PO X1 ONE Stop: 03/18/25 11:16 See above Consultations Consultation(s) initiated? (list below): Yes Consultation #1 (Physician, Specialty, Details): I spoke with resident working with Dr. James. Discussed patients PMHx, HPI, ED course, exam findings, labs, and radiology results. The hospitalist agree to accept the patient for admission. Time: 10:13 Diagnosis Recheck Differential Diagnosis: other Most likely diagnosis given after review of the tests above:: Hypokalemia Admission Indicated Admission indicated?: indicated Admission Request Was there a request for admission?: Yes Admission Attestation Admission request attestation: Discussed case with [] from Hospitalist service regarding admission. Discussed patients ED course, exam findings, labs, and radiology results. The Hospitalist [agrees,declines] to accept the patient for admission. Disposition Plan Disposition Plan: Admit Critical Care Time Critical Care Time Critical Care Time: Yes Total Critical Care Time (min.): 35 Attestation: Excluding other billable procedures Discharge Plan Plan Patient Disposition: Admit Acute Care w/in Hospital Prescriptions/Referrals Prescriptions/Med Rec: No Action furosemide 20 mg tablet 20 mg PO DAILY amiodarone 200 mg tablet 200 mg PO DAILY Eliquis 2.5 mg tablet 2.5 mg PO BID Qty: 30 0RF docusate sodium [Colace] 100 mg capsule 100 mg PO BID PRN (Reason: constipation) Qty: 60 0RF ferrous sulfate [Feosol] 325 mg (65 mg iron) tablet 325 mg PO BID Qty: 60 0RF Referrals: Emiliano Ramirez [Primary Care Provider] - In 1 week Problem List Clinical Impression: Hypokalemia Patient/Caregiver Discharge Instructions Print Language: [place] Leone[place] Stand Alone Forms: Ann Marie Award Info., Patient Portal Info Letter
[2025-03-18 10:55] LABS: Magnesium 1.6 mg/dL (1.6-2.6)
[2025-03-18] MEDS: Magnesium Sulfate 2 GM Ivpb 2 GM/50 ML BAG IV (11:43)
[2025-03-18] MEDS: POTASSIUM CHL 10 mEq IVPB 10 MEQ/100 ML BAG 100 MEQ IV ×4 (12:29→17:19)
[2025-03-18 13:06] VITALS: BP 132/67; PULSE 70; RESP 20; O2SAT 98
--- NOTE | 2025-03-18 14:39 | ESHP_ITS ---
<Statement entered by Claudine Esquivel MD - 03/18/25 22:42> I have reviewed the note and agree with the resident's assessment & plan with exceptions as below. I have personally reviewed labs, imaging, home meds/prior records, examined the patient, formulated and discussed management plan with the IM team. Pt examined today, currently admitted for observation. Etiology of hypokalemia at this time related to increase in diuresis that happened a couple weeks ago. Will replete potassium, recheck renal panel, max repletion today 100 mEq. Resumed home amio, continue with telemetry. Pt does get blood transfusions handled by outpatient hematology, will continue to monitor Hgb. Repeat hematology and chemistry. #Severe Hypokalemia #Secondary to Lasix #Chronic iron deficiency anemia #Bilateral leg edema #History of atrial fibrillation with RVR Claudine Esquivel, PGY-2 Internal Medicine Documentation for date of: 03/18/25 HPI History of Present Illness History of present illness: 79-year-old female with a history significant for atrial fibrillation (currently off Eliquis for 5 weeks), splenic vein thrombosis s/p splenectomy, autoimmune hepatitis, mitral regurgitation, iron deficiency anemia, left eye coloboma, diverticulitis s/p sigmoid colectomy, and cholelithiasis s/p cholecystectomy, presents to the ED due to hypokalemia. She was referred by her cancer treatment center today after her labs indicated low potassium. Yesterday, she was evaluated by her greige goods examiner, Dr. Brooks, who reviewed labs from two weeks prior. Dr. Brooks had recently increased her daily Lasix dose from 20 mg to 40 mg to address bilateral ankle swelling. However, the patient reports minimal improvement in her ankle swelling since this dose adjustment. She also notes a significant increase in urination frequency, now 10-12 times daily. She denies any associated vomiting, diarrhea, palpitations, chest pain, shortness of breath, dizziness, or balance issues. She denies recent laxative use and has no history of alcohol use disorder. Past medical history: Symptomatic anemia, iron deficiency anemia, grade 3 esophageal varices, subdural hematoma, diverticulitis status post sigmoid colectomy, cholelithiasis status post cholecystectomy, splenic vein thrombosis status post splenectomy, chronic autoimmune hepatitis Allergies: Adhesive tape, cephalexin, codeine, latex, levofloxacin, sertraline, sulfa drugs, hydrocodone, meperidine, propoxyphene Past surgical history: Sigmoid colectomy, cholecystectomy, splenectomy, bilateral knee surgery, hysterectomy Social history: Lives alone. Independent with ADLs. Former smoker 2 pack years. No alcohol use. No drug use. Hospital course: Initial ED vitals temperature 98.5, respiratory rate 18, heart rate 78, blood pressure 154/68, O2 saturations 99% on room air. Notable labs include hemoglobin 8.1, hematocrit 25.3, MCV 72. Potassium 2.6, magnesium 1.6, AST 46, alkaline phosphatase 202. Patient received 100 mEq of potassium chloride in ED. Review of Systems Review of Systems Narrative Review of Systems: All systems reviewed. Negative unless stated above. Exam Vital Signs Temp Pulse Resp BP Pulse Ox O2 Del Method 98.5 F 70 20 132/67 H 98 Room Air 03/18/25 09:35 03/18/25 13:06 03/18/25 13:06 03/18/25 13:06 03/18/25 13:06 03/18/25 13:06 Narrative Exam General: AAOx3, NAD, elderly female, pleasant HEENT: Moist mucous membranes, conjunctiva clear, EOMI, PERRLA, Coloboma in L eye Cardiovascular: S1, S2, radial pulses +2 bilat, RRR Pulmonary: CTAB bilat no cough, no wheezing GI: No tenderness on palpation, surgical scar present midline, bowel sounds present Extremities: 2+ edema present in lower extremities bilaterally, dorsalis pedis pulses +2 bilaterally Neuro: AAOx3, no focal motor or sensory deficits in the UE or LE bilat Psych: Good judgement, thought and behavior. Cooperative Results: Labs 03/19/25 05:50 03/19/25 05:50 Quality Measures Quality Measures none Advance care planning discussed with:: patient Medications Home Medications and Allergies Home Medications ?Medication ?Instructions ?Recorded ?Confirmed ?Type furosemide 20 mg tablet 20 mg PO DAILY 11/18/2403/03 History amiodarone 200 mg tablet 200 mg PO DAILY 01/06/25 History Allergies Allergy/AdvReac Type Severity Reaction Status Date / Time adhesive tape Allergy Verified 03/18/25 09:27 cephalexin (From Keflex) Allergy Verified 03/18/25 09:27 codeine Allergy Nausea Verified 03/18/25 09:27 latex Allergy Verified 03/18/25 09:27 levofloxacin (From Levaquin) Allergy Nausea Verified 03/18/25 09:27 sertraline Allergy Nausea Verified 03/18/25 09:27 Sulfa (Sulfonamide Allergy Verified 03/18/25 09:27 Antibiotics) hydrocodone AdvReac Mild Nausea Verified 03/18/25 09:27 meperidine AdvReac Mild UPPER GI Verified 03/18/25 09:27 propoxyphene AdvReac Mild Nausea Verified 03/18/25 09:27 Visit Medications Potassium Chloride (Kcl Ivpb) 10 meq in 100 mls @ 100 mls/hr IV Q1H ELINOR Stop: 03/18/25 15:12 Last Admin: 03/18/25 13:59 Dose: 100 mls/hr Discontinued Medications Magnesium Sulfate (Magnesium Sulfate Ivpb) 2 gm in 50 mls @ 25 mls/hr IV X1 ONE Stop: 03/18/25 12:00 Last Infusion: 03/18/25 13:52 Dose: Infused Potassium Chloride (Potassium Chloride 20 Meq Tabcr) 20 meq PO X1 ONE Stop: 03/18/25 13:01 Last Admin: 03/18/25 11:42 Dose: 20 meq Potassium Chloride (Potassium Chloride 20 Meq Tabcr) 40 meq PO X1 ONE Stop: 03/18/25 11:16 Last Admin: 03/18/25 11:43 Dose: 40 meq Assessment & Plan Plan Asessment: 79-year-old female with a history significant for atrial fibrillation (currently off Eliquis for 5 weeks), splenic vein thrombosis s/p splenectomy, autoimmune hepatitis, mitral regurgitation, iron deficiency anemia, left eye coloboma, diverticulitis s/p sigmoid colectomy, and cholelithiasis s/p cholecystectomy, presents to the ED due to hypokalemia. #Hypokalemia #Secondary to Lasix No laxative use Patient follows Dr. Pruitt, was seen in his office yesterday for lab review Patient's Lasix dose had been increased from 20 mg to 40 mg daily ? Replete levels with IV potassium ? Correct magnesium level as as indicated #Chronic iron deficiency anemia Patient has history of chronic anemia, had extensive workup done for years, with no identifiable cause Patient gets regular blood transfusions to correct anemia Hemoglobin 8.1 today ? Iron panel ordered #Bilateral leg edema Patient mentions that her lasix change from 20 mg to 40 mg daily has not helped improve the leg edema Still +2 bilateral edema present mid calf to foot, worse with sitting, better with lying down ? Hold furosemide #History of atrial fibrillation with RVR [id number] score 3 Patient was previously on Eliquis, has been off since 5 weeks, stopped by Dr. Pruitt ?Amiodarone 200 mg p.o. ?Follow-up on EKG ?Telemetry ? Mag and Potassium above 2 and 4 respectively Health Maintenance: Diet: CARDIAC GI prophylaxis: NONE DVT prophylaxis: ENOXAPARIN Antibiotics: NONE CODE STATUS: FULL CODE Disposition: TELEMETRY Case discussed with my attending Dr. James, and senior resident, Dr. Alvin Beasley MD PGY-1 Attending Provider Attestation/Addendum 79-year-old female was admitted for weakness. Patient has most likely from loop diuretic use. Patient is not hypotensive. Continue to monitor heart rhythm. I discussed with and supervised the resident physician who took care of this patient. I agree with the assessment and plan as above.
--- NOTE | 2025-03-18 15:23 | EKG_ITS ---
[facility] Test Date: 2025-03-18 Pat Name: ARIADNE FONSECA Department: Room: [address] Gender: Female Clin Nurse Spec: DANISH : 1945 Requested By: Anderson Beasley Order Number: [id number] Reading MD: Anderson Beasley Measurements Intervals [place] Rate: 65 P: 150 MO: 218 QRS: -24 QRSD: 111 T: 147 QT: 457 QTc: 476 Interpretive Statements SINUS RHYTHM WITH FIRST DEGREE AV BLOCK INCOMPLETE RIGHT BUNDLE BRANCH BLOCK PROBABLE LATERAL MYOCARDIAL INFARCTION , OF INDETERMINATE AGE Compared to ECG 12/11/2024 03:31:00 First degree AV block now present Incomplete right bundle-branch block now present Myocardial infarct finding now present Atrial flutter no longer present /store/S0/[id number].pdf
[2025-03-18 16:08] LABS: Albumin, Serum 3.3 gm/dL (3.4-4.8); Anion Gap 6 (7-16); BUN/Creatinine Ratio 11 Ratio (12-20); Blood Urea Nitrogen 9 mg/dL (9-23); Calcium 8.0 mg/dL (8.3-10.6); Calcium (Corrected) 8.6 mg/dL (8.5-10.1); Carbon Dioxide 32.3 mMol/L (20.0-31.0); Chloride 107 mMol/L (98-107); Creatinine (Component) 0.8 mg/dL (0.6-1.3); Estimated Creatinine Clearance 49.6 mL/min (>60); Glucose 94 mg/dL (74-106); Magnesium 2.0 mg/dL (1.6-2.6); Osmolality,Calculated 287 (275-295); Phosphorous 2.4 mg/dL (2.4-5.1); Potassium 3.4 mMol/L (3.4-5.1); Sodium 145 mMol/L (136-145); eGFR > 60 See Note
[2025-03-18 16:09] VITALS: BP 123/78; PULSE 78; RESP 16; O2SAT 96
[2025-03-18] MEDS: ENOXAPARIN SOD INJ 40 MG/0.4 ML SYRINGE SC (16:25)
[2025-03-18 16:58] VITALS: BMI 23.1
[2025-03-18 20:00] VITALS: BP 126/64; PULSE 102; PULSE 67; RESP 16; TEMP 36.2; O2SAT 96
[2025-03-19] VITALS: BP 129/69; PULSE 69; RESP 13; TEMP 36.5; O2SAT 94
[2025-03-19 04:00] VITALS: BP 126/64; PULSE 71; RESP 14; TEMP 36.3; O2SAT 95
[2025-03-19 06:43] LABS: Basophils # (Auto) 0.1 Thou/mm3 (0.0-0.2); Basophils % (Auto) 2 % (0-2.5); Eosinophils # (Auto) 0.2 Thou/mm3 (0.0-0.5); Eosinophils % (Auto) 4 % (0-10); Hematocrit 22.5 % (36.0-46.0); Immature Granulocytes Auto 0.01 Thou/mm3 (0.00-0.00); Lymphocytes # (Auto) 0.9 Thou/mm3 (1.0-4.8); Lymphocytes % (Auto) 16 % (10-50); Mean Corpuscular HGB Conc 32.0 g/dl (31.0-37.0); Mean Corpuscular Hemoglobin 22.9 pg (25.0-35.0); Mean Corpuscular Volume 71 fL (80-100); Monocytes # (Auto) 1.3 Thou/mm3 (0.0-0.8); Monocytes % (Auto) 22 % (0-12); Neutrophils # (Auto) 3.3 Thou/mm3 (1.8-7.7); Neutrophils % (Auto) 57 % (37-80); Nucleated Red Blood Cell # 0.00 Thou/mm3 (0.00-0.00); Nucleated Red Blood Cell % 0 /100 WBC (0); Platelet Count 396 Thou/mm3 (140-440); RDW Standard Deviation 49.4 fL (36.4-46.3); Red Blood Count 3.15 Miln/mm3 (4.00-5.20); White Blood Count 5.9 Thou/mm3 (3.6-11.0)
[2025-03-19 06:51] LABS: Hemoglobin 7.2 g/dL (12.0-16.0)
[2025-03-19 06:53] LABS: Alanine Aminotransferase 18 U/L (10-49); Albumin, Serum 2.9 gm/dL (3.4-4.8); Albumin/Globulin Ratio 1.0 (1.2-2.2); Alkaline Phosphatase 174 U/L (46-116); Anion Gap 8 (7-16); Aspartate Amino Transferase 40 U/L (0-34); BUN/Creatinine Ratio 13 Ratio (12-20); Bilirubin,Total 0.7 mg/dL (0.3-1.2); Blood Urea Nitrogen 8 mg/dL (9-23); Calcium 7.8 mg/dL (8.3-10.6); Calcium (Corrected) 8.7 mg/dL (8.5-10.1); Carbon Dioxide 27.1 mMol/L (20.0-31.0); Chloride 110 mMol/L (98-107); Creatinine (Component) 0.6 mg/dL (0.6-1.3); Estimated Creatinine Clearance 66.2 mL/min (>60); Free T4 (Free Thyroxine) 1.06 ng/dL (0.89-1.76); Globulin 2.9 gm/dL (2.3-3.5); Glucose 88 mg/dL (74-106); Magnesium 1.7 mg/dL (1.6-2.6); Osmolality,Calculated 286 (275-295); Phosphorous 2.6 mg/dL (2.4-5.1); Potassium 3.9 mMol/L (3.4-5.1); Sodium 145 mMol/L (136-145); Thyroid Stimulating Hormone 2.91 uIU/mL (0.55-4.78); Total Protein 5.8 gm/dL (5.7-8.2); eGFR > 60 See Note
[2025-03-19 06:56] LABS: Iron < 5 mcg/dL (50-170); Percent Iron Saturation 1 % (20-55); Total Iron Binding Capacity 299 mcg/dL (250-425); Unsaturated Iron Binding 294 (225-295)
[2025-03-19 08:00] VITALS: BP 136/63; PULSE 71; PULSE 78; RESP 17; TEMP 36.9; O2SAT 95
[2025-03-19 09:12] VITALS: BP 136/63; PULSE 71
[2025-03-19] MEDS: AMIODARONE HCL 200 MG TABLET PO (09:12)
[2025-03-19] MEDS: Magnesium Sulfate 2 GM Ivpb 2 GM/50 ML BAG IV (09:13)
--- NOTE | 2025-03-19 10:25 | PC.SS ---
SS spoke to patient who is alert/oriented. Patient was able to verify demographics. Patient is independent with ADL's. No DME. Patient drove herself to hospital. Admitted for observation for hypokalemia. Patient states she lives alone. She follows with Dr. Ramirez at [facility]. Patient also follows with Dr. Brooks and Dr. Fields. Patient has a follow up appt. at the end of March. Pharmacy: [facility]. Patient states her alt medical decision maker is her daughter, Rima Hui @ [phone] and her grandson is secondary, Fredy Hui @ [phone] D/c plan; return home No d/c needs Alt medical decision maker: DaughterRima @ [phone]
[2025-03-19] MEDS: ACETAMINOPHEN 325 MG TABLET 650 MG PO (11:58)
[2025-03-19 12:00] VITALS: BP 116/58; PULSE 64; PULSE 70; RESP 17; TEMP 36.2; O2SAT 95
--- NOTE | 2025-03-19 12:27 | ESDS_ITS ---
<Statement entered by Claudine Esquivel MD - 03/20/25 11:24> I have reviewed the note and agree with the resident's assessment & plan with exceptions as below. I have personally reviewed labs, imaging, home meds/prior records, examined the patient, formulated and discussed management plan with the IM team. Pt examined at bedside. Today's potassium 3.9, will give additional 20 mEq. Severe hypokalemia likely 2/2 to increased dose of lasix which was initially 20 and then 40 mg increase by her notching press operator. Will resume back to 20 mg of Lasix and will add Spirnolactone 25 mg qday upon d/c. Pt's hgb 7.2 this morning, which is not far from her baseline of ~8 which she has chronic BHUMI who she sees hematology for. We recommended to her to do CBC and see her cold type artist at the latest within a week in addition to ER precautions. Pt was then discharged with the instructions listed below. Claudine Esquivel, PGY-2 Internal Medicine Planned Discharge Date 03/19/25 DS: Providers Provider Date of admission: 03/18/25 12:14 Primary care physician: Emiliano Ramirez Admitting Provider: Kushal James MD Attending Provider on Admission: Kushal James MD Attending Provider on DC: Dr. James Discharging Provider: Dr. James DS: Diagnosis Problem List Completed Was Problem List Reviewed/Reconciled?: Yes Hospital Course Hospital Course Hospital course: 79-year-old female with a history significant for atrial fibrillation (off Eliquis), splenic vein thrombosis s/p splenectomy, autoimmune hepatitis, mitral regurgitation, iron deficiency anemia, left eye coloboma, diverticulitis s/p sigmoid colectomy, and cholelithiasis s/p cholecystectomy, presents to the ED due to hypokalemia. Dr. Pruitt (notching press operator) had increased her Lasix dose from 20 mg to 40 mg to address bilateral ankle swelling. Initial ED vitals temperature 98.5, respiratory rate 18, heart rate 78, blood pressure 154/68, O2 saturations 99% on room air. Notable labs include hemoglobin 8.1, hematocrit 25.3, MCV 72. Potassium 2.6, magnesium 1.6, AST 46, alkaline phosphatase 202. Patient received potassium chloride in ED and on the hospital oro. Her potassium at time of discharge was 3.9. However, her hgb was 7.2, closer to her baseline, she gets frequent blood transfusions at the cancer center. She has been advised to repeat CBC in a week's time and get transfused if necessary. Her lasix was adjusted to 20mg daily with the addition of spirinolactone 25mg daily. Discharge Instructions: * Follow-up with PCP within 1-2 weeks of discharge. * Recommended repeat renal function and magnesium level within 1 week to follow- up on hypokalemia (your potassium was 2.6 on admission, and 3.9 on discharge prior to receiving 20 mEq). * Repeat a CBC within one week or earlier if able as your hemoglobin was 7.2 upon d/c. You are chronically anemic, and this is close to your baseline. If you begin to have bloody bowel movements, vomit blood or cough up blood or begin to start feel weak, go to the ER. * Follow-up with your notching press operator within 1-2 weeks of discharge. * We decreased FUROSEMIDE to 20 mg daily, and started SPIRONOLACTONE 25 mg daily. * Continue taking medications as prescribed below. * Return to Emergency Room if symptoms persist, worsen, or new symptoms develop. Admission diagnoses: #Hypokalemia 2/2 to lasix #Chronic iron deficiency anemia #Bilateral leg edema #History of atrial fibrillation with RVR Case discussed with my attending Dr. James, and senior resident, Dr. Alvin Beasley MD PGY-1 Time Spent with Patient Time attestation: Total time spent providing and/or coordinating discharge services: Time spent: Greater than 30 minutes Exam Vital Signs Temp Pulse Resp BP Pulse Ox O2 Del Method 98.4 F 70 17 136/63 H 95 Room Air 03/19/25 08:00 03/19/25 12:00 03/19/25 08:00 03/19/25 09:12 03/19/25 08:00 03/19/25 08:00 Narrative Exam General: AAOx3, NAD, elderly female, pleasant HEENT: Moist mucous membranes, conjunctiva clear, EOMI, PERRLA, Coloboma in L eye Cardiovascular: S1, S2, radial pulses +2 bilat, RRR Pulmonary: CTAB bilat no cough, no wheezing GI: No tenderness on palpation, surgical scar present midline, bowel sounds present Extremities: 2+ edema present in lower extremities bilaterally, dorsalis pedis pulses +2 bilaterally Neuro: AAOx3, no focal motor or sensory deficits in the UE or LE bilat Psych: Good judgement, thought and behavior. Cooperative Discharge Plan Plan Patient Disposition: HOME (Self Care) Care Plan Goals: * Follow-up with PCP within 1-2 weeks of discharge. * Recommended repeat renal function and magnesium level within 1 week to follow- up on hypokalemia (your potassium was 2.6 on admission, and 3.9 on discharge prior to receiving 20 mEq). * Repeat a CBC within one week or earlier if able as your hemoglobin was 7.2 upon d/c. You are chronically anemic, and this is close to your baseline. If you begin to have bloody bowel movements, vomit blood or cough up blood or begin to start feel weak, go to the ER. * Follow-up with your notching press operator within 1-2 weeks of discharge. * We decreased FUROSEMIDE to 20 mg daily, and started SPIRONOLACTONE 25 mg daily. * Continue taking medications as prescribed below. * Return to Emergency Room if symptoms persist, worsen, or new symptoms develop. Prescriptions/Referrals Prescriptions/Med Rec: New spironolactone 25 mg tablet 25 mg PO QDAY Qty: 30 0RF Continued furosemide 20 mg tablet 20 mg PO DAILY amiodarone 200 mg tablet 200 mg PO DAILY Referrals: Emiliano Ramirez [Primary Care Provider] - Patient/Caregiver Discharge Instructions Education Materials: Hyponatremia Dc, Diuretics Dc, ED Hyponatremia Print Language: Welsh Stand Alone Forms: Ann Marie Award Info., Patient Portal Info Letter, Work/Release Restrictions Discharge Order Discharge Orders: Discharge (Routine); Ordered 03/19/25 Ordered By: Suri Mcmahon Quality Discharge Quality Measures VTE prophylaxis Attestestation MD Attestation I discussed with and supervised the resident physician who took care of this patient. I agree with the assessment and discharge plan as above. Patient will follow-up with PCP and return to the ER as needed for recurrent symptoms
== END 2025-03-19 13:20 | disposition home or self-care (01) ==
LOC: SERX 11:04 → S3NX 03-19 08:03 → SERHOLD 03-19 08:03
PROVIDERS: Admitting Provider Internal Medicine; Emergency Provider Emergency Medicine; PCP Internal Medicine; Visit Provider Internal Medicine
DX: E87.6 Hypokalemia (principal); D50.9 Iron deficiency anemia, unspecified; I34.0 Nonrheumatic mitral (valve) insufficiency; I48.91 Unspecified atrial fibrillation; K75.4 Autoimmune hepatitis; Z86.718 Personal history of other venous thrombosis and embolism; Z87.891 Personal history of nicotine dependence; Z90.49 Acquired absence of other specified parts of digestive tract; Z90.710 Acquired absence of both cervix and uterus; Z90.81 Acquired absence of spleen; Z95.0 Presence of cardiac pacemaker; Z95.5 Presence of coronary angioplasty implant and graft; R60.9 Edema, unspecified
CPT/HCPCS: 36415; 80053; 80069; 83540; 83550; 83735; 84100; 84439; 84443; 85025; 86850; 86900; 86901; 93005; 96365; 96366; 96372; G0378; J1650; J3475; J3480; A9270

== ENCOUNTER → 2025-03-31 | Outpatient (CLI) | payer OTHER, SELFPAY ==
[2025-03-31 16:28] LABS: Basophils # (Auto) 0.1 Thou/mm3 (0.0-0.2); Basophils % (Auto) 3 % (0-2.5); Eosinophils # (Auto) 0.2 Thou/mm3 (0.0-0.5); Eosinophils % (Auto) 3 % (0-10); Hematocrit 28.4 % (36.0-46.0); Immature Granulocytes Auto 0.00 Thou/mm3 (0.00-0.00); Lymphocytes # (Auto) 1.0 Thou/mm3 (1.0-4.8); Lymphocytes % (Auto) 22 % (10-50); Mean Corpuscular HGB Conc 30.6 g/dl (31.0-37.0); Mean Corpuscular Hemoglobin 23.1 pg (25.0-35.0); Mean Corpuscular Volume 75 fL (80-100); Monocytes # (Auto) 1.2 Thou/mm3 (0.0-0.8); Monocytes % (Auto) 25 % (0-12); Neutrophils # (Auto) 2.3 Thou/mm3 (1.8-7.7); Neutrophils % (Auto) 47 % (37-80); Nucleated Red Blood Cell # 0.00 Thou/mm3 (0.00-0.00); Nucleated Red Blood Cell % 0 /100 WBC (0); Platelet Count 525 Thou/mm3 (140-440); RDW Standard Deviation 57.3 fL (36.4-46.3); Red Blood Count 3.77 Miln/mm3 (4.00-5.20); White Blood Count 4.8 Thou/mm3 (3.6-11.0)
[2025-03-31 16:34] LABS: Hemoglobin 8.7 g/dL (12.0-16.0)
[2025-03-31 16:40] LABS: Alanine Aminotransferase 22 U/L (10-49); Albumin, Serum 3.7 gm/dL (3.4-4.8); Albumin/Globulin Ratio 1.1 (1.2-2.2); Alkaline Phosphatase 210 U/L (46-116); Anion Gap 9 (7-16); Aspartate Amino Transferase 42 U/L (0-34); BUN/Creatinine Ratio 13 Ratio (12-20); Bilirubin,Total 0.7 mg/dL (0.3-1.2); Blood Urea Nitrogen 9 mg/dL (9-23); Calcium 8.9 mg/dL (8.3-10.6); Calcium (Corrected) 9.1 mg/dL (8.5-10.1); Carbon Dioxide 29.1 mMol/L (20.0-31.0); Chloride 105 mMol/L (98-107); Creatinine (Component) 0.7 mg/dL (0.6-1.3); Globulin 3.4 gm/dL (2.3-3.5); Glucose 81 mg/dL (74-106); Osmolality,Calculated 282 (275-295); Potassium 3.6 mMol/L (3.4-5.1); Sodium 143 mMol/L (136-145); Total Protein 7.1 gm/dL (5.7-8.2); eGFR > 60 See Note
== END | disposition home or self-care (01) ==
LOC: SCTO 15:43
PROVIDERS: PCP Internal Medicine; Referring Provider Internal Medicine Hematology & Oncology; Visit Provider Internal Medicine Hematology & Oncology
DX: D50.9 Iron deficiency anemia, unspecified (principal)
CPT/HCPCS: 36415; 80053; 85025

== ENCOUNTER 2025-04-02 07:55 | Outpatient (RCR) | payer OTHER, SELFPAY ==
[2025-03-18 08:46] LABS: Basophils # (Auto) 0.1 Thou/mm3 (0.0-0.2); Basophils % (Auto) 2 % (0-2.5); Eosinophils # (Auto) 0.2 Thou/mm3 (0.0-0.5); Eosinophils % (Auto) 4 % (0-10); Hematocrit 25.3 % (36.0-46.0); Immature Granulocytes Auto 0.01 Thou/mm3 (0.00-0.00); Lymphocytes # (Auto) 0.7 Thou/mm3 (1.0-4.8); Lymphocytes % (Auto) 15 % (10-50); Mean Corpuscular HGB Conc 32.0 g/dl (31.0-37.0); Mean Corpuscular Hemoglobin 22.9 pg (25.0-35.0); Mean Corpuscular Volume 72 fL (80-100); Monocytes # (Auto) 1.0 Thou/mm3 (0.0-0.8); Monocytes % (Auto) 21 % (0-12); Neutrophils # (Auto) 2.8 Thou/mm3 (1.8-7.7); Neutrophils % (Auto) 58 % (37-80); Nucleated Red Blood Cell # 0.00 Thou/mm3 (0.00-0.00); Nucleated Red Blood Cell % 0 /100 WBC (0); Platelet Count 502 Thou/mm3 (140-440); RDW Standard Deviation 49.6 fL (36.4-46.3); Red Blood Count 3.54 Miln/mm3 (4.00-5.20); White Blood Count 4.8 Thou/mm3 (3.6-11.0)
[2025-03-18 08:48] LABS: Hemoglobin 8.1 g/dL (12.0-16.0)
[2025-03-18 09:05] LABS: Alanine Aminotransferase 23 U/L (10-49); Albumin, Serum 3.5 gm/dL (3.4-4.8); Albumin/Globulin Ratio 1.1 (1.2-2.2); Alkaline Phosphatase 202 U/L (46-116); Anion Gap 7 (7-16); Aspartate Amino Transferase 46 U/L (0-34); BUN/Creatinine Ratio 14 Ratio (12-20); Bilirubin,Total 0.9 mg/dL (0.3-1.2); Blood Urea Nitrogen 10 mg/dL (9-23); Calcium 8.3 mg/dL (8.3-10.6); Calcium (Corrected) 8.7 mg/dL (8.5-10.1); Carbon Dioxide 32.9 mMol/L (20.0-31.0); Chloride 104 mMol/L (98-107); Creatinine (Component) 0.7 mg/dL (0.6-1.3); Globulin 3.3 gm/dL (2.3-3.5); Glucose 95 mg/dL (74-106); Osmolality,Calculated 285 (275-295); Sodium 144 mMol/L (136-145); Total Protein 6.8 gm/dL (5.7-8.2); eGFR > 60 See Note
[2025-03-18 09:08] LABS: Potassium 2.6 mMol/L (3.4-5.1)
[2025-03-23 08:41] LABS: Basophils # (Auto) 0.1 Thou/mm3 (0.0-0.2); Basophils % (Auto) 3 % (0-2.5); Eosinophils # (Auto) 0.2 Thou/mm3 (0.0-0.5); Eosinophils % (Auto) 4 % (0-10); Hematocrit 26.2 % (36.0-46.0); Immature Granulocytes Auto 0.01 Thou/mm3 (0.00-0.00); Lymphocytes # (Auto) 0.7 Thou/mm3 (1.0-4.8); Lymphocytes % (Auto) 17 % (10-50); Mean Corpuscular HGB Conc 30.5 g/dl (31.0-37.0); Mean Corpuscular Hemoglobin 22.7 pg (25.0-35.0); Mean Corpuscular Volume 74 fL (80-100); Monocytes # (Auto) 1.1 Thou/mm3 (0.0-0.8); Monocytes % (Auto) 27 % (0-12); Neutrophils # (Auto) 2.1 Thou/mm3 (1.8-7.7); Neutrophils % (Auto) 50 % (37-80); Nucleated Red Blood Cell # 0.00 Thou/mm3 (0.00-0.00); Nucleated Red Blood Cell % 0 /100 WBC (0); Platelet Count 453 Thou/mm3 (140-440); RDW Standard Deviation 51.7 fL (36.4-46.3); Red Blood Count 3.52 Miln/mm3 (4.00-5.20); White Blood Count 4.2 Thou/mm3 (3.6-11.0)
[2025-03-23 08:42] LABS: Hemoglobin 8.0 g/dL (12.0-16.0)
[2025-03-23 08:59] LABS: Alanine Aminotransferase 25 U/L (10-49); Albumin, Serum 3.8 gm/dL (3.4-4.8); Albumin/Globulin Ratio 1.3 (1.2-2.2); Alkaline Phosphatase 222 U/L (46-116); Anion Gap 8 (7-16); Aspartate Amino Transferase 42 U/L (0-34); BUN/Creatinine Ratio 14 Ratio (12-20); Bilirubin,Total 0.8 mg/dL (0.3-1.2); Blood Urea Nitrogen 10 mg/dL (9-23); Calcium 8.9 mg/dL (8.3-10.6); Calcium (Corrected) 9.1 mg/dL (8.5-10.1); Carbon Dioxide 26.6 mMol/L (20.0-31.0); Chloride 108 mMol/L (98-107); Creatinine (Component) 0.7 mg/dL (0.6-1.3); Globulin 2.9 gm/dL (2.3-3.5); Glucose 87 mg/dL (74-106); Osmolality,Calculated 282 (275-295); Potassium 3.4 mMol/L (3.4-5.1); Sodium 143 mMol/L (136-145); Total Protein 6.7 gm/dL (5.7-8.2); eGFR > 60 See Note
== END 2025-04-02 23:59 | disposition home or self-care (01) ==
LOC: SCTC 07:55
PROVIDERS: PCP Internal Medicine; Referring Provider Family Medicine; Visit Provider Internal Medicine Hematology & Oncology
DX: D50.9 Iron deficiency anemia, unspecified (principal)
CPT/HCPCS: 36415; 36430; 80053; 85025; 86850; 86900; 86901; 86923; 96365; J1756; J7040; J7050; P9016

== ENCOUNTER → 2025-04-07 | Outpatient (CLI) | payer OTHER, SELFPAY ==
[2025-04-07 16:33] LABS: Basophils # (Auto) 0.1 Thou/mm3 (0.0-0.2); Basophils % (Auto) 2 % (0-2.5); Eosinophils # (Auto) 0.1 Thou/mm3 (0.0-0.5); Eosinophils % (Auto) 2 % (0-10); Hematocrit 28.9 % (36.0-46.0); Hemoglobin 8.9 g/dL (12.0-16.0); Immature Granulocytes Auto 0.02 Thou/mm3 (0.00-0.00); Lymphocytes # (Auto) 1.1 Thou/mm3 (1.0-4.8); Lymphocytes % (Auto) 18 % (10-50); Mean Corpuscular HGB Conc 30.8 g/dl (31.0-37.0); Mean Corpuscular Hemoglobin 23.5 pg (25.0-35.0); Mean Corpuscular Volume 76 fL (80-100); Monocytes # (Auto) 1.1 Thou/mm3 (0.0-0.8); Monocytes % (Auto) 18 % (0-12); Neutrophils # (Auto) 3.5 Thou/mm3 (1.8-7.7); Neutrophils % (Auto) 60 % (37-80); Nucleated Red Blood Cell # 0.02 Thou/mm3 (0.00-0.00); Nucleated Red Blood Cell % 0 /100 WBC (0); Platelet Count 527 Thou/mm3 (140-440); RDW Standard Deviation 60.2 fL (36.4-46.3); Red Blood Count 3.79 Miln/mm3 (4.00-5.20); White Blood Count 5.9 Thou/mm3 (3.6-11.0)
[2025-04-07 17:01] LABS: Alanine Aminotransferase 24 U/L (10-49); Albumin, Serum 3.7 gm/dL (3.4-4.8); Albumin/Globulin Ratio 1.2 (1.2-2.2); Alkaline Phosphatase 212 U/L (46-116); Anion Gap 8 (7-16); Aspartate Amino Transferase 47 U/L (0-34); BUN/Creatinine Ratio 11 Ratio (12-20); Bilirubin,Total 0.8 mg/dL (0.3-1.2); Blood Urea Nitrogen 9 mg/dL (9-23); Calcium 8.8 mg/dL (8.3-10.6); Calcium (Corrected) 9.0 mg/dL (8.5-10.1); Carbon Dioxide 29.8 mMol/L (20.0-31.0); Chloride 104 mMol/L (98-107); Creatinine (Component) 0.8 mg/dL (0.6-1.3); Globulin 3.2 gm/dL (2.3-3.5); Glucose 86 mg/dL (74-106); Osmolality,Calculated 280 (275-295); Potassium 3.5 mMol/L (3.4-5.1); Sodium 142 mMol/L (136-145); Total Protein 6.9 gm/dL (5.7-8.2); eGFR > 60 See Note
== END | disposition home or self-care (01) ==
LOC: COPL 15:58 → SCTO 16:04
PROVIDERS: PCP Internal Medicine Hematology & Oncology; Referring Provider Internal Medicine Hematology & Oncology; Visit Provider Internal Medicine Hematology & Oncology
DX: D50.9 Iron deficiency anemia, unspecified (principal)
CPT/HCPCS: 36415; 80053; 85025

== ENCOUNTER → 2025-04-14 | Outpatient (CLI) | payer OTHER, SELFPAY ==
[2025-04-14 16:40] LABS: Basophils # (Auto) 0.1 Thou/mm3 (0.0-0.2); Basophils % (Auto) 2 % (0-2.5); Eosinophils # (Auto) 0.1 Thou/mm3 (0.0-0.5); Eosinophils % (Auto) 2 % (0-10); Hematocrit 29.5 % (36.0-46.0); Hemoglobin 9.0 g/dL (12.0-16.0); Immature Granulocytes Auto 0.01 Thou/mm3 (0.00-0.00); Lymphocytes # (Auto) 1.0 Thou/mm3 (1.0-4.8); Lymphocytes % (Auto) 21 % (10-50); Mean Corpuscular HGB Conc 30.5 g/dl (31.0-37.0); Mean Corpuscular Hemoglobin 24.5 pg (25.0-35.0); Mean Corpuscular Volume 80 fL (80-100); Monocytes # (Auto) 0.8 Thou/mm3 (0.0-0.8); Monocytes % (Auto) 17 % (0-12); Neutrophils # (Auto) 2.7 Thou/mm3 (1.8-7.7); Neutrophils % (Auto) 58 % (37-80); Nucleated Red Blood Cell # 0.03 Thou/mm3 (0.00-0.00); Nucleated Red Blood Cell % 1 /100 WBC (0); Platelet Count 526 Thou/mm3 (140-440); RDW Standard Deviation 72.6 fL (36.4-46.3); Red Blood Count 3.68 Miln/mm3 (4.00-5.20); White Blood Count 4.7 Thou/mm3 (3.6-11.0)
[2025-04-14 17:02] LABS: Alanine Aminotransferase 27 U/L (10-49); Albumin, Serum 3.6 gm/dL (3.4-4.8); Albumin/Globulin Ratio 1.2 (1.2-2.2); Alkaline Phosphatase 215 U/L (46-116); Anion Gap 9 (7-16); Aspartate Amino Transferase 52 U/L (0-34); BUN/Creatinine Ratio 18 Ratio (12-20); Bilirubin,Total 0.7 mg/dL (0.3-1.2); Blood Urea Nitrogen 14 mg/dL (9-23); Calcium 9.0 mg/dL (8.3-10.6); Calcium (Corrected) 9.3 mg/dL (8.5-10.1); Carbon Dioxide 30.1 mMol/L (20.0-31.0); Chloride 105 mMol/L (98-107); Creatinine (Component) 0.8 mg/dL (0.6-1.3); Globulin 3.0 gm/dL (2.3-3.5); Glucose 136 mg/dL (74-106); Osmolality,Calculated 289 (275-295); Potassium 3.8 mMol/L (3.4-5.1); Sodium 144 mMol/L (136-145); Total Protein 6.6 gm/dL (5.7-8.2); eGFR > 60 See Note
== END | disposition home or self-care (01) ==
LOC: SCTO 15:40
PROVIDERS: PCP Internal Medicine; Referring Provider Internal Medicine Hematology & Oncology; Visit Provider Internal Medicine Hematology & Oncology
DX: D50.9 Iron deficiency anemia, unspecified (principal)
CPT/HCPCS: 36415; 80053; 85025

== ENCOUNTER → 2025-04-20 | Outpatient (CLI) | payer OTHER, SELFPAY ==
[2025-04-20 13:12] LABS: Basophils # (Auto) 0.1 Thou/mm3 (0.0-0.2); Basophils % (Auto) 2 % (0-2.5); Eosinophils # (Auto) 0.2 Thou/mm3 (0.0-0.5); Eosinophils % (Auto) 4 % (0-10); Hematocrit 29.1 % (36.0-46.0); Hemoglobin 8.9 g/dL (12.0-16.0); Immature Granulocytes Auto 0.01 Thou/mm3 (0.00-0.00); Immature Reticulocyte Fraction 18.9 % (3.0-15.9); Lymphocytes # (Auto) 1.2 Thou/mm3 (1.0-4.8); Lymphocytes % (Auto) 24 % (10-50); Mean Corpuscular HGB Conc 30.6 g/dl (31.0-37.0); Mean Corpuscular Hemoglobin 25.1 pg (25.0-35.0); Mean Corpuscular Volume 82 fL (80-100); Monocytes # (Auto) 1.0 Thou/mm3 (0.0-0.8); Monocytes % (Auto) 19 % (0-12); Neutrophils # (Auto) 2.7 Thou/mm3 (1.8-7.7); Neutrophils % (Auto) 52 % (37-80); Nucleated Red Blood Cell # 0.04 Thou/mm3 (0.00-0.00); Nucleated Red Blood Cell % 1 /100 WBC (0); Platelet Count 479 Thou/mm3 (140-440); RDW Standard Deviation 76.7 fL (36.4-46.3); Red Blood Count 3.55 Miln/mm3 (4.00-5.20); Reticulocyte % (Auto) 1.7 % (0.5-1.5); Reticulocyte Absolute Auto 61.8 Biln/L (25.0-75.0); Reticulocyte Hgb Content 29.8 pg (28.0-35.0); White Blood Count 5.2 Thou/mm3 (3.6-11.0)
[2025-04-20 13:30] LABS: Alanine Aminotransferase 27 U/L (10-49); Albumin, Serum 3.7 gm/dL (3.4-4.8); Albumin/Globulin Ratio 1.2 (1.2-2.2); Alkaline Phosphatase 223 U/L (46-116); Anion Gap 9 (7-16); Aspartate Amino Transferase 52 U/L (0-34); BUN/Creatinine Ratio 16 Ratio (12-20); Bilirubin,Total 0.7 mg/dL (0.3-1.2); Blood Urea Nitrogen 11 mg/dL (9-23); Calcium 9.4 mg/dL (8.3-10.6); Calcium (Corrected) 9.6 mg/dL (8.5-10.1); Carbon Dioxide 27.8 mMol/L (20.0-31.0); Chloride 105 mMol/L (98-107); Creatinine (Component) 0.7 mg/dL (0.6-1.3); Globulin 3.1 gm/dL (2.3-3.5); Glucose 111 mg/dL (74-106); LDH (Lactate Dehydrogenase) 258 U/L (120-246); Osmolality,Calculated 283 (275-295); Potassium 3.6 mMol/L (3.4-5.1); Sodium 142 mMol/L (136-145); Total Protein 6.8 gm/dL (5.7-8.2); eGFR > 60 See Note
[2025-04-20 13:35] LABS: Ferritin 113 ng/mL (7.3-270.7); Iron 23 mcg/dL (50-170); Percent Iron Saturation 7 % (20-55); Total Iron Binding Capacity 322 mcg/dL (250-425); Unsaturated Iron Binding 299 (225-295)
[2025-04-20 13:37] LABS: Carcinoembryonic Antigen 1.7 ng/mL (0.0-5.0); Folate 19.10 ng/mL (>5.38); Vitamin B12 1103 pg/mL (211-911)
[2025-04-27 07:00] LABS: Haptoglobin* 42 mg/dL (43-212)
== END | disposition home or self-care (01) ==
LOC: SCTO 12:20
PROVIDERS: PCP Internal Medicine; Referring Provider Internal Medicine Hematology & Oncology; Visit Provider Internal Medicine Hematology & Oncology
DX: D50.9 Iron deficiency anemia, unspecified (principal)
CPT/HCPCS: 36415; 80053; 82378; 82607; 82728; 82746; 83010; 83540; 83550; 83615; 85025; 85046

== ENCOUNTER → 2025-04-29 | Outpatient (CLI) | payer OTHER, SELFPAY ==
[2025-04-29 11:41] LABS: Basophils # (Auto) 0.1 Thou/mm3 (0.0-0.2); Basophils % (Auto) 2 % (0-2.5); Eosinophils # (Auto) 0.1 Thou/mm3 (0.0-0.5); Eosinophils % (Auto) 2 % (0-10); Hematocrit 29.2 % (36.0-46.0); Hemoglobin 8.9 g/dL (12.0-16.0); Immature Granulocytes Auto 0.01 Thou/mm3 (0.00-0.00); Lymphocytes # (Auto) 0.7 Thou/mm3 (1.0-4.8); Lymphocytes % (Auto) 18 % (10-50); Mean Corpuscular HGB Conc 30.5 g/dl (31.0-37.0); Mean Corpuscular Hemoglobin 26.1 pg (25.0-35.0); Mean Corpuscular Volume 86 fL (80-100); Monocytes # (Auto) 0.6 Thou/mm3 (0.0-0.8); Monocytes % (Auto) 14 % (0-12); Neutrophils # (Auto) 2.6 Thou/mm3 (1.8-7.7); Neutrophils % (Auto) 64 % (37-80); Nucleated Red Blood Cell # 0.00 Thou/mm3 (0.00-0.00); Nucleated Red Blood Cell % 0 /100 WBC (0); Platelet Count 400 Thou/mm3 (140-440); RDW Standard Deviation 84.1 fL (36.4-46.3); Red Blood Count 3.41 Miln/mm3 (4.00-5.20); White Blood Count 4.1 Thou/mm3 (3.6-11.0)
[2025-04-29 11:55] LABS: Alanine Aminotransferase 22 U/L (10-49); Albumin, Serum 3.6 gm/dL (3.4-4.8); Albumin/Globulin Ratio 1.2 (1.2-2.2); Alkaline Phosphatase 214 U/L (46-116); Anion Gap 8 (7-16); Aspartate Amino Transferase 43 U/L (0-34); BUN/Creatinine Ratio 15 Ratio (12-20); Bilirubin,Total 0.6 mg/dL (0.3-1.2); Blood Urea Nitrogen 12 mg/dL (9-23); Calcium 9.7 mg/dL (8.3-10.6); Calcium (Corrected) 10.0 mg/dL (8.5-10.1); Carbon Dioxide 29.2 mMol/L (20.0-31.0); Chloride 106 mMol/L (98-107); Creatinine (Component) 0.8 mg/dL (0.6-1.3); Globulin 3.0 gm/dL (2.3-3.5); Glucose 137 mg/dL (74-106); Osmolality,Calculated 286 (275-295); Potassium 3.5 mMol/L (3.4-5.1); Sodium 143 mMol/L (136-145); Total Protein 6.6 gm/dL (5.7-8.2); eGFR > 60 See Note
== END | disposition home or self-care (01) ==
LOC: SCTO 10:18
PROVIDERS: PCP Internal Medicine; Referring Provider Internal Medicine Hematology & Oncology; Visit Provider Internal Medicine Hematology & Oncology
DX: D50.9 Iron deficiency anemia, unspecified (principal)
CPT/HCPCS: 36415; 80053; 85025

== ENCOUNTER 2025-04-30 08:36 | Outpatient (RCR) | payer OTHER, SELFPAY | END 2025-05-03 23:59 | disposition home or self-care (01) | LOC: SCTC 08:36 | PROVIDERS: PCP Internal Medicine; Referring Provider Internal Medicine; Visit Provider Nurse Practitioner Family | DX: D50.9 Iron deficiency anemia, unspecified (principal) | CPT/HCPCS: 36430; 96365; 99212; J1756; J7040; J7050; G0463 ==

== ENCOUNTER → 2025-05-05 | Outpatient (CLI) | payer OTHER, SELFPAY ==
[2025-05-05 16:31] LABS: Basophils # (Auto) 0.1 Thou/mm3 (0.0-0.2); Basophils % (Auto) 2 % (0-2.5); Eosinophils # (Auto) 0.2 Thou/mm3 (0.0-0.5); Eosinophils % (Auto) 4 % (0-10); Hematocrit 30.4 % (36.0-46.0); Hemoglobin 9.2 g/dL (12.0-16.0); Immature Granulocytes Auto 0.01 Thou/mm3 (0.00-0.00); Lymphocytes # (Auto) 1.2 Thou/mm3 (1.0-4.8); Lymphocytes % (Auto) 20 % (10-50); Mean Corpuscular HGB Conc 30.3 g/dl (31.0-37.0); Mean Corpuscular Hemoglobin 26.3 pg (25.0-35.0); Mean Corpuscular Volume 87 fL (80-100); Monocytes # (Auto) 1.1 Thou/mm3 (0.0-0.8); Monocytes % (Auto) 18 % (0-12); Neutrophils # (Auto) 3.2 Thou/mm3 (1.8-7.7); Neutrophils % (Auto) 55 % (37-80); Nucleated Red Blood Cell # 0.03 Thou/mm3 (0.00-0.00); Nucleated Red Blood Cell % 1 /100 WBC (0); Platelet Count 459 Thou/mm3 (140-440); RDW Standard Deviation 85.2 fL (36.4-46.3); Red Blood Count 3.50 Miln/mm3 (4.00-5.20); White Blood Count 5.8 Thou/mm3 (3.6-11.0)
[2025-05-05 16:48] LABS: Alanine Aminotransferase 29 U/L (10-49); Albumin, Serum 3.6 gm/dL (3.4-4.8); Albumin/Globulin Ratio 1.2 (1.2-2.2); Alkaline Phosphatase 225 U/L (46-116); Anion Gap 8 (7-16); Aspartate Amino Transferase 53 U/L (0-34); BUN/Creatinine Ratio 15 Ratio (12-20); Bilirubin,Total 0.6 mg/dL (0.3-1.2); Blood Urea Nitrogen 12 mg/dL (9-23); Calcium 9.5 mg/dL (8.3-10.6); Calcium (Corrected) 9.8 mg/dL (8.5-10.1); Carbon Dioxide 30.9 mMol/L (20.0-31.0); Chloride 105 mMol/L (98-107); Creatinine (Component) 0.8 mg/dL (0.6-1.3); Globulin 3.0 gm/dL (2.3-3.5); Glucose 82 mg/dL (74-106); Osmolality,Calculated 285 (275-295); Potassium 3.6 mMol/L (3.4-5.1); Sodium 144 mMol/L (136-145); Total Protein 6.6 gm/dL (5.7-8.2); eGFR > 60 See Note
== END | disposition home or self-care (01) ==
LOC: COPL 13:44 → SCTO 13:45
PROVIDERS: PCP Internal Medicine; Referring Provider Nurse Practitioner Family; Visit Provider Nurse Practitioner Family
DX: D50.9 Iron deficiency anemia, unspecified (principal)
CPT/HCPCS: 36415; 80053; 85025

== ENCOUNTER → 2025-05-12 | Outpatient (CLI) | payer OTHER, SELFPAY ==
[2025-05-12 17:01] LABS: Basophils # (Auto) 0.1 Thou/mm3 (0.0-0.2); Basophils % (Auto) 1 % (0-2.5); Eosinophils # (Auto) 0.1 Thou/mm3 (0.0-0.5); Eosinophils % (Auto) 1 % (0-10); Hematocrit 30.9 % (36.0-46.0); Hemoglobin 9.7 g/dL (12.0-16.0); Immature Granulocytes Auto 0.03 Thou/mm3 (0.00-0.00); Lymphocytes # (Auto) 0.8 Thou/mm3 (1.0-4.8); Lymphocytes % (Auto) 10 % (10-50); Mean Corpuscular HGB Conc 31.4 g/dl (31.0-37.0); Mean Corpuscular Hemoglobin 27.6 pg (25.0-35.0); Mean Corpuscular Volume 88 fL (80-100); Monocytes # (Auto) 1.3 Thou/mm3 (0.0-0.8); Monocytes % (Auto) 15 % (0-12); Neutrophils # (Auto) 6.1 Thou/mm3 (1.8-7.7); Neutrophils % (Auto) 73 % (37-80); Nucleated Red Blood Cell # 0.04 Thou/mm3 (0.00-0.00); Nucleated Red Blood Cell % 1 /100 WBC (0); Platelet Count 465 Thou/mm3 (140-440); RDW Standard Deviation 82.2 fL (36.4-46.3); Red Blood Count 3.52 Miln/mm3 (4.00-5.20); White Blood Count 8.4 Thou/mm3 (3.6-11.0)
[2025-05-12 17:17] LABS: Alanine Aminotransferase 35 U/L (10-49); Albumin, Serum 3.6 gm/dL (3.4-4.8); Albumin/Globulin Ratio 1.1 (1.2-2.2); Alkaline Phosphatase 278 U/L (46-116); Anion Gap 12 (7-16); Aspartate Amino Transferase 69 U/L (0-34); BUN/Creatinine Ratio 17 Ratio (12-20); Bilirubin,Total 0.7 mg/dL (0.3-1.2); Blood Urea Nitrogen 12 mg/dL (9-23); Calcium 9.3 mg/dL (8.3-10.6); Calcium (Corrected) 9.6 mg/dL (8.5-10.1); Carbon Dioxide 27.0 mMol/L (20.0-31.0); Chloride 102 mMol/L (98-107); Creatinine (Component) 0.7 mg/dL (0.6-1.3); Globulin 3.2 gm/dL (2.3-3.5); Glucose 77 mg/dL (74-106); Osmolality,Calculated 279 (275-295); Potassium 4.4 mMol/L (3.4-5.1); Sodium 141 mMol/L (136-145); Total Protein 6.8 gm/dL (5.7-8.2); eGFR > 60 See Note
== END | disposition home or self-care (01) ==
LOC: SCTO 15:39
PROVIDERS: PCP Internal Medicine; Referring Provider Internal Medicine Hematology & Oncology; Visit Provider Internal Medicine Hematology & Oncology
DX: D50.9 Iron deficiency anemia, unspecified (principal)
CPT/HCPCS: 36415; 80053; 85025

== ENCOUNTER → 2025-05-19 | Outpatient (CLI) | payer OTHER, SELFPAY ==
[2025-05-19 16:39] LABS: Basophils # (Auto) 0.1 Thou/mm3 (0.0-0.2); Basophils % (Auto) 2 % (0-2.5); Eosinophils # (Auto) 0.2 Thou/mm3 (0.0-0.5); Eosinophils % (Auto) 3 % (0-10); Hematocrit 29.6 % (36.0-46.0); Hemoglobin 9.3 g/dL (12.0-16.0); Immature Granulocytes Auto 0.02 Thou/mm3 (0.00-0.00); Immature Reticulocyte Fraction 19.5 % (3.0-15.9); Lymphocytes # (Auto) 1.0 Thou/mm3 (1.0-4.8); Lymphocytes % (Auto) 17 % (10-50); Mean Corpuscular HGB Conc 31.4 g/dl (31.0-37.0); Mean Corpuscular Hemoglobin 27.2 pg (25.0-35.0); Mean Corpuscular Volume 87 fL (80-100); Monocytes # (Auto) 1.0 Thou/mm3 (0.0-0.8); Monocytes % (Auto) 17 % (0-12); Neutrophils # (Auto) 3.6 Thou/mm3 (1.8-7.7); Neutrophils % (Auto) 61 % (37-80); Nucleated Red Blood Cell # 0.00 Thou/mm3 (0.00-0.00); Nucleated Red Blood Cell % 0 /100 WBC (0); Platelet Count 492 Thou/mm3 (140-440); RDW Standard Deviation 75.2 fL (36.4-46.3); Red Blood Count 3.42 Miln/mm3 (4.00-5.20); Reticulocyte % (Auto) 2.2 % (0.5-1.5); Reticulocyte Absolute Auto 73.5 Biln/L (25.0-75.0); Reticulocyte Hgb Content 30.0 pg (28.0-35.0); White Blood Count 5.9 Thou/mm3 (3.6-11.0)
[2025-05-19 16:51] LABS: Alanine Aminotransferase 33 U/L (10-49); Albumin, Serum 3.7 gm/dL (3.4-4.8); Albumin/Globulin Ratio 1.2 (1.2-2.2); Alkaline Phosphatase 266 U/L (46-116); Anion Gap 9 (7-16); Aspartate Amino Transferase 57 U/L (0-34); BUN/Creatinine Ratio 19 Ratio (12-20); Bilirubin,Total 0.6 mg/dL (0.3-1.2); Blood Urea Nitrogen 15 mg/dL (9-23); Calcium 9.3 mg/dL (8.3-10.6); Calcium (Corrected) 9.5 mg/dL (8.5-10.1); Carbon Dioxide 28.5 mMol/L (20.0-31.0); Chloride 105 mMol/L (98-107); Creatinine (Component) 0.8 mg/dL (0.6-1.3); Globulin 3.1 gm/dL (2.3-3.5); Glucose 77 mg/dL (74-106); LDH (Lactate Dehydrogenase) 239 U/L (120-246); Osmolality,Calculated 282 (275-295); Potassium 4.0 mMol/L (3.4-5.1); Sodium 142 mMol/L (136-145); Total Protein 6.8 gm/dL (5.7-8.2); eGFR > 60 See Note
[2025-05-19 16:52] LABS: Ferritin 82 ng/mL (7.3-270.7); Folate 16.31 ng/mL (>5.38); Iron 53 mcg/dL (50-170); Percent Iron Saturation 17 % (20-55); Total Iron Binding Capacity 301 mcg/dL (250-425); Unsaturated Iron Binding 248 (225-295); Vitamin B12 1115 pg/mL (211-911)
[2025-05-29 06:32] LABS: Haptoglobin* 53 mg/dL (43-212)
== END | disposition home or self-care (01) ==
LOC: SCTO 15:34
PROVIDERS: PCP Internal Medicine; Referring Provider Nurse Practitioner Family; Visit Provider Nurse Practitioner Family
DX: D50.9 Iron deficiency anemia, unspecified (principal)
CPT/HCPCS: 36415; 80053; 82607; 82728; 82746; 83010; 83540; 83550; 83615; 85025; 85046

== ENCOUNTER → 2025-05-26 | Outpatient (CLI) | payer OTHER, SELFPAY ==
[2025-05-26 16:32] LABS: Basophils # (Auto) 0.1 Thou/mm3 (0.0-0.2); Basophils % (Auto) 2 % (0-2.5); Eosinophils # (Auto) 0.1 Thou/mm3 (0.0-0.5); Eosinophils % (Auto) 2 % (0-10); Hematocrit 30.3 % (36.0-46.0); Hemoglobin 9.6 g/dL (12.0-16.0); Immature Granulocytes Auto 0.01 Thou/mm3 (0.00-0.00); Lymphocytes # (Auto) 1.1 Thou/mm3 (1.0-4.8); Lymphocytes % (Auto) 24 % (10-50); Mean Corpuscular HGB Conc 31.7 g/dl (31.0-37.0); Mean Corpuscular Hemoglobin 28.3 pg (25.0-35.0); Mean Corpuscular Volume 89 fL (80-100); Monocytes # (Auto) 0.9 Thou/mm3 (0.0-0.8); Monocytes % (Auto) 20 % (0-12); Neutrophils # (Auto) 2.4 Thou/mm3 (1.8-7.7); Neutrophils % (Auto) 52 % (37-80); Nucleated Red Blood Cell # 0.02 Thou/mm3 (0.00-0.00); Nucleated Red Blood Cell % 0 /100 WBC (0); Platelet Count 467 Thou/mm3 (140-440); RDW Standard Deviation 76.0 fL (36.4-46.3); Red Blood Count 3.39 Miln/mm3 (4.00-5.20); White Blood Count 4.5 Thou/mm3 (3.6-11.0)
[2025-05-26 17:10] LABS: Alanine Aminotransferase 35 U/L (10-49); Albumin, Serum 3.6 gm/dL (3.4-4.8); Albumin/Globulin Ratio 1.2 (1.2-2.2); Alkaline Phosphatase 238 U/L (46-116); Anion Gap 9 (7-16); Aspartate Amino Transferase 58 U/L (0-34); BUN/Creatinine Ratio 17 Ratio (12-20); Bilirubin,Total 0.6 mg/dL (0.3-1.2); Blood Urea Nitrogen 12 mg/dL (9-23); Calcium 8.9 mg/dL (8.3-10.6); Calcium (Corrected) 9.2 mg/dL (8.5-10.1); Carbon Dioxide 27.9 mMol/L (20.0-31.0); Chloride 107 mMol/L (98-107); Creatinine (Component) 0.7 mg/dL (0.6-1.3); Globulin 3.1 gm/dL (2.3-3.5); Glucose 117 mg/dL (74-106); Osmolality,Calculated 287 (275-295); Potassium 3.7 mMol/L (3.4-5.1); Sodium 144 mMol/L (136-145); Total Protein 6.7 gm/dL (5.7-8.2); eGFR > 60 See Note
== END | disposition home or self-care (01) ==
LOC: SCTO 15:20
PROVIDERS: PCP Internal Medicine; Referring Provider Nurse Practitioner Family; Visit Provider Nurse Practitioner Family
DX: D50.9 Iron deficiency anemia, unspecified (principal)
CPT/HCPCS: 36415; 80053; 85025

== ENCOUNTER 2025-05-28 14:04 | Outpatient (RCR) | payer OTHER, SELFPAY | END 2025-06-02 23:59 | disposition home or self-care (01) | LOC: SCTC 14:04 | PROVIDERS: PCP Internal Medicine; Referring Provider Internal Medicine; Visit Provider Internal Medicine Hematology & Oncology | DX: D50.9 Iron deficiency anemia, unspecified (principal) | CPT/HCPCS: 96365; A4216; J1756; J3490; J7040 ==

== ENCOUNTER → 2025-06-02 | Outpatient (CLI) | payer OTHER, SELFPAY ==
[2025-06-02 16:39] LABS: Basophils # (Auto) 0.1 Thou/mm3 (0.0-0.2); Basophils % (Auto) 1 % (0-2.5); Eosinophils # (Auto) 0.2 Thou/mm3 (0.0-0.5); Eosinophils % (Auto) 3 % (0-10); Hematocrit 31.1 % (36.0-46.0); Hemoglobin 9.5 g/dL (12.0-16.0); Immature Granulocytes Auto 0.02 Thou/mm3 (0.00-0.00); Lymphocytes # (Auto) 1.2 Thou/mm3 (1.0-4.8); Lymphocytes % (Auto) 17 % (10-50); Mean Corpuscular HGB Conc 30.5 g/dl (31.0-37.0); Mean Corpuscular Hemoglobin 28.2 pg (25.0-35.0); Mean Corpuscular Volume 92 fL (80-100); Monocytes # (Auto) 1.4 Thou/mm3 (0.0-0.8); Monocytes % (Auto) 20 % (0-12); Neutrophils # (Auto) 4.1 Thou/mm3 (1.8-7.7); Neutrophils % (Auto) 59 % (37-80); Nucleated Red Blood Cell # 0.03 Thou/mm3 (0.00-0.00); Nucleated Red Blood Cell % 0 /100 WBC (0); Platelet Count 394 Thou/mm3 (140-440); RDW Standard Deviation 75.5 fL (36.4-46.3); Red Blood Count 3.37 Miln/mm3 (4.00-5.20); White Blood Count 7.0 Thou/mm3 (3.6-11.0)
[2025-06-02 16:55] LABS: Alanine Aminotransferase 41 U/L (10-49); Albumin, Serum 3.7 gm/dL (3.4-4.8); Albumin/Globulin Ratio 1.2 (1.2-2.2); Alkaline Phosphatase 285 U/L (46-116); Anion Gap 9 (7-16); Aspartate Amino Transferase 75 U/L (0-34); BUN/Creatinine Ratio 18 Ratio (12-20); Bilirubin,Total 0.6 mg/dL (0.3-1.2); Blood Urea Nitrogen 14 mg/dL (9-23); Calcium 9.6 mg/dL (8.3-10.6); Calcium (Corrected) 9.8 mg/dL (8.5-10.1); Carbon Dioxide 28.0 mMol/L (20.0-31.0); Chloride 105 mMol/L (98-107); Creatinine (Component) 0.8 mg/dL (0.6-1.3); Globulin 3.2 gm/dL (2.3-3.5); Glucose 88 mg/dL (74-106); Osmolality,Calculated 282 (275-295); Potassium 3.7 mMol/L (3.4-5.1); Sodium 142 mMol/L (136-145); Total Protein 6.9 gm/dL (5.7-8.2); eGFR > 60 See Note
== END | disposition home or self-care (01) ==
LOC: SCTO 14:36
PROVIDERS: PCP Internal Medicine; Referring Provider Internal Medicine Hematology & Oncology; Visit Provider Internal Medicine Hematology & Oncology
DX: D50.9 Iron deficiency anemia, unspecified (principal)
CPT/HCPCS: 36415; 80053; 85025

== ENCOUNTER → 2025-06-09 | Outpatient (CLI) | payer OTHER, SELFPAY ==
[2025-06-09 16:41] LABS: Basophils # (Auto) 0.1 Thou/mm3 (0.0-0.2); Basophils % (Auto) 2 % (0-2.5); Eosinophils # (Auto) 0.2 Thou/mm3 (0.0-0.5); Eosinophils % (Auto) 3 % (0-10); Hematocrit 29.3 % (36.0-46.0); Hemoglobin 9.2 g/dL (12.0-16.0); Immature Granulocytes Auto 0.03 Thou/mm3 (0.00-0.00); Lymphocytes # (Auto) 1.0 Thou/mm3 (1.0-4.8); Lymphocytes % (Auto) 15 % (10-50); Mean Corpuscular HGB Conc 31.4 g/dl (31.0-37.0); Mean Corpuscular Hemoglobin 28.3 pg (25.0-35.0); Mean Corpuscular Volume 90 fL (80-100); Monocytes # (Auto) 1.3 Thou/mm3 (0.0-0.8); Monocytes % (Auto) 19 % (0-12); Neutrophils # (Auto) 4.2 Thou/mm3 (1.8-7.7); Neutrophils % (Auto) 62 % (37-80); Nucleated Red Blood Cell # 0.02 Thou/mm3 (0.00-0.00); Nucleated Red Blood Cell % 0 /100 WBC (0); Platelet Count 485 Thou/mm3 (140-440); RDW Standard Deviation 69.5 fL (36.4-46.3); Red Blood Count 3.25 Miln/mm3 (4.00-5.20); White Blood Count 6.8 Thou/mm3 (3.6-11.0)
[2025-06-09 16:54] LABS: Alanine Aminotransferase 35 U/L (10-49); Albumin, Serum 3.6 gm/dL (3.4-4.8); Albumin/Globulin Ratio 1.2 (1.2-2.2); Alkaline Phosphatase 254 U/L (46-116); Anion Gap 6 (7-16); Aspartate Amino Transferase 61 U/L (0-34); BUN/Creatinine Ratio 17 Ratio (12-20); Bilirubin,Total 0.5 mg/dL (0.3-1.2); Blood Urea Nitrogen 12 mg/dL (9-23); Calcium 8.9 mg/dL (8.3-10.6); Calcium (Corrected) 9.2 mg/dL (8.5-10.1); Carbon Dioxide 28.7 mMol/L (20.0-31.0); Chloride 107 mMol/L (98-107); Creatinine (Component) 0.7 mg/dL (0.6-1.3); Globulin 3.1 gm/dL (2.3-3.5); Glucose 104 mg/dL (74-106); Osmolality,Calculated 282 (275-295); Potassium 3.5 mMol/L (3.4-5.1); Sodium 142 mMol/L (136-145); Total Protein 6.7 gm/dL (5.7-8.2); eGFR > 60 See Note
== END | disposition home or self-care (01) ==
LOC: SCTO 15:06
PROVIDERS: PCP Internal Medicine; Referring Provider Internal Medicine Hematology & Oncology; Visit Provider Internal Medicine Hematology & Oncology
DX: D50.9 Iron deficiency anemia, unspecified (principal)
CPT/HCPCS: 36415; 80053; 85025

== ENCOUNTER 2025-06-11 12:53 | Outpatient (RCR) | payer OTHER, SELFPAY | END 2025-07-03 23:59 | disposition home or self-care (01) | LOC: SCTC 12:53 | PROVIDERS: PCP Internal Medicine; Referring Provider Internal Medicine; Visit Provider Internal Medicine Hematology & Oncology | DX: D50.9 Iron deficiency anemia, unspecified (principal) | CPT/HCPCS: 96365; J1756; J3490; J7040 ==

== ENCOUNTER → 2025-08-03 | Outpatient (CLI) | payer OTHER, SELFPAY ==
[2025-08-03 16:44] LABS: Basophils # (Auto) 0.1 Thou/mm3 (0.0-0.2); Basophils % (Auto) 2 % (0-2.5); Eosinophils # (Auto) 0.1 Thou/mm3 (0.0-0.5); Eosinophils % (Auto) 2 % (0-10); Hematocrit 30.2 % (36.0-46.0); Hemoglobin 9.5 g/dL (12.0-16.0); Immature Granulocytes Auto 0.02 Thou/mm3 (0.00-0.00); Lymphocytes # (Auto) 1.5 Thou/mm3 (1.0-4.8); Lymphocytes % (Auto) 25 % (10-50); Mean Corpuscular HGB Conc 31.5 g/dl (31.0-37.0); Mean Corpuscular Hemoglobin 27.4 pg (25.0-35.0); Mean Corpuscular Volume 87 fL (80-100); Monocytes # (Auto) 1.2 Thou/mm3 (0.0-0.8); Monocytes % (Auto) 19 % (0-12); Neutrophils # (Auto) 3.3 Thou/mm3 (1.8-7.7); Neutrophils % (Auto) 53 % (37-80); Nucleated Red Blood Cell # 0.00 Thou/mm3 (0.00-0.00); Nucleated Red Blood Cell % 0 /100 WBC (0); Platelet Count 473 Thou/mm3 (140-440); RDW Standard Deviation 52.3 fL (36.4-46.3); Red Blood Count 3.47 Miln/mm3 (4.00-5.20); White Blood Count 6.2 Thou/mm3 (3.6-11.0)
[2025-08-03 16:59] LABS: Glucose Estimated Average 100 mg/dL (80-131); Hemoglobin A1C 5.1 % Hgb (4.8-6.0)
[2025-08-03 18:48] LABS: Alanine Aminotransferase 29 U/L (10-49); Albumin, Serum 3.8 gm/dL (3.4-4.8); Albumin/Globulin Ratio 1.2 (1.2-2.2); Alkaline Phosphatase 236 U/L (46-116); Anion Gap 8 (7-16); Aspartate Amino Transferase 53 U/L (0-34); BUN/Creatinine Ratio 20 Ratio (12-20); Bilirubin,Total 0.6 mg/dL (0.3-1.2); Blood Urea Nitrogen 14 mg/dL (9-23); Calcium 9.0 mg/dL (8.3-10.6); Calcium (Corrected) 9.2 mg/dL (8.5-10.1); Carbon Dioxide 27.1 mMol/L (20.0-31.0); Cardiac Risk Estimate 3.0 RATIO (3.7-5.6); Chloride 108 mMol/L (98-107); Cholesterol 131 mg/dL (132-200); Creatinine (Component) 0.7 mg/dL (0.6-1.3); Globulin 3.3 gm/dL (2.3-3.5); Glucose 82 mg/dL (74-106); HDL Cholesterol 44 mg/dL (40-60); Magnesium 2.0 mg/dL (1.6-2.6); Osmolality,Calculated 284 (275-295); Potassium 3.7 mMol/L (3.4-5.1); Sodium 143 mMol/L (136-145); Total Protein 7.1 gm/dL (5.7-8.2); eGFR > 60 See Note
[2025-08-03 19:52] LABS: LDL Cholesterol,Calculated 77 mg/dL (0-130); Triglycerides 48 mg/dL (30-150)
[2025-08-04 13:21] LABS: Ferritin 12 ng/mL (7.3-270.7); Iron 18 mcg/dL (50-170); Percent Iron Saturation 5 % (20-55); Total Iron Binding Capacity 326 mcg/dL (250-425); Unsaturated Iron Binding 308 (225-295)
== END | disposition home or self-care (01) ==
LOC: COPL 15:47
PROVIDERS: PCP Internal Medicine; Referring Provider Internal Medicine; Visit Provider Internal Medicine
DX: I10 Essential (primary) hypertension (principal); E87.6 Hypokalemia; D64.9 Anemia, unspecified
CPT/HCPCS: 36415; 80053; 80061; 82728; 83036; 83540; 83550; 83735; 85025

== ENCOUNTER 2025-08-10 13:56 | Outpatient (RCR) | payer OTHER, SELFPAY | END 2025-09-02 23:59 | disposition home or self-care (01) | LOC: SCTC 13:56 | PROVIDERS: PCP Internal Medicine; Referring Provider Internal Medicine; Visit Provider Nurse Practitioner Family | DX: D50.9 Iron deficiency anemia, unspecified (principal) | CPT/HCPCS: 99212; G0463 ==